=== PATIENT | female | born 1985 | race Caucasian/White ===

== ENCOUNTER 2017-07-08 08:14 | Emergency (ER) | payer OTHER, SELFPAY ==
[2017-07-08 08:15] VITALS: BP 127/106; PULSE 82; RESP 22; TEMP 36.4; O2SAT 99; BMI 39.6
--- NOTE | 2017-07-08 08:22 | CT_ITS ---
STUDY: CT ABDOMEN AND PELVIS WITHOUT CONTRAST REASON FOR EXAM: Female, 32 years old. Right flank pain. History of kidney stones. RADIATION DOSAGE (If Supplied By Facility): CTDIvol = ( 12.91 ) mGy, DLP = ( 651.36 ) mGycm TECHNIQUE: Transaxial images were obtained from the dome of the diaphragm to the symphysis pubis without oral contrast, and without intravenous contrast. Sagittal and coronal images were reconstructed. Individualized dose optimization techniques were used for this CT. COMPARISON: Comparison is made with prior study dated May 19, 2017. FINDINGS: Mild degree of increased markings at the lung bases suggestive of mild dependent bibasilar atelectasis. The visualized portions of the heart are within normal limits. Normal liver. Normal gallbladder and extrahepatic biliary system. Normal spleen. Normal pancreas. Normal bilateral adrenal glands. Stable small nonobstructive right intrarenal calculi. Mild degree of the right hydronephrosis and hydroureter due to a 2 mm calculus at the right ureterovesical junction. Stable small nonobstructive left intrarenal calculi. Normal visualized stomach. Normal small intestine. Normal colon. The appendix is visualized and appears normal. Normal abdominal aorta. Normal inferior vena cava. There is borderline retroperitoneal lymphadenopathy with enlarged nodes no greater than 10mm in the short axis diameter. Normal urinary bladder. Multiple calcified phleboliths are seen in the pelvis. The previously seen right adnexal cyst has resolved. Normal abdominal wall. Mild degenerative changes at the L5-S1 level. CT/Abdomen/Pelvis without Cont IMPRESSION: Right hydronephrosis and hydroureter due to a 2 mm calculus at the right ureterovesical junction. Stable nonobstructive bilateral intrarenal calculi. The previously seen right adnexal cyst has cleared. Electronically Signed: Jerson Trevino MD at 9:49 EST Tel [phone], Service support ,
[2017-07-08] MEDS: Ondansetron 4 MG/2 ML Vial IV (08:35)
[2017-07-08] MEDS: 0.9% Normal Saline 1,000 ML 250 ML IV (08:35)
--- NOTE | 2017-07-08 08:47 | ED.VISSUMM ---
- ER Visit Summary Date of Service: 07/08/17 Chief Complaint: [] Right flank pain for a week history of kidney stones chronic back pain pain management History of Present Illness: The patient is a 32 F [] reports 1 week of right flank pain she has no history of kidney stones, most recently left kidney stone 5 mm diagnosed about 4 weeks ago [facility] she was seen by her urologist in [place], ultrasound showed that kidney stone had passed the hydronephrosis had resolved, she had an recurrence of right flank pain 1 week ago no nausea no vomiting no fever no #6 paresthesias no bowel bladder complaints normal urinary and bowel habits. No trauma. Her urologist did not call her back and she came into the emergency department, she indicates her only surgery is her lumbar back surgery Physical Examination: [] Right flank head exams unremarkable lungs clear heart tones normal abdomen soft nontender the midline back is nontender there is a vague right flank pain. Is a healed incision lumbar back she has full range of motion of her lower extremities she indicates this is not related to her musculoskeletal lumbar back pain is chronic this is more related to prior kidney stone Test Results: [] Emergency Department Course and Treatment: [] Management for pain CT flank labs UA Are generally unremarkable, the CT flank shows a 2 mm stone at the UVJ see that report, explained all the above to her, she is feeling much better, she has an appointment see her urologist in [place] tomorrow she usually treated with Percocet when she has kidney stones, she was given 8 Percocet tablets Flomax Naprosyn and she will follow-up with her family physician for further management and her pain management doctor for further management all the above return for change in symptoms Treatment Plan: [] Disposition: [] Stable Impression: [] Right flank pain related to 2 mm right UVJ stone This note was generated with [employer] dictation software. It may contain incorrect words, spelling, and punctuation that were not noted in review of the chart prior to signing ED Disposition - Plan for ED Patient: Chief Complaint: Flank Pain Referrals: Kiel Vanegas [Primary Care Provider] -
[2017-07-08 08:49] LABS: Absolute Lymphocyte Count 1.95 X10^3/ul (0.83-4.51); Absolute Neutrophil Count 5.3 X10^3/uL (2.0-7.7); Basophil# 0.05 X10^3/uL; Basophil% 0.6 % (0-1); Eosinophil# 0.15 X10^3/uL; Eosinophils% 1.9 % (0-5); Hematocrit 38.3 % (37-47); Hemoglobin 12.7 g/dl (12.0-15.0); Lymphocyte # 1.95 X10^3/ul (4.0); Lymphocyte % 24.8 % (19-41); Mean Corp Hgb Conc 33.2 g/gl (32-36); Mean Corpuscular Hgb 30.5 pg (27.0-32.0); Mean Corpuscular Volume 91.8 fL (81-99); Mean Platelet Vol. 10.5 fl (6.2-12.0); Monocyte% 5.1 % (0-10); Neutrophil # 5.31 X10^3/uL (2.7-7.7); Neutrophil % 67.5 % (47-70); POSITIVE COUNT NO; POSITIVE DIFFERENTIAL NO; POSITIVE MORPHOLOGY NO; Platelet Count 231 K/mm3 (150-450); RBC Distribution Width SD 43.2 fl (35.1-43.9); Red Blood Count 4.17 M/mm3 (4.2-5.4); White Blood Count 7.9 K/mm3 (4.4-11.0)
[2017-07-08 09:00] LABS: Anion Gap 11 (5-15); BUN 11 mg/dL (7-18); Calcium,Total 9.2 mg/dL (8.5-10.1); Chloride 109 mmol/L (98-107); Creatinine, Serum 0.92 mg/dL (0.55-1.02); EST Glomerular Filtration Rate 76 mL/min (>60); Est Glom Filt Rate - Afr Amer 92 mL/min (>60); Estimated Creatinine Clearance 63.06 ml/min; Glucose 90 mg/dL (74-106); Potassium 4.2 mmol/L (3.5-5.1); Sodium Level 143 mmol/L (136-145)
[2017-07-08 09:23] LABS: Pregnancy, Serum, hCG Quali. NEGATIVE Negative (0-9 Nonpreg)
--- NOTE | 2017-07-08 10:27 | ED.DEP ---
ED Disposition - Plan for ED Patient: Chief Complaint: Flank Pain Instructions: ED Stone Renal W Colic Prescriptions: Oxycodone HCl/Acetaminophen [Percocet 5/325] 1 tab PO Q6H PRN PRN #8 tab PRN Reason: Pain Naproxen [Naprosyn] 500 mg PO BID PRN #20 tab Tamsulosin HCl [Flomax] 0.4 mg PO DAILY 14 Days cap Referrals: Kiel Vanegas [Primary Care Provider] - Additional Instructions: Your urologist tomorrow
[2017-07-08 10:39] LABS: Mucous, Urine 0 SEEN /hpf (<or=2+); Red Blood Cells-Urine 0 SEEN /hpf (0-5)
[2017-07-08 10:40] LABS: Color, Urine Yellow (Yellow); Glucose, Dipstick Normal (Normal); Ketone-Dipstick Negative (Negative); Leukocyte Esterase-Dipstick Negative /ul (Negative); Nitrite-Dipstick Negative (Negative); Occult Blood-Urine 25 /ul (Negative); Protein-Dipstick Negative (Negative); Urine Bilirubin Dipstick Negative (Negative); Urine Clarity Clear (Clear); Urine Urobilinogen Normal (Normal)
[2017-07-08 10:48] LABS: Bacteria RARE /hpf (None Seen); Squamous Epithelial Cells - UA 0-5 SEEN /hpf (5-10); White Blood Cells 0-5 SEEN /hpf (0-5)
[2017-07-08 11:07] VITALS: BP 127/88; PULSE 84; RESP 20; O2SAT 97
[2017-07-08 11:48] VITALS: BP 127/64; PULSE 67; RESP 18; O2SAT 96
== END 2017-07-08 11:49 | disposition home or self-care (01) ==
PROVIDERS: Emergency Provider Emergency Medicine; Family Provider Internal Medicine; PCP Internal Medicine
DX: R10.9 Unspecified abdominal pain (principal); N13.2 Hydronephrosis with renal and ureteral calculous obstruction; M54.9 Dorsalgia, unspecified; G89.29 Other chronic pain; Z79.899 Other long term (current) drug therapy; Z87.442 Personal history of urinary calculi
CPT/HCPCS: 74176; 80048; 81001; 84703; 85025; 96361; 96374; 96375; 99285; J7030; J2405

== ENCOUNTER → 2017-09-08 15:16 | Outpatient (CLI) | payer OTHER, SELFPAY ==
--- NOTE | 2017-09-08 15:20 | MRI_ITS ---
STUDY: MRI LUMBAR SPINE WITHOUT CONTRAST REASON FOR EXAM: Female, 32 years old. Low back pain with bilateral sciatica status post laminectomy and discectomy TECHNIQUE: Standardized fat and water weighted pulse sequences were obtained in the sagittal and axial planes. COMPARISON: None FINDINGS: T12-L1: Normal endplates. Normal disc height, hydration and morphology. Normal bilateral facet joints. Normal central canal and bilateral lateral recesses. Normal bilateral intervertebral neural foramina. Normal lumbar lordosis. There is no substantial scoliosis. Normal conus medullaris that terminates at L1 L1-2: Normal endplates. Normal disc height, hydration and minimal annular bulge.. Normal bilateral facet joints. Normal central canal and bilateral lateral recesses. Normal bilateral intervertebral neural foramina. L2-3: Normal endplates. Normal disc height, hydration and minimal annular bulge. Normal bilateral facet joints. Normal central canal and bilateral lateral recesses. Normal bilateral intervertebral neural foramina. L3-4: Normal endplates. Normal disc height, hydration and minimal annular bulge.. Normal bilateral facet joints. Normal central canal and bilateral lateral recesses. Normal bilateral intervertebral neural foramina. L4-5: Status post right laminotomy Normal endplates. Normal disc height, hydration and mild annular bulge.. Mild facet arthropathy and thickening of ligamenta flava.. Normal central canal. Mild bilateral recess and neural foraminal encroachment. L5-S1: Status post right laminotomy. Degenerative endplate changes.. Normal disc height, desiccation and moderate annular bulge.. Bilateral facet arthropathy. Normal central canal. Moderate to severe bilateral recess and neuroforaminal stenosis exaggerated by shortened pedicles. Normal visualized sacral ala. Normal visualized paraspinous soft tissue structures. MRI/Spine Lumbar (Routine) IMPRESSION: Mild spinal stenosis at L4-5 and more severe bilateral stenosis at L5-S1 secondary to bulging annulus and facet arthropathy exaggerated by shortened pedicles. Findings as above Electronically Signed: Luis Young MD at 17:14 EDT , Service support ,
== END ==
PROVIDERS: Family Provider Nurse Practitioner Family; PCP Nurse Practitioner Family; Visit Provider Anesthesiology Pain Medicine
DX: M54.9 Dorsalgia, unspecified (principal); M79.606 Pain in leg, unspecified
CPT/HCPCS: 72148

== ENCOUNTER → 2018-01-06 17:00 | Outpatient (CLI) | payer OTHER, SELFPAY ==
[2018-01-06 20:24] LABS: Amphetamine Urine VISTA NEGATIVE (<1000 ng/mL); Barbiturate Urine VISTA NEGATIVE (< 200 ng/mL); Benzodiazepine Urine VISTA NEGATIVE (< 200 ng/mL); Cocaine Urine VISTA NEGATIVE (< 300 ng/mL); Ecstacy Urine VISTA NEGATIVE (< 500 ng/mL); Methadone Urine VISTA NEGATIVE (< 300 ng/mL); PCP Urine VISTA NEGATIVE (< 25 ng/mL); THC Urine VISTA NEGATIVE (< 50 ng/mL); Vista UDS pH Range 5
== END ==
PROVIDERS: Family Provider Nurse Practitioner Family; PCP Nurse Practitioner Family; Visit Provider Anesthesiology Pain Medicine
DX: F11.20 Opioid dependence, uncomplicated (principal)
CPT/HCPCS: 80307

== ENCOUNTER → 2018-01-25 14:59 | Outpatient (CLI) | payer OTHER, SELFPAY | PROVIDERS: Family Provider Nurse Practitioner Family; PCP Nurse Practitioner Family; Visit Provider Orthopaedic Surgery | DX: M54.5 Low back pain (principal) | CPT/HCPCS: 72110 ==

== ENCOUNTER 2018-03-10 11:04 | Emergency (ER) | payer OTHER, SELFPAY ==
[2018-03-10 11:06] VITALS: BP 146/94; PULSE 83; RESP 18; TEMP 36.2; O2SAT 96; BMI 40.8
--- NOTE | 2018-03-10 11:52 | CT_ITS ---
STUDY: CT ABDOMEN AND PELVIS WITHOUT CONTRAST REASON FOR EXAM: Female, 32 years old. RT FLANK PAIN X 3 DAYS,DARK URINE, GERD, HX-KS, HYSTER, X 3 RADIATION DOSAGE (If Supplied By Facility): CTDIvol = ( 15.07 ) mGy, DLP = ( 782.96 ) mGycm TECHNIQUE: Transaxial images were obtained from the dome of the diaphragm to the symphysis pubis without oral contrast, and without intravenous contrast. Sagittal and coronal images were reconstructed. Individualized dose optimization techniques were used for this CT. COMPARISON: July 08, 2017 CT abdomen and pelvis FINDINGS: Minimal dependent hypoventilatory changes seen at the lung bases. No pleural effusion. The visualized portions of the heart are within normal limits. Normal liver. Normal gallbladder and extrahepatic biliary system. Normal spleen. Normal pancreas. Normal bilateral adrenal glands. Punctate nephrolithiasis is noted of the kidneys bilaterally. The kidneys are normal in size position and contour. There does however appear moderate hydronephrosis and distention of the right proximal ureter with an obstructing calculus measuring approximately 4.5 x 4 mm as seen on image number 93 series 189. Normal left kidney. Normal visualized stomach. Normal small intestine. Normal colon. The appendix is visualized and appears normal. Normal abdominal aorta. Normal inferior vena cava. Normal retroperitoneum. Normal urinary bladder. Multiple phleboliths are present in the deep pelvis. Normal abdominal wall. Degenerative spondylosis of the spine is noted with vacuum disc phenomenon at L5-S1. CT/Abdomen/Pelvis without Cont IMPRESSION: Bilateral nephrolithiasis with obstructing calculus measuring approximately 4.5 x 4 mm in the proximal right ureteropelvic junction. Previous distal right ureterovesical junction calculus no longer present. Electronically Signed: Myriam Gonzalez MD at 13:31 EDT , Service support ,
[2018-03-10 12:12] LABS: White Blood Cells 0 SEEN /hpf (0-5)
[2018-03-10 12:15] LABS: Color, Urine Yellow (Yellow); Glucose, Dipstick Normal (Normal); Ketone-Dipstick Negative (Negative); Leukocyte Esterase-Dipstick Negative /ul (Negative); Nitrite-Dipstick Negative (Negative); Occult Blood-Urine 250 /ul (Negative); Protein-Dipstick 30 mg/dl (Negative); Specific Gravity, Urine 1.015 (1.002-1.030); Urine Bilirubin Dipstick Negative (Negative); Urine Clarity Clear (Clear); Urine Urobilinogen Normal (Normal)
[2018-03-10 12:21] LABS: Bacteria 2+ /hpf (None Seen); Mucous, Urine 2+ /hpf (<or=2+); Red Blood Cells-Urine 5-10 SEEN /hpf (0-5); Squamous Epithelial Cells - UA 5-10 SEEN /hpf (5-10)
[2018-03-10] MEDS: 0.9% Normal Saline 1,000 ML 250 ML IV (12:38)
[2018-03-10] MEDS: Ketorolac 30 MG/ML Syringe IV (12:39)
[2018-03-10] MEDS: Morphine 4 MG/ML Syringe IV (12:39)
[2018-03-10] MEDS: Ondansetron 4 MG/2 ML Vial IV (12:39)
[2018-03-10 13:31] LABS: Anion Gap 5 (5-15); BUN 11 mg/dL (7-18); BUN/Creat Ratio 13.9 RATIO (10-20); Calcium,Total 8.4 mg/dL (8.5-10.1); Chloride 113 mmol/L (98-107); Creatinine, Serum 0.79 mg/dL (0.55-1.02); EST Glomerular Filtration Rate 89 mL/min (>60); Est Glom Filt Rate - Afr Amer 108 mL/min (>60); Estimated Creatinine Clearance 73.43 ml/min; Glucose 71 mg/dL (74-106); Potassium 4.3 mmol/L (3.5-5.1); Sodium Level 134 mmol/L (136-145)
[2018-03-10 13:39] VITALS: BP 114/81; PULSE 67; RESP 16; O2SAT 100
--- NOTE | 2018-03-10 13:40 | ED.RN ---
called lab, multiple RNs and Medics have attempted blood draw
[2018-03-10 14:12] LABS: Absolute Lymphocyte Count 2.32 X10^3/ul (0.83-4.51); Absolute Neutrophil Count 6.9 X10^3/uL (2.0-7.7); Basophil# 0.08 X10^3/uL; Basophil% 0.8 % (0-1); Eosinophil# 0.13 X10^3/uL; Eosinophils% 1.3 % (0-5); Hematocrit 38.1 % (37-47); Hemoglobin 12.8 g/dl (12.0-15.0); Lymphocyte # 2.32 X10^3/ul (4.0); Lymphocyte % 23.2 % (19-41); Mean Corp Hgb Conc 33.6 g/gl (32-36); Mean Corpuscular Hgb 30.3 pg (27.0-32.0); Mean Corpuscular Volume 90.1 fL (81-99); Monocyte# 0.55 X10^3/uL; Monocyte% 5.5 % (0-10); Neutrophil # 6.87 X10^3/uL (2.7-7.7); Neutrophil % 68.9 % (47-70); Platelet Count 227 K/mm3 (150-450); Red Blood Count 4.23 M/mm3 (4.2-5.4)
[2018-03-10 14:13] LABS: Differential Indicated SCAN CRITERIA MET; POSITIVE COUNT YES; POSITIVE DIFFERENTIAL NO; POSITIVE MORPHOLOGY YES
--- NOTE | 2018-03-10 15:05 | ED.VISSUMM ---
- ER Visit Summary Date of Service: 03/10/18 Chief Complaint: Right flank pain History of Present Illness: The patient is a 32 F who presents with right flank pain for 3 days. Patient states that it was just in her back and has now seemed to be wrapping around to the front. He has a history of kidney stones and states this feels very similar and that is sharp and stabbing. She notes some associated nausea but no vomiting. She also notes some dysuria and urinary frequency. She sees a urologist in [place] but has not required any interval surgical intervention for her kidney stones. Physical Examination: Afebrile vital signs are stable Gen: Well-nourished well-developed patient appears uncomfortable sitting in the bed Head: Normocephalic atraumatic Eyes: Perrl EOMI ENT: TMs clear no rhinorrhea moist mucous membranes Neck: Supple no lymphadenopathy no JVD nontender CVS: Regular rate rhythm no murmurs normal S1-S2 Respiratory: No distress clear to auscultation bilaterally chest nontender Abdomen: Soft nontender nondistended normal bowel sounds no masses Back: Mild right CVA tenderness Extremity: Nontender no edema Skin: Normal color no rash Neuro: alert orientated ?3 CN II-XII intact normal strength sensation reflexes gait cerebellar Psych: Normal affect normal mood Test Results: Urine showed some contamination with epithelial cells but no overt infection. CT the flank demonstrated a 4.5 x 4 mm UPJ stone. Creatinine normal. P Emergency Department Course and Treatment: Patient received Toradol morphine Zofran and IV fluids. Her pain is significantly improved. She tells me she has had excellent relief with Percocet in the past and I will write for that as well as some Zofran. Return if worsening or concerns and follow-up with her urologist Impression: 1. Right ureterolithiasis with renal colic This note was generated with [employer] dictation software. It may contain incorrect words, spelling, and punctuation that were not noted in review of the chart prior to signing ED Disposition - Plan for ED Patient: Disposition: Home or Assisted Living Chief Complaint: Flank Pain Instructions: ED Stone Renal W Colic Prescriptions: Oxycodone HCl/Acetaminophen [Percocet 5/325] 1 tab PO Q6H PRN PRN 3 Days #12 tab PRN Reason: Pain Ondansetron [Zofran Odt] 4 mg PO Q8H PRN PRN #10 tab PRN Reason: Nausea
== END 2018-03-10 15:15 | disposition home or self-care (01) ==
PROVIDERS: Emergency Provider Emergency Medicine; Family Provider Nurse Practitioner Family; PCP Nurse Practitioner Family
DX: N20.1 Calculus of ureter (principal); Z79.899 Other long term (current) drug therapy; Z87.442 Personal history of urinary calculi
CPT/HCPCS: 36415; 74176; 80048; 81001; 85025; 96361; 96374; 96375; 99285; J7030; J2405

== ENCOUNTER 2018-04-04 10:23 | Emergency (ER) | payer OTHER, SELFPAY ==
[2018-04-04 10:24] VITALS: BP 157/110; PULSE 91; RESP 15; TEMP 36.2; BMI 40.6
--- NOTE | 2018-04-04 10:50 | CT_ITS ---
STUDY: CT ABDOMEN AND PELVIS WITHOUT CONTRAST REASON FOR EXAM: Female, 32 years old. Right flank pain RADIATION DOSAGE (If Supplied By Facility): CTDIvol = ( 13.72 ) mGy, DLP = ( 655.93 ) mGycm TECHNIQUE: Transaxial images were obtained from the dome of the diaphragm to the symphysis pubis without oral contrast, and without intravenous contrast. Sagittal and coronal images were reconstructed. Individualized dose optimization techniques were used for this CT. COMPARISON: 03/10/2018 FINDINGS: The visualized lung bases are unremarkable. The visualized portions of the heart are within normal limits. Normal liver. Normal gallbladder and extrahepatic biliary system. Normal spleen. Normal pancreas. Normal bilateral adrenal glands. A 5 mm stone is present in the distal right ureter at the level of the ureterovesical junction. Changes of moderate acute obstructive uropathy on the right. The visualized obstructing stone has likely migrated from the more proximal ureter as seen on most recent study. Bilateral nonobstructing renal stones measuring up to 3 mm. Normal visualized stomach. Normal small intestine. Normal colon. The appendix is visualized and appears normal. Normal abdominal aorta. Normal inferior vena cava. Normal retroperitoneum. Normal urinary bladder. Normal abdominal wall. Normal osseous structures. CT/Abdomen/Pelvis without Cont IMPRESSION: A 5 mm stone is present in the distal right ureter at the level of the ureterovesical junction. Changes of moderate acute obstructive uropathy on the right. The visualized obstructing stone has likely migrated from the more proximal ureter as seen on most recent study. Electronically Signed: Bronson Walden MD at 12:48 EST Tel , Service support ,
[2018-04-04] MEDS: Morphine 4 MG/ML Syringe IV (10:59)
[2018-04-04] MEDS: Ondansetron 4 MG/2 ML Vial IV (10:59)
[2018-04-04] MEDS: 0.9% Normal Saline 1,000 ML 250 ML IV (10:59)
[2018-04-04] MEDS: Ketorolac 30 MG/ML Syringe IV (10:59)
[2018-04-04 11:31] LABS: Pregnancy, Serum, hCG Quali. NEGATIVE Negative (0-9 Nonpreg)
[2018-04-04 13:49] LABS: Mucous, Urine 0 SEEN /hpf (<or=2+); Red Blood Cells-Urine 0 SEEN /hpf (0-5)
[2018-04-04 13:50] LABS: Color, Urine Yellow (Yellow); Glucose, Dipstick Normal (Normal); Ketone-Dipstick Negative (Negative); Leukocyte Esterase-Dipstick 25 /ul (Negative); Nitrite-Dipstick Negative (Negative); Occult Blood-Urine 50 /ul (Negative); Protein-Dipstick Negative (Negative); Urine Bilirubin Dipstick Negative (Negative); Urine Clarity Sl. Cloudy (Clear); Urine Urobilinogen Normal (Normal)
[2018-04-04 13:58] LABS: Bacteria RARE /hpf (None Seen); Squamous Epithelial Cells - UA 0-5 SEEN /hpf (5-10); White Blood Cells 0-5 SEEN /hpf (0-5)
--- NOTE | 2018-04-04 14:29 | ED.DCSUM_ITS ---
- ER Visit Summary Date of Service: 04/04/18 Chief Complaint: Right flank pain History of Present Illness: The patient is a 32 F who sees a urologist in [place]. She reports she has right flank pain that began abruptly today. Is 10 out of 10 severity and she describes it as a sharp. She has been nauseated with it. She has not vomited. She had frequent urination with small volumes. She denies any fever or chills. Physical Examination: Vitals: Stable. Afebrile. General: Well-nourished and well-developed. Head: Normocephalic atraumatic. Neck: Supple, no lymphadenopathy. No JVD. Nontender. Cardiovascular: Regular rate and rhythm. No murmurs. Respiratory: No respiratory distress. Clear to auscultation bilaterally. Abdominal: Soft, nontender, nondistended, normal bowel sounds. No guarding, rebound, or peritoneal signs. Back: Nontender. Extremities: Nontender, no edema. Skin: Normal color, no rash. Neurologic: Alert and oriented ?3. Cranial nerves II through XII are intact. Normal strength and sensation. Psych: Normal affect. Test Results: UA shows no infection. CT flank shows a 5 mm stone in the right distal ureter at the UVJ. Emergency Department Course and Treatment: Patient was treated with morphine, Toradol, and Zofran IV. She is resting comfortably. Treatment Plan: Patient be discharged naproxen, Zofran, and Percocet. Instructed to follow-up with her urologist in 1 week if she does not pass the stone. Return to the emergency department for any worsening symptoms. Disposition: To home in improved and stable condition. Impression: 1. Right ureterolithiasis. This note was generated with [employer] dictation software. It may contain incorrect words, spelling, and punctuation that were not noted in review of the chart prior to signing ED Disposition - Plan for ED Patient: Disposition: Home or Assisted Living Chief Complaint: Flank Pain Instructions: ED Stone Renal W Colic Prescriptions: Oxycodone HCl/Acetaminophen [Percocet 5/325] 1 tablet PO Q6H PRN PRN 3 Days #12 tablet PRN Reason: Pain Ondansetron [Zofran Odt] 4 mg PO Q8H PRN PRN #10 tablet PRN Reason: Nausea Naproxen [Naprosyn] 500 mg PO BID #14 tablet Referrals: Doctor,Your [STAFF PHYSICIAN] - 1 Week if not improving
[2018-04-04 14:48] VITALS: BP 119/78; PULSE 62; RESP 16; O2SAT 100
== END 2018-04-04 14:49 | disposition home or self-care (01) ==
LOC: ED 11:11
PROVIDERS: Emergency Provider Emergency Medicine; Family Provider Nurse Practitioner Family; PCP Nurse Practitioner Family
DX: N20.1 Calculus of ureter (principal); E03.9 Hypothyroidism, unspecified; F41.9 Anxiety disorder, unspecified; Z72.0 Tobacco use; Z79.899 Other long term (current) drug therapy; Z87.442 Personal history of urinary calculi
CPT/HCPCS: 74176; 81001; 84703; 96361; 96374; 96375; 99283; J7030; J2405

== ENCOUNTER → 2018-09-08 16:32 | Outpatient (CLI) | payer OTHER, SELFPAY ==
[2018-09-08 16:32] VITALS: BMI 39.6
[2018-09-08 18:09] LABS: Amphetamine Urine VISTA NEGATIVE (<1000 ng/mL); Barbiturate Urine VISTA NEGATIVE (< 200 ng/mL); Benzodiazepine Urine VISTA NEGATIVE (< 200 ng/mL); Cocaine Urine VISTA NEGATIVE (< 300 ng/mL); Ecstacy Urine VISTA NEGATIVE (< 500 ng/mL); Methadone Urine VISTA NEGATIVE (< 300 ng/mL); PCP Urine VISTA NEGATIVE (< 25 ng/mL); THC Urine VISTA NEGATIVE (< 50 ng/mL); Vista UDS pH Range 5
== END ==
PROVIDERS: Family Provider Nurse Practitioner Family; PCP Nurse Practitioner Family; Referring Provider Anesthesiology Pain Medicine; Visit Provider Anesthesiology Pain Medicine
DX: F11.20 Opioid dependence, uncomplicated (principal)
CPT/HCPCS: 80307

== ENCOUNTER 2018-09-23 11:15 | Emergency (ER) | payer OTHER, SELFPAY ==
[2018-09-08 16:32] VITALS: BMI 39.6
[2018-09-23 11:17] VITALS: BP 151/87; PULSE 108; RESP 16; TEMP 37; O2SAT 100; BMI 34.2
--- NOTE | 2018-09-23 11:32 | CT_ITS ---
STUDY: CT ABDOMEN AND PELVIS WITHOUT CONTRAST REASON FOR EXAM: Female, 33 years old. Right flank pain. RADIATION DOSAGE (If Supplied By Facility): CTDIvol = ( 14.87 ) mGy, DLP = ( 802.44 ) mGycm TECHNIQUE: Transaxial images were obtained from the dome of the diaphragm to the symphysis pubis without oral contrast, and without intravenous contrast. Sagittal and coronal images were reconstructed. Individualized dose optimization techniques were used for this CT. COMPARISON: April 04, 2018. FINDINGS: Lung bases: Mild dependent changes. Heart: Unremarkable. Liver: Hepatic steatosis. No focal hepatic lesions given noncontrast technique. Gallbladder/biliary ducts: Unremarkable. Pancreas: Unremarkable. Spleen: Unremarkable. Adrenal glands: Unremarkable. Kidneys/ureters/bladder: Mild right hydroureteronephrosis without visualized ureteral or bladder stone. Nondistended left ureter. Bilateral punctate nonobstructing renal stones measuring up to 3 mm (axial images 62 through 82 series 2). No significant inflammatory changes surrounding the kidneys. Minimal right periureteral fat stranding. Normal urinary bladder wall. Uterus/adnexa: Multiple pelvic phleboliths. Partial hysterectomy. No adnexal lesions. Large bowel/small bowel: No acute small bowel or large bowel process. Appendix: Unremarkable (axial image 134 series 2). Gastroesophageal junction/stomach: Unremarkable. Retroperitoneum/lymph nodes: No intra-abdominal free air. No ascites. No pathologically enlarged lymph nodes. Vascular: Unremarkable. Osseous structures: L5-S1 degenerative changes with significant neural foraminal narrowing. No acute process. Subcutaneous/soft tissues: No acute process. CT/Abdomen/Pelvis without Cont IMPRESSION: Mild right hydroureteronephrosis and mild periureteral inflammatory changes without visualized ureteral or bladder stone (possibly recently passed stone versus UTI; correlate urinalysis) Additional bilateral nonobstructing renal stones measuring up to 3 mm Hepatic steatosis Electronically Signed: Donald Roldan DO at 12:49 EDT Tel , Service support ,
[2018-09-23] MEDS: Ketorolac 30 MG/ML Syringe IV (12:12)
[2018-09-23] MEDS: Ondansetron 4 MG/2 ML Vial IV (12:12)
[2018-09-23 12:13] LABS: Mucous, Urine 0 SEEN /hpf (<or=2+)
[2018-09-23] MEDS: 0.9% Normal Saline 1,000 ML 150 ML IV (12:13)
[2018-09-23] MEDS: 0.9% Normal Saline 1,000 ML 1000 ML IV (12:13)
[2018-09-23 12:16] LABS: Color, Urine Yellow (Yellow); Glucose, Dipstick Normal (Normal); Ketone-Dipstick Negative (Negative); Leukocyte Esterase-Dipstick 500 /ul (Negative); Nitrite-Dipstick Positive (Negative); Occult Blood-Urine 250 /ul (Negative); Protein-Dipstick 100 mg/dl (Negative); Specific Gravity, Urine 1.015 (1.002-1.030); Urine Bilirubin Dipstick Negative (Negative); Urine Clarity Cloudy (Clear); Urine Urobilinogen Normal (Normal)
[2018-09-23 12:19] LABS: Absolute Lymphocyte Count 1.02 X10^3/ul (0.83-4.51); Absolute Neutrophil Count 7.4 X10^3/uL (2.0-7.7); Basophil# 0.02 X10^3/uL; Basophil% 0.2 % (0-1); Eosinophil# 0.05 X10^3/uL; Eosinophils% 0.6 % (0-5); Hematocrit 37.1 % (37-47); Hemoglobin 12.1 g/dl (12.0-15.0); Lymphocyte # 1.02 X10^3/ul (4.0); Lymphocyte % 11.3 % (19-41); Mean Corp Hgb Conc 32.6 g/gl (32-36); Mean Corpuscular Hgb 29.1 pg (27.0-32.0); Mean Corpuscular Volume 89.2 fL (81-99); Mean Platelet Vol. 10.1 fl (6.2-12.0); Monocyte# 0.49 X10^3/uL; Monocyte% 5.4 % (0-10); Neutrophil # 7.41 X10^3/uL (2.7-7.7); Neutrophil % 82.2 % (47-70); Platelet Count 158 K/mm3 (150-450); RBC Distribution Width CV 13.3 % (11.6-14.6); RBC Distribution Width SD 42.7 fl (35.1-43.9); Red Blood Count 4.16 M/mm3 (4.2-5.4)
[2018-09-23 12:26] LABS: POSITIVE COUNT NO; POSITIVE DIFFERENTIAL NO; POSITIVE MORPHOLOGY NO
[2018-09-23 12:27] LABS: Anion Gap 7 (5-15); BUN 12 mg/dL (7-18); BUN/Creat Ratio 14.2 RATIO (10-20); Calcium,Total 8.8 mg/dL (8.5-10.1); Chloride 110 mmol/L (98-107); Creatinine, Serum 0.84 mg/dL (0.55-1.02); EST Glomerular Filtration Rate 83 mL/min (>60); Est Glom Filt Rate - Afr Amer 100 mL/min (>60); Estimated Creatinine Clearance 85.72 ml/min; Glucose 88 mg/dL (74-106); Potassium 3.7 mmol/L (3.5-5.1); Sodium Level 141 mmol/L (136-145)
[2018-09-23 12:29] LABS: White Blood Cells >100 SEEN /hpf (0-5)
[2018-09-23 12:30] LABS: Bacteria 4+ /hpf (None Seen); Red Blood Cells-Urine 0-5 SEEN /hpf (0-5); Squamous Epithelial Cells - UA 0-5 SEEN /hpf (5-10)
--- NOTE | 2018-09-23 13:47 | ED.DCSUM_ITS ---
- ER Visit Summary Date of Service: 09/23/18 Chief Complaint: Right flank pain History of Present Illness: The patient is a 33 F with dysuria for the past couple of days. She states her urine is cloudy. Today she developed right flank pain. She does have a history of kidney stones. She has had prior hys terectomy. Physical Examination: Vital signs remarkable only for mild tachycardia. Temperature is 98.6. Head and neck examination is normal. Heart is regular rate and rhythm. Lung sounds are clear. Abdomen is soft with no focal tenderness. Back examination does reveal right CVA tenderness. Test Results: CBC and chemistry studies are normal. Urinalysis is positive for nitrites, greater than 100 white cells, 4+ bacteria. CT flank shows mild right hydroureteronephrosis with inflammatory changes. There is no visualized stone. Emergency Department Course and Treatment: Patient was given Toradol, Zofran, and IV fluids. On repeat evaluation she is resting comfortably. She will be treated with a 10-day course of Bactrim. Urine will be sent for culture. Treatment Plan: [] Disposition: Discharge Impression: Right-sided pyelonephritis This note was generated with [employer] dictation software. It may contain incorrect words, spelling, and punctuation that were not noted in review of the chart prior to signing ED Disposition - Plan for ED Patient: Disposition: Home or Assisted Living Instructions: ED Kidney Infec Female Prescriptions: Ondansetron [Zofran Odt] 4 mg PO Q8H PRN PRN #10 tablet PRN Reason: Nausea Fluconazole [Diflucan] 150 mg PO X1 #1 tablet Smz/Tmp Ds [Bactrim Ds] 1 tablet PO BID #20 tablet Ketorolac [Toradol] 10 mg PO Q6H PRN #14 tablet PRN Reason: Pain Referrals: Elinor Castellanos, EDUIN-C [Primary Care Provider] - 1 Week
[2018-09-23 13:50] VITALS: BP 163/93; PULSE 99; RESP 20; O2SAT 100
[2018-09-23] MEDS: Smz/Tmp Ds Tablet 1 TABLET PO (13:50)
== END 2018-09-23 14:03 | disposition home or self-care (01) ==
PROVIDERS: Emergency Provider Emergency Medicine; Family Provider Nurse Practitioner Family; PCP Nurse Practitioner Family
DX: N13.6 Pyonephrosis (principal); R00.0 Tachycardia, unspecified; Z72.0 Tobacco use; Z87.442 Personal history of urinary calculi; Z90.710 Acquired absence of both cervix and uterus
CPT/HCPCS: 74176; 80048; 81001; 85025; 87077; 87086; 87088; 87186; 96361; 96374; 96375; 99284; J7030; J2405

== ENCOUNTER 2018-10-23 09:55 | Emergency (ER) | payer OTHER, SELFPAY ==
[2018-10-23 09:55] VITALS: BP 121/75; PULSE 86; RESP 19; TEMP 36.4; O2SAT 99; BMI 38.5
--- NOTE | 2018-10-23 10:07 | ED.VISSUMM ---
- ER Visit Summary Date of Service: 10/23/18 Chief Complaint: Vaginal irritation, dysuria History of Present Illness: The patient is a 33 F presents to the emergency department vaginal irritation and dysuria. The patient does have a history of recurrent urine tract infection and pyelonephritis. She was actually seen here just about a month ago. At that time, she was diagnosed with pyelonephritis. Patient was placed on Bactrim. She was still having symptoms and follow-up with the PCP. She was started on Keflex and finished a 7-day course. She completed the 7 days ago. Her course was complicated by yeast vaginitis. She was given a Diflucan and that seemed to help. However, over the past 2 days she has had some burning with urination and almost feels like spasm at her urethra. She denies fevers. She denies back pain. She denies any other systemic complaints. Physical Examination: Vital signs reviewed General: Well-nourished, well-developed Head: Normocephalic, atraumatic Eyes: Pupils equal and reactive, extraocular muscles intact Neck, supple, no lymphadenopathy Heart: Regular rate and rhythm Respiratory: No distress, clear bilaterally Abdomen: Soft, nontender, nondistended, no peritoneal signs Back: Nontender Extremities: Nontender, no edema, no cords Skin: Normal color no rash Neuro: Alert and oriented, no focal or lateralizing deficits Test Results: [] Emergency Department Course and Treatment: The patient was able to urinate without issue. However, it appears that she did pass a stone in her urine cup. Urine does not show evidence of infection. There was a lot of blood. I did do a supervised genital exam with female nurse drying unit felting machine operator. There is no irritation, edema, discharge, or bleeding. My suspicion is that the patient's pain was likely from passing a stone. She is now pain-free. I do not see indication for antibiotics. She will be discharged home. Treatment Plan: [] Disposition: Discharge Impression: 1. Urolithiasis-past This note was generated with [employer] dictation software. It may contain incorrect words, spelling, and punctuation that were not noted in review of the chart prior to signing ED Disposition - Plan for ED Patient: Disposition: Home or Assisted Living Instructions: ED Stone Renal Passed Referrals: Elinor Castellanos NP-C [Primary Care Provider] -
[2018-10-23 10:20] LABS: Bacteria 0 SEEN /hpf (None Seen)
[2018-10-23 10:26] LABS: Internal QC Validated? YES +Cl - CLEAR BKGD; Pregnancy, Urine Negative Negative
[2018-10-23 10:28] LABS: Color, Urine Yellow (Yellow); Glucose, Dipstick Normal (Normal); Ketone-Dipstick 5 mg/dl (Negative); Leukocyte Esterase-Dipstick 100 /ul (Negative); Nitrite-Dipstick Negative (Negative); Occult Blood-Urine 250 /ul (Negative); Protein-Dipstick 30 mg/dl (Negative); Specific Gravity, Urine 1.025 (1.002-1.030); Urine Bilirubin Dipstick Negative (Negative); Urine Clarity Sl. Cloudy (Clear); Urine Urobilinogen 1 mg/dl (Normal)
[2018-10-23 10:33] LABS: Mucous, Urine 2+ /hpf (<or=2+); Red Blood Cells-Urine 50-100 SEEN /hpf (0-5); Squamous Epithelial Cells - UA 0-5 SEEN /hpf (5-10); White Blood Cells 0-5 SEEN /hpf (0-5)
== END 2018-10-23 10:48 | disposition home or self-care (01) ==
LOC: ED 10:21
PROVIDERS: Emergency Provider Emergency Medicine; Family Provider Nurse Practitioner Family; PCP Nurse Practitioner Family
DX: N20.9 Urinary calculus, unspecified (principal); K21.9 Gastro-esophageal reflux disease without esophagitis; F41.9 Anxiety disorder, unspecified; Z72.0 Tobacco use; Z79.899 Other long term (current) drug therapy; Z87.440 Personal history of urinary (tract) infections
CPT/HCPCS: 81001; 81025; 99282

== ENCOUNTER 2018-11-22 17:18 | Emergency (ER) | payer OTHER, SELFPAY ==
[2018-11-22 17:19] VITALS: BP 121/82; PULSE 89; RESP 17; TEMP 36.3; O2SAT 97; BMI 37.2
--- NOTE | 2018-11-22 17:49 | ED.DEP ---
ED Disposition - Plan for ED Patient: Instructions: DERMATITIS, Non-Specific Prescriptions: Prednisone [Deltasone] 40 mg PO DAILY #10 tablet Referrals: Elinor Castellanos NP-C [Primary Care Provider] -
--- NOTE | 2018-11-22 17:58 | ED.VISSUMM ---
- ER Visit Summary Date of Service: 11/22/18 Chief Complaint: Rash History of Present Illness: The patient is a 33 F presenting with rash. She states this started approximately a week ago. She does not recall any known new irritants. She complains of itching bilateral forearms. She has tried hydrocortisone cream at home. She was outside before this started. No one in her household has similar complaints. She denies fever. Denies other complaints. Physical Examination: Vitals are stable. Patient is afebrile. Alert no acute distress. HEENT exam is unremarkable. No mucous membrane involvement Neck is supple. Lungs are clear and equal bilaterally. Heart is regular rate and rhythm. Extremities maculopapular rash volar aspect of bilateral forearms. Skin is warm and dry. No focal neurologic deficit. Remainder of exam is unremarkable. Emergency Department Course and Treatment: Patient was given prednisone and a short course of prednisone. She is advised to take Benadryl for itching. She is advised to follow up with her primary care physician. Advised signs and symptoms for which to return to the ED. Disposition: Discharge home Impression: Contact dermatitis This note was generated with [employer] dictation software. It may contain incorrect words, spelling, and punctuation that were not noted in review of the chart prior to signing ED Disposition - Plan for ED Patient: Instructions: DERMATITIS, Non-Specific Prescriptions: Prednisone [Deltasone] 40 mg PO DAILY #10 tab Prescription Printed Referrals: Elinor Castellanos NP-C [Primary Care Provider] -
[2018-11-22] MEDS: predniSONE 20 MG Tablet 60 MG PO (18:10)
== END 2018-11-22 18:12 | disposition home or self-care (01) ==
PROVIDERS: Emergency Provider Emergency Medicine; Family Provider Nurse Practitioner Family; PCP Nurse Practitioner Family
DX: L25.9 Unspecified contact dermatitis, unspecified cause (principal); Z79.899 Other long term (current) drug therapy; Z72.0 Tobacco use
CPT/HCPCS: 99283

== ENCOUNTER 2018-11-28 13:36 | Emergency (ER) | payer OTHER, SELFPAY ==
[2018-11-28 13:38] VITALS: BP 131/86; PULSE 88; RESP 18; TEMP 36.5; O2SAT 95; BMI 35.6
--- NOTE | 2018-11-28 13:50 | EKG12_ITS ---
Test Reason : SOB Blood Pressure : / mmHG Vent. Rate : 072 BPM Atrial Rate : 072 BPM P-R Int : 146 ms QRS Dur : 100 ms QT Int : 400 ms P-R-T Axes : 037 028 009 degrees QTc Int : 438 ms Normal sinus rhythm Normal ECG Confirmed by DAVID MONTERROSO, IWONA ([id number]), newspaper editor managing ERIC CLARK ([id number]) on 11/30/2018 12:11:49 PM Referred By: ESTEFANIA Confirmed By:IWONA HERNANDEZ MD
--- NOTE | 2018-11-28 13:56 | ED.VISSUMM ---
- ER Visit Summary Date of Service: 11/28/18 Chief Complaint: Cough, shortness of breath, ear pain History of Present Illness: The patient is a 33 F with history of smoking but no history of underlying lung disease presents the emergency department cough and shortness of breath. Patient states that over the past 2 days, she is had upper respiratory symptoms. States she is having left ear pain and nasal drainage. Since then, she had worsening cough. She states initially, it was nonproductive but now she is having productive sputum. States she has some pain when she coughs. She does not think she had fever. She denies any history of underlying lung disease. She has no history of pulmonary embolus. Physical Examination: Vital signs reviewed General: Well-nourished, well-developed Head: Normocephalic, atraumatic Eyes: Pupils equal and reactive, extraocular muscles intact Neck, supple, no lymphadenopathy Heart: Regular rate and rhythm Respiratory: No distress, clear bilaterally Abdomen: Soft, nontender, nondistended, no peritoneal signs Back: Nontender Extremities: Nontender, no edema, no cords Skin: Normal color no rash Neuro: Alert and oriented, no focal or lateralizing deficits Test Results: [] Emergency Department Course and Treatment: Patient symptoms do seem consistent with an infectious bronchitis. She did have a diminished air movement but no definitive wheezing. X-rays obtained which was unremarkable. With nebulized breathing treatments, her aeration was markedly improved. Patient be covered with doxycycline. She is counseled to return. Patient be discharged home. Treatment Plan: [] Disposition: Discharge Impression: 1. Acute bronchitis This note was generated with [employer] dictation software. It may contain incorrect words, spelling, and punctuation that were not noted in review of the chart prior to signing ED Disposition - Plan for ED Patient: Disposition: Home or Assisted Living Instructions: BRONCHITIS, Antiobiotic Treatment (Adult) Prescriptions: Doxycycline 100 mg PO BID #20 cap Prescription Printed Referrals: Elinor Castellanos NP-C [Primary Care Provider] -
--- NOTE | 2018-11-28 14:08 | NURSING ---
NO OLD EKGS
[2018-11-28] MEDS: Ipratropium/Albuterol Sulfate 3 ML AMPUL.NEB INHALATION (14:10)
[2018-11-28] MEDS: Albuterol 2.5 MG/3 ML VIAL.NEB. INHALATION ×3 (14:10)
[2018-11-28 14:12] VITALS: PULSE 78; RESP 18
--- NOTE | 2018-11-28 14:25 | RAD_ITS ---
STUDY: X-RAY CHEST REASON FOR EXAM: Female, 33 years old. Cough. Shortness of breath. TECHNIQUE: PA and lateral views of the chest. COMPARISON: Comparison is made with prior study dated May 24, 2016. FINDINGS: The lungs are clear and expanded. There is no demonstrated pleural abnormality. Normal size heart. Normal mediastinum and rahat. Normal visualized pulmonary arteries. Normal visualized aortic arch and descending thoracic aorta. Normal visualized thoracic spine. Normal visualized ribs, clavicles, and shoulders. There is no demonstrated abnormality of the visualized soft tissue structures of the upper abdomen. RAD/Chest PA and Lateral IMPRESSION: Normal x-ray examination of the chest. Electronically Signed: Jerson Trevino, at 15:05 EDT , Service support ,
[2018-11-28 15:13] VITALS: PULSE 88; RESP 16; O2SAT 97
== END 2018-11-28 15:15 | disposition home or self-care (01) ==
LOC: ED 14:00
PROVIDERS: Emergency Provider Emergency Medicine; Family Provider Nurse Practitioner Family; PCP Nurse Practitioner Family
DX: J20.9 Acute bronchitis, unspecified (principal); Z72.0 Tobacco use
CPT/HCPCS: 71046; 93005; 94640; 99282

== ENCOUNTER 2019-01-10 10:56 | Emergency (ER) | payer OTHER, SELFPAY ==
[2019-01-10] VITALS (9 sets, daily range): BP systolic 115–152; BP diastolic 62–93; PULSE 63–88; RESP 15–18; TEMP 36.6–36.8; O2SAT 98–100; BMI 36.1
--- NOTE | 2019-01-10 11:11 | ED.DCSUM_ITS ---
- ER Visit Summary Date of Service: 01/10/19 Chief Complaint: Depressed, suicidal attempted overdose History of Present Illness: The patient is a 33 F history of bipolar, depression and anxiety. Patient is 100 overdose today by taking the Klonopin half milligram each. She knows that it would have taken more alert. She said she has been more depressed lately. There are many social issues going on at home. She has had a prior attempt in the past. She is had no recent psychiatric admissions. She sees the counseling center. Appears to be is itself is Physical Examination: Vital signs are stable.. She is afebrile. She is awake and relaxed. H EENT exam unremarkable. Neck nontender without any signs of trauma. Lungs clear to auscultation bilaterally. Heart regular rhythm no murmur. Abdomen soft and nontender. Normal bowel sounds no peritoneal signs. Extremities moves all 4. Neurovascular intact. No signs of trauma. No lacerations. No track graves. Back nontender. Neurologically she is awake and alert. No focal motor deficits. She is currently cooperative and not violent. I do not smell any alcohol or see any signs of a toxidrome. Test Results: CBC normal. BMP normal. Serum test negative. Alcohol negative. Tox screen pending. Emergency Department Course and Treatment: ED mental health evaluation. buffing line set up worker consult. Treatment Plan: Patient also told the hospice social worker that she was also contemplating driving her car off the road. resident services director is trying to get her admitted. Disposition: Transfer to psychiatric facility Impression: Acute attempted overdose History of bipolar disorder with acute on chronic depression This note was generated with BlackArrow dictation software. It may contain incorrect words, spelling, and punctuation that were not noted in review of the chart prior to signing ED Disposition - Plan for ED Patient: Referrals: Elinor Castellanos, EDUIN-C [Primary Care Provider] -
[2019-01-10 11:39] LABS: Absolute Lymphocyte Count 1.78 X10^3/uL (0.83-4.51); Absolute Neutrophil Count 4.7 X10^3/uL (2.0-7.7); Basophil# 0.03 X10^3/uL; Basophil% 0.4 % (0-1); Eosinophils% 2.8 % (0-5); Hematocrit 42.2 % (37-47); Hemoglobin 13.7 g/dL (12.0-15.0); Lymphocyte # 1.78 X10^3/ul (4.0); Lymphocyte % 25.2 % (19-41); Mean Corp Hgb Conc 32.5 g/dL (32-36); Mean Corpuscular Hgb 30.9 pg (27.0-32.0); Mean Platelet Vol. 10.2 fl (6.2-12.0); Monocyte# 0.35 X10^3/uL; NRBC Flagged by Analyzer 0 % (0-5); Neutrophil # 4.66 X10^3/uL (2.7-7.7); Neutrophil % 66.2 % (47-70); Platelet Count 192 K/mm3 (150-450); RBC Distribution Width CV 13.3 % (11.6-14.6); RBC Distribution Width SD 46.8 fl (35.1-43.9); Red Blood Count 4.44 M/mm3 (4.2-5.4); White Blood Count 7.1 K/mm3 (4.4-11.0)
[2019-01-10 11:43] LABS: Anion Gap 2 (5-15); BUN 9 mg/dL (7-18); BUN/Creat Ratio 9.7 RATIO (10-20); Chloride 111 mmol/L (98-107); Creatinine, Serum 0.93 mg/dL (0.55-1.02); EST Glomerular Filtration Rate 74 mL/min (>60); Est Glom Filt Rate - Afr Amer 89 mL/min (>60); Glucose 87 mg/dL (74-106); Potassium 3.9 mmol/L (3.5-5.1); Sodium Level 141 mmol/L (136-145)
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
[2019-01-10 12:12] LABS: Internal QC Validated? YES +Cl - CLEAR BKGD; Pregnancy, Serum, hCG Quali. NEGATIVE Negative
[2019-01-10 12:15] LABS: Amphetamine Urine VISTA NEGATIVE (<1000 ng/mL); Barbiturate Urine VISTA NEGATIVE (< 200 ng/mL); Benzodiazepine Urine VISTA NEGATIVE (< 200 ng/mL); Cocaine Urine VISTA NEGATIVE (< 300 ng/mL); Ecstacy Urine VISTA NEGATIVE (< 500 ng/mL); Methadone Urine VISTA NEGATIVE (< 300 ng/mL); PCP Urine VISTA NEGATIVE (< 25 ng/mL); THC Urine VISTA NEGATIVE (< 50 ng/mL); Vista UDS pH Range 6
[2019-01-10 12:15] LABS: Alcohol, Blood (Medical)-Serum < 3.0 mg/dL
--- NOTE | 2019-01-10 13:28 | CM.ED ---
Social Work Telephone call from [facility], would like patient to be observed for another 5 hours prior to accepting patient. Spoke with Dr. Rocha. Patient to be observed for another 5 hours and then updated vitals to be faxed to [facility]. Vitals to be faxed around 1830. Alfa CHONG, MARIZOL
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
[2019-01-10] MEDS: Ziprasidone IM 20 MG/ML VIAL IM (17:42)
--- NOTE | 2019-01-10 17:50 | ED.RN ---
PT CELL PHONE GIVEN TO [facility] PER PT REQUEST. CONTACT NUMBER FOR [facility] IS [phone]. HE IS AWARE NO VISITORS WILL BE ALLOWED AND HAS DECIDED TO LEAVE FOR AWHILE. PT AWARE
--- NOTE | 2019-01-10 18:56 | CM.ED ---
Social Work Updated vitals faxed to [facility], pending approval. Alfa Smith MSW, MARIZOL
--- NOTE | 2019-01-10 19:10 | CM.ED ---
Social Work Telephone call from [facility], patient accepted. Admitting Doctor: Dr. Muñoz. N:N report: [phone]. Patient admitting to the [facility]. Notified Dr. Albarran as well as nursing staff. Alfa CHONG, AMRIZOL
--- NOTE | 2019-01-10 19:12 | ED.RN ---
[facility] CONTACTED FOR TRANSPORT
--- NOTE | 2019-01-10 19:31 | CM.ED ---
Social Work [place] slip faxed to [facility]. Alfa Smith COUNTER SUPERVISOR, MAINTENANCE ELECTRICIAN
--- NOTE | 2019-01-10 19:43 | ED.RN ---
around 1710 this evening the pt became very agitated and stormed out of the ER. pt had her phone in hand trying to call a ride to come and pick her up. pt ran outside of the hospital and finally stopped her when police arrived. D took the pt in their car and brought her back to the ER. had the police talk with the pt. we therapeutically talked her and she agreed to take the medication to help calm her down. we did not have to restrain the pt. after the medication the patient was calm and cooperative.
== END 2019-01-10 19:50 ==
LOC: ED 11:20
PROVIDERS: Emergency Provider Emergency Medicine; Family Provider Nurse Practitioner Family; PCP Nurse Practitioner Family
DX: T42.4X2A Poisoning by benzodiazepines, intentional self-harm, initial encounter (principal); Y92.9 Unspecified place or not applicable; F31.9 Bipolar disorder, unspecified; F41.9 Anxiety disorder, unspecified; Z72.0 Tobacco use; Z79.899 Other long term (current) drug therapy
CPT/HCPCS: 80048; 80307; 80320; 84703; 85025; 96372; 99285; G0480; J3486

== ENCOUNTER 2019-05-20 21:04 | Emergency (ER) | payer OTHER, MEDICAID, SELFPAY ==
[2019-01-10 10:57] VITALS: BMI 36.1
[2019-05-20 21:05] VITALS: BP 146/99; PULSE 103; RESP 16; TEMP 37.4; O2SAT 98; BMI 37.1
--- NOTE | 2019-05-20 21:22 | ED.VISSUMM ---
- ER Visit Summary Date of Service: 05/20/19 Chief Complaint: Anxiety attack History of Present Illness: The patient is a [address] Abarca and the counseling center. She reports she has a history of anxiety and bipolar disorder. She states that her son was [facility] to [facility] yesterday and she has been very anxious since that time. She is on Vistaril for this and has taken 2 doses today without relief. She reports that she saw her psychiatrist 2 days ago and they increased her Lamictal. She had been on Klonopin in the past, but they had taken that her off of this months ago because they did not want her on this long-term. Patient reports her panic attacks do make her mildly short of breath. She denies any fever, chills, cough, or chest pain. She also denies any suicidal or homicidal ideation. No auditory visual hallucinations. Physical Examination: Vitals: Stable. Afebrile. General: Well-nourished and well-developed. Head: Normocephalic atraumatic. Neck: Supple, no lymphadenopathy. No JVD. Nontender. Cardiovascular: Regular rate and rhythm. No murmurs. Respiratory: No respiratory distress. Clear to auscultation bilaterally. Abdominal: Soft, nontender, nondistended, normal bowel sounds. No guarding, rebound, or peritoneal signs. Back: Nontender. Extremities: Nontender, no edema. Skin: Normal color, no rash. Neurologic: Alert and oriented ?3. Cranial nerves II through XII are intact. Normal strength and sensation. Mental status exam: Patient appears their stated age. Good posture and grooming. Good eye contact. Normal rate, volume, and latency of speech. No suicidal or homicidal ideation. No auditory or visual hallucinations. Flow of thought is logical. Insight and judgment is fair. Emergency Department Course and Treatment: An [facility] report was obtained which shows she has not had a prescription for opiates since December of this year. She was given a dose of Ativan IM. Treatment Plan: Patient does understand that her psychiatrist has not wanted her on benzodiazepines. I will not give her prescription for this. She is instructed to follow-up with the counseling center and work through her anxiety reviewed involving around her son being placed in juvenile halfway. Return to the emergency department for any worsening symptoms. Disposition: To home in improved and stable condition. Impression: 1. Anxiety. This note was generated with Swoodoo dictation software. It may contain incorrect words, spelling, and punctuation that were not noted in review of the chart prior to signing ED Disposition - Plan for ED Patient: Instructions: Anxiety Reaction Referrals: Counseling,Center [GROUP OF PHYSICIANS] - As soon as possible
[2019-05-20] MEDS: LORazepam 2 MG/ML Syringe 1 MG IM (21:34)
[2019-05-20 21:36] VITALS: RESP 16
--- NOTE | 2019-05-20 22:06 | CM.ED ---
Social Work Consult: Anxiety Informant: Self-Referral due to reason for ED visit. Chief Complaint: Anxiety attack today due to stress from reading on-line media post about patient 14 year old son being sentenced to [facility]venile delinqu[facility] this past week. Social/Marital History: Currently to Peter. Patient has two other children that are 11 and 16. Living Situation: Lives with Peter and two daughters. Patient 14 year old son was living with patient but is now in Juvenile delinquent facility 1 1/2 hours away from patient. Triggers/Stressors: Patient son being sentenced to [facility]inqu[facility]. Patient stating work is also a stressor as I work all the time. Patient stating to work 6 days a week and that this is mandatory from patient employer. Education/Employment: High School diploma. Works for [employer]. Support/Resources: [facility]. Patient active with Psychiatry and follows up every 3 months. Mental Health Treatment/history: Patient stating to be diagnosed with anxiety. Patient stating to typically be able to manage mental health with medication but that after reading through media post about patient son that patient began having a panic attack and came to the ED as patient medication did not help. Patient stating to now be feeling much better but that patient chest is still painful due to how tense patient was. Patient denies any history of suicidal thoughts or plans. Patient stating to have a history of counseling services and to know that it is good for me. Patient stating that it has been a minute since patient last counseling appointment. Assessment: Met with patient and patient spouse in room. Introduced self as well as psychosocial rehabilitation counselor role. Patient okay with this psychosocial rehabilitation counselor speaking with patient in front of patient spouse. This psychosocial rehabilitation counselor broaching topic of patient beginning counseling services again due to recent stressors. Patient stating plan and intention to set up counseling appointment when calling into [facility] to update on patient panic attack this weekend. Patient stating that patient psychiatrist did recently make a change to patient medications. Patient stating to have contact information for crisis hot-line if needed and plans to continue speaking with patient spouse for support. Patient stating that reading also helps patient cope with current lift stressors. Patient stating to be overwhelmed. This psychosocial rehabilitation counselor encouraging patient to take time to follow up with counseling to bring stability to patient mental health so that patient can better manage life stressors as it is normal to have stress related to a son being sentenced to Juvenile [facility]inqu[facility]. Normalizing patient feelings and offering active support and listening. Patient thanking this psychosocial rehabilitation counselor. PLAN: Discharge to home with spouse and plan to call [facility] on Wednesday to set up counseling appointment. Alfa CHONG, MARIZOL
[2019-05-20 22:08] VITALS: PULSE 86; RESP 16; O2SAT 99
== END 2019-05-20 22:08 | disposition home or self-care (01) ==
PROVIDERS: Emergency Provider Emergency Medicine; Family Provider Nurse Practitioner Family; PCP Nurse Practitioner Family
DX: F41.9 Anxiety disorder, unspecified (principal); F31.9 Bipolar disorder, unspecified; E03.9 Hypothyroidism, unspecified; Z79.899 Other long term (current) drug therapy; F17.200 Nicotine dependence, unspecified, uncomplicated
CPT/HCPCS: 96372; 99282

== ENCOUNTER 2019-07-03 11:37 | Emergency (ER) | payer OTHER, MEDICAID, SELFPAY ==
[2019-07-03 11:38] VITALS: BP 147/91; PULSE 95; RESP 16; TEMP 36.6; O2SAT 100; BMI 37.5
--- NOTE | 2019-07-03 11:54 | EKG12_ITS ---
Test Reason : PALPS Blood Pressure : / mmHG Vent. Rate : 085 BPM Atrial Rate : 085 BPM P-R Int : 160 ms QRS Dur : 088 ms QT Int : 388 ms P-R-T Axes : 025 012 019 degrees QTc Int : 461 ms Normal sinus rhythm Normal ECG Confirmed by DAVID MONTERROSO, IWONA ([id number]), visual effects editor KOSTA YANG ([id number]) on 07/05/2019 8:57:50 AM Referred By: RAUDEL Confirmed By:IWONA HERNANDEZ MD
--- NOTE | 2019-07-03 11:54 | ED.VISSUMM ---
- ER Visit Summary Date of Service: 07/03/19 Chief Complaint: Chest pain History of Present Illness: The patient is a 34 F to bipolar disorder anxiety hypothyroidism, kidney stones and reflux. 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 Denies nausea vomiting or diarrhea. No shortness of breath. No history of DVT or PE. No recent travel surgery or immobilization. She denies any leg pain or swelling. No hemoptysis. Pain is not pleuritic. She denies any significant shortness of breath. No cardiac history. No recent illness. Physical Examination: Young female vital signs stable afebrile pulse ox 9% on room air. No distress. H EENT exam unremarkable. Neck nontender no lymphadenopathy. Lungs clear to auscultation bilaterally. Chest wall nontender. Heart regular rate and rhythm rate about 90 no murmur. Abdomen soft nontender normal bowel sounds no peritoneal signs. Extremities moves all 4. Equal symmetrical radial pulses. 5-5 leasing consultant strength. Dorsi plantarflexion intact. Calves nontender no edema no cords. Neurologically she is awake alert with no focal motor deficits. Test Results: EKG shows sinus rhythm rate 85 with no acute signs of DE or ischemia. Straight portable 1 view shows no acute abnormality. Normal cardiac silhouette mediastinum. Read both myself and radiologist. CBC normal. Chemistries normal. Troponin normal. Ariel exam patient is doing well at 12:48 PM will be discharged home. Emergency Department Course and Treatment: She will undergo a cardiac work-up. My clinical suspicion is very low for this being a cardiac etiology. She has no history or family history or risk factors for DVT or PE. Treatment Plan: Follow-up with primary care physician as needed. Disposition: Discharge Impression: Chest pain of Uncertain etiology This note was generated with [employer] dictation software. It may contain incorrect words, spelling, and punctuation that were not noted in review of the chart prior to signing ED Disposition - Plan for ED Patient: Disposition: Home or Assisted Living Instructions: CHEST PAIN, Uncertain Cause Referrals: Elinor Castellanos NP-C [Primary Care Provider] - 1 Week if not improving Additional Instructions: Follow-up with your doctor if not improving.
--- NOTE | 2019-07-03 11:57 | ED.DEP ---
ED Disposition - Plan for ED Patient: Disposition: Home or Assisted Living Instructions: CHEST PAIN, Uncertain Cause Referrals: Elinor Castellanos NP-C [Primary Care Provider] - 1 Week if not improving Additional Instructions: Follow-up with your doctor if not improving.
--- NOTE | 2019-07-03 11:58 | RAD_ITS ---
STUDY: X-RAY CHEST REASON FOR EXAM: Female, 34 years old. CHEST PAIN, SUDDEN ONSET TECHNIQUE: Single AP portable view of the chest. COMPARISON: Comparison is made with prior study dated November 28, 2018. FINDINGS: EKG electrodes are seen. The lungs are clear and expanded. There is no demonstrated pleural abnormality. Normal size heart. Normal mediastinum and rahat. Normal visualized pulmonary arteries. Normal visualized aortic arch and descending thoracic aorta. Normal visualized thoracic spine. Normal visualized ribs, clavicles, and shoulders. There is no demonstrated abnormality of the visualized soft tissue structures of the upper abdomen. RAD/Chest 1 View (Portable) IMPRESSION: Normal x-ray examination of the chest. Electronically Signed: Jerson Trevino, at 12:14 EST , Service support ,
[2019-07-03 12:21] LABS: Absolute Lymphocyte Count 1.97 X10^3/uL (0.83-4.51); Absolute Neutrophil Count 4.9 X10^3/uL (2.0-7.7); Basophil# 0.04 X10^3/uL; Basophil% 0.5 % (0-1); Eosinophil# 0.12 X10^3/uL; Eosinophils% 1.6 % (0-5); Hematocrit 38.9 % (37-47); Lymphocyte # 1.97 X10^3/ul (4.0); Lymphocyte % 26.5 % (19-41); Mean Corp Hgb Conc 33.4 g/dL (32-36); Mean Corpuscular Hgb 29.5 pg (27.0-32.0); Mean Corpuscular Volume 88.2 fL (81-99); Mean Platelet Vol. 9.8 fl (6.2-12.0); Monocyte# 0.37 X10^3/uL; NRBC Flagged by Analyzer 0 % (0-5); Neutrophil # 4.91 X10^3/uL (2.7-7.7); Platelet Count 221 K/mm3 (150-450); RBC Distribution Width CV 12.5 % (11.6-14.6); RBC Distribution Width SD 41.1 fl (35.1-43.9); Red Blood Count 4.41 M/mm3 (4.2-5.4); White Blood Count 7.4 K/mm3 (4.4-11.0)
[2019-07-03 12:31] LABS: Anion Gap 4 (5-15); BUN 16 mg/dL (7-18); BUN/Creat Ratio 16.8 RATIO (10-20); Calcium,Total 9.3 mg/dL (8.5-10.1); Chloride 113 mmol/L (98-107); Creatinine, Serum 0.95 mg/dL (0.55-1.02); EST Glomerular Filtration Rate 72 mL/min (>60); Est Glom Filt Rate - Afr Amer 87 mL/min (>60); Estimated Creatinine Clearance 59.93 ml/min; Glucose 81 mg/dL (74-106); Sodium Level 140 mmol/L (136-145)
[2019-07-03 12:53] VITALS: BP 112/74; PULSE 85; RESP 18; O2SAT 99
== END 2019-07-03 12:54 | disposition home or self-care (01) ==
PROVIDERS: Emergency Provider Emergency Medicine; PCP Nurse Practitioner Family
DX: R07.9 Chest pain, unspecified (principal); E03.9 Hypothyroidism, unspecified; K21.9 Gastro-esophageal reflux disease without esophagitis; F31.9 Bipolar disorder, unspecified; F41.9 Anxiety disorder, unspecified; Z72.0 Tobacco use; Z87.442 Personal history of urinary calculi
CPT/HCPCS: 71045; 80048; 84484; 85025; 93005; 99285; A4216

== ENCOUNTER → 2020-01-17 10:27 | Outpatient (CLI) | payer OTHER, SELFPAY ==
--- NOTE | 2020-01-17 10:50 | RAD_ITS ---
STUDY: X-RAY - RIGHT KNEE REASON FOR EXAM: Right knee pain, no specific injury. TECHNIQUE: 4 view(s) of the knee. COMPARISON: None. FINDINGS: Normal visualized distal femur. Normal visualized proximal tibia and fibula. Normal proximal tibiofibular articulation. There is a very small marginal osteophyte of the medial femoral condyle without joint space narrowing of the medial femorotibial compartment. Normal lateral femorotibial compartment. Normal patellofemoral articulation. The soft tissue structures are unremarkable. RAD/Knee 4 or More Views IMPRESSION: Very small marginal osteophyte of the medial femoral condyle. Otherwise, unremarkable x-ray examination of the right knee. Electronically Signed: Franklin Bernardo MD at 12:38 EDT Tel , Service support ,
--- NOTE | 2020-01-17 10:50 | RAD_ITS ---
STUDY: X-RAY - LEFT KNEE REASON FOR EXAM: Left knee pain, no specific injury. TECHNIQUE: 4 view(s) of the knee. COMPARISON: None. FINDINGS: Normal visualized distal femur. Normal visualized proximal tibia and fibula. Normal proximal tibiofibular articulation. Normal medial femorotibial compartment. Normal lateral femorotibial compartment. Normal patellofemoral articulation. The soft tissue structures are unremarkable. RAD/Knee 4 or More Views IMPRESSION: Normal x-ray examination of the left knee. Electronically Signed: Franklin Bernardo MD at 12:12 EDT Tel , Service support ,
[2020-01-17 12:04] LABS: ALB/GLOB Ratio 1.2 RATIO (0.9-2.4); AST(SGOT) 14 U/L (15-37); Alanine Aminotransfer ALT/SGPT 19 U/L (13-56); Albumin, Serum 3.8 g/dL (3.2-5.0); Alkaline Phosphatase 82 U/L (45-117); Anion Gap 4 (5-15); BUN 10 mg/dL (7-18); BUN/Creat Ratio 11.4 RATIO (10-20); Calcium,Total 8.6 mg/dL (8.5-10.1); Chloride 109 mmol/L (98-107); Cholesterol 162 mg/dL (200); Creatinine, Serum 0.88 mg/dL (0.55-1.02); EST Glomerular Filtration Rate 78 mL/min (>60); Est Glom Filt Rate - Afr Amer 94 mL/min (>60); Globulin 3.2 g/dL (2.2-4.2); Glucose 87 mg/dL (74-106); High Density Lipoprotein 43 mg/dL; Potassium 4.1 mmol/L (3.5-5.1); Sodium Level 139 mmol/L (136-145); T4 Free Direct 0.97 ng/dL (0.76-1.46); Thyroid Stim Hormone (TSH) 2.04 uIU/mL (0.358-3.74); Triglycerides 115 mg/dL; Very Low Density Lipoprotein 23 mg/dL (5-40)
== END ==
PROVIDERS: PCP Nurse Practitioner Family; Referring Provider Nurse Practitioner Family; Visit Provider Nurse Practitioner Family
DX: Z00.00 Encounter for general adult medical examination without abnormal findings (principal); E03.9 Hypothyroidism, unspecified; M25.561 Pain in right knee; M25.562 Pain in left knee
CPT/HCPCS: 36415; 73564; 80053; 80061; 84439; 84443

== ENCOUNTER 2020-02-14 18:55 | Emergency (ER) | payer OTHER, MEDICAID, SELFPAY ==
[2020-02-14 18:56] VITALS: BP 152/101; PULSE 86; RESP 17; TEMP 36.3; O2SAT 100; BMI 38.4
--- NOTE | 2020-02-14 20:34 | CT_ITS ---
STUDY: CT ABDOMEN AND PELVIS WITHOUT CONTRAST REASON FOR EXAM: Female, 34 years old. Left flank pain for several days. No urinary symptoms. History of hysterectomy and lumbar surgery. RADIATION DOSAGE (If Supplied By Facility): CTDIvol = ( 12.92 ) mGy, DLP = ( 616.64 ) mGycm TECHNIQUE: Transaxial images were obtained from the dome of the diaphragm to the symphysis pubis without oral contrast, and without intravenous contrast. Sagittal and coronal images were reconstructed. Individualized dose optimization techniques were used for this CT. COMPARISON: 09/23/2018. FINDINGS: The visualized lung bases are unremarkable. The visualized portions of the heart are within normal limits. Normal liver. Normal gallbladder and extrahepatic biliary system. Normal spleen. Normal pancreas. Normal bilateral adrenal glands. The right kidney is of normal size and cortical thickness. There are multiple small renal calculi. The largest, in the lower pole, measures 6 mm in greatest dimension. There is no right hydronephrosis. Normal right ureter. The left kidney is normal in size and contour. There are multiple renal calculi. The largest in the mid kidney measures 2 mm. There is no hydronephrosis. Normal left ureter. Normal visualized stomach. Normal small intestine. Normal colon. The appendix is visualized and appears normal. Normal abdominal aorta. Normal inferior vena cava. Normal retroperitoneum. Normal urinary bladder. Normal vaginal cuff. There are phleboliths in the pelvis without lymphadenopathy. No free air or free fluid is seen within the peritoneal cavity. Normal abdominal wall. There are mild degenerative changes of the visualized lumbar spine. CT/Abdomen/Pelvis without Cont IMPRESSION: 1. Multiple bilateral renal calculi without hydronephrosis. Normal ureters and urinary bladder. 2. No other evidence of acute intra-abdominal or pelvic abnormality or major interval change. Electronically Signed: Jose Alejandro Conway DO at 21:26 EDT Tel [phone], Service support ,
--- NOTE | 2020-02-14 20:35 | ED.VIS.GEN ---
History of Present Illness Chief Complaint: Flank Pain Informant: Patient Onset: Days Context: Gradual Onset Timing: Continuous Narrative: Patient is a 34-year-old female with history of kidney stones as well as pyelonephritis presenting with 2 days of flank pain. Patient that she woke up with the flank pain. It is on the left side. She describes as sharp and constant. It is worse with movement. She denies any radiation of the pain. She denies associated urinary symptoms, nausea, vomiting or change in bowel habits. She denies any abnormal vaginal bleeding or discharge. She tried taking an Aleve with no help. Her last dose was about 3 hours ago. Patient had a tele-visit with her primary care doctor who called in a prescription for Bactrim thinking might be a UTI. Patient was not able to start it because there is a glitch with the [email or web address] prescribing system. Because amount of pain she is and she decided come to the emergency room for further evaluation. No other complaints at this time. Past Medical History - Allergies and Home Meds Allergies/Adverse Reactions: Allergies moxifloxacin HCl [From Avelox] Allergy (Verified 02/14/20 18:56) Hives trazodone Allergy (Verified 02/14/20 18:56) Hives Latex, Natural Rubber Adverse Reaction (Verified 02/14/20 18:56) Rash Penicillins [PCN] Adverse Reaction (Verified 02/14/20 18:56) Nausea/Vom/Diarrhea Primary Care Physician: Elinor Castellanos ELECTRONICS TECHNOLOGY INSTRUCTOR, ELECTRONICS TECHNOLOGY INSTRUCTOR-C [Primary Care Provider] - Past Medical History: - - History of kidney stones, history of pyelonephritis, hypothyroid, GERD Surgical History: - - L5 surgery Smoking Status: Current every day smoker Review of Systems General: Denies: Chills, Fever, Sweats Eyes: Denies: Visual changes - bilaterally, Diplopia ENT: Denies: Rhinorrhea, Sore throat Cardiovascular: Denies: Chest pain, Palpitations Respiratory: Denies: Dyspnea, Cough, Dyspnea on exertion Gastrointestinal: Denies: Abdominal pain, Nausea, Vomiting, Diarrhea, Melena, Hematochezia Genitourinary: Denies: Dysuria, Hematuria, Frequency Musculoskeletal: Reports: Back pain - Left flank. Denies: Extremity Pain Skin: Denies: Rash, Wounds Neurological: Denies: Headache, Weakness, Numbness Physical Exam Vital Signs/Narrative: Vital Signs Temp Pulse Resp BP Pulse Ox 02/14/20 18:56 97.3 F L 86 17 152/101 H 100 Inital Vital Signs reviewed: Yes General: Well nourished, Well developed, No Acute Distress Head: Normocephalic, Atraumatic Eyes: Perrl, EOMI ENT: Moist mucous membranes, No rhinorrhea Neck: Supple, Nontender Cardiovascular: Regular rate, Regular rhythm, No murmurs Respiratory: No distress, CTA bilaterally, Chest nontender Abdomen: Soft, Nontender, Nondistended, Normal bowel sounds. Negative for: Guarding, Rebound tenderness Back: Normal Inspection, CVA tenderness - Left, - - Tenderness palpation of the lumbar paraspinal muscles on the left. Negative for: Spinal tenderness Extremities: Nontender, No edema Skin: Normal color, No rash Neurological: Alert, Oriented x3, Cranial nerves II-XII grossly intact, Normal Strength, Normal Sensation Psychological: Normal affect, Normal Mood Diagnostic/Tx/Re-eval Clinical Impression(s) from Imaging Studies Abdomen/Pelvis CT 02/14/20 20:34 IMPRESSION: 1. Multiple bilateral renal calculi without hydronephrosis. Normal ureters and urinary bladder. 2. No other evidence of acute intra-abdominal or pelvic abnormality or major interval change. Electronically Signed: Jose Alejandro Conway DO at 21:26 EDT Tel [phone], Service support , Laboratory Data 02/14/20 02/14/20 02/14/20 20:15 21:00 21:00 WBC 8.3 RBC 4.14 L Hgb 12.5 Hct 38.3 MCV 92.5 MCH 30.2 MCHC 32.6 RDW Std Deviation 41.6 RDW Coeff of Michele 12.3 Plt Count 210 MPV 10.0 Immature Gran % (Auto) 0.400 Neut % (Auto) 62.7 Lymph % (Auto) 29.7 [place] % (Auto) 5.0 Eos % (Auto) 1.6 Baso % (Auto) 0.6 Absolute Neuts (auto) 5.2 Absolute Lymphs (auto) 2.47 Nucleated RBC % 0 Sodium Potassium Chloride Carbon Dioxide Anion Gap BUN Creatinine Estim Creat Clear Calc Est GFR (MDRD) Af Amer Est GFR (MDRD) Non-Af BUN/Creatinine Ratio Glucose Calcium Serum , Qual NEGATIVE Urine Color Yellow Urine Clarity Clear Urine pH 7.0 Ur Specific [place] 1.010 Urine Protein Negative Urine Glucose (UA) Normal Urine Ketones Negative Urine Occult Blood Negative Urine Nitrite Negative Urine Bilirubin Negative Urine Urobilinogen Normal Ur Leukocyte Esterase 25 H Urine RBC 0 SEEN Urine WBC 0 SEEN Ur Squamous Epith Cells 0-5 SEEN Urine Bacteria 1+ Urine Mucus 0 SEEN 02/14/20 21:15 WBC RBC Hgb Hct MCV MCH MCHC RDW Std Deviation RDW Coeff of Michele Plt Count MPV Immature Gran % (Auto) Neut % (Auto) Lymph % (Auto) [place] % (Auto) Eos % (Auto) Baso % (Auto) Absolute Neuts (auto) Absolute Lymphs (auto) Nucleated RBC % Sodium 141 Potassium 4.0 Chloride 112 H Carbon Dioxide 26.0 Anion Gap 3 L BUN 8 Creatinine 0.86 Estim Creat Clear Calc 66.21 Est GFR (MDRD) Af Amer 97 Est GFR (MDRD) Non-Af 80 BUN/Creatinine Ratio 9.3 L Glucose 75 Calcium 8.8 Serum , Qual Urine Color Urine Clarity Urine pH Ur Specific [place] Urine Protein Urine Glucose (UA) Urine Ketones Urine Occult Blood Urine Nitrite Urine Bilirubin Urine Urobilinogen Ur Leukocyte Esterase Urine RBC Urine WBC Ur Squamous Epith Cells Urine Bacteria Urine Mucus - Medical Decision Making Patient evaluated for atraumatic left flank pain. Appears nontoxic in no acute distress. She does have a history of pyelonephritis as well as kidney stones. Her pain is reproducible with palpation of the left lumbar paraspinal muscles. It seemed to be worse whenever I made her sit up in the bed. Because of her history will obtain lab work, urine and CT to rule out UTI, pyelonephritis and or kidney stones. Work-up is largely negative.Urine does show 25 leukoesterase with no white blood cells and 1+ bacteria. Urine culture sent and patient will be covered with Keflex however I suspect her symptoms are more muscle skeletal. She is given morphine in the ER and then Flexeril. Patient be discharged home with Flexeril for pain control counseled to use heat to her back. 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 Patient is counseled on signs and symptoms requiring return to the emergency room. Patient verbalizes agreement and understand this plan. Patient discharged home in stable and improved condition. ED Disposition - Plan for ED Patient: Disposition: Home or Assisted Living Diagnosis: Left flank pain, Back spasm Instructions: ED Spasm Back No Trauma, ED Flank Pain Uncertain Cause Prescriptions: cycloBENZAPRine HCl [Flexeril] 10 mg PO TID PRN #20 tab PRN Reason: Muscle Spasm Prescription Printed Cephalexin [Keflex] 500 mg PO Q12 #10 cap Prescription Printed Referrals: Elinor Castellanos ELECTRONICS TECHNOLOGY INSTRUCTOR, ELECTRONICS TECHNOLOGY INSTRUCTOR-C [Primary Care Provider] - Additional Instructions: Your CT does not show an acte kidney stone causing your pain. Your urine shows a questionable UTI which we will treat with Keflex. I will start you on a muscle relaxer because I suspect your pain is from a muscle in your back.
[2020-02-14] MEDS: Ondansetron 4 MG/2 ML Vial IV (20:57)
[2020-02-14] MEDS: Morphine 4 MG/ML Syringe IV (20:57)
[2020-02-14 21:08] LABS: Absolute Lymphocyte Count 2.47 X10^3/uL (0.83-4.51); Absolute Neutrophil Count 5.2 X10^3/uL (2.0-7.7); Basophil# 0.05 X10^3/uL; Basophil% 0.6 % (0-1); Eosinophil# 0.13 X10^3/uL; Eosinophils% 1.6 % (0-5); Hematocrit 38.3 % (37-47); Hemoglobin 12.5 g/dL (12.0-15.0); Lymphocyte # 2.47 X10^3/ul (4.0); Lymphocyte % 29.7 % (19-41); Mean Corp Hgb Conc 32.6 g/dL (32-36); Mean Corpuscular Hgb 30.2 pg (27.0-32.0); Mean Corpuscular Volume 92.5 fL (81-99); Monocyte# 0.42 X10^3/uL; NRBC Flagged by Analyzer 0 % (0-5); Neutrophil # 5.22 X10^3/uL (2.7-7.7); Neutrophil % 62.7 % (47-70); Platelet Count 210 K/mm3 (150-450); RBC Distribution Width CV 12.3 % (11.6-14.6); RBC Distribution Width SD 41.6 fl (35.1-43.9); Red Blood Count 4.14 M/mm3 (4.2-5.4); White Blood Count 8.3 K/mm3 (4.4-11.0)
[2020-02-14 21:50] LABS: Mucous, Urine 0 SEEN /hpf (<or=2+); Red Blood Cells-Urine 0 SEEN /hpf (0-5); White Blood Cells 0 SEEN /hpf (0-5)
[2020-02-14 21:54] LABS: Anion Gap 3 (5-15); BUN 8 mg/dL (7-18); BUN/Creat Ratio 9.3 RATIO (10-20); Calcium,Total 8.8 mg/dL (8.5-10.1); Chloride 112 mmol/L (98-107); Creatinine, Serum 0.86 mg/dL (0.55-1.02); EST Glomerular Filtration Rate 80 mL/min (>60); Est Glom Filt Rate - Afr Amer 97 mL/min (>60); Estimated Creatinine Clearance 66.21 ml/min; Glucose 75 mg/dL (74-106); Sodium Level 141 mmol/L (136-145)
[2020-02-14 22:01] LABS: Color, Urine Yellow (Yellow); Glucose, Dipstick Normal (Normal); Ketone-Dipstick Negative (Negative); Leukocyte Esterase-Dipstick 25 /ul (Negative); Nitrite-Dipstick Negative (Negative); Occult Blood-Urine Negative /ul (Negative); Protein-Dipstick Negative (Negative); Urine Bilirubin Dipstick Negative (Negative); Urine Clarity Clear (Clear); Urine Urobilinogen Normal (Normal)
[2020-02-14 22:03] LABS: Internal QC Validated? YES +Cl - CLEAR BKGD; Pregnancy, Serum, hCG Quali. NEGATIVE Negative
[2020-02-14 22:18] LABS: Bacteria 1+ /hpf (None Seen); Squamous Epithelial Cells - UA 0-5 SEEN /hpf (5-10)
[2020-02-14 23:02] VITALS: BP 128/79; PULSE 82; RESP 16; O2SAT 100
[2020-02-14] MEDS: cycloBENZAPRine HCl 10 MG Tablet PO (23:36)
== END 2020-02-14 23:38 | disposition home or self-care (01) ==
PROVIDERS: Emergency Provider Emergency Medicine; PCP Nurse Practitioner Family
DX: R10.9 Unspecified abdominal pain (principal); M62.830 Muscle spasm of back; N20.0 Calculus of kidney; E03.9 Hypothyroidism, unspecified; K21.9 Gastro-esophageal reflux disease without esophagitis; F17.200 Nicotine dependence, unspecified, uncomplicated; Z79.899 Other long term (current) drug therapy; Z87.442 Personal history of urinary calculi
CPT/HCPCS: 36415; 74176; 80048; 81001; 84703; 85025; 87086; 87088; 99285; J2405

== ENCOUNTER 2020-07-13 15:15 | Emergency (ER) | payer OTHER, SELFPAY ==
[2020-07-13 15:18] VITALS: BP 135/95; PULSE 92; RESP 16; TEMP 36.8; O2SAT 100; BMI 40.7
--- NOTE | 2020-07-13 15:25 | ED.VIS.GEN ---
History of Present Illness Chief Complaint: Rash Informant: Patient Narrative: 35-year-old female with no significant past medical history presents with concern for scabies exposure. Patient states that her daughter was watching a baby whose mother states that there was scabies in their home 24 hours prior. States she feels like there is a small rash on the dorsum of her right hand. It is slightly pruritic. No other rashes. Past Medical History - Allergies and Home Meds Allergies/Adverse Reactions: Allergies moxifloxacin HCl [From Avelox] Allergy (Verified 07/13/20 15:15) Hives trazodone Allergy (Verified 07/13/20 15:15) Hives Latex, Natural Rubber Adverse Reaction (Verified 07/13/20 15:15) Rash Penicillins [PCN] Adverse Reaction (Verified 07/13/20 15:15) Nausea/Vom/Diarrhea Primary Care Physician: Elinor Castellanos [employer] GROUNDS SUPERINTENDENT, [employer] SUPERINTENDENT-C [Primary Care Provider] - Prior records reviewed: Yes Past Medical History: None Surgical History: - - L5 surgery Lives: With Family Smoking Status: Current every day smoker Alcohol: None Drugs: None Review of Systems General: Denies: Chills, Fever, Sweats Eyes: Denies: Visual changes - bilaterally, Diplopia ENT: Denies: Rhinorrhea, Sore throat Cardiovascular: Denies: Chest pain, Palpitations Respiratory: Denies: Dyspnea, Cough, Dyspnea on exertion Gastrointestinal: Denies: Abdominal pain, Nausea, Vomiting, Diarrhea, Melena, Hematochezia Genitourinary: Denies: Dysuria, Hematuria, Frequency Musculoskeletal: Denies: Back pain, Extremity Pain Skin: Reports: Rash. Denies: Wounds Neurological: Denies: Headache, Weakness, Numbness Physical Exam Vital Signs/Narrative: Vital Signs Temp Pulse Resp BP Pulse Ox 07/13/20 15:18 98.2 F 92 16 135/95 H 100 General: Well nourished, Well developed, No Acute Distress Head: Normocephalic, Atraumatic Eyes: Perrl, EOMI ENT: Moist mucous membranes, No rhinorrhea Neck: Supple, Nontender Cardiovascular: Regular rate, Regular rhythm, No murmurs Respiratory: No distress, CTA bilaterally, Chest nontender Abdomen: Soft, Nontender, Nondistended, Normal bowel sounds Back: Nontender, Normal Inspection Extremities: Nontender, No edema Skin: Normal color, - - Very small circular area of increased redness to the right dorsum of the hand. No surrounding cellulitis. No evidence of linear or serpiginous rash within the fingers or toes. Neurological: Alert, Oriented x3, Cranial nerves II-XII grossly intact, Normal Strength, Normal Sensation Psychological: Normal affect, Normal Mood Diagnostic/Tx/Re-eval - Medical Decision Making Patient appears well and nontoxic. Will be given Permethrin for treatment if it begins to worsen. Advised on washing all linens in hot water. Asked to return for new or worsening symptoms. Patient agreeable and discharged home in stable condition. Impression: 1. Nonspecific dermatitis 2. Scabies exposure ED Disposition - Plan for ED Patient: Disposition: Home or Assisted Living Instructions: ED Scabies Prescriptions: Permethrin 5% [Permethrin] 1 gm TOPICAL X1 1 Days cream..g. Prescription Printed Referrals: Elinor Castellanos [employer] GROUNDS SUPERINTENDENT, [employer]DS SUPERINTENDENT-C [Primary Care Provider] - 2 Days
== END 2020-07-13 15:56 | disposition home or self-care (01) ==
LOC: ED 15:43
PROVIDERS: Emergency Provider Emergency Medicine; PCP Nurse Practitioner Family
DX: L30.9 Dermatitis, unspecified (principal); Z20.7 Contact with and (suspected) exposure to pediculosis, acariasis and other infestations; F17.200 Nicotine dependence, unspecified, uncomplicated; Z79.899 Other long term (current) drug therapy
CPT/HCPCS: 99282

== ENCOUNTER 2021-07-19 07:02 | Emergency (ER) | payer OTHER, MEDICAID, SELFPAY ==
[2021-07-19 07:02] VITALS: BP 158/115; PULSE 92; RESP 18; TEMP 35.7; O2SAT 98; BMI 40.8
--- NOTE | 2021-07-19 07:20 | RAD_ITS ---
STUDY: X-RAY CHEST REASON FOR EXAM: Female, 36 years old. palpiations TECHNIQUE: Single AP portable view of the chest. COMPARISON: 07/03/2019 FINDINGS: The lungs are clear and expanded. There is no demonstrated pleural abnormality. Normal size heart. Normal mediastinum and rahat. Normal visualized pulmonary arteries. Normal visualized aortic arch and descending thoracic aorta. Normal visualized thoracic spine. Normal visualized ribs, clavicles, and shoulders. There is no demonstrated abnormality of the visualized soft tissue structures of the upper abdomen. RAD/Chest 1 View (Portable) IMPRESSION: Normal x-ray examination of the chest. Electronically Signed: Kiel Miller MD at 8:06 EST ,
--- NOTE | 2021-07-19 07:20 | EKG12_ITS ---
Test Reason : PALPS Blood Pressure : / mmHG Vent. Rate : 067 BPM Atrial Rate : 067 BPM P-R Int : 156 ms QRS Dur : 084 ms QT Int : 402 ms P-R-T Axes : 013 012 006 degrees QTc Int : 424 ms Normal sinus rhythm with sinus arrhythmia Normal ECG Confirmed by CUCO MONTERROSO, THOMAS ([id number]), associate editor KOSTA YANG ([id number]) on 07/23/2021 12:36:15 P M Referred By: LUCERO Confirmed By:REA NORWOOD MD
--- NOTE | 2021-07-19 07:25 | EX.ED.DYSGE1 ---
HPI History of Present Illness Chief Complaint: Anxiety Informant: patient Narrative Narrative: Patient is a 36-year-old female presenting with anxiety and palpitations. Patient states he has a history of anxiety and bipolar disorder. She is previously been on hydroxyzine and Klonopin but does not currently see a psychiatrist. She notes her on 06/23/21 suddenly. She notes since then she is been anxious and crying all the time. She has had intermittent episodes of fluttering in her chest that occur multiple times a day. Does seem to be associate with her anxiety. She does have some mild chest pain as well but tributes that distress. Does not characterize it well. Denies any associated nausea or vomiting peer denies any leg swelling. Denies any shortness of breath or difficulty breathing. Denies any history of DVT or PE. Denies any homicidal or suicidal ideations. No she has 3 kids that she still cares for and her family is about 3 hours away. She does talk on the phone to her mother frequently. Has not called her primary care doctor about any of the symptoms. Notes that her PCP is currently out on maternity leave but has not contacted her replacement either. [facility] Medical History Anxiety Depression Manic bipolar I disorder Home Medications NK 07/19/21 [History Last Taken Unknown] hydroxyzine HCl 25 mg PO TID PRN #20 tab 07/19/21 [Rx Last Taken Unknown] Allergy/AdvReac Type Severity Reaction Status Date / Time moxifloxacin HCl Allergy Hives Verified 06/10/21 16:40 [From Avelox] trazodone Allergy Hives Verified 06/10/21 16:40 Latex, Natural Rubber AdvReac Rash Verified 06/10/21 16:40 nitrofurantoin AdvReac Hives Verified 07/19/21 07:04 [From Macrobid] Penicillins [PCN] AdvReac Nausea/Vom/ Verified 06/10/21 16:40 Diarrhea Surgical History History of 3 sections History of back surgery History of partial hysterectomy Social History Smoking Status: Current every day smoker tobacco type: cigarettes ROS ROS ED Constitutional Constitutional ED: Denies chills or fever(s) Eyes Eyes: Denies blurry vision or change in vision ENT ENT ED: Denies rhinorrhea or sore throat Cardiovascular Cardiovascular: Reports chest pain, palpitations and racing heartbeat Respiratory/Chest Respiratory/Chest: Denies cough, dyspnea or dyspnea on exertion Gastrointestinal Gastrointestinal: Denies abdominal pain, nausea or vomiting Musculoskeletal Musculoskeletal: Denies arthralgias or myalgias Integumentary Denies rash Neurologic Neurologic: Denies headache(s) or weakness Psychiatric Psychiatric: Reports anxiety and depression; Denies suicidal ideation or suicidal thoughts EXAM Physical Exam Const Vital Signs: 07/19/21 07:02 Temperature 96.3 F L Temperature Source Temporal Pulse Rate 92 Respiratory Rate 18 Blood Pressure 158/115 H Blood Pressure Mean 129 Pulse Ox 98 Oxygen Delivery Method Room Air Positive well nourished and well developed General Appearance ED: well developed and other crying HEENT HEENT Narrative: Normocephalic atraumatic Eyes PERRL and EOMs intact bilaterally Eyes Narrative: Conjunctival injection Neck supple and no JVD Chest Wall inspection of chest normal and palpation of chest normal Resp normal respiratory effort and clear to auscultation bilaterally Cardio regular rate, regular rhythm and no murmurs GI normal to inspection, nondistended, normoactive bowel sounds and non-tender Palpation: soft Extremity normal to inspection General Extremety ED: Negative for edema or tenderness General Extremity: Negative for edema Neuro oriented x3 Neuro Narrative: No focal deficits appreciated Sensorium / Orientation: alert Psych Mood & Affect: depressed and tearful Thought Content: normal thought content, No suicidality and No homicidality Memory / Cognition: memory grossly intact Insight: insight good Judgement: judgement good Skin no rashes or lesions noted and no wounds MDM MDM MDM Narrative Medical decision making narrative: Patient evaluated for palpitations associated with anxiety and bereavement. She does have a history of hypothyroid and states she is on 125 mcg of Synthroid daily. She notes has not been taking her medication regularly. TSH is mildly elevated patient counseled that she should continue to take it regularly. Electrolyte and cardiac work-up largely negative. Patient is PE RC negative I do not suspect a PE. She is given 1 dose of oral Ativan in the ER. She is improved on my repeat evaluation. I do think patient stable for outpatient follow-up. She is encouraged to follow-up with her psychiatrist and is given information for the counseling center. Instructed to follow-up with her primary care doctor as well. Counseled on return precautions. Patient verbalizes agreement understand this plan. Discharged home in stable condition. Lab Data Labs: Laboratory Results - last 24 hr 07/19/21 07/19/21 07/19/21 07:32 07:32 08:18 WBC 6.6 RBC 4.36 Hgb 14.0 Hct 41.9 MCV 96.1 MCH 32.1 H MCHC 33.4 RDW Std Deviation 44.9 H RDW Coeff of Michele 12.6 Plt Count 192 MPV 10.3 Immature Gran % (Auto) 0.500 Neut % (Auto) 72.8 H Lymph % (Auto) 19.1 [place] % (Auto) 6.1 Eos % (Auto) 0.9 Baso % (Auto) 0.6 Absolute Neuts (auto) 4.8 Absolute Lymphs (auto) 1.26 Nucleated RBC % 0 Sodium 139 Potassium 3.8 Chloride 110 H Carbon Dioxide 24.0 Anion Gap 5 BUN 10 Creatinine 0.84 Estim Creat Clear Calc 66.50 Est GFR (MDRD) Af Amer 99 Est GFR (MDRD) Non-Af 82 BUN/Creatinine Ratio 11.9 Glucose 87 Calcium 8.6 Troponin I High Sens 4 TSH 41.00 H Urine Test Negative Radiography Chest X-Ray - ED: 1 View, Read by ED Physician, Read by Radiologist and No Acute Disease Diagnostic Testing: Clinical Impression(s) from Imaging Studies Chest X-Ray 07/19/21 07:20 IMPRESSION: Normal x-ray examination of the chest. Electronically Signed: Kiel Miller MD at 8:06 EST , Rhythm Strip Rhythm Strip: Sinus Rhythm Rate: 67 Ectopy: None EKG Initial EKG: Attestation: I personally reviewed and interpreted this EKG as follows: Interpretation: Sinus Rhythm Comments: Normal sinus rhythm with sinus arrhythmia at a rate of 67 Normal axis Normal intervals Normal ST segments Discharge Plan Triage Chief Complaint: Anxiety ED Provider: Queta Bennett Dx/Rx/DC Orders Clinical Impression: Bereavement, Thyroid disease, Anxiety, Heart palpitations Instructions: ED Grief Reaction, ED Palpitations Prescriptions: New hydroxyzine HCl 25 mg tablet 25 mg PO TID PRN (Reason: anxiety) Qty: 20 RF: 0 No Action NK RF: 0 Primary Care Provider: Elinor Castellanos NP Referrals: Counseling,Center [GROUP OF PHYSICIANS] - Elinor Castellanos NP, INDUSTRIAL SPRAYPAINTER-C [Primary Care Provider] - Activity Restrictions/Additional Instructions: Please follow-up with your psychiatrist for your bereavement and anxiety. You have been given information for the counseling center as well. Make sure you are taking her Synthroid every day. Disposition Disposition: Home, Self Care
[2021-07-19] MEDS: LORazepam 0.5 MG Tablet PO (07:27)
[2021-07-19 07:55] LABS: Absolute Lymphocyte Count 1.26 X10^3/uL (0.83-4.51); Absolute Neutrophil Count 4.8 X10^3/uL (2.0-7.7); Basophil# 0.04 X10^3/uL; Basophil% 0.6 % (0-1); Eosinophil# 0.06 X10^3/uL; Eosinophils% 0.9 % (0-5); Hematocrit 41.9 % (37-47); Lymphocyte # 1.26 X10^3/ul (0.83-4.51); Lymphocyte % 19.1 % (19-41); Mean Corp Hgb Conc 33.4 g/dL (32-36); Mean Corpuscular Hgb 32.1 pg (27.0-32.0); Mean Corpuscular Volume 96.1 fL (81-99); Mean Platelet Vol. 10.3 fl (6.2-12.0); Monocyte% 6.1 % (0-10); NRBC Flagged by Analyzer 0 % (0-5); Neutrophil # 4.79 X10^3/uL (2.7-7.7); Neutrophil % 72.8 % (47-70); Platelet Count 192 K/mm3 (150-450); RBC Distribution Width CV 12.6 % (11.6-14.6); RBC Distribution Width SD 44.9 fl (35.1-43.9); Red Blood Count 4.36 M/mm3 (4.2-5.4); White Blood Count 6.6 K/mm3 (4.4-11.0)
[2021-07-19 08:08] LABS: Anion Gap 5 (5-15); BUN 10 mg/dL (7-18); BUN/Creat Ratio 11.9 RATIO (10-20); Calcium,Total 8.6 mg/dL (8.5-10.1); Chloride 110 mmol/L (98-107); Creatinine, Serum 0.84 mg/dL (0.55-1.02); EST Glomerular Filtration Rate 82 mL/min (>60); Est Glom Filt Rate - Afr Amer 99 mL/min (>60); Glucose 87 mg/dL (74-106); Potassium 3.8 mmol/L (3.5-5.1); Sodium Level 139 mmol/L (136-145); Troponin-I HS 4 pg/mL (3.0-54.0)
[2021-07-19 08:32] LABS: Internal QC Validated? YES +Cl - CLEAR BKGD; Pregnancy, Urine Negative Negative
[2021-07-19 08:53] VITALS: BP 138/84; PULSE 78; RESP 14; O2SAT 100
== END 2021-07-19 08:53 | disposition home or self-care (01) ==
PROVIDERS: Emergency Provider Emergency Medicine; PCP Nurse Practitioner Family; Visit Provider Emergency Medicine
DX: F41.9 Anxiety disorder, unspecified (principal); F31.9 Bipolar disorder, unspecified; R00.2 Palpitations; E03.9 Hypothyroidism, unspecified; F17.210 Nicotine dependence, cigarettes, uncomplicated; Z79.890 Hormone replacement therapy; Z79.899 Other long term (current) drug therapy; Z63.4 Disappearance and death of family member
CPT/HCPCS: 71045; 80048; 81025; 84443; 84484; 85025; 93005; 99285; A4216

== ENCOUNTER 2021-08-17 09:54 | Emergency (ER) | payer OTHER, MEDICAID, SELFPAY ==
[2021-08-17 09:55] VITALS: BP 135/96; PULSE 91; RESP 14; TEMP 36.2; O2SAT 100; BMI 41.3
--- NOTE | 2021-08-17 10:31 | EX.ED.DYSGE1 ---
HPI History of Present Illness Chief Complaint: Lower Extremity Injury Informant: patient Narrative Narrative: Patient slipped and fell last night while drinking. She hurt the posterior aspect of her right calf. She states if she is just sitting in bed is not that bad but when she tries to bear weight or stand up on her toes it hurts. She can stand on her toes but it is uncomfortable. There is no ankle or knee pain. It is between this area. No hip pain. She denies any head trauma. She states nothing else is bothering her. [facility] Medical History Anxiety Depression Hypothyroid Manic bipolar I disorder Home Medications hydroxyzine HCl 20 mg PO Q6H PRN 08/17/21 [History Last Taken Unknown] levothyroxine 150 mcg PO DAILY 08/17/21 [History Last Taken Unknown] naproxen 500 mg PO BID #14 tab 08/17/21 [Rx Last Taken Unknown] Allergy/AdvReac Type Severity Reaction Status Date / Time moxifloxacin HCl Allergy Hives Verified 08/17/21 09:56 [From Avelox] trazodone Allergy Hives Verified 08/17/21 09:56 Latex, Natural Rubber AdvReac Rash Verified 08/17/21 09:56 nitrofurantoin AdvReac Hives Verified 08/17/21 09:56 [From Macrobid] Penicillins [PCN] AdvReac Nausea/Vom/ Verified 08/17/21 09:56 Diarrhea Surgical History History of 3 sections History of back surgery History of partial hysterectomy Social History Smoking Status: Current every day smoker tobacco type: cigarettes ROS ROS ED Constitutional Constitutional ED: Denies fever(s) Eyes Eyes: Denies blurry vision Respiratory/Chest Respiratory/Chest: Denies dyspnea Gastrointestinal Gastrointestinal: Denies nausea or vomiting Musculoskeletal Musculoskeletal: Reports other Details: See history of present illness. ; Denies back pain or neck pain Integumentary Denies rash Neurologic Neurologic: Denies headache(s), paresthesias or weakness EXAM Physical Exam Const Vital Signs: 08/17/21 09:55 Temperature 97.1 F L Temperature Source Temporal Pulse Rate 91 Respiratory Rate 14 Blood Pressure 135/96 H Blood Pressure Mean 109 Pulse Ox 100 Oxygen Delivery Method Room Air Positive well nourished and well developed General Appearance ED: well developed and NAD HEENT Reports moist mucous membranes Eyes General Eye ED: Negative for pale conjunctiva or scleral icterus Neck No no JVD Resp normal respiratory effort Back/Spine no CVA tenderness Thoracic Spine / Upper Back: Negative for paraspinal muscle tenderness Lumbar Spine / Lower Back: Negative for lumbar spinal tenderness Extremity normal to inspection Extremity Narrative: No sign of visual abnormality. No abrasions contusions swelling or deformity. There is tenderness at the proximal lateral calf on the right. Her Achilles is intact by both palpation and Tovar test. Range of motion of the foot and ankle is normal. There is no bony tenderness along the fibula, anterior tibia knee or ankle. Distal pulses are intact. Sensation is intact. Neuro no sensory deficits noted Sensorium / Orientation: alert Motor Exam: strength 5/5 throughout Psych mental status grossly normal Skin no rashes or lesions noted and no wounds MDM MDM MDM Narrative Medical decision making narrative: X-ray of patient's right tib-fib looked at by me and read by radiology shows no acute fracture dislocation. Clinically her Achilles tendon as well as gastroc are intact. My suspicion is that she may have a plantaris tendon rupture. This should self resolve. We will give her nonsteroidals. Ice elevation rest. If she develops worsening pain or swelling she may need ultrasound in the future but I do not think that is needed the morning after her injury. Radiography Diagnostic Testing: Clinical Impression(s) from Imaging Studies Tibia/Fibula X-Ray 08/17/21 10:42 IMPRESSION: Normal x-ray examination of the tibia and fibula. Electronically Signed: David Clemente MD at 11:07 EDT Reading Location ID and State: [address] [place] [address] , Service support , Discharge Plan Triage Chief Complaint: Lower Extremity Injury ED Provider: James Causey Dx/Rx/DC Orders Clinical Impression: Injury of right lower extremity, Rupture of right plantaris tendon Instructions: ED Muscle Strain, Extremity Prescriptions: New naproxen 500 MG tablet 500 mg PO BID Qty: 14 RF: 0 No Action levothyroxine 150 mcg Tablet 150 mcg PO DAILY RF: 0 hydroxyzine HCl 25 mg tablet 20 mg PO Q6H PRN (Reason: Pain) RF: 0 Primary Care Provider: Elinor Castellanos NP Referrals: Elinor Castellanos NP, [employer] [facility]ER[facility] [Primary Care Provider] - 3-5 Days if not improving Disposition Disposition: Home, Self Care
--- NOTE | 2021-08-17 10:42 | RAD_ITS ---
STUDY: X-RAY - RIGHT TIBIA AND FIBULA REASON FOR EXAM: Female, 36 years old. PAIN POSTERIORLY S/P FALL LAST NIGHT TECHNIQUE: 2 view(s) of the tibia and fibula were obtained. COMPARISON: None. FINDINGS: Normal visualized tibia. Normal visualized fibula. There is no demonstrated acute fracture. The soft tissue structures are unremarkable. RAD/Tibia & Fibula 2 Views IMPRESSION: Normal x-ray examination of the tibia and fibula. Electronically Signed: David Clemente MD at 11:07 EDT ,
[2021-08-17 12:15] VITALS: RESP 14
== END 2021-08-17 12:15 | disposition home or self-care (01) ==
PROVIDERS: Emergency Provider Emergency Medicine; PCP Nurse Practitioner Family; Visit Provider Emergency Medicine
DX: S86.811A Strain of other muscle(s) and tendon(s) at lower leg level, right leg, initial encounter (principal); F31.9 Bipolar disorder, unspecified; W01.0XXA Fall on same level from slipping, tripping and stumbling without subsequent striking against object, initial encounter; F17.210 Nicotine dependence, cigarettes, uncomplicated; E03.9 Hypothyroidism, unspecified; Z79.890 Hormone replacement therapy; Z79.1 Long term (current) use of non-steroidal anti-inflammatories (NSAID); Z79.899 Other long term (current) drug therapy
CPT/HCPCS: 73590; 99282

== ENCOUNTER 2021-11-07 23:14 | Emergency (ER) | payer OTHER, MEDICAID, SELFPAY ==
[2021-11-07 23:15] VITALS: BP 185/111; PULSE 112; RESP 16; TEMP 36.2; O2SAT 97; BMI 40.4
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
--- NOTE | 2021-11-07 23:48 | CT_ITS ---
EXAM: CT HEAD WITHOUT INTRAVENOUS CONTRAST CLINICAL INDICATION: closed head injury TECHNIQUE: Multiple axial images were obtained of the head without intravenous contrast. This CT exam was performed using one or more of the following dose reduction techniques: automated exposure control, adjustment of the mA and/or kV according to patient size, and/or use of iterative reconstruction technique. This report was created using [employer] report generation technology. RADIATION DOSE: CTDIvol = 44.99 mGy, DLP = 796.11 mGy-cm COMPARISON: None. FINDINGS: BRAIN AND EXTRA-AXIAL SPACES: Unremarkable. No intra- or extra-axial hemorrhage. No evidence of acute infarct. No intracranial mass or mass effect. There is preservation of the flores/white matter interface. Posterior fossa structures are unremarkable. Ventricles are appropriate for age. No hydrocephalus. Basal cisterns are patent. BONES/JOINTS: Unremarkable. No discrete lytic or blastic abnormalities. SINUSES: Almost complete opacification of left maxillary sinus, slight mucosal thickening in ethmoid sinuses. MASTOID AIR CELLS: Unremarkable. Clear. ORBITS: Visualized globes, extraocular muscles, optic nerves and retrobulbar fat appear unremarkable. CT/Brain/Head without Contrast IMPRESSION: No acute intracranial abnormality. Chronic sinusitis. Electronically Signed: Elsa Deras MD at 0:20 EDT ,
[2021-11-08] MEDS: Lidocaine 1% (20 ml mdv) 20 ML Vial INFILT (00:35)
[2021-11-08 00:36] VITALS: PULSE 86; RESP 18; O2SAT 100
== END 2021-11-08 00:36 | disposition home or self-care (01) ==
PROVIDERS: Emergency Provider Emergency Medicine; PCP Nurse Practitioner Family; Visit Provider Emergency Medicine
DX: S01.511A Laceration without foreign body of lip, initial encounter (principal); S06.0X9A Concussion with loss of consciousness of unspecified duration, initial encounter; Y04.8XXA Assault by other bodily force, initial encounter; E03.9 Hypothyroidism, unspecified; F17.210 Nicotine dependence, cigarettes, uncomplicated; Z79.890 Hormone replacement therapy
CPT/HCPCS: 12011; 70450; 99283

== ENCOUNTER 2021-12-12 05:18 | Emergency (ER) | payer OTHER, MEDICAID, SELFPAY ==
[2021-12-12 05:19] VITALS: BP 186/118; PULSE 86; RESP 22; TEMP 35.7; O2SAT 98; BMI 42.2
--- NOTE | 2021-12-12 05:25 | EX.ED.DYSGE1 ---
HPI History of Present Illness Chief Complaint: Flank Pain Informant: patient Onset/Context/Timing Onset: Today and Hours (3) Context: Sudden Onset Timing: Continuous Quality: Sharp Location: Right flank and right abdomen Worsened by: Nothing Relieved by: Nothing Narrative Narrative: Patient presents with right-sided abdominal pain that began approximately 3 hours prior to arrival. Patient states it began suddenly. Patient states the pain is in the right lower abdomen and radiates to the right side and flank area. Patient states nothing makes it better nothing makes it worse. Patient admits to some dysuria. Patient denies any hematuria. Patient admits to some nausea and vomiting. Patient denies any hematemesis or coffee-ground emesis. Patient denies any diarrhea, melena, or hematochezia. Patient denies any fevers or chills. [facility] Medical History Anxiety Depression Hypothyroid Manic bipolar I disorder Home Medications hydroxyzine HCl 25 mg tablet 20 mg PO Q6H PRN Pain 08/17/21 [History Last Taken Unknown] levothyroxine 150 mcg tablet 150 mcg PO DAILY 08/17/21 [History Last Taken Unknown] hydrocodone-acetaminophen 5-325mg 5mg-325mg 1 tab PO Q6H PRN PRN Pain 3 days #10 TABLETS 12/12/21 [Rx Last Taken Unknown] Allergy/AdvReac Type Severity Reaction Status Date / Time moxifloxacin HCl Allergy Hives Verified 12/12/21 05:19 [From Avelox] trazodone Allergy Hives Verified 12/12/21 05:19 Latex, Natural Rubber AdvReac Rash Verified 12/12/21 05:19 nitrofurantoin AdvReac Hives Verified 12/12/21 05:19 [From Macrobid] Penicillins [PCN] AdvReac Nausea/Vom/ Verified 12/12/21 05:19 Diarrhea Surgical History History of 3 sections History of back surgery History of partial hysterectomy Social History Smoking Status: Current every day smoker tobacco type: cigarettes ROS ROS ED Constitutional Constitutional ED: Denies chills or fever(s) Eyes Eyes: Denies blurry vision or change in vision ENT ENT ED: Denies rhinorrhea or sore throat Cardiovascular Cardiovascular: Denies chest pain or palpitations Respiratory/Chest Respiratory/Chest: Denies cough or dyspnea Gastrointestinal Gastrointestinal: Reports nausea and vomiting Genitourinary Genitourinary ED: Reports dysuria; Denies hematuria Musculoskeletal Musculoskeletal: Denies back pain or neck pain Integumentary Denies abscess or rash Neurologic Neurologic: Denies headache(s) or weakness Allergic/Immunologic Allergic/Immunologic ED: Denies mouth swelling or urticaria EXAM Physical Exam Const Vital Signs: 12/12/21 05:19 Temperature 96.2 F L Temperature Source Temporal Pulse Rate 86 Respiratory Rate 22 H Blood Pressure 186/118 H Blood Pressure Mean 140 Pulse Ox 98 Oxygen Delivery Method Room Air Positive well nourished, well developed and obese General Appearance ED: well developed and NAD Nutritional Appearance: obese HEENT Reports moist mucous membranes Neck supple and no JVD Resp normal respiratory effort and clear to auscultation bilaterally Cardio regular rate, regular rhythm and no murmurs GI normal to inspection, nondistended, normoactive bowel sounds Palpation: soft and tender RLQ and RUQ; Negative for guarding or rebound tenderness present Back/Spine General Back: CVA tenderness right Extremity normal to inspection General Extremety ED: Negative for edema or tenderness General Extremity: Negative for edema Neuro oriented x3, CN's II-XII intact bilaterally and no sensory deficits noted Sensorium / Orientation: alert Motor Exam: strength 5/5 throughout Psych mental status grossly normal Skin no rashes or lesions noted MDM MDM MDM Narrative Medical decision making narrative: Patient was given IV fluids, morphine, and Zofran. CBC was essentially within normal limits. Comprehensive metabolic profile was normal. Lipase was normal. Urinalysis shows occult blood of 250 with greater than 100 red blood cells. Leukocyte esterase was 25 there is 0-[address] scan of the abdomen and pelvis was obtained. There is a punctate proximal ureteral calculus on the right. There is some hydronephrosis. This was interpreted by the radiologist and reviewed by myself. Patient states the morphine helped initially but it is starting to come back. Patient was given a repeat dose of morphine. Patient was given a prescription for [place]. Patient was instructed to follow-up with her primary care physician in 5 to 7 days. Patient was also given a referral for urology. Patient understood and was agreeable with the plan. All questions were answered. Lab Data Attestation: I reviewed the patient's lab results. Labs: Laboratory Results - last 24 hr 12/12/21 12/12/21 12/12/21 05:30 05:30 06:15 WBC 10.8 RBC 4.39 Hgb 14.1 Hct 43.7 MCV 99.5 H MCH 32.1 H MCHC 32.3 RDW Std Deviation 49.2 H RDW Coeff of Michele 13.4 Plt Count 228 MPV 10.9 Immature Gran % (Auto) 0.600 Neut % (Auto) 70.6 H Lymph % (Auto) 20.3 [place] % (Auto) 6.0 Eos % (Auto) 1.8 Baso % (Auto) 0.7 Absolute Neuts (auto) 7.6 Absolute Lymphs (auto) 2.18 Nucleated RBC % 0 Sodium 137 Potassium 4.2 Chloride 109 H Carbon Dioxide 23.0 Anion Gap 5 BUN 12 Creatinine 0.95 Estim Creat Clear Calc 58.80 Est GFR (MDRD) Af Amer 86 Est GFR (MDRD) Non-Af 71 BUN/Creatinine Ratio 12.7 Glucose 99 Calcium 8.7 Total Bilirubin 0.50 AST 19 ALT 22 Alkaline Phosphatase 78 Total Protein 7.3 Albumin 3.8 Globulin 3.5 Albumin/Globulin Ratio 1.1 Lipase 121 Urine Color Yellow Urine Clarity Sl Cldy Urine pH 5.0 Ur Specific [place] 1.025 Urine Protein 30 H Urine Glucose (UA) NEGATIVE Urine Ketones Negative Urine Occult Blood 250 H Urine Nitrite Negative Urine Bilirubin Negative Urine Urobilinogen 1 H Ur Leukocyte Esterase 25 H Urine RBC > 100 SEEN Urine WBC 0-5 SEEN Ur Squamous Epith Cells 0-5 SEEN Urine Bacteria RARE Urine Mucus 0 SEEN Urine Trichomonas 0-5 SEEN Radiography Diagnostic Testing: Clinical Impression(s) from Imaging Studies Abdomen/Pelvis CT 12/12/21 05:28 IMPRESSION: Obstructing punctate right proximal ureter calculus. Electronically Signed: Silver Brody MD at 6:28 EDT , Discharge Plan Triage Chief Complaint: Flank Pain ED Provider: Donald Ceja Dx/Rx/DC Orders Clinical Impression: Calculus of proximal right ureter Instructions: ED Kidney Stone w/ Colic Prescriptions: New hydrocodone-acetaminophen [hydrocodone-acetaminophen] 5-325 mg tablet 1 tab PO Q6H PRN PRN (Reason: Pain) 3 Days Qty: 10 0RF No Action levothyroxine 150 mcg Tablet 150 mcg PO DAILY hydroxyzine HCl 25 mg tablet 20 mg PO Q6H PRN (Reason: Pain) Primary Care Provider: Elinor Castellanos NP Referrals: Elinor Castellanos NP, [employer]AGEMENT PARTNER-C [Primary Care Provider] - 5-7 Days Citlalli Padilla MD [STAFF PHYSICIAN] - 3-5 Days Disposition Disposition: Home, Self Care
--- NOTE | 2021-12-12 05:28 | CT_ITS ---
STUDY: CT ABDOMEN AND PELVIS WITHOUT CONTRAST REASON FOR EXAM: Female, 36 years old. Right flank pain RADIATION DOSAGE (If Supplied By Facility): CTDIvol = ( 18.51 ) mGy, DLP = ( 975.89 ) mGycm TECHNIQUE: Transaxial images were obtained from the dome of the diaphragm to the symphysis pubis without oral contrast, and without intravenous contrast. Sagittal and coronal images were reconstructed. Individualized dose optimization techniques were used for this CT. COMPARISON: None. FINDINGS: The visualized lung bases are unremarkable. The visualized portions of the heart are within normal limits. Normal liver. Normal gallbladder and extrahepatic biliary system. Normal spleen. Normal pancreas. Normal bilateral adrenal glands. Punctate right proximal ureter calculus with periureteral fat stranding and moderate hydronephrosis. Multiple bilateral renal collecting system calculi. Normal visualized stomach. Normal small intestine. Normal colon. The appendix is visualized and appears normal. Normal abdominal aorta. Normal inferior vena cava. Normal retroperitoneum. Normal urinary bladder. There is absence of the uterus consistent with a prior hysterectomy. Normal abdominal wall. Degenerative change throughout the thoracolumbar spine. CT/Abdomen/Pelvis without Cont IMPRESSION: Obstructing punctate right proximal ureter calculus. Electronically Signed: Silver Brody MD at 6:28 EDT ,
[2021-12-12] MEDS: Ondansetron 4 MG/2 ML Vial IV (05:35)
[2021-12-12] MEDS: 0.9% Normal Saline 1,000 ML 1000 ML IV (05:35)
[2021-12-12] MEDS: Morphine 4 MG/ML Syringe IV ×2 (05:36→06:59)
[2021-12-12 05:39] LABS: Absolute Lymphocyte Count 2.18 X10^3/uL (0.83-4.51); Absolute Neutrophil Count 7.6 X10^3/uL (2.0-7.7); Basophil# 0.07 X10^3/uL; Basophil% 0.7 % (0-1); Eosinophil# 0.19 X10^3/uL; Eosinophils% 1.8 % (0-5); Hematocrit 43.7 % (37-47); Hemoglobin 14.1 g/dL (12.0-15.0); Lymphocyte # 2.18 X10^3/ul (0.83-4.51); Lymphocyte % 20.3 % (19-41); Mean Corp Hgb Conc 32.3 g/dL (32-36); Mean Corpuscular Hgb 32.1 pg (27.0-32.0); Mean Corpuscular Volume 99.5 fL (81-99); Mean Platelet Vol. 10.9 fl (6.2-12.0); Monocyte# 0.65 X10^3/uL; NRBC Flagged by Analyzer 0 % (0-5); Neutrophil % 70.6 % (47-70); Platelet Count 228 K/mm3 (150-450); RBC Distribution Width CV 13.4 % (11.6-14.6); RBC Distribution Width SD 49.2 fl (35.1-43.9); Red Blood Count 4.39 M/mm3 (4.2-5.4); White Blood Count 10.8 K/mm3 (4.4-11.0)
[2021-12-12 05:56] LABS: ALB/GLOB Ratio 1.1 RATIO (0.9-2.4); AST(SGOT) 19 U/L (15-37); Alanine Aminotransfer ALT/SGPT 22 U/L (13-56); Albumin, Serum 3.8 g/dL (3.2-5.0); Alkaline Phosphatase 78 U/L (45-117); Anion Gap 5 (5-15); BUN 12 mg/dL (7-18); BUN/Creat Ratio 12.7 RATIO (10-20); Calcium,Total 8.7 mg/dL (8.5-10.1); Chloride 109 mmol/L (98-107); Creatinine, Serum 0.95 mg/dL (0.55-1.02); EST Glomerular Filtration Rate 71 mL/min (>60); Est Glom Filt Rate - Afr Amer 86 mL/min (>60); Globulin 3.5 g/dL (2.2-4.2); Glucose 99 mg/dL (74-106); Lipase 121 U/L (73-393); Potassium 4.2 mmol/L (3.5-5.1); Protein, Total 7.3 g/dL (6.4-8.2); Sodium Level 137 mmol/L (136-145)
[2021-12-12 06:25] LABS: Mucous, Urine 0 SEEN /hpf (<or=2+)
[2021-12-12 06:44] LABS: Color, Urine Yellow (Yellow); Glucose, Dipstick NEGATIVE (Normal); Ketone-Dipstick Negative (Negative); Leukocyte Esterase-Dipstick 25 /ul (Negative); Nitrite-Dipstick Negative (Negative); Occult Blood-Urine 250 /ul (Negative); Protein-Dipstick 30 mg/dl (Negative); Specific Gravity, Urine 1.025 (1.002-1.030); Urine Bilirubin Dipstick Negative (Negative); Urine Clarity Sl Cldy (Clear); Urine Urobilinogen 1 mg/dl (Normal)
[2021-12-12 06:48] LABS: Bacteria RARE /hpf (None Seen); Red Blood Cells-Urine > 100 SEEN /hpf (0-5); Squamous Epithelial Cells - UA 0-5 SEEN /hpf (5-10); Trichomonas 0-5 SEEN /hpf (None Seen); White Blood Cells 0-5 SEEN /hpf (0-5)
[2021-12-12 06:59] VITALS: BP 122/74; PULSE 78; RESP 19
== END 2021-12-12 07:02 | disposition home or self-care (01) ==
PROVIDERS: Emergency Provider Emergency Medicine; PCP Nurse Practitioner Family; Visit Provider Emergency Medicine
DX: N13.2 Hydronephrosis with renal and ureteral calculous obstruction (principal); F17.210 Nicotine dependence, cigarettes, uncomplicated; E03.9 Hypothyroidism, unspecified; E66.9 Obesity, unspecified
CPT/HCPCS: 74176; 80053; 81001; 83690; 85025; 90471; 96361; 96374; 96375; 96376; 99284; J7030; A4216; J2405

== ENCOUNTER → 2022-01-02 | Outpatient (CLI) | payer OTHER, MEDICAID, SELFPAY ==
[2022-01-02 10:52] LABS: ALB/GLOB Ratio 1.1 RATIO (0.9-2.4); AST(SGOT) 34 U/L (15-37); Alanine Aminotransfer ALT/SGPT 27 U/L (13-56); Albumin, Serum 3.7 g/dL (3.2-5.0); Alkaline Phosphatase 72 U/L (45-117); Anion Gap 4 (5-15); BUN 8 mg/dL (7-18); BUN/Creat Ratio 8.9 RATIO (10-20); Calcium,Total 8.9 mg/dL (8.5-10.1); Chloride 107 mmol/L (98-107); Cholesterol 182 mg/dL (200); Creatinine, Serum 0.89 mg/dL (0.55-1.02); EST Glomerular Filtration Rate 76 mL/min (>60); Est Glom Filt Rate - Afr Amer 92 mL/min (>60); Globulin 3.3 g/dL (2.2-4.2); Glucose 86 mg/dL (74-106); High Density Lipoprotein 49 mg/dL; Potassium 4.5 mmol/L (3.5-5.1); Sodium Level 139 mmol/L (136-145); T4 Free Direct 0.26 ng/dL (0.76-1.46); Triglycerides 171 mg/dL; Very Low Density Lipoprotein 34 mg/dL (5-40)
== END | disposition home or self-care (01) ==
LOC: LAB 08:31
PROVIDERS: PCP Nurse Practitioner Family; Visit Provider Nurse Practitioner Family
DX: E03.9 Hypothyroidism, unspecified (principal); Z13.6 Encounter for screening for cardiovascular disorders; Z13.1 Encounter for screening for diabetes mellitus
CPT/HCPCS: 36415; 80053; 80061; 84439; 84443

== ENCOUNTER 2022-01-07 06:57 | Emergency (ER) | payer OTHER, MEDICAID, SELFPAY ==
[2022-01-07 06:58] VITALS: BP 153/110; PULSE 85; RESP 18; TEMP 36.6; O2SAT 98; BMI 42.2
[2022-01-07] MEDS: Morphine 4 MG/ML Syringe IV (07:14)
[2022-01-07] MEDS: Ketorolac 30 MG/ML Syringe IV (07:15)
[2022-01-07] MEDS: Ondansetron 4 MG/2 ML Vial IV (07:15)
[2022-01-07 07:27] LABS: Mucous, Urine 0 SEEN /hpf (<or=2+); Red Blood Cells-Urine 0 SEEN /hpf (0-5)
--- NOTE | 2022-01-07 07:28 | EDS_ITS ---
HPI HPI - GI History of Present Illness Chief Complaint: Flank Pain Informant: patient Abdominal Pain/Flank Pain Onset: Today Context: - (Awoke with symptoms 1 hour ago.) Timing: Continuous and Waxes and wanes Quality: Aching Location: Left Flank Current Severity: Severe Maximum Severity: Severe Worsened by: Nothing Relieved by: Nothing Nausea/Vomiting/Emesis GI Symptom: Positive for Nausea and Vomiting Diarrhea/Melena/Hematochezia GI Symptom: Negative for Diarrhea, Melena or Hematochezia Associated Symptoms Associated Symptoms: Positive for Dysuria; Negative for Frequency, Hematuria or Urgency Narrative Narrative: Patient presents with about an hours worth of what feels like kidney stone pain in the left flank. She states for the last couple days she has had burning when she urinates most times without any other urinary symptoms or fevers/chills. No nausea or vomiting until the pain started this morning. She has a history of kidney stones and this feels similar. She has never required surgery to remove 1. She was on antibiotics for urine infection several weeks ago, she had a urinalysis last week and a culture were negative. [facility] Medical History Anxiety Depression Hypothyroid Kidney stones Manic bipolar I disorder Home Medications hydroxyzine HCl 25 mg tablet 20 mg PO Q6H PRN Pain 08/17/21 [History Last Taken Unknown] levothyroxine 150 mcg tablet 150 mcg PO DAILY 08/17/21 [History Last Taken Unknown] hydrocodone-acetaminophen 5-325mg 5mg-325mg 1 tab PO Q6H PRN PRN Pain 3 days #10 TABLETS 01/07/22 [Rx Last Taken Unknown] ondansetron 4 mg disintegrating tablet 8 mg PO Q8H PRN PRN Nausea #20 tabs 01/07/22 [Rx Last Taken Unknown] Allergy/AdvReac Type Severity Reaction Status Date / Time moxifloxacin HCl Allergy Hives Verified 12/12/21 05:19 [From Avelox] trazodone Allergy Hives Verified 12/12/21 05:19 Latex, Natural Rubber AdvReac Rash Verified 12/12/21 05:19 nitrofurantoin AdvReac Hives Verified 12/12/21 05:19 [From Macrobid] Penicillins [PCN] AdvReac Nausea/Vom/ Verified 12/12/21 05:19 Diarrhea Surgical History History of 3 sections History of back surgery History of partial hysterectomy Social History Smoking Status: Current every day smoker tobacco type: cigarettes ROS ROS ED Constitutional Constitutional ED: Denies chills or fever(s) Eyes Eyes: Denies change in vision or diplopia ENT ENT ED: Denies rhinorrhea or sore throat Cardiovascular Cardiovascular: Denies chest pain or palpitations Respiratory/Chest Respiratory/Chest: Denies cough or dyspnea Gastrointestinal Gastrointestinal: Reports nausea and vomiting; Denies abdominal pain or diarrhea Genitourinary Genitourinary ED: Reports dysuria; Denies hematuria Musculoskeletal Musculoskeletal: Reports back pain; Denies neck pain Integumentary Denies abscess or rash Neurologic Neurologic: Denies headache(s), paresthesias or weakness Psychiatric Psychiatric: Denies anxiety or suicidal thoughts EXAM Physical Exam Const Vital Signs: 01/07/22 06:58 Temperature 98 F Temperature Source Oral Pulse Rate 85 Respiratory Rate 18 Blood Pressure 153/110 H Blood Pressure Mean 124 Pulse Ox 98 Oxygen Delivery Method Room Air Positive well nourished and well developed General Appearance ED: well developed and NAD HEENT Reports moist mucous membranes normocephalic and atraumatic Eyes PERRL and EOMs intact bilaterally Neck full ROM and supple Resp normal respiratory effort and clear to auscultation bilaterally Cardio regular rate, regular rhythm and no murmurs GI non-tender and non-distended Auscultation: normoactive bowel sounds Palpation: soft Back/Spine General Back: CVA tenderness left and other FROM Extremity normal to inspection General Extremety ED: Negative for edema, pulses abnormal or tenderness General Extremity: Negative for edema or pulses abnormal Neuro oriented x3, CN's II-XII intact bilaterally and no sensory deficits noted Sensorium / Orientation: awake and alert Motor Exam: strength 5/5 throughout Psych mental status grossly normal and thought process normal Skin no rashes or lesions noted and no wounds MDM MDM MDM Narrative Medical decision making narrative: Patient had a CT scan 3-4 weeks ago that showed bilateral nephroliths. I do not think this needs to be repeated since it was basically just done and she has had a lot of CT scans in the past for stones. Certainly the differential here includes both pyelonephritis and ureterolithiasis, but I do not think performing a CT is necessary in order to differentiate these since her urinalysis returned looking negative for any infection. After being treated here with Toradol, Zofran, morphine, she is feeling much better, sitting comfortably texting on her phone. Expectant management indicated at this time, advised to follow-up with urology if she is controlling her symptoms but unable to pass the stone after a week or so. We discussed reasons to return to the ER. Prescribed analgesics and nausea medicine. Lab Data Attestation: I reviewed the patient's lab results. Labs: Laboratory Results - last 24 hr 01/07/22 01/07/22 01/07/22 07:07 07:07 07:17 WBC 8.7 RBC 4.20 Hgb 13.4 Hct 40.4 MCV 96.2 MCH 31.9 MCHC 33.2 RDW Std Deviation 47.6 H RDW Coeff of Michele 13.3 Plt Count 213 MPV 10.7 Immature Gran % (Auto) 0.700 Neut % (Auto) 69.6 Lymph % (Auto) 22.5 [place] % (Auto) 4.1 Eos % (Auto) 2.3 Baso % (Auto) 0.8 Absolute Neuts (auto) 6.1 Absolute Lymphs (auto) 1.96 Nucleated RBC % 0 Sodium 136 Potassium 4.1 Chloride 107 Carbon Dioxide 25.0 Anion Gap 4 L BUN 13 Creatinine 0.97 Estim Creat Clear Calc 57.59 Est GFR (MDRD) Af Amer 83 Est GFR (MDRD) Non-Af 69 BUN/Creatinine Ratio 13.4 Glucose 92 Calcium 8.3 L Urine Color Yellow Urine Clarity Sl. Cloudy Urine pH 6.0 Ur Specific [place] 1.020 Urine Protein Negative Urine Glucose (UA) Normal Urine Ketones Negative Urine Occult Blood Negative Urine Nitrite Negative Urine Bilirubin Negative Urine Urobilinogen Normal Ur Leukocyte Esterase 25 H Urine RBC 0 SEEN Urine WBC 0-5 SEEN Ur Squamous Epith Cells 0-5 SEEN Urine Bacteria 1+ Urine Mucus 0 SEEN Discharge Plan Triage Chief Complaint: Flank Pain ED Provider: Jair Watkins Dx/Rx/DC Orders Clinical Impression: Renal colic on left side, Urolithiasis Instructions: ED Kidney Stone w/ Colic Prescriptions: New ondansetron [ondansetron] 4 MG tablet 8 mg PO Q8H PRN PRN (Reason: Nausea) Qty: 20 0RF Continued levothyroxine 150 mcg Tablet 150 mcg PO DAILY hydroxyzine HCl 25 mg tablet 20 mg PO Q6H PRN (Reason: Pain) hydrocodone-acetaminophen 5-325 mg tablet 1 tab PO Q6H PRN PRN (Reason: Pain) 3 Days Qty: 10 0RF Primary Care Provider: Elinor Castellanos NP Referrals: Citlalli Padilla MD [Med Staff - Active Staff] - 1 Week if not improving Elinor Castellanos NP, PRESCHOOL EDUCATION DIRECTOR-C [Primary Care Provider] - Disposition Disposition: Home, Self Care
[2022-01-07 07:30] LABS: Absolute Lymphocyte Count 1.96 X10^3/uL (0.83-4.51); Absolute Neutrophil Count 6.1 X10^3/uL (2.0-7.7); Basophil# 0.07 X10^3/uL; Basophil% 0.8 % (0-1); Eosinophils% 2.3 % (0-5); Hematocrit 40.4 % (37-47); Hemoglobin 13.4 g/dL (12.0-15.0); Lymphocyte # 1.96 X10^3/ul (0.83-4.51); Lymphocyte % 22.5 % (19-41); Mean Corp Hgb Conc 33.2 g/dL (32-36); Mean Corpuscular Hgb 31.9 pg (27.0-32.0); Mean Corpuscular Volume 96.2 fL (81-99); Mean Platelet Vol. 10.7 fl (6.2-12.0); Monocyte# 0.36 X10^3/uL; Monocyte% 4.1 % (0-10); NRBC Flagged by Analyzer 0 % (0-5); Neutrophil # 6.05 X10^3/uL (2.7-7.7); Neutrophil % 69.6 % (47-70); Platelet Count 213 K/mm3 (150-450); RBC Distribution Width CV 13.3 % (11.6-14.6); RBC Distribution Width SD 47.6 fl (35.1-43.9); White Blood Count 8.7 K/mm3 (4.4-11.0)
[2022-01-07 07:42] LABS: Anion Gap 4 (5-15); BUN 13 mg/dL (7-18); BUN/Creat Ratio 13.4 RATIO (10-20); Calcium,Total 8.3 mg/dL (8.5-10.1); Chloride 107 mmol/L (98-107); Creatinine, Serum 0.97 mg/dL (0.55-1.02); EST Glomerular Filtration Rate 69 mL/min (>60); Est Glom Filt Rate - Afr Amer 83 mL/min (>60); Estimated Creatinine Clearance 57.59 ml/min; Glucose 92 mg/dL (74-106); Potassium 4.1 mmol/L (3.5-5.1); Sodium Level 136 mmol/L (136-145)
[2022-01-07 07:51] LABS: Color, Urine Yellow (Yellow); Glucose, Dipstick Normal (Normal); Ketone-Dipstick Negative (Negative); Leukocyte Esterase-Dipstick 25 /ul (Negative); Nitrite-Dipstick Negative (Negative); Occult Blood-Urine Negative /ul (Negative); Protein-Dipstick Negative (Negative); Urine Bilirubin Dipstick Negative (Negative); Urine Clarity Sl. Cloudy (Clear); Urine Urobilinogen Normal (Normal)
[2022-01-07 07:57] LABS: Bacteria 1+ /hpf (None Seen); Squamous Epithelial Cells - UA 0-5 SEEN /hpf (5-10); White Blood Cells 0-5 SEEN /hpf (0-5)
[2022-01-07 08:21] VITALS: PULSE 79; RESP 16; O2SAT 98
== END 2022-01-07 08:22 | disposition home or self-care (01) ==
PROVIDERS: Emergency Provider Emergency Medicine; PCP Nurse Practitioner Family; Visit Provider Emergency Medicine
DX: N20.0 Calculus of kidney (principal); R11.2 Nausea with vomiting, unspecified; E03.9 Hypothyroidism, unspecified; F17.210 Nicotine dependence, cigarettes, uncomplicated; Z79.890 Hormone replacement therapy; Z79.899 Other long term (current) drug therapy
CPT/HCPCS: 80048; 81001; 85025; 96374; 96375; 96376; 99283; A4216; J2405

== ENCOUNTER 2022-05-28 07:55 | Emergency (ER) | payer OTHER, MEDICAID, SELFPAY ==
[2022-05-28 07:56] VITALS: BP 177/117; PULSE 86; RESP 17; TEMP 36.1; O2SAT 99; BMI 41.3
--- NOTE | 2022-05-28 08:13 | EX.ED.DYSGE1 ---
HPI History of Present Illness Chief Complaint: Flank Pain Informant: patient Narrative Narrative: Patient is a 36-year-old female with history of hypothyroid, chronic back pain, prior kidney stones as well as a prior partial hysterectomy presenting with left-sided flank pain. Patient dates he had some mild back pain yesterday but thought it was just an exacerbation of her chronic back pain. This morning she woke up with sharp left flank pain. She states it is severe and woke her up from sleep. It radiates intermittently to her left lower quadrant. She did start having some dysuria yesterday but denies any hematuria or difficulty urinating. Denies any fever or chills. Has had associated nausea and vomiting. Use some type of topical natural oil that she applies to her wrist for pain control prior to coming in with no relief. Did not try any [id number] such as ibuprofen or Tylenol. States that she gets frequent kidney stones and most recently had a stone 5 months ago that she passed spontaneously. Often time she states she will do spasm at home and will come in but the pain was too bad today. No other complaints at this time. [facility] Medical History Anxiety Depression Hypothyroid Kidney stones Manic bipolar I disorder Home Medications hydroxyzine HCl 25 mg tablet 20 mg PO Q6H PRN Pain 08/17/21 [History Last Taken Unknown] levothyroxine 150 mcg tablet 150 mcg PO DAILY 08/17/21 [History Last Taken Unknown] hydrocodone-acetaminophen 5-325mg 5mg-325mg 1 tab PO Q6H PRN pain 3 days #12 tabs 05/28/22 [Rx Last Taken Unknown] ibuprofen 600 mg tablet 600 mg PO Q6H PRN PRN Pain Score 1-10/10 #20 tabs 05/28/22 [Rx Last Taken Unknown] ondansetron 4 mg disintegrating tablet 4 mg PO Q6H PRN nausea and vomiting #10 tabs 05/28/22 [Rx Last Taken Unknown] tamsulosin 0.4 mg capsule (Flomax) 0.4 mg PO DAILY #7 caps 05/28/22 [Rx Last Taken Unknown] Allergy/AdvReac Type Severity Reaction Status Date / Time moxifloxacin HCl Allergy Hives Verified 05/28/22 07:55 [From Avelox] trazodone Allergy Hives Verified 05/28/22 07:55 Latex, Natural Rubber AdvReac Rash Verified 05/28/22 07:55 nitrofurantoin AdvReac Hives Verified 05/28/22 07:55 [From Macrobid] Penicillins [PCN] AdvReac Nausea/Vom/ Verified 05/28/22 07:55 Diarrhea Surgical History History of 3 sections History of back surgery History of partial hysterectomy Social History Smoking Status: Current every day smoker tobacco type: cigarettes ROS ROS ED Constitutional Constitutional ED: Denies chills or fever(s) Eyes Eyes: Denies diplopia ENT ENT ED: Denies rhinorrhea or sore throat Cardiovascular Cardiovascular: Denies chest pain or palpitations Respiratory/Chest Respiratory/Chest: Denies cough Gastrointestinal Gastrointestinal: Reports abdominal pain, nausea and vomiting; Denies constipation or diarrhea Genitourinary Genitourinary ED: Reports dysuria; Denies hematuria or urinary frequency Musculoskeletal Musculoskeletal: Reports back pain; Denies myalgias Integumentary Denies rash Neurologic Neurologic: Denies headache(s) or weakness Psychiatric Psychiatric: Denies anxiety EXAM Physical Exam Const Vital Signs: 05/28/22 07:56 05/28/22 09:57 Temperature 96.9 F L Temperature Source Temporal Pulse Rate 86 71 Respiratory Rate 17 16 Blood Pressure 177/117 H 127/66 H Blood Pressure Mean 137 Pulse Ox 99 99 Oxygen Delivery Method Room Air Positive well nourished, well developed and obese Constitutional Narrative: Uncomfortable. General Appearance ED: well developed Nutritional Appearance: obese HEENT Reports moist mucous membranes Negative for trauma Eyes PERRL and EOMs intact bilaterally Neck supple Chest Wall inspection of chest normal Resp normal respiratory effort and clear to auscultation bilaterally Cardio regular rate, regular rhythm and no murmurs GI normal to inspection, nondistended, normoactive bowel sounds and non-tender Back/Spine no CVA tenderness Back/Spine Narrative: Patient points to her left flank as her area of pain Extremity normal to inspection Extremity Narrative: 2+ radial and DP pulses General Extremety ED: Negative for edema General Extremity: Negative for edema Neuro oriented x3 Sensorium / Orientation: alert Motor Exam: Negative for general weakness Psych mental status grossly normal Skin no rashes or lesions noted MDM MDM MDM Narrative Medical decision making narrative: Patient's evaluation onset of flank pain. Presentation is consistent with renal colic. CT from November demonstrated bilateral kidney stones with the largest on the left measuring 5 mm on my interpretation. Will provide analgesia and check kidney function as well as urinalysis and reevaluate. Chart review does show that patient's had multiple CTs of her abdomen pelvis or kidney stones in the past. Patient's never required instrumentation is past due spontaneously. On repeat evaluation at 8:40 AM, patient has significant improvement of her pain is now resting comfortably. Urinalysis consistent with some mild dehydration and hematuria but not consistent with infection. Kidney function is normal and CBC is normal. Plan for outpatient follow-up with urology, patient follows with Dr. Mohan. Will be discharged home with [place], Zofran and Motrin 600 mg for further symptom control. Patient comfortable with deferring CT scan at this time given how many CT she has had in the past and will be treated expectantly. Given return precautions. Patient is redosed with morphine prior to discharge. Lab Data Attestation: I reviewed the patient's lab results. Labs: Laboratory Results - last 24 hr 05/28/22 05/28/22 05/28/22 08:14 08:16 08:16 WBC 9.1 RBC 4.50 Hgb 14.6 Hct 42.3 MCV 94.0 MCH 32.4 H MCHC 34.5 RDW Std Deviation 44.7 H RDW Coeff of Michele 12.9 Plt Count 224 MPV 9.8 Immature Gran % (Auto) 0.600 Neut % (Auto) 75.3 H Lymph % (Auto) 18.5 L [place] % (Auto) 4.3 Eos % (Auto) 1.0 Baso % (Auto) 0.3 Absolute Neuts (auto) 6.8 Absolute Lymphs (auto) 1.67 Nucleated RBC % 0 Sodium 144 Potassium 3.7 Chloride 116 H Carbon Dioxide 26.0 Anion Gap 2 L BUN 10 Creatinine 0.94 Estim Creat Clear Calc 59.43 Est GFR (MDRD) Af Amer 86 Est GFR (MDRD) Non-Af 71 BUN/Creatinine Ratio 10.6 Glucose 98 Calcium 8.8 Urine Color [place] Urine Clarity Cloudy Urine pH 6.0 Ur Specific [place] 1.020 Urine Protein 100 H Urine Glucose (UA) Normal Urine Ketones 5 H Urine Occult Blood 250 H Urine Nitrite Negative Urine Bilirubin Negative Urine Urobilinogen Normal Ur Leukocyte Esterase 25 H Urine RBC > 100 SEEN Urine WBC 0 SEEN Ur Squamous Epith Cells 10-25 SEEN Urine Bacteria 0 SEEN Urine Mucus 0 SEEN Urine Test Negative Discharge Plan Triage Chief Complaint: Flank Pain ED Provider: Queta Bennett Dx/Rx/DC Orders Clinical Impression: Renal calculus, right, Renal calculus, left, Renal colic on left side, Hematuria Instructions: ED Kidney Stone w/ Colic Prescriptions: New hydrocodone-acetaminophen 5-325 mg tablet 1 tab PO Q6H PRN (Reason: pain) 3 Days Qty: 12 0RF ondansetron 4 mg tablet,disintegrating 4 mg PO Q6H PRN (Reason: nausea and vomiting) Qty: 10 0RF ibuprofen 600 mg tablet 600 mg PO Q6H PRN PRN (Reason: Pain Score 1-10/10) Qty: 20 0RF tamsulosin [Flomax] 0.4 mg capsule 0.4 mg PO DAILY Qty: 7 0RF No Action levothyroxine 150 mcg Tablet 150 mcg PO DAILY hydroxyzine HCl 25 mg tablet 20 mg PO Q6H PRN (Reason: Pain) Primary Care Provider: Elinor Castellanos NP Referrals: Wilbur Mohan MD [Med Staff - Active Staff] - 3-5 Days if not improving Elinor Castellanos NP, SOCIAL SCIENCE RESEARCH ASSISTANT-C [Primary Care Provider] - Disposition Disposition: Home, Self Care
[2022-05-28] MEDS: 0.9% Normal Saline 1,000 ML 250 ML IV (08:15)
[2022-05-28] MEDS: Ondansetron 4 MG/2 ML Vial IV (08:16)
[2022-05-28] MEDS: Ketorolac 15 MG/ML Vial IV (08:17)
[2022-05-28 08:18] LABS: Bacteria 0 SEEN /hpf (None Seen); Mucous, Urine 0 SEEN /hpf (<or=2+); White Blood Cells 0 SEEN /hpf (0-5)
[2022-05-28] MEDS: Morphine 4 MG/ML Syringe IV ×2 (08:18→09:19)
[2022-05-28 08:20] LABS: Absolute Lymphocyte Count 1.67 X10^3/uL (0.83-4.51); Absolute Neutrophil Count 6.8 X10^3/uL (2.0-7.7); Basophil# 0.03 X10^3/uL; Basophil% 0.3 % (0-1); Eosinophil# 0.09 X10^3/uL; Hematocrit 42.3 % (37-47); Hemoglobin 14.6 g/dL (12.0-15.0); Lymphocyte # 1.67 X10^3/ul (0.83-4.51); Lymphocyte % 18.5 % (19-41); Mean Corp Hgb Conc 34.5 g/dL (32-36); Mean Corpuscular Hgb 32.4 pg (27.0-32.0); Mean Platelet Vol. 9.8 fl (6.2-12.0); Monocyte# 0.39 X10^3/uL; Monocyte% 4.3 % (0-10); NRBC Flagged by Analyzer 0 % (0-5); Neutrophil # 6.82 X10^3/uL (2.7-7.7); Neutrophil % 75.3 % (47-70); Platelet Count 224 K/mm3 (150-450); RBC Distribution Width CV 12.9 % (11.6-14.6); RBC Distribution Width SD 44.7 fl (35.1-43.9); White Blood Count 9.1 K/mm3 (4.4-11.0)
[2022-05-28 08:21] LABS: Color, Urine Amber (Yellow); Glucose, Dipstick Normal (Normal); Ketone-Dipstick 5 mg/dl (Negative); Leukocyte Esterase-Dipstick 25 /ul (Negative); Nitrite-Dipstick Negative (Negative); Occult Blood-Urine 250 /ul (Negative); Protein-Dipstick 100 mg/dl (Negative); Urine Bilirubin Dipstick Negative (Negative); Urine Clarity Cloudy (Clear); Urine Urobilinogen Normal (Normal)
[2022-05-28 08:24] LABS: Internal QC Validated? YES +Cl - CLEAR BKGD; Pregnancy, Urine Negative Negative
[2022-05-28 08:34] LABS: Anion Gap 2 (5-15); BUN 10 mg/dL (7-18); BUN/Creat Ratio 10.6 RATIO (10-20); Calcium,Total 8.8 mg/dL (8.5-10.1); Chloride 116 mmol/L (98-107); Creatinine, Serum 0.94 mg/dL (0.55-1.02); EST Glomerular Filtration Rate 71 mL/min (>60); Est Glom Filt Rate - Afr Amer 86 mL/min (>60); Estimated Creatinine Clearance 59.43 ml/min; Glucose 98 mg/dL (74-106); Potassium 3.7 mmol/L (3.5-5.1); Sodium Level 144 mmol/L (136-145)
[2022-05-28 08:40] LABS: Red Blood Cells-Urine > 100 SEEN /hpf (0-5); Squamous Epithelial Cells - UA 10-25 SEEN /hpf (5-10)
[2022-05-28 09:57] VITALS: BP 127/66; PULSE 71; RESP 16; O2SAT 99
== END 2022-05-28 09:57 | disposition home or self-care (01) ==
PROVIDERS: Emergency Provider Emergency Medicine; PCP Nurse Practitioner Family; Visit Provider Emergency Medicine
DX: N20.0 Calculus of kidney (principal); G89.29 Other chronic pain; R11.2 Nausea with vomiting, unspecified; M54.9 Dorsalgia, unspecified; F17.210 Nicotine dependence, cigarettes, uncomplicated; R30.0 Dysuria; E66.9 Obesity, unspecified; R31.9 Hematuria, unspecified
CPT/HCPCS: 80048; 81001; 81025; 85025; 96361; 96374; 96375; 96376; 99283; J7030; A4216; J2405

== ENCOUNTER 2022-05-31 14:45 | Emergency (ER) | payer OTHER, MEDICAID, SELFPAY ==
[2022-05-31 14:46] VITALS: BP 170/112; PULSE 80; RESP 18; TEMP 35.5; O2SAT 99; BMI 41.0
--- NOTE | 2022-05-31 15:30 | EX.ED.DYSGE1 ---
HPI History of Present Illness Chief Complaint: Abd Pain Informant: patient Onset/Context/Timing Onset: Yesterday Context: Gradual Onset Timing: Continuous Quality: Aching, dull Location: Left flank Worsened by: Nothing Relieved by: Nothing Narrative Narrative: Patient presents with left flank pain that began yesterday. Patient states she was seen here recently for kidney stones. Patient states that she was given a prescription for Alliance. Patient states she was taking that which was helping. Patient states she ran out of that. Patient states she has not followed up with her urologist yet. Patient describes her pain as dull and aching. Patient states it is over the left flank area and radiates into the left lower abdomen. Patient states nothing makes it worse and nothing makes it better. Patient admits to some nausea but denies any vomiting. Patient denies any dysuria or hematuria. [facility] Medical History Anxiety Depression Hypothyroid Kidney stones Manic bipolar I disorder Home Medications hydroxyzine HCl 25 mg tablet 20 mg PO Q6H PRN Pain 08/17/21 [History Last Taken Unknown] levothyroxine 150 mcg tablet 150 mcg PO DAILY 08/17/21 [History Last Taken Unknown] hydrocodone-acetaminophen 5-325mg 5mg-325mg 1 tab PO Q6H PRN pain 3 days #12 tabs 05/28/22 [Rx Last Taken Unknown] ibuprofen 600 mg tablet 600 mg PO Q6H PRN PRN Pain Score 1-10/10 #20 tabs 05/28/22 [Rx Last Taken Unknown] ondansetron 4 mg disintegrating tablet 4 mg PO Q6H PRN nausea and vomiting #10 tabs 05/28/22 [Rx Last Taken Unknown] tamsulosin 0.4 mg capsule (Flomax) 0.4 mg PO DAILY #7 caps 05/28/22 [Rx Last Taken Unknown] Allergy/AdvReac Type Severity Reaction Status Date / Time moxifloxacin HCl Allergy Hives Verified 05/31/22 14:48 [From Avelox] trazodone Allergy Hives Verified 05/31/22 14:48 Latex, Natural Rubber AdvReac Rash Verified 05/31/22 14:48 nitrofurantoin AdvReac Hives Verified 05/31/22 14:48 [From Macrobid] Penicillins [PCN] AdvReac Nausea/Vom/ Verified 05/31/22 14:48 Diarrhea Surgical History History of 3 sections History of back surgery History of partial hysterectomy Social History Smoking Status: Current every day smoker tobacco type: cigarettes ROS ROS ED Constitutional Constitutional ED: Denies chills or fever(s) Eyes Eyes: Denies blurry vision or change in vision ENT ENT ED: Denies rhinorrhea or sore throat Cardiovascular Cardiovascular: Denies chest pain or palpitations Respiratory/Chest Respiratory/Chest: Denies cough or dyspnea Gastrointestinal Gastrointestinal: Reports abdominal pain and nausea; Denies vomiting Genitourinary Genitourinary ED: Denies dysuria or hematuria Musculoskeletal Musculoskeletal: Reports back pain; Denies neck pain Integumentary Denies abscess or rash Neurologic Neurologic: Denies headache(s) or weakness Allergic/Immunologic Allergic/Immunologic ED: Denies mouth swelling or urticaria EXAM Physical Exam Const Vital Signs: 05/31/22 14:46 Temperature 96 F L Temperature Source Temporal Pulse Rate 80 Respiratory Rate 18 Blood Pressure 170/112 H Blood Pressure Mean 131 Pulse Ox 99 Oxygen Delivery Method Room Air Positive well nourished, well developed and obese General Appearance ED: well developed and NAD Nutritional Appearance: obese HEENT Reports moist mucous membranes Neck supple and no JVD Resp normal respiratory effort and clear to auscultation bilaterally Cardio regular rate, regular rhythm and no murmurs GI normal to inspection, nondistended, normoactive bowel sounds and non-tender Palpation: soft and tender LLQ and LUQ; Negative for guarding or rebound tenderness present Back/Spine no CVA tenderness Extremity normal to inspection General Extremety ED: Negative for edema or tenderness General Extremity: Negative for edema Neuro oriented x3, CN's II-XII intact bilaterally and no sensory deficits noted Sensorium / Orientation: alert Motor Exam: strength 5/5 throughout Psych mental status grossly normal Skin no rashes or lesions noted MDM MDM MDM Narrative Medical decision making narrative: Patient was given IV fluids and Toradol here. CBC was within normal limits. Comprehensive metabolic profile was within normal limits. Urinalysis does not show any evidence of urinary tract infection. There are 5-10 red blood cells and occult blood of 150. Patient is feeling better on reevaluation. Patient was given a prescription for a short course of Alliance. Patient was instructed to follow-up with her urologist in 3 to 5 days. Patient was instructed to drink plenty of fluids. Patient was instructed return if worse in any way. Patient understood and was agreeable with the plan. All questions were answered. Lab Data Attestation: I reviewed the patient's lab results. Labs: Laboratory Results - last 24 hr 05/31/22 05/31/22 05/31/22 16:30 16:30 16:43 WBC 9.0 RBC 4.22 Hgb 13.4 Hct 39.6 MCV 93.8 MCH 31.8 MCHC 33.8 RDW Std Deviation 44.4 H RDW Coeff of Michele 13.0 Plt Count 218 MPV 10.0 Immature Gran % (Auto) 0.300 Neut % (Auto) 72.7 H Lymph % (Auto) 19.8 [place] % (Auto) 6.1 Eos % (Auto) 0.7 Baso % (Auto) 0.4 Absolute Neuts (auto) 6.5 Absolute Lymphs (auto) 1.78 Nucleated RBC % 0 Sodium 143 Potassium 3.4 L Chloride 113 H Carbon Dioxide 26.0 Anion Gap 4 L BUN 7 Creatinine 0.76 Estim Creat Clear Calc 73.51 Est GFR (MDRD) Af Amer 110 Est GFR (MDRD) Non-Af 91 BUN/Creatinine Ratio 9.2 L Glucose 91 Calcium 8.1 L Total Bilirubin 0.40 AST 20 ALT 23 Alkaline Phosphatase 67 Total Protein 6.5 Albumin 3.5 Globulin 3.0 Albumin/Globulin Ratio 1.2 Urine Color Yellow Urine Clarity Clear Urine pH 6.0 Ur Specific [place] 1.015 Urine Protein 30 H Urine Glucose (UA) Normal Urine Ketones Negative Urine Occult Blood 150 H Urine Nitrite Negative Urine Bilirubin Negative Urine Urobilinogen Normal Ur Leukocyte Esterase 25 H Urine RBC 5-10 SEEN Urine WBC 0-5 SEEN Ur Squamous Epith Cells 0-5 SEEN Urine Bacteria RARE Urine Mucus 1+ Discharge Plan Triage Chief Complaint: Abd Pain ED Provider: Donald Ceja Dx/Rx/DC Orders Clinical Impression: Calculus of left ureter, Renal colic on left side Instructions: ED Kidney Stone w/ Colic Prescriptions: No Action levothyroxine 150 mcg Tablet 150 mcg PO DAILY hydroxyzine HCl 25 mg tablet 20 mg PO Q6H PRN (Reason: Pain) hydrocodone-acetaminophen 5-325 mg tablet 1 tab PO Q6H PRN (Reason: pain) 3 Days Qty: 12 0RF ondansetron 4 mg tablet,disintegrating 4 mg PO Q6H PRN (Reason: nausea and vomiting) Qty: 10 0RF ibuprofen 600 mg tablet 600 mg PO Q6H PRN PRN (Reason: Pain Score 1-10/10) Qty: 20 0RF tamsulosin [Flomax] 0.4 mg capsule 0.4 mg PO DAILY Qty: 7 0RF Primary Care Provider: Elinor Castellanos NP Referrals: Wilbur Mohan MD [Med Staff - Active Staff] - 3-5 Days Elinor Castellanos NP, DIVISION ORDER TECHNICIAN-C [Primary Care Provider] - 3-5 Days Disposition Disposition: Home, Self Care
[2022-05-31] MEDS: 0.9% Normal Saline 1,000 ML 1000 ML IV (15:49)
[2022-05-31] MEDS: Ketorolac 30 MG/ML Syringe IV (15:49)
[2022-05-31 16:50] LABS: Absolute Lymphocyte Count 1.78 X10^3/uL (0.83-4.51); Absolute Neutrophil Count 6.5 X10^3/uL (2.0-7.7); Basophil# 0.04 X10^3/uL; Basophil% 0.4 % (0-1); Eosinophil# 0.06 X10^3/uL; Eosinophils% 0.7 % (0-5); Hematocrit 39.6 % (37-47); Hemoglobin 13.4 g/dL (12.0-15.0); Lymphocyte # 1.78 X10^3/ul (0.83-4.51); Lymphocyte % 19.8 % (19-41); Mean Corp Hgb Conc 33.8 g/dL (32-36); Mean Corpuscular Hgb 31.8 pg (27.0-32.0); Mean Corpuscular Volume 93.8 fL (81-99); Monocyte# 0.55 X10^3/uL; Monocyte% 6.1 % (0-10); NRBC Flagged by Analyzer 0 % (0-5); Neutrophil # 6.51 X10^3/uL (2.7-7.7); Neutrophil % 72.7 % (47-70); Platelet Count 218 K/mm3 (150-450); RBC Distribution Width SD 44.4 fl (35.1-43.9); Red Blood Count 4.22 M/mm3 (4.2-5.4)
[2022-05-31 16:54] LABS: Color, Urine Yellow (Yellow); Glucose, Dipstick Normal (Normal); Ketone-Dipstick Negative (Negative); Leukocyte Esterase-Dipstick 25 /ul (Negative); Nitrite-Dipstick Negative (Negative); Occult Blood-Urine 150 /ul (Negative); Protein-Dipstick 30 mg/dl (Negative); Specific Gravity, Urine 1.015 (1.002-1.030); Urine Bilirubin Dipstick Negative (Negative); Urine Clarity Clear (Clear); Urine Urobilinogen Normal (Normal)
[2022-05-31 17:05] LABS: ALB/GLOB Ratio 1.2 RATIO (0.9-2.4); AST(SGOT) 20 U/L (15-37); Alanine Aminotransfer ALT/SGPT 23 U/L (13-56); Albumin, Serum 3.5 g/dL (3.2-5.0); Alkaline Phosphatase 67 U/L (45-117); Anion Gap 4 (5-15); BUN 7 mg/dL (7-18); BUN/Creat Ratio 9.2 RATIO (10-20); Calcium,Total 8.1 mg/dL (8.5-10.1); Chloride 113 mmol/L (98-107); Creatinine, Serum 0.76 mg/dL (0.55-1.02); EST Glomerular Filtration Rate 91 mL/min (>60); Est Glom Filt Rate - Afr Amer 110 mL/min (>60); Estimated Creatinine Clearance 73.51 ml/min; Glucose 91 mg/dL (74-106); Potassium 3.4 mmol/L (3.5-5.1); Protein, Total 6.5 g/dL (6.4-8.2); Sodium Level 143 mmol/L (136-145)
[2022-05-31 17:28] LABS: Red Blood Cells-Urine 5-10 SEEN /hpf (0-5); Squamous Epithelial Cells - UA 0-5 SEEN /hpf (5-10); White Blood Cells 0-5 SEEN /hpf (0-5)
[2022-05-31 17:29] LABS: Bacteria RARE /hpf (None Seen); Mucous, Urine 1+ /hpf (<or=2+)
[2022-05-31 18:11] VITALS: RESP 16
[2022-05-31 18:23] VITALS: PULSE 68; RESP 16; O2SAT 98
== END 2022-05-31 18:24 | disposition home or self-care (01) ==
PROVIDERS: Emergency Provider Emergency Medicine; PCP Nurse Practitioner Family; Visit Provider Emergency Medicine
DX: N20.1 Calculus of ureter (principal); F17.210 Nicotine dependence, cigarettes, uncomplicated
CPT/HCPCS: 80053; 81001; 85025; 96361; 96374; 99282; J7030; A4216

== ENCOUNTER 2022-06-19 23:04 | Emergency (ER) | payer OTHER, MEDICAID, SELFPAY ==
[2022-06-19 23:06] VITALS: BP 173/106; PULSE 92; RESP 18; TEMP 35.9; O2SAT 97; BMI 41.7
[2022-06-19 23:09] VITALS: BP 173/106; PULSE 92; RESP 18; TEMP 35.9; O2SAT 99
--- NOTE | 2022-06-19 23:33 | EX.ED.DYSGE1 ---
HPI History of Present Illness Chief Complaint: Complaint Narrative Narrative: Patient is a 37-year-old female with past medical history of hypothyroidism and previous renal calculus. She states that she has felt a spasm in the urethral region for the past few days. She went to an outside hospital where they checked a urine which reportedly showed protein and blood but no infection on culture. She also states that the outside hospital checked for gonorrhea chlamydia trichomonas and which were all negative. Patient states that the intermittent spasms have continued to persist and she cannot sleep because of it and secondary to this comes to the hospital for evaluation. PFSH PFSH Medical History Anxiety Depression Hypothyroid Kidney stones Manic bipolar I disorder Home Medications hydroxyzine HCl 25 mg tablet 20 mg PO Q6H PRN Pain 08/17/21 [History Last Taken Unknown] levothyroxine 150 mcg tablet (Synthroid) 150 mcg PO DAILY 08/17/21 [History Last Taken Unknown] phenazopyridine 200 mg tablet (Pyridium) 200 mg PO TID PRN pain #15 tabs 06/19/22 [Rx Last Taken Unknown] Allergy/AdvReac Type Severity Reaction Status Date / Time moxifloxacin HCl Allergy Hives Verified 06/19/22 23:15 [From Avelox] trazodone Allergy Hives Verified 06/19/22 23:15 Latex, Natural Rubber AdvReac Rash Verified 06/19/22 23:15 nitrofurantoin AdvReac Hives Verified 06/19/22 23:15 [From Macrobid] Penicillins [PCN] AdvReac Nausea/Vom/ Verified 06/19/22 23:15 Diarrhea Surgical History History of 3 sections History of back surgery History of partial hysterectomy Social History Smoking Status: Current every day smoker tobacco type: cigarettes ROS ROS ED Constitutional Constitutional ED: Denies chills or fever(s) ENT ENT ED: Denies sore throat Cardiovascular Cardiovascular: Denies chest pain Respiratory/Chest Respiratory/Chest: Denies cough or dyspnea Gastrointestinal Gastrointestinal: Denies abdominal pain, diarrhea, nausea or vomiting Genitourinary Genitourinary ED: Reports other Details: Positive urethral spasm ; Denies dysuria, hematuria or urinary frequency Musculoskeletal Musculoskeletal: Denies back pain or myalgias Integumentary Denies rash Neurologic Neurologic: Denies headache(s) Hematologic/Lymphatic Hematologic/Lymphatic: Denies easy bleeding or easy bruising EXAM Physical Exam Const Vital Signs: 06/19/22 23:06 06/19/22 23:09 Temperature 96.7 F L 96.7 F L Temperature Source Temporal Temporal Pulse Rate 92 92 Respiratory Rate 18 18 Blood Pressure 173/106 H 173/106 H Blood Pressure Mean 128 128 Pulse Ox 97 99 Oxygen Delivery Method Room Air Room Air Positive well nourished and well developed General Appearance ED: well developed Eyes PERRL and EOMs intact bilaterally Neck supple Resp normal respiratory effort and clear to auscultation bilaterally Cardio regular rate and regular rhythm GI normal to inspection, nondistended, normoactive bowel sounds, non-tender, non-distended and no masses GI Narrative: No voluntary guarding or rigidity no pulsatile mass Auscultation: normoactive bowel sounds Palpation: soft Narrative: Patient deferred Back/Spine no CVA tenderness Extremity normal to inspection Neuro oriented x3 and CN's II-XII intact bilaterally Sensorium / Orientation: alert Psych mental status grossly normal Skin no rashes or lesions noted MDM MDM MDM Narrative Medical decision making narrative: Patient presented to the ER hypertensive but otherwise with stable vitals. She reported an intermittent spasm in the urethral region with a recent urine testing as well as vaginal testing for STDs which were all negative. Her report of intermittent spasm/pain is most consistent with urethral spasm. As she does not have any discharge or persistent pain my concern for underlying abscess/[place]olin cyst is low. Also she states there is been no anatomical abnormality in that region and she is already been tested for STDs and . She does not have flank pain so recurrent stone is low on my list as well. At this time we discussed that this could be a possible allergic urethritis as she states she has recently changed her laundry detergent or the development of interstitial cystitis. However if this is the cause of her symptoms there is no emergent imaging or testing that would diagnose the issue and therefore I feel no need to order testing at this time. I did offer a pelvic exam but patient states because of her recent testing at the outside facility she does not want a repeat exam. Therefore this time I will prescribe Pyridium to help reduce intermittent spasms and she can follow-up with urology on an outpatient basis Discharge Plan Triage Chief Complaint: Complaint ED Provider: Gopi Vergara Dx/Rx/DC Orders Clinical Impression: Urethral colic, Thyroid disease Instructions: ED Urethritis Infec Vs Inflam ... Prescriptions: New phenazopyridine [Pyridium] 200 mg tablet 200 mg PO TID PRN (Reason: pain) Qty: 15 0RF No Action levothyroxine [Synthroid] 150 mcg Tablet 150 mcg PO DAILY hydroxyzine HCl 25 mg tablet 20 mg PO Q6H PRN (Reason: Pain) Primary Care Provider: Elinor Castellanos NP Referrals: Citlalli Padilla MD [Med Staff - Active Staff] - Elinor Castellanos NP, CUSTOMER SUCCESS REPRESENTATIVE-C [Primary Care Provider] - Activity Restrictions/Additional Instructions: Your symptoms are consistent with a urethral spasm. Please take the Pyridium as directed to help control the. There is a chance you also have an inflamed urethra which could be from the change in your detergent therefore switch back to your previous detergent and wash your clothes once again. Follow-up with urology for repeat evaluation and return to the ER should you have any further concerns Disposition Disposition: Home, Self Care Discharge Date/Time: 06/19/22 23:43
[2022-06-19] MEDS: Phenazopyridine 95 MG Tablet 190 MG PO (23:39)
== END 2022-06-19 23:43 | disposition home or self-care (01) ==
PROVIDERS: Emergency Provider Emergency Medicine; PCP Nurse Practitioner Family; Visit Provider Emergency Medicine
DX: N36.8 Other specified disorders of urethra (principal); E07.9 Disorder of thyroid, unspecified; F17.210 Nicotine dependence, cigarettes, uncomplicated; E03.9 Hypothyroidism, unspecified
CPT/HCPCS: 99283

== ENCOUNTER 2022-11-26 16:58 | Emergency (ER) | payer OTHER, SELFPAY ==
[2022-11-26 17:00] VITALS: BP 136/99; PULSE 91; RESP 18; TEMP 36.1; O2SAT 99; BMI 40.8
--- NOTE | 2022-11-26 17:16 | EX.ED.DYSGE1 ---
HPI History of Present Illness Chief Complaint: Flank Pain Informant: patient Onset/Context/Timing Onset: Today Context: Sudden Onset Timing: Continuous Quality: Sharp Location: Right flank Worsened by: Nothing Relieved by: Nothing Narrative Narrative: Patient presents with right flank pain that began today. Patient states it began rather suddenly. Patient states it has been constant today. Patient states nothing makes it better nothing makes it worse. Patient states the pain is localized to the right flank. Patient admits to some nausea and vomiting. Patient denies any hematemesis or coffee-ground emesis. Patient denies any diarrhea, melena, or hematochezia. Patient admits to some dysuria but denies any hematuria or frequency. Patient denies any abnormal vaginal bleeding or discharge. Patient states she has had a hysterectomy. [facility] Medical History Anxiety Bipolar disorder Chronic back pain Constipation Decreased hearing Depression Early satiety GERD (gastroesophageal reflux disease) Hypothyroid Kidney stones Manic bipolar I disorder Home Medications hydroxyzine HCl 25 mg tablet 20 mg PO Q6H PRN Pain 08/17/21 [History Last Taken Unknown] levothyroxine 150 mcg tablet (Synthroid) 150 mcg PO DAILY 08/17/21 [History Last Taken Unknown] phenazopyridine 200 mg tablet (Pyridium) 200 mg PO TID PRN pain #15 tabs 06/19/22 [Rx Last Taken Unknown] albuterol sulfate 90 mcg/actuation aerosol inhaler 1 inh inhalation ONCE 10/21/22 [History Last Taken Unknown] ascorbic acid (vitamin C) 1,000 mg capsule 1 g PO Q6H 10/21/22 [History Last Taken Unknown] coenzyme Q10 300 mg capsule 300 mg PO DAILY 10/21/22 [History Last Taken Unknown] cyanocobalamin (vitamin B-12) 1,000 mcg capsule 1,000 mcg PO DAILY 10/21/22 [History Last Taken Unknown] doxepin 25 mg capsule 25 mg PO QHS 10/21/22 [History Last Taken Unknown] lamotrigine 100 mg tablet 50 mg PO DAILY 10/21/22 [History Last Taken Unknown] omeprazole 40 mg capsule,delayed release 40 mg PO DAILY 10/21/22 [History Last Taken Unknown] ondansetron HCl 4 mg tablet 4 mg PO Q8H 10/21/22 [History Last Taken Unknown] hydrocodone-acetaminophen 5-325mg 5mg-325mg 1 tab PO Q6H PRN PRN Pain 3 days #10 TABLETS 11/26/22 [Rx Last Taken Unknown] Allergy/AdvReac Type Severity Reaction Status Date / Time moxifloxacin HCl Allergy Hives Verified 11/26/22 16:59 [From Avelox] trazodone Allergy Hives Verified 11/26/22 16:59 Latex, Natural Rubber AdvReac Rash Verified 11/26/22 16:59 nitrofurantoin AdvReac Hives Verified 11/26/22 16:59 [From Macrobid] Penicillins [PCN] AdvReac Nausea/Vom/ Verified 11/26/22 16:59 Diarrhea Family History (Updated 10/21/22 @ 12:52 by Molly Sparks) Mother Hypertension Father Hypertension Surgical History History of 3 sections History of back surgery History of partial hysterectomy Social History Smoking Status: Current every day smoker tobacco type: cigarettes alcohol intake: never ROS ROS ED Constitutional Constitutional ED: Denies chills or fever(s) Eyes Eyes: Denies blurry vision or change in vision ENT ENT ED: Denies rhinorrhea or sore throat Cardiovascular Cardiovascular: Denies chest pain or palpitations Respiratory/Chest Respiratory/Chest: Denies cough or dyspnea Gastrointestinal Gastrointestinal: Reports nausea and vomiting Genitourinary Genitourinary ED: Reports dysuria; Denies hematuria Musculoskeletal Musculoskeletal: Reports back pain; Denies neck pain Integumentary Denies abscess or rash Neurologic Neurologic: Denies headache(s) or weakness Allergic/Immunologic Allergic/Immunologic ED: Denies mouth swelling or urticaria EXAM Physical Exam Const Vital Signs: 11/26/22 17:00 Temperature 97 F L Temperature Source Temporal Pulse Rate 91 Respiratory Rate 18 Blood Pressure 136/99 H Blood Pressure Mean 111 Pulse Ox 99 Positive well nourished, well developed and obese General Appearance ED: well developed Nutritional Appearance: obese HEENT Reports moist mucous membranes Neck supple and no JVD Resp normal respiratory effort and clear to auscultation bilaterally Cardio regular rate, regular rhythm and no murmurs GI normal to inspection, nondistended, normoactive bowel sounds Palpation: soft and tender RLQ (Mild); Negative for guarding or rebound tenderness present Back/Spine General Back: CVA tenderness right Extremity normal to inspection General Extremety ED: Negative for edema or tenderness General Extremity: Negative for edema Neuro oriented x3, CN's II-XII intact bilaterally and no sensory deficits noted Sensorium / Orientation: alert Motor Exam: strength 5/5 throughout Psych Mood & Affect: tearful Skin no rashes or lesions noted MDM MDM MDM Narrative Medical decision making narrative: Differential diagnosis includes ureteral calculus, pyelonephritis, urinary tract infection, cholecystitis, cholelithiasis, appendicitis, pancreatitis, bowel obstruction, and perforation. CT scan of the abdomen pelvis will be obtained to assess for ureteral calculus and pancreatitis. CBC will be obtained to assess for leukocytosis and anemia. Comprehensive metabolic profile will be obtained to assess for hepatic function, renal function, and electrolyte abnormality. Urinalysis will be obtained to assess for urinary tract infection and hematuria. Lab Data Attestation: I reviewed the patient's lab results. Lab results narrative: CBC was reviewed and was essentially within normal limits. Comprehensive metabolic profile was reviewed and was essentially within normal limits. Lipase was reviewed and was normal. Urinalysis was reviewed. Leukocyte esterase was 25 and occult blood was 50. There were 5-10 red blood cells but 0 white blood cells. There were 5-10 epithelial cells. Labs: Laboratory Results - last 24 hr 11/26/22 11/26/22 17:20 19:35 WBC 10.0 RBC 4.06 L Hgb 13.1 Hct 39.0 MCV 96.1 MCH 32.3 H MCHC 33.6 RDW Std Deviation 41.6 RDW Coeff of Michele 11.9 Plt Count 239 MPV 10.5 Immature Gran % (Auto) 0.500 Neut % (Auto) 60.3 Lymph % (Auto) 31.6 [place] % (Auto) 5.5 Eos % (Auto) 1.5 Baso % (Auto) 0.6 Absolute Neuts (auto) 6.0 Absolute Lymphs (auto) 3.15 Nucleated RBC % 0 Sodium 140 Potassium 3.8 Chloride 110 H Carbon Dioxide 23.0 Anion Gap 7 BUN 9 Creatinine 0.88 Estim Creat Clear Calc 62.87 Est GFR (MDRD) Af Amer 92 Est GFR (MDRD) Non-Af 76 BUN/Creatinine Ratio 10.2 Glucose 92 Calcium 9.2 Total Bilirubin 0.30 AST 15 ALT 18 Alkaline Phosphatase 78 Total Protein 7.5 Albumin 3.8 Globulin 3.7 Albumin/Globulin Ratio 1.0 Lipase 38 Urine Color Yellow Urine Clarity Sl. Cloudy Urine pH 6.5 Ur Specific [place] 1.015 Urine Protein 30 H Urine Glucose (UA) Normal Urine Ketones 5 H Urine Occult Blood 50 H Urine Nitrite Negative Urine Bilirubin Negative Urine Urobilinogen Normal Ur Leukocyte Esterase 25 H Urine RBC 5-10 SEEN Urine WBC 0 SEEN Ur Squamous Epith Cells 5-10 SEEN Urine Bacteria 1+ Urine Mucus 0 SEEN Radiography Diagnostic Testing: Clinical Impression(s) from Imaging Studies Abdomen/Pelvis CT 11/26/22 17:22 IMPRESSION: Numerous bilateral renal stones including a 5 mm proximal right ureteral stone causing obstruction of the right kidney and collecting system. Electronically Signed: Sergey Barber MD at 18:01 EDT , CT scan of the abdomen pelvis was obtained. There is a 5 mm proximal right ureteral calculus with hydronephrosis and hydroureter. There are nonobstructing renal stones noted. This was interpreted by the radiologist and was also independently reviewed by myself. Treatment and Re-Evaluation :: Patient was given IV fluids, morphine, and Zofran. Patient was given a repeat dose of morphine and a dose of Toradol. Patient was feeling better on reevaluation. Patient was given dose of [place] here. Patient was instructed to drink plenty of fluids. Patient was given a prescription for [place]. Patient was instructed to follow-up with her primary care physician in 5 to 7 days. Patient was also given referral for urology. Patient was instructed to return if worse in any way. Patient understood and was agreeable with the plan. All questions were answered. Discharge Plan Triage Chief Complaint: Flank Pain ED Provider: Donald Ceja Dx/Rx/DC Orders Clinical Impression: Calculus of proximal right ureter Instructions: ED Kidney Stone w/ Colic Prescriptions: New hydrocodone-acetaminophen [hydrocodone-acetaminophen] 5-325 mg tablet 1 tab PO Q6H PRN PRN (Reason: Pain) 3 Days Qty: 10 0RF No Action doxepin 25 mg capsule 25 mg PO QHS omeprazole 40 mg capsule,delayed release(DR/EC) 40 mg PO DAILY albuterol sulfate 90 mcg/actuation HFA aerosol inhaler 1 inh inhalation ONCE ascorbic acid (vitamin C) 1,000 mg capsule 1 g PO Q6H cyanocobalamin (vitamin B-12) 1,000 mcg capsule 1,000 mcg PO DAILY lamotrigine 100 mg tablet 50 mg PO DAILY ondansetron HCl 4 mg tablet 4 mg PO Q8H coenzyme Q10 300 mg capsule 300 mg PO DAILY levothyroxine [Synthroid] 150 mcg Tablet 150 mcg PO DAILY hydroxyzine HCl 25 mg tablet 20 mg PO Q6H PRN (Reason: Pain) phenazopyridine [Pyridium] 200 mg tablet 200 mg PO TID PRN (Reason: pain) Qty: 15 0RF Primary Care Provider: Elinor Castellanos NP Referrals: Citlalli Padilla MD [Med Staff - Active Staff] - 3-5 Days Elinor Castellanos NP, HOLLOW [employer] DOOR FRAME ASSEMBLER-C [Primary Care Provider] - 5-7 Days Disposition Disposition: Home, Self Care
--- NOTE | 2022-11-26 17:22 | CT_ITS ---
STUDY: CT ABDOMEN AND PELVIS WITHOUT CONTRAST REASON FOR EXAM: Female, 37 years old. Pain RADIATION DOSAGE (If Supplied By Facility): CTDIvol = ( 12.85 ) mGy, DLP = ( 632.65 ) mGycm TECHNIQUE: Transaxial images were obtained from the dome of the diaphragm to the symphysis pubis without oral contrast, and without intravenous contrast. Sagittal and coronal images were reconstructed. Individualized dose optimization techniques were used for this CT. COMPARISON: None. FINDINGS: The visualized lung bases are unremarkable. The visualized portions of the heart are within normal limits. Normal liver. Normal gallbladder and extrahepatic biliary system. Normal spleen. Normal pancreas. Normal bilateral adrenal glands. Right kidney has mild hydronephrosis related to a 5 mm proximal right ureteral stone, seen on coronal image 59. Numerous additional currently nonobstructing stones are seen in all segments of the right kidney. Left kidney shows numerous nonobstructing stones in all segments and is otherwise unremarkable. Evaluation of the GI tract is limited by absence of oral contrast. Cannot exclude stomach wall thickening. No dilated loops of bowel or evidence for obstruction. Cannot exclude segmental thickening of the umaña of the small or large bowel. Cannot exclude enteritis or colitis. Moderate diffuse fecal retention. Appendix within normal limits. Normal abdominal aorta. Normal inferior vena cava. Normal retroperitoneum. Normal urinary bladder. Normal abdominal wall. Normal osseous structures. CT/Abdomen/Pelvis without Cont IMPRESSION: Numerous bilateral renal stones including a 5 mm proximal right ureteral stone causing obstruction of the right kidney and collecting system. Electronically Signed: Sergey Barber MD at 18:01 EDT ,
[2022-11-26] MEDS: Morphine 4 MG/ML Syringe IV ×2 (17:27→19:50)
[2022-11-26] MEDS: 0.9% Normal Saline 1,000 ML 1000 ML IV (17:27)
[2022-11-26] MEDS: Ondansetron 4 MG/2 ML Vial IV (17:27)
[2022-11-26 17:36] LABS: Absolute Lymphocyte Count 3.15 X10^3/uL (0.83-4.51); Basophil# 0.06 X10^3/uL; Basophil% 0.6 % (0-1); Eosinophil# 0.15 X10^3/uL; Eosinophils% 1.5 % (0-5); Hemoglobin 13.1 g/dL (12.0-15.0); Lymphocyte # 3.15 X10^3/ul (0.83-4.51); Lymphocyte % 31.6 % (19-41); Mean Corp Hgb Conc 33.6 g/dL (32-36); Mean Corpuscular Hgb 32.3 pg (27.0-32.0); Mean Corpuscular Volume 96.1 fL (81-99); Mean Platelet Vol. 10.5 fl (6.2-12.0); Monocyte# 0.55 X10^3/uL; Monocyte% 5.5 % (0-10); NRBC Flagged by Analyzer 0 % (0-5); Neutrophil % 60.3 % (47-70); Platelet Count 239 K/mm3 (150-450); RBC Distribution Width CV 11.9 % (11.6-14.6); RBC Distribution Width SD 41.6 fl (35.1-43.9); Red Blood Count 4.06 M/mm3 (4.2-5.4)
[2022-11-26 17:47] LABS: AST(SGOT) 15 U/L (15-37); Alanine Aminotransfer ALT/SGPT 18 U/L (13-56); Albumin, Serum 3.8 g/dL (3.2-5.0); Alkaline Phosphatase 78 U/L (45-117); Anion Gap 7 (5-15); BUN 9 mg/dL (7-18); BUN/Creat Ratio 10.2 RATIO (10-20); Calcium,Total 9.2 mg/dL (8.5-10.1); Chloride 110 mmol/L (98-107); Creatinine, Serum 0.88 mg/dL (0.55-1.02); EST Glomerular Filtration Rate 76 mL/min (>60); Est Glom Filt Rate - Afr Amer 92 mL/min (>60); Estimated Creatinine Clearance 62.87 ml/min; Globulin 3.7 g/dL (2.2-4.2); Glucose 92 mg/dL (74-106); Lipase 38 U/L (13-75); Potassium 3.8 mmol/L (3.5-5.1); Protein, Total 7.5 g/dL (6.4-8.2); Sodium Level 140 mmol/L (136-145)
[2022-11-26 19:42] LABS: Mucous, Urine 0 SEEN /hpf (<or=2+); White Blood Cells 0 SEEN /hpf (0-5)
[2022-11-26] MEDS: Ketorolac 30 MG/ML Syringe IV (19:52)
[2022-11-26 20:31] LABS: Color, Urine Yellow (Yellow); Glucose, Dipstick Normal (Normal); Ketone-Dipstick 5 mg/dl (Negative); Leukocyte Esterase-Dipstick 25 /ul (Negative); Nitrite-Dipstick Negative (Negative); Occult Blood-Urine 50 /ul (Negative); Protein-Dipstick 30 mg/dl (Negative); Specific Gravity, Urine 1.015 (1.002-1.030); Urine Bilirubin Dipstick Negative (Negative); Urine Clarity Sl. Cloudy (Clear); Urine Urobilinogen Normal (Normal); Urine pH 6.5 (5.0 - 8.0)
[2022-11-26 20:41] LABS: Bacteria 1+ /hpf (None Seen); Red Blood Cells-Urine 5-10 SEEN /hpf (0-5); Squamous Epithelial Cells - UA 5-10 SEEN /hpf (5-10)
[2022-11-26] MEDS: HYDROcodone Bitartrate/Apap 5/325 Tablet PO (22:16)
[2022-11-26 22:19] VITALS: BP 148/79; PULSE 85; RESP 18; O2SAT 100
== END 2022-11-26 22:20 | disposition home or self-care (01) ==
PROVIDERS: Emergency Provider Emergency Medicine; PCP Nurse Practitioner Family; Visit Provider Emergency Medicine
DX: N20.1 Calculus of ureter (principal); R11.2 Nausea with vomiting, unspecified; F17.210 Nicotine dependence, cigarettes, uncomplicated; R30.0 Dysuria; M54.9 Dorsalgia, unspecified; E66.9 Obesity, unspecified
CPT/HCPCS: 74176; 80053; 81001; 83690; 85025; 96361; 96374; 96375; 96376; 99284; J7030; A4216; J2405

== ENCOUNTER 2022-12-14 01:53 | Emergency (ER) | payer OTHER, SELFPAY ==
[2022-12-14 01:54] VITALS: PULSE 74; RESP 16; TEMP 36; O2SAT 98; BMI 41.3
[2022-12-14] MEDS: 0.9% Normal Saline 1,000 ML 999 ML IV (02:43)
[2022-12-14] MEDS: Morphine 4 MG/ML Syringe IV (02:44)
[2022-12-14] MEDS: Ondansetron 4 MG/2 ML Vial IV (02:47)
[2022-12-14] MEDS: Ketorolac 30 MG/ML Syringe IV (02:51)
[2022-12-14 03:04] LABS: Absolute Lymphocyte Count 2.42 X10^3/uL (0.83-4.51); Absolute Neutrophil Count 3.7 X10^3/uL (2.0-7.7); Basophil# 0.06 X10^3/uL; Basophil% 0.9 % (0-1); Eosinophil# 0.19 X10^3/uL; Eosinophils% 2.8 % (0-5); Hematocrit 40.5 % (37-47); Lymphocyte # 2.42 X10^3/ul (0.83-4.51); Lymphocyte % 35.6 % (19-41); Mean Corp Hgb Conc 32.1 g/dL (32-36); Mean Corpuscular Hgb 31.5 pg (27.0-32.0); Mean Corpuscular Volume 98.1 fL (81-99); Mean Platelet Vol. 11.9 fl (6.2-12.0); Monocyte# 0.43 X10^3/uL; Monocyte% 6.3 % (0-10); NRBC Flagged by Analyzer 0 % (0-5); Neutrophil # 3.68 X10^3/uL (2.7-7.7); Neutrophil % 54.1 % (47-70); Platelet Count 217 K/mm3 (150-450); RBC Distribution Width CV 11.9 % (11.6-14.6); RBC Distribution Width SD 43.2 fl (35.1-43.9); Red Blood Count 4.13 M/mm3 (4.2-5.4); White Blood Count 6.8 K/mm3 (4.4-11.0)
[2022-12-14 03:16] LABS: Color, Urine Yellow (Yellow); Glucose, Dipstick Normal (Normal); Ketone-Dipstick Negative (Negative); Leukocyte Esterase-Dipstick 25 /ul (Negative); Nitrite-Dipstick Negative (Negative); Occult Blood-Urine 250 /ul (Negative); Protein-Dipstick 100 mg/dl (Negative); Specific Gravity, Urine 1.025 (1.002-1.030); Urine Bilirubin Dipstick Negative (Negative); Urine Clarity Clear (Clear); Urine Urobilinogen Normal (Normal)
[2022-12-14 03:17] LABS: Internal QC Validated? YES +Cl - CLEAR BKGD; Pregnancy, Urine Negative Negative
[2022-12-14 03:22] LABS: Bacteria 1+ /hpf (None Seen); Mucous, Urine 1+ /hpf (<or=2+); Red Blood Cells-Urine 0-5 SEEN /hpf (0-5); Squamous Epithelial Cells - UA 0-5 SEEN /hpf (5-10); White Blood Cells 25-50 SEEN /hpf (0-5)
[2022-12-14 03:41] LABS: Anion Gap 5 (5-15); BUN 11 mg/dL (7-18); BUN/Creat Ratio 12.1 RATIO (10-20); Calcium,Total 9.1 mg/dL (8.5-10.1); Chloride 114 mmol/L (98-107); Creatinine, Serum 0.91 mg/dL (0.55-1.02); EST Glomerular Filtration Rate 74 mL/min (>60); Est Glom Filt Rate - Afr Amer 89 mL/min (>60); Glucose 88 mg/dL (74-106); Potassium 4.1 mmol/L (3.5-5.1); Sodium Level 143 mmol/L (136-145)
--- NOTE | 2022-12-14 04:14 | EDS_ITS ---
HPI History of Present Illness Chief Complaint: Flank Pain Informant: patient Narrative Narrative: Patient is a 37-year-old female with past medical history of hypothyroidism and recurrent kidney stones. She was seen approximately 2 to 3 weeks ago and noted to have multiple stones in bilateral kidneys. She states that she went to bed normally and then woke up roughly 1 hour prior to arrival with sharp left-sided flank pain wrapping towards her groin. She states there was associated bouts of nausea and vomiting from the pain. She states that she tried to take [id number] medications with minimal symptom improvement. Therefore at this time as she has concern for repeat kidney stone and intractable pain she presents for evaluation. [facility] Medical History Anxiety Bipolar disorder Chronic back pain Constipation Decreased hearing Depression Early satiety GERD (gastroesophageal reflux disease) Hypothyroid Kidney stones Manic bipolar I disorder Home Medications hydroxyzine HCl 25 mg tablet 20 mg PO Q6H PRN Pain 08/17/21 [History Last Taken Unknown] levothyroxine 150 mcg tablet (Synthroid) 150 mcg PO DAILY 08/17/21 [History Last Taken Unknown] albuterol sulfate 90 mcg/actuation aerosol inhaler 1 inh inhalation ONCE 10/21/22 [History Last Taken Unknown] doxepin 25 mg capsule 25 mg PO QHS 10/21/22 [History Last Taken Unknown] ondansetron HCl 4 mg tablet 4 mg PO Q8H 10/21/22 [History Last Taken Unknown] cephalexin 500 mg capsule 500 mg PO TID 7 days #21 caps 12/14/22 [Rx Last Taken Unknown] ketorolac 10 mg tablet 10 mg PO Q6H 5 days #20 tabs 12/14/22 [Rx Last Taken Unknown] oxycodone-acetaminophen 5 mg-325 mg tablet (Percocet) 1 tab PO Q6H PRN pain 3 days #12 tabs 12/14/22 [Rx Last Taken Unknown] Allergy/AdvReac Type Severity Reaction Status Date / Time moxifloxacin HCl Allergy Hives Verified 12/14/22 01:54 [From Avelox] trazodone Allergy Hives Verified 12/14/22 01:54 Latex, Natural Rubber AdvReac Rash Verified 12/14/22 01:54 nitrofurantoin AdvReac Hives Verified 12/14/22 01:54 [From Macrobid] Penicillins [PCN] AdvReac Nausea/Vom/ Verified 12/14/22 01:54 Diarrhea Family History (Updated 10/21/22 @ 12:52 by Molly Sparks) Mother Hypertension Father Hypertension Surgical History History of 3 sections History of back surgery History of partial hysterectomy Social History Smoking Status: Current every day smoker tobacco type: cigarettes alcohol intake: never ROS ROS ED Constitutional Constitutional ED: Denies chills or fever(s) ENT ENT ED: Denies sore throat Cardiovascular Cardiovascular: Denies chest pain Respiratory/Chest Respiratory/Chest: Denies cough or dyspnea Gastrointestinal Gastrointestinal: Reports abdominal pain, nausea and vomiting; Denies diarrhea Genitourinary Genitourinary ED: Denies dysuria Musculoskeletal Musculoskeletal: Reports back pain; Denies myalgias Integumentary Denies rash Neurologic Neurologic: Denies headache(s) Hematologic/Lymphatic Hematologic/Lymphatic: Denies easy bleeding or easy bruising EXAM Physical Exam Const Vital Signs: 12/14/22 01:54 Temperature 96.8 F L Temperature Source Temporal Pulse Rate 74 Respiratory Rate 16 Pulse Ox 98 Positive well nourished, well developed and obese General Appearance ED: well developed Nutritional Appearance: obese HEENT HEENT Narrative: Normocephalic atraumatic Eyes PERRL and EOMs intact bilaterally General Eye ED: Negative for scleral icterus Neck supple Resp normal respiratory effort and clear to auscultation bilaterally Cardio regular rate and regular rhythm Rate: other Other Details: Radial pulses are plus 2 out of 4 bilaterally are equal and symmetric GI non-distended GI Narrative: Abdomen is soft and nondistended with normal active bowel sounds. Patient has pain on palpation along the left mid to lower abdomen without voluntary guarding or rigidity. No pulsatile mass or fluid wave Auscultation: normoactive bowel sounds Palpation: soft Back/Spine Back/Spine Narrative: Positive left CVA pain Extremity normal to inspection Neuro oriented x3, CN's II-XII intact bilaterally and no sensory deficits noted Sensorium / Orientation: alert Motor Exam: strength 5/5 throughout Psych mental status grossly normal Skin no rashes or lesions noted Skin Narrative: No overlying abrasions or ecchymosis to suggest trauma and no erythema or warmth to suggest infection MDM MDM MDM Narrative Medical decision making narrative: Patient presented to the ER with stable vitals but her history and exam is most consistent with kidney stone. There is also possibility of colitis/diverticulitis atypical biliary colic or pyelonephritis in the differential. The patient's previous chart was reviewed and it did document multiple stones within the right and left kidney. With the patient's sudden onset of sharp pain along the left flank wrapping towards her groin this is most likely kidney stone. As she has had recent CT scan documented multiple stones I do not feel the need for repeat scan at this time. Basic blood work was obtained and shows no signs of acute kidney injury or urosepsis. There are changes present within the UA sample to suggest infection. Therefore patient replaced on antibiotics. After being treated with IV fluids Toradol morphine and Zofran patient did have improvement of pain and was resting comfortably. Therefore at this time as there is no signs of RIGO urosepsis or intractable pain patient is otherwise safe for discharge. History & Record Review Discussion w/independent historian: Patient Lab Data Attestation: I reviewed the patient's lab results. Labs: Laboratory Results - last 24 hr 12/14/22 12/14/22 02:10 02:56 WBC 6.8 RBC 4.13 L Hgb 13.0 Hct 40.5 MCV 98.1 MCH 31.5 MCHC 32.1 RDW Std Deviation 43.2 RDW Coeff of Michele 11.9 Plt Count 217 MPV 11.9 Immature Gran % (Auto) 0.300 Neut % (Auto) 54.1 Lymph % (Auto) 35.6 Cross % (Auto) 6.3 Eos % (Auto) 2.8 Baso % (Auto) 0.9 Absolute Neuts (auto) 3.7 Absolute Lymphs (auto) 2.42 Nucleated RBC % 0 Sodium 143 Potassium 4.1 Chloride 114 H Carbon Dioxide 24.0 Anion Gap 5 BUN 11 Creatinine 0.91 Estim Creat Clear Calc 60.80 Est GFR (MDRD) Af Amer 89 Est GFR (MDRD) Non-Af 74 BUN/Creatinine Ratio 12.1 Glucose 88 Calcium 9.1 Urine Color Yellow Urine Clarity Clear Urine pH 6.0 Ur Specific Bartlett 1.025 Urine Protein 100 H Urine Glucose (UA) Normal Urine Ketones Negative Urine Occult Blood 250 H Urine Nitrite Negative Urine Bilirubin Negative Urine Urobilinogen Normal Ur Leukocyte Esterase 25 H Urine RBC 0-5 SEEN Urine WBC 25-50 SEEN Ur Squamous Epith Cells 0-5 SEEN Urine Bacteria 1+ Urine Mucus 1+ Urine Test Negative Discharge Plan Triage Chief Complaint: Flank Pain ED Provider: Gopi Vergara Dx/Rx/DC Orders Clinical Impression: UTI (urinary tract infection), Renal colic, Kidney stone Instructions: ED Kidney Stone w/ Colic Prescriptions: New oxycodone-acetaminophen [Percocet] 5-325 mg tablet 1 tab PO Q6H PRN (Reason: pain) 3 Days Qty: 12 0RF ketorolac 10 mg tablet 10 mg PO Q6H 5 Days Qty: 20 0RF cephalexin 500 mg capsule 500 mg PO TID 7 Days Qty: 21 0RF No Action doxepin 25 mg capsule 25 mg PO QHS albuterol sulfate 90 mcg/actuation HFA aerosol inhaler 1 inh inhalation ONCE ondansetron HCl 4 mg tablet 4 mg PO Q8H levothyroxine [Synthroid] 150 mcg Tablet 150 mcg PO DAILY hydroxyzine HCl 25 mg tablet 20 mg PO Q6H PRN (Reason: Pain) Stand Alone Forms: ED Work / School Excuse Primary Care Provider: Elinor Castellanos NP Referrals: Citlalli Padilla MD [Med Staff - Active Staff] - Elinor Castellanos NP, HEALTH OCCUPATIONS INSTRUCTOR-C [Primary Care Provider] - Activity Restrictions/Additional Instructions: Please return to the ER if you develop a fever over 100.4 or your pain is not controlled with the prescribed medication Disposition Disposition: Home, Self Care
[2022-12-14] MEDS: Cephalexin 250 MG Capsule 500 MG PO (04:22)
[2022-12-14 04:51] VITALS: BP 134/94; PULSE 50; RESP 16; O2SAT 100
== END 2022-12-14 05:30 | disposition home or self-care (01) ==
PROVIDERS: Emergency Provider Emergency Medicine; PCP Nurse Practitioner Family; Visit Provider Emergency Medicine
DX: N39.0 Urinary tract infection, site not specified (principal); N20.0 Calculus of kidney; E03.9 Hypothyroidism, unspecified; F17.210 Nicotine dependence, cigarettes, uncomplicated; Z79.890 Hormone replacement therapy; Z79.899 Other long term (current) drug therapy
CPT/HCPCS: 80048; 81001; 81025; 85025; 96361; 96374; 96375; 99283; A4216; J2405

== ENCOUNTER 2023-06-02 11:27 | Emergency (ER) | payer OTHER, SELFPAY ==
[2023-06-02 11:30] VITALS: BP 172/116; PULSE 77; RESP 14; TEMP 35.8; O2SAT 97; BMI 42.5
--- NOTE | 2023-06-02 12:11 | EDS_ITS ---
HPI History of Present Illness Chief Complaint: Back Narrative Narrative: 37-year-old female past medical history of spinal stenosis, previous bulging disks with back surgery in [place] in 2014, 9 years ago, presents with right- sided low back pain with radiation down her right leg to the knee level that she has had for the last 2 days. She states she went to sleep, and awoke with right-sided leg pain. She denies any fevers or chills, no saddle anesthesia, no loss of bowel or bladder. No red flag signs for cauda equina. She was told that after her back surgery, that she had narrowing of the foramen where the nerve roots come out and that sometimes when those get inflamed, the pinch. She feels like this is what is happening currently. She is taking ibuprofen without relief. She denies any recent falls or trauma. Of note, she states she used to see Dr. Shea with pain management, but did not want to take narcotic pain medication or have epidural injections. [facility] Medical History Anxiety Bipolar disorder Chronic back pain Constipation Decreased hearing Depression Early satiety GERD (gastroesophageal reflux disease) Hypothyroid Kidney stones Manic bipolar I disorder Home Medications hydroxyzine HCl 25 mg tablet 20 mg PO Q6H PRN Pain 08/17/21 [History Last Taken Unknown] levothyroxine 150 mcg tablet (Synthroid) 150 mcg PO DAILY 08/17/21 [History Last Taken Unknown] albuterol sulfate 90 mcg/actuation aerosol inhaler 1 inh inhalation ONCE 10/21/22 [History Last Taken Unknown] doxepin 25 mg capsule 25 mg PO QHS 10/21/22 [History Last Taken Unknown] ondansetron HCl 4 mg tablet 4 mg PO Q8H 10/21/22 [History Last Taken Unknown] cephalexin 500 mg capsule 500 mg PO TID 7 days #21 caps 12/14/22 [Rx Last Taken Unknown] ketorolac 10 mg tablet 10 mg PO Q6H 5 days #20 tabs 12/14/22 [Rx Last Taken Unknown] oxycodone-acetaminophen 5 mg-325 mg tablet (Percocet) 1 tab PO Q6H PRN pain 3 days #12 tabs 12/14/22 [Rx Last Taken Unknown] cyclobenzaprine 10 mg tablet 10 mg PO TID PRN Muscle Spasm #20 TABLETS 06/02/23 [Rx Last Taken Unknown] methylprednisolone 4 mg tablets in a dose pack (Medrol (Emmanuel)) 4 mg PO DAILY #21 tabs 06/02/23 [Rx Last Taken Unknown] Allergy/AdvReac Type Severity Reaction Status Date / Time moxifloxacin HCl Allergy Hives Verified 06/02/23 11:28 [From Avelox] trazodone Allergy Hives Verified 06/02/23 11:28 Latex, Natural Rubber AdvReac Rash Verified 06/02/23 11:28 nitrofurantoin AdvReac Hives Verified 06/02/23 11:28 [From Macrobid] Penicillins [PCN] AdvReac Nausea/Vom/ Verified 06/02/23 11:28 Diarrhea Family History Mother Hypertension Father Hypertension Surgical History History of 3 sections History of back surgery History of partial hysterectomy Social History Smoking Status: Current every day smoker tobacco type: cigarettes and e- cigarettes alcohol intake: never ROS ROS ED ROS Narrative Constitutional: No fever, no chills. HEENT: No sore throat. No neck pain. No loss of vision. No rhinorrhea. Cardiovascular: No chest pain. No palpitations. No pedal edema. Respiratory: No cough, no shortness of breath. Abdominal: No abdominal pain. No nausea. No vomiting. Genitourinary: No dysuria. No hematuria. Musculoskeletal: No myalgias. No arthralgias. Neurologic: No headaches. No dizziness. No lightheadedness. Positive radicular symptoms from the lumbar spine with the right low back pain. Skin: No rash. No change in color. Psychiatric: No depression. No anxiety. EXAM Physical Exam Narrative Exam Narrative: Afebrile. Vital signs noted. HEENT: Normocephalic. Atraumatic. PERRL, EOMI. Neck soft and supple. No point tenderness or step off. Cardiovascular: Regular rate and rhythm. No murmurs, rubs, or gallops appreciated. Respiratory: No tachypnea. Lungs clear to auscultation bilaterally. Gastrointestinal: Abdomen soft, nontender, with normoactive bowel sounds. No rebound or guarding. Neurological: Awake. Alert. Nonfocal, nonlateralizing. Skin: No rash. Normal color. No pallor. Musculoskeletal: No pedal edema. Full range of motion extremities. Lection extension right lower extremity/hip and knee intact. EHL intact bilaterally. DTRs equal and symmetric. Straight leg raising negative for cross symptoms in a seated/supine position. Const Vital Signs: 06/02/23 11:30 Temperature 96.5 F L Temperature Source Temporal Pulse Rate 77 Respiratory Rate 14 Blood Pressure 172/116 H Blood Pressure Mean 134 Pulse Ox 97 Oxygen Delivery Method Room Air MDM MDM MDM Narrative Medical decision making narrative: Patient has no signs of red flag symptoms for cauda equina. I do feel that she probably has more of an exacerbation of spinal stenosis and sciatica. As she has taken a Medrol Dosepak before, and Flexeril, she was written prescriptions for these. I discussed the utility of x-rays with her and through shared decision making, we will forego any x-ray imaging as she has not had any trauma and I have low suspicion for any fracture. I feel she can be discharged with the anti-inflammatory and form of a Medrol Dosepak and muscle relaxer, with follow-up to her primary care provider. She was also referred to a new spine surgeon as she states that the one she saw in [place] 9 years ago is now out of network for her. I do not feel she requires emergent MRI. Additionally, she was told that she may need referral to pain management again in the future. Return instructions were reviewed. Disposition is discharged home in stable condition. Discharge Plan Triage Chief Complaint: Back ED Provider: Lamont Wu Dx/Rx/DC Orders Clinical Impression: Radicular pain of right lower extremity, Sciatica, Spinal stenosis Instructions: ED Back Pain (Acute or Chronic), ED Sciatica Prescriptions: New methylprednisolone [Medrol (Emmanuel)] 4 mg tablets,dose pack 4 mg PO DAILY Qty: 21 0RF cyclobenzaprine 10 mg tablet 10 mg PO TID PRN (Reason: Muscle Spasm) Qty: 20 0RF No Action doxepin 25 mg capsule 25 mg PO QHS albuterol sulfate 90 mcg/actuation HFA aerosol inhaler 1 inh inhalation ONCE ondansetron HCl 4 mg tablet 4 mg PO Q8H levothyroxine [Synthroid] 150 mcg Tablet 150 mcg PO DAILY hydroxyzine HCl 25 mg tablet 20 mg PO Q6H PRN (Reason: Pain) oxycodone-acetaminophen [Percocet] 5-325 mg tablet 1 tab PO Q6H PRN (Reason: pain) 3 Days Qty: 12 0RF ketorolac 10 mg tablet 10 mg PO Q6H 5 Days Qty: 20 0RF cephalexin 500 mg capsule 500 mg PO TID 7 Days Qty: 21 0RF Primary Care Provider: Elinor Castellanos NP Referrals: Luis Jon DO [Med Staff - Active Staff] - As Needed Elinor Castellanos NP, CHEMICAL ENGINEERING TECHNICIAN-C [Primary Care Provider] - 3-5 Days if not improving Activity Restrictions/Additional Instructions: Follow-up with your primary care provider. You may need to see another spine surgeon or pain management in the future. Disposition Disposition: Home, Self Care
--- OUTSIDE RECORDS SUMMARY | 2023-06-02 12:49 | XMS RPT_ITS | CCD ---
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 Name Role Phone No, Physician Primary Care Provider Unavailabl e NO, PHYSICIAN Primary Care Unavailable DARIEL FLANAGAN Attending Unavail able Elinor Caldera CNP Primary Care Provider WERNER DOOR PULLER-ELINOR MCKEON Primary Care Physician Elinor Caldera CNP Primary Care Provider Elinor Caldera CNP Primary Care Provider Elinor Caldera CNP Primary Care Provider Elinor Caldera CNP Primary Care Provider ELINOR CALDERA Primary Care Unavailable STEFFENLUCIA ROBERTS Attending Unavailable LUCIA BOURNE Attending Unavailable ELINOR CALDERA Primary Care Unavailable ELINOR CALDERA Primary Care Unavailable ELINOR CALDERA Primary Care Unavailable ELINOR CALDERA Primary Care Unavailable ELINOR CALDERA Primary Care Unavailable WERNER ELINOR Primary Care Unavailable WERNER ELINOR Primary Care Unavailable WERNER ELINOR Primary Care Unavailable LUCIA BOURNE Attending Unavailable Allergies Allergy Classification Reported Allergen(s) Allergy Type Date of Onset Reaction(s) Facility (20 sources) Latex; Translations: [LATEX] Propensity to adverse reactions to drug 2 Other: See Comments [facility] (20 sources) moxifloxacin; Translations: [MOXIFLOXACIN HCL] Drug Allergy 2 Hives [facility] (20 sources) Penicillin; Translations: [PENICILLIN] Drug Allergy 7 GI Upset [facility] (5 sources) predniSONE; Translations: [PREDNISONE] Drug Allergy 1 Itching [facility] (20 sources) traMADol; Translations: [TRAMADOL HCL] Drug Allergy 9 Other: See Comments [facility] (20 sources) traZODone; Translations: [TRAZODONE] Drug Allergy 5 Hives [facility] (20 sources) NITROFURANTOIN, MACROCRYSTALS / Nitrofurantoin, Monohydrate; Translations: [nitrofurantoin] Drug Allergy 2 Rash, Weal (disorder) [facility] (1 source) moxifloxacin; Translations: [moxifloxacin] Drug Allergy [facility] (1 source) Penicillin; Translations: [penicillins] Drug Allergy [facility] Medications Current Medications Medication Drug Class(es) Dates Sig (Normalized) Sig (Original) Ascorbic Acid (1 source) Vitamin C Start: 12-13-2019 Vitamin C Dose : 100 mg =, Chewed, qDay, 0 Refill(s) Start Date: 12/13/19 Status: Ordered benzonatate 100 mg oral capsule (4 sources) Non-narcotic Antitussive Start: 05-09-2021 benzonatate (Tessalon Perles) 100 MG capsule Indications: COVID-19 virus infection Take one or two capsules every 8 hours as needed for cough. Do not chew. . 60 capsule 1 05/09/2021 Active betamethasone 0.5 mg/ml / clotrimazole 10 mg/ml topical cream (2 sources) Azole Antifungal, Corticosteroid Start: 03-26-2022 End: 04-02-2022 clotrimazole-beta methasone (LOTRISONE) cream Apply 1 application to affected area twice daily for 7 days. 15 g 0 03/26/2022 04/02/2022 Active Completed/Discontinued Medications Medication Drug Class(es) Dates Sig (Normalized) Sig (Original) [id number] 200 actuat albuterol 0.09 mg/actuat metered dose inhaler (20 sources) beta2-Adrenergic Agonist Start: 02-27-2021 take 2 puff(s) by inhalation every four hours as needed for wheezing albuterol HFA (PROVENTIL HFA, VENTOLIN HFA) 90 mcg/actuation inhaler Inhale 2 Puffs as instructed every 4 hours as needed for wheezing/shortnes s of breath. 8 g 0 02/27/2021 Active Problems Active Problems Problem Classification Problem Date Documented Da te Episodic/Chronic Abdominal pain (1 source) Flank pain; Translations: [Unspecified abdominal pain] 12-08-2022 Episodic Anxiety disorders (2 sources) Anxiety; Translations: [Panic attack] 07-13-2014 Chronic Bacterial infection; unspecified site (2 sources) Chlamydial infection; Translations: [Chlamydial infection, unspecified] Episodic Cardiac dysrhythmias (20 sources) Palpitations; Translations: [Palpitations] 09-09-2011 Episodic Esophageal disorders (1 source) Acid reflux 09-18-2014 Chronic Inflammation; infection of eye (except that caused by tuberculosis or sexually transmitteddisease) (1 source) Conjunctivitis of right eye; Translations: [Unspecified conjunctivitis] 05-07-2023 Episodic Mood disorders (20 sources) Depressive disorder; Translations: [Depression] 05-26-2021 Chronic Mycoses (5 sources) Opportunistic mycosis; Translations: [Candidiasis, unspecified] Episodic Other female genital disorders (3 sources) Vaginal irritation; Translations: [Other specified noninflammatory disorders of vagina] Episodic Other female genital disorders (1 source) Pruritus of vagina; Translations: [Other specified noninflammatory disorders of vagina] Episodic Other female genital disorders (5 sources) Vaginal discharge; Translations: [Other specified noninflammatory disorders of vagina] Episodic Other gastrointestinal disorders (1 source) Constipation 09-18-2014 Episodic Other gastrointestinal disorders (1 source) Heartburn 08-03-2019 Episodic Other lower respiratory disease (4 sources) Cough; Translations: [Cough] Episodic Other lower respiratory disease (1 source) Snoring 09-20-2014 Episodic Other nervous system disorders (4 sources) Loss of sense of smell; Translations: [Anosmia] Episodic Other nervous system disorders (4 sources) Loss of taste; Translations: [Parageusia] Episodic Other nervous system disorders (1 source) Paresthesia of foot 09-18-2014 Episodic Other nutritional; endocrine; and metabolic disorders (1 source) Obesity 09-20-2014 Chronic Other upper respiratory disease (1 source) Pain in throat; Translations: [Pain in throat] Episodic Other upper respiratory infections (1 source) Chronic sinusitis, unspecified; Translations: [Unspecified sinusitis (chronic)] 05-07-2023 Chronic Other upper respiratory infections (1 source) Acute upper respiratory infection; Translations: [Acute upper respiratory infection, unspecified] Episodic Residual codes; unclassified (1 source) Chronic back pain 07-13-2014 Episodic Residual codes; unclassified (1 source) Unprotected sexual intercourse; Translations: [High risk heterosexual behavior] Episodic Spondylosis; intervertebral disc disorders; other back problems (20 sources) Degeneration of lumbosacral intervertebral disc; Translations: [Other intervertebral disc degeneration, lumbosacral region] Onset: 07-26-2014 Chronic Substance-related disorders (4 sources) Cigarette smoker ; Translations: [Nicotine dependence, cigarettes, uncomplicated] Chronic Thyroid disorders (20 sources) Hypothyroidism; Translations: [Hypothyroidism, unspecified] 09-09-2011 Chronic Unclassified (1 source) Eye glasses, device (physical object) 09-18-2014 Unclassified (2 sources) Patient encounter status 12-24-2021 Urinary tract infections (6 sources) Acute cystitis; Translations: [Acute cystitis with hematuria] Episodic Viral infection (4 sources) Disease caused by 2018-nCoV; Translations: [COVID-19] Episodic Past or Other Problems Problem Classification Problem Date Documented Date Episodic/Chronic Genitourinary symptoms and ill-defined conditions (13 sources) Dysuria; Translations: [Dysuria] Onset: 08-27-2022 Episodic Immunizations and screening for infectious disease (4 sources) Suspected disease caused by 2018-nCoV; Translations: [Suspected COVID-19 virus infection] Onset: 08-27-2022 Episodic Other female genital disorders (1 source) Other specified noninflammatory disorders of vagina; Translations: [Vaginal discharge] Onset: 08-31-2022 Episodic Spondylosis; intervertebral disc disorders; other back problems (20 sources) Backache; Translations: [Dorsalgia, unspecified] Onset: 07-24-2014 07-24-2014 Episodic Results Test Name Value Interpretation Reference Range Facil ity Vital Signs Date Time Vital Sign Value Performing Clinician Jair curiel 05-07-2023 14:23-0500 Body temperature 97.39 [degF] China Vazquez APRN.CNP Work Phone: [facility] 05-07-2023 14:23-0500 Body weight 95.25 kg China Vazquez APRN.CNP Work Phone: [facility] 05-07-2023 14:23-0500 Diastolic blood pressure 100 mm[Hg] China Vazquez DOOR PULLER.CONFIDENTIAL SECRETARY Work Phone: [facility] 05-07-2023 14:23-0500 Heart rate 80 /min China Vazquez DOOR PULLER.CONFIDENTIAL SECRETARY Work Phone: [facility] 05-07-2023 14:23-0500 Respiratory rate 18 /min China Vazquez DOOR PULLER.CONFIDENTIAL SECRETARY Work Phone: [facility] 05-07-2023 14:23-0500 SaO2% (BldA) [Mass fraction] 99 % China Vazquez DOOR PULLER.CONFIDENTIAL SECRETARY Work Phone: [facility] 05-07-2023 14:23-0500 Systolic blood pressure 146 mm[Hg] China Vazquez DOOR PULLER.CONFIDENTIAL SECRETARY Work Phone: [facility] 03-26-2023 17:37-0400 Body temperature 97 [degF] Joanne Daniel DOOR PULLER.CONFIDENTIAL SECRETARY Work Phone: [facility] 03-26-2023 17:37-0400 Body weight 94.17 kg Joanne Daniel DOOR PULLER.CONFIDENTIAL SECRETARY Work Phone: [facility] 03-26-2023 17:37-0400 Diastolic blood pressure 82 mm[Hg] Joanne Daniel DOOR PULLER.CONFIDENTIAL SECRETARY Work Phone: [facility] 03-26-2023 17:37-0400 Heart rate 70 /min Joanne Daniel DOOR PULLER.CONFIDENTIAL SECRETARY Work Phone: [facility] 03-26-2023 17:37-0400 Respiratory rate 18 /min Joanne Daniel DOOR PULLER.CONFIDENTIAL SECRETARY Work Phone: [facility] 03-26-2023 17:37-0400 SaO2% (BldA) [Mass fraction] 99 % Joanne Daniel DOOR PULLER.CONFIDENTIAL SECRETARY Work Phone: [facility] 03-26-2023 17:37-0400 Systolic blood pressure 128 mm[Hg] Joanne Daniel DOOR PULLER.CONFIDENTIAL SECRETARY Work Phone: [facility] 03-15-2023 16:51-0400 Body temperature 97.11 [degF] China Vazquez DOOR PULLER.CONFIDENTIAL SECRETARY Work Phone: [facility] 03-15-2023 16:51-0400 Body weight 95.71 kg China Vazquez DOOR PULLER.CONFIDENTIAL SECRETARY Work Phone: [facility] 03-15-2023 16:51-0400 Diastolic blood pressure 80 mm[Hg] China Vazquez DOOR PULLER.CONFIDENTIAL SECRETARY Work Phone: [facility] 03-15-2023 16:51-0400 Heart rate 80 /min China Vazquez DOOR PULLER.CONFIDENTIAL SECRETARY Work Phone: [facility] 03-15-2023 16:51-0400 Respiratory rate 16 /min China Vazquez DOOR PULLER.CONFIDENTIAL SECRETARY Work Phone: [facility] 03-15-2023 16:51-0400 SaO2% (BldA) [Mass fraction] 99 % China Vazquez DOOR PULLER.CONFIDENTIAL SECRETARY Work Phone: [facility] 03-15-2023 16:51-0400 Systolic blood pressure 136 mm[Hg] China Vazquez DOOR PULLER.CONFIDENTIAL SECRETARY Work Phone: [facility] 11-03-2022 16:01-0400 Body weight 94.98 kg Lucia Denver DOOR PULLER.CONFIDENTIAL SECRETARY Work Phone: [facility] 11-03-2022 16:01-0400 Diastolic blood pressure 80 mm[Hg] Lucia Denver DOOR PULLER.CONFIDENTIAL SECRETARY Work Phone: [facility] 11-03-2022 16:01-0400 Systolic blood pressure 150 mm[Hg] Lucia Steffen DOOR PULLER.CONFIDENTIAL SECRETARY Work Phone: [facility] 08-31-2022 15:30-0400 Body weight 94.89 kg Lucia Steffen DOOR PULLER.CONFIDENTIAL SECRETARY Work Phone: [facility] 08-31-2022 15:30-0400 Diastolic blood pressure 74 mm[Hg] Lucia Steffen DOOR PULLER.CONFIDENTIAL SECRETARY Work Phone: [facility] 08-31-2022 15:30-0400 Systolic blood pressure 148 mm[Hg] Lucia Denver DOOR PULLER.CONFIDENTIAL SECRETARY Work Phone: [facility] 08-27-2022 12:55-0400 Body weight 95.71 kg Lucia Denver DOOR PULLER.CONFIDENTIAL SECRETARY Work Phone: [facility] 08-27-2022 12:55-0400 Diastolic blood pressure 70 mm[Hg] Lucia Steffen DOOR PULLER.CONFIDENTIAL SECRETARY Work Phone: [facility] 08-27-2022 12:55-0400 Systolic blood pressure 150 mm[Hg] Lucia Denver DOOR PULLER.CONFIDENTIAL SECRETARY Work Phone: [facility] 07-25-2022 13:53-0500 Body temperature 98.6 [degF] Simona Zuleta APRN.CONFIDENTIAL SECRETARY Work Phone: [facility] 07-25-2022 13:53-0500 Body weight 92.9 kg Simona Zuleta APRN.CONFIDENTIAL SECRETARY Work Phone: [facility] 07-25-2022 13:53-0500 Diastolic blood pressure 90 mm[Hg] Simona Zuleta APRN.CONFIDENTIAL SECRETARY Work Phone: [facility] 07-25-2022 13:53-0500 Heart rate 101 /min Simona Zuleta APRN.CONFIDENTIAL SECRETARY Work Phone: [facility] 07-25-2022 13:53-0500 Respiratory rate 20 /min Simona Zuleta APRN.CONFIDENTIAL SECRETARY Work Phone: [facility] 07-25-2022 13:53-0500 SaO2% (BldA) [Mass fraction] 98 % Simona Zuleta APRN.CONFIDENTIAL SECRETARY Work Phone: [facility] 07-25-2022 13:53-0500 Systolic blood pressure 148 mm[Hg] Simona Zuleta APRN.CONFIDENTIAL SECRETARY Work Phone: [facility] 06-18-2022 13:34-0500 Body temperature 97.81 [degF] Krislyn Aberegg PA Work Phone: [facility] 06-18-2022 13:34-0500 Body weight 93.35 kg Krislyn Aberegg PA Work Phone: [facility] 06-18-2022 13:34-0500 Diastolic blood pressure 88 mm[Hg] Krislyn Aberegg PA Work Phone: [facility] 06-18-2022 13:34-0500 Heart rate 105 /min Krislyn Aberegg PA Work Phone: [facility] 06-18-2022 13:34-0500 Respiratory rate 16 /min Krislyn Aberegg PA Work Phone: [facility] 06-18-2022 13:34-0500 SaO2% (BldA) [Mass fraction] 97 % Krislyn Aberegg PA Work Phone: [facility] 06-18-2022 13:34-0500 Systolic blood pressure 140 mm[Hg] Krislyn Aberegg PA Work Phone: [facility] 05-07-2022 18:57-0500 Body temperature 98.4 [degF] Anna Praisler-Wood DOOR PULLER.CONFIDENTIAL SECRETARY Work Phone: [facility] 05-07-2022 18:57-0500 Body weight 97.43 kg Anna Praisler-Wood DOOR PULLER.CONFIDENTIAL SECRETARY Work Phone: [facility] 05-07-2022 18:57-0500 Diastolic blood pressure 86 mm[Hg] Anna Praisler-Wood DOOR PULLER.CONFIDENTIAL SECRETARY Work Phone: [facility] 05-07-2022 18:57-0500 Heart rate 71 /min Anna Praisler-Wood DOOR PULLER.CONFIDENTIAL SECRETARY Work Phone: [facility] 05-07-2022 18:57-0500 Respiratory rate 18 /min Anna Praisler-Wood DOOR PULLER.CONFIDENTIAL SECRETARY Work Phone: [facility] 05-07-2022 18:57-0500 SaO2% (BldA) [Mass fraction] 98 % Anna Praisler-Wood DOOR PULLER.CONFIDENTIAL SECRETARY Work Phone: [facility] 05-07-2022 18:57-0500 Systolic blood pressure 134 mm[Hg] Anna Praisler-Wood DOOR PULLER.CONFIDENTIAL SECRETARY Work Phone: [facility] 03-26-2022 10:50-0400 Body weight 95.71 kg Lucia Steffen DOOR PULLER.CONFIDENTIAL SECRETARY Work Phone: [facility] 03-26-2022 10:50-0400 Diastolic blood pressure 80 mm[Hg] Lucia Steffen DOOR PULLER.CONFIDENTIAL SECRETARY Work Phone: [facility] 03-26-2022 10:50-0400 Systolic blood pressure 128 mm[Hg] Lucia Denver DOOR PULLER.CONFIDENTIAL SECRETARY Work Phone: [facility] 01-28-2022 15:52-0400 Body weight 93.89 kg Thao Abreu MD Work Phone: [facility] 01-28-2022 15:52-0400 Diastolic blood pressure 92 mm[Hg] Thao Abreu MD Work Phone: [facility] 01-28-2022 15:52-0400 Systolic blood pressure 136 mm[Hg] Thao Abreu MD Work Phone: [facility] 12-19-2021 16:42-0400 Body temperature 97.81 [degF] Nuria Athy PA-C Work Phone: [facility] 12-19-2021 16:42-0400 Body weight 95.44 kg Nuria Athy PA-C Work Phone: [facility] 12-19-2021 16:42-0400 Diastolic blood pressure 90 mm[Hg] Nuria Athy PA-C Work Phone: [facility] 12-19-2021 16:42-0400 Heart rate 107 /min Nuria Athy PA-C Work Phone: [facility] 12-19-2021 16:42-0400 Respiratory rate 20 /min Nuria Athy PA-C Work Phone: [facility] 12-19-2021 16:42-0400 SaO2% (BldA) [Mass fraction] 98 % Nuriapaul Hernandezamador PA-C Work Phone: [facility] 12-19-2021 16:42-0400 Systolic blood pressure 122 mm[Hg] Nuriapaul Hernandezamador PA-C Work Phone: [facility] 10-31-2021 09:32-0400 Body weight 93.89 kg Lucia Denver DOOR PULLER.CONFIDENTIAL SECRETARY Work Phone: [facility] 10-31-2021 09:32-0400 Diastolic blood pressure 84 mm[Hg] Lucia Denver DOOR PULLER.CONFIDENTIAL SECRETARY Work Phone: [facility] 10-31-2021 09:32-0400 Systolic blood pressure 124 mm[Hg] Lucia Denver DOOR PULLER.CONFIDENTIAL SECRETARY Work Phone: [facility] 08-18-2021 16:46-0400 Body temperature 97.3 [degF] Simona Zuleta APRN.CONFIDENTIAL SECRETARY Work Phone: [facility] 08-18-2021 16:46-0400 Body weight 92.44 kg Simona Zuleta APRN.CONFIDENTIAL SECRETARY Work Phone: [facility] 08-18-2021 16:46-0400 Diastolic blood pressure 84 mm[Hg] Simona Zuleta APRN.CONFIDENTIAL SECRETARY Work Phone: [facility] 08-18-2021 16:46-0400 Heart rate 96 /min Simona Zuleta APRN.CONFIDENTIAL SECRETARY Work Phone: [facility] 08-18-2021 16:46-0400 Respiratory rate 20 /min Simona Zuleta APRN.CONFIDENTIAL SECRETARY Work Phone: [facility] 08-18-2021 16:46-0400 SaO2% (BldA) [Mass fraction] 98 % Simona Zuleta APRN.CONFIDENTIAL SECRETARY Work Phone: [facility] 08-18-2021 16:46-0400 Systolic blood pressure 116 mm[Hg] Simona Zuleta DOOR PULLER.CONFIDENTIAL SECRETARY Work Phone: [facility] 05-09-2021 14:19-0500 Body height 152.4 cm Dariel Flanagan CONFIDENTIAL SECRETARY Work Phone: [facility] 05-09-2021 14:19-0500 Body mass index (BMI) [Ratio] 39.84 kg/m2 Dariel Flanagan CONFIDENTIAL SECRETARY Work Phone: [facility] 05-09-2021 14:19-0500 Body temperature 98.01 [degF] Dariel Flanagan CONFIDENTIAL SECRETARY Work Phone: [facility] 05-09-2021 14:19-0500 Body weight 92.53 kg Dariel Flanagan CNP Work Phone: [facility] 05-09-2021 14:19-0500 Diastolic blood pressure 86 mm[Hg] Dariel Flanagan CONFIDENTIAL SECRETARY Work Phone: [facility] 05-09-2021 14:19-0500 Heart rate 89 /min Dariel Flanagan CONFIDENTIAL SECRETARY Work Phone: [facility] 05-09-2021 14:19-0500 Respiratory rate 16 /min Dariel Flanagan CONFIDENTIAL SECRETARY Work Phone: [facility] 05-09-2021 14:19-0500 SaO2% (BldA) [Mass fraction] 98 % Dariel Flanagan CONFIDENTIAL SECRETARY Work Phone: [facility] 05-09-2021 14:19-0500 Systolic blood pressure 137 mm[Hg] Dariel Flanagan CONFIDENTIAL SECRETARY Work Phone: [facility] Encounters Encounter Date Encounter Type Care Provider Facility Start: 05-09-2023 Telephone encounter China graves DOOR PULLER.CONFIDENTIAL SECRETARY Work Phone: [facility] Procedures Date Procedure Procedure Detail Performing Clinician Start: 03-26-2023 Urnls dip stick/tabl et rgnt auto w/o microscopy Black Peralta DOOR PULLER.CONFIDENTIAL SECRETARY Work Phone: Start: 03-15-2023 Urnls dip stick/tabl et rgnt auto w/o microscopy China Vazquez DOOR PULLER.CONFIDENTIAL SECRETARY Work Phone: Start: 11-03-2022 Urnls dip stick/tabl et rgnt auto w/o microscopy Lucia Steffen DOOR PULLER.[facility] Work Phone: Start: 08-31-2022 BACTERIAL VAGINOSIS AMPLIFICATION Lucia Denver DOOR PULLER.[facility] Work Phone: Start: 08-27-2022 Urnls dip stick/tabl et rgnt auto w/o microscopy Lucia Denver DOOR PULLER.[facility] Work Phone: Start: 07-25-2022 STREP A MOLECULAR (POC) Simona Zuleta DOOR PULLER.[facility] Work Phone: Start: 06-18-2022 Urnls dip stick/tabl et rgnt auto w/o microscopy Nuria Whitney PA-C Work Phone: Start: 12-19-2021 Urnls dip stick/tabl et rgnt auto w/o microscopy Simona Zuleta DOOR PULLER.[facility] Work Phone: Start: 10-31-2021 Urnls dip stick/tabl et rgnt auto w/o microscopy Lucia Steffen DOOR PULLER.[facility] Work Phone: Start: 05-09-2021 Urnls dip stick/tabl et rgnt auto w/o microscopy Dariel Flanagan [facility] Work Phone: Start: 05-09-2021 Sars-cov-2 detection by dna/rna Dariel Flanagan [facility] Work Phone: Start: 05-31-2013 Tooth extraction, multiple ELINOR CALDERA DOOR PULLER-[facility] Plan of Treatment Date Care Activity Detail Author Start: 01-29-2023 Influenza vaccination [facility] Start: 07-25-2022 End: 08-08-2022 Influenza virus A and B RNA and SARS-CoV-2 (COVID-19) N gene panel - Respiratory specimen by JULIA with probe detection COVID WITH FLUA+B, ROUTINE Microbiology Routine URI, acute Expected: 07/25/2022, Expires: 08/08/2022 [facility] Work Phone: Immunizations Immunization Date Immunization Notes Care Provider Cristiano galaviz 02-07-2018 influenza virus vaccine, unspecified formulation ELINOR CALDERA APRN-CONFIDENTIAL SECRETARY [facility] Payers Date Payer Category Payer Medicaid [employer] [facility] MEDICAID [id number] 2018-Present [phone] [address] [place] [address] Medicaid [id number] 2018 Medicaid [id number] 2018 Medicaid [id number] 2013 Unknown [id number] 2013 Unknown [id number] 2013 Unknown MMO MMO [employer] [id number] 2013-Present [phone] [address] [place] [address] PPO [id number] 1985 Unknown [id number] Social History Date Type Detail Facility Start: 05-09-2021 End: 01-19-2022 Tobacco smoking status NHIS Smokes tobacco daily [facility] History of tobacco use Cigarette Smoker [facility] Start: 05-09-2021 End: 11-03-2022 Cigarettes smoked current (pack per day) - Reported 0.5 [facility] Start: 05-09-2021 End: 01-19-2022 Tobacco use and exposure Smokeless tobacco non-user [facility] Start: 05-09-2021 End: 05-07-2023 Alcohol intake Current drinker of alcohol (finding) [facility] Start: 05-09-2021 History SDOH Alcohol Comment occasionally [facility] Start: 1985 Sex Assigned At Not on file [facility] Start: 08-08-2021 End: 03-26-2022 Exposure to SARS-CoV-2 (event) Not sure [facility] Start: 07-30-2016 History SDOH Alcohol Comment social [facility] Start: 11-30-2018 Tobacco smoking status Heavy t obacco smoker (finding) [facility] Sex Assigned At Female [facility] Start: 11-03-2022 End: 05-07-2023 Tobacco use panel [facility] National Score (1-10 0), lower number is lower risk 89 [facility] Clinical Notes 05-09-2021 to 05-10-2023 Telephone Encounter - Teresa Allison MA - 05/10/2023 1:14 PM ESTTelephone Encounter - China Vazquez APRN.CNP - 05/09/2023 11:41 AM China James APRN.CNP - 05/07/2023 2:32 PM ESTLaboratory Note Date & Type Note Facility 05-10-2023 Miscellaneous Notes Patient notified of results, verbalized understanding of instructions given. Teresa Allison MA Images from the original note were not included. documented in this encounter [facility] 05-08-2023 Miscellaneous Notes Negative for clara and trich. Positive for BV Flagyl sent in. Quividi message sent to patient. documented in this encounter [facility] 05-07-2023 Note HNO ID: [id number] Author: China Vazquez APRN.CNP Service: ? Author Type: Nurse Practitioner Type: Progress Notes Filed: 05/07/2023 2:51 PM Note Text: This note was created using ipviveriter. Subjective Pilar Daniel is a 37 year old female. 37 year old female with PMH thyroid presents for multiple complaints. Sinus Acute onset sx 04/26/23 Right eye discharge Right eye redness Denies blurred vision. Denies loss of vision Denies feeling of FB +stuffy nose + nasal congestion +sore throat + cough Wednesday she had a home positive COVID through work Vaginal Discharge Acute onset a couple days ago +discharge +white +itching Recently sexually Denies concerns for STI LMP-NA partial hysterectomy @ Denies new partners. Denies sx The history is provided by the patient. No barrel bander was used. Eye Problem This is a new problem. The current episode started yesterday. The problem occurs constantly. The problem has been unchanged. Associated symptoms include congestion, coughing, fatigue and headaches. Pertinent negatives include no abdominal pain, anorexia, arthralgias, change in bowel habit, chest pain, chills, myalgias, nausea, neck pain, numbness, rash, sore throat, swollen glands, urinary symptoms, vertigo, visual change or vomiting. Nothing aggravates the symptoms. She has tried nothing for the symptoms. The treatment provided no relief. Vaginal Problem This is a new problem. The current episode started in the past 7 days. The problem occurs constantly. The problem has been gradually worsening. Associated symptoms include congestion, coughing, fatigue and headaches. Pertinent negatives include no abdominal pain, anorexia, arthralgias, change in bowel habit, chest pain, chills, myalgias, nausea, neck pain, numbness, rash, sore throat, swollen glands, urinary symptoms, vertigo, visual change or vomiting. Nothing aggravates the symptoms. She has tried nothing for the symptoms. The treatment provided no relief. PAST MEDICAL HISTORY Diagnosis Date Bulging lumbar disc L5- sees pain management in past. 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 Hypothyroid Kidney stones Palpitations PID (acute pelvic inflammatory disease) reports r/t IUD Thyroid cyst Trichomonal vaginitis 01/19/2022 PAST SURGICAL HISTORY Procedure Laterality Date BACK SURGERY HX 10/2014 removed L5 BREAST BIOPSY 2011 negative HYSTERECTOMY HX ovaries remain; d/t begnign etiology PAST SURGICAL HISTORY OF x3 THYROID BIOPSY US reportedly cysts benign per pt ALLERGIES Avelox [Moxifloxacin Hcl], Latex, Macrobid [Nitrofurantoin Monohyd/M-Cryst], Penicillin, Trazodone, and Ultram [Tramadol Hcl] MEDICATIONS levothyroxine (SYNTHROID) 150 mcg tablet Take 150 mcg by mouth once daily. budesonide-formoterol (SYMBICORT) 80-4.5 mcg/actuation inhaler Inhale 2 Puffs as instructed twice daily. albuterol HFA (PROVENTIL HFA, VENTOLIN HFA) 90 mcg/actuation inhaler Inhale 2 Puffs as instructed every 4 hours as needed for wheezing/shortness of breath. hydrOXYzine HCl (ATARAX) 25 mg tablet Take 25 mg by mouth three times daily as needed. ONE DAILY MULTIVITAMIN ORAL Take by mouth once daily. omeprazole (PRILOSEC) 20 mg capsule Take 20 mg by mouth once daily. prn doxycycline (VIBRA-TABS) 100 mg tablet Take 1 tablet by mouth two times a day for 5 days. fluconazole (DIFLUCAN) 150 mg tablet Take 1 tablet by mouth once daily for 1 day. trimethoprim-polymyxin (POLYTRIM) 10,000 unit- 1 mg/mL ophthalmic solution Use 1 Drop in the right eye every 4 hours for 7 days. levothyroxine (SYNTHROID) 112 mcg ORAL tablet Take 1 tablet by mouth once daily. Take on empty stomach. For thyroid (Patient not taking: Reported on 11/03/2022) FAMILY HISTORY Problem Relation Age of Onset Hypertension Mother Diabetes Mother ?dysmetablic syndrome Kidney Disease Mother Thyroid Mother Hypertension Father Heart Father 49 [place] [facility] Paternal Uncle Cancer Maternal Grandfather lung Thyroid Maternal Grandmother Social History Tobacco Use Smoking status: Every Day Packs/day: .5 Types: Cigarettes Smokeless tobacco: Never Vaping Use Vaping Use: Never used Substance Use Topics Alcohol use: Yes Comment: social Drug use: No Review of Systems Constitutional: Positive for fatigue. Negative for chills. HENT: Positive for congestion, postnasal drip, rhinorrhea, sinus pressure and sinus pain. Negative for ear discharge, ear pain and sore throat. Eyes: Positive for discharge, redness and itching. Negative for pain. Respiratory: Positive for cough. Negative for apnea and chest tightness. Cardiovascular: Negative for chest pain. Gastrointestinal: Negative for abdominal pain, anorexia, change in bowel habit, nausea and vomiting. Genitourinary: Positive for vaginal discharge. Musculos (more content not included)... [facility] 05-07-2023 History of Present illness Narrative This note was created using [employer]. Subjective Pilar Daniel is a 37 year old female. 37 year old female with PMH thyroid presents for multiple complaints. Sinus Acute onset sx 04/26/23 Right eye discharge Right eye redness Denies blurred vision. Denies loss of vision Denies feeling of FB +stuffy nose + nasal congestion +sore throat + cough Wednesday she had a home positive COVID through work Vaginal Discharge Acute onset a couple days ago +discharge +white +itching Recently sexually Denies concerns for STI LMP-NA partial hysterectomy @ Denies new partners. Denies sx The history is provided by the patient. No barrel bander was used. Eye Problem This is a new problem. The current episode started yesterday. The problem occurs constantly. The problem has been unchanged. Associated symptoms include congestion, coughing, fatigue and headaches. Pertinent negatives include no abdominal pain, anorexia, arthralgias, change in bowel habit, chest pain, chills, myalgias, nausea, neck pain, numbness, rash, sore throat, swollen glands, urinary symptoms, vertigo, visual change or vomiting. Nothing aggravates the symptoms. She has tried nothing for the symptoms. The treatment provided no relief. Vaginal Problem This is a new problem. The current episode started in the past 7 days. The problem occurs constantly. The problem has been gradually worsening. Associated symptoms include congestion, coughing, fatigue and headaches. Pertinent negatives include no abdominal pain, anorexia, arthralgias, change in bowel habit, chest pain, chills, myalgias, nausea, neck pain, numbness, rash, sore throat, swollen glands, urinary symptoms, vertigo, visual change or vomiting. Nothing aggravates the symptoms. She has tried nothing for the symptoms. The treatment provided no relief. PAST MEDICAL HISTORY Diagnosis Date Bulging lumbar disc L5- sees pain management in past. 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 Hypothyroid Kidney stones Palpitations PID (acute pelvic inflammatory disease) reports r/t IUD Thyroid cyst Trichomonal vaginitis 01/19/2022 PAST SURGICAL HISTORY Procedure Laterality Date BACK SURGERY HX 10/2014 removed L5 BREAST BIOPSY 2011 negative HYSTERECTOMY HX ovaries remain; d/t begnign etiology PAST SURGICAL HISTORY OF x3 THYROID BIOPSY US reportedly cysts benign per pt ALLERGIES Avelox [Moxifloxacin Hcl], Latex, Macrobid [Nitrofurantoin Monohyd/M-Cryst], Penicillin, Trazodone, and Ultram [Tramadol Hcl] MEDICATIONS levothyroxine (SYNTHROID) 150 mcg tablet Take 150 mcg by mouth once daily. budesonide-formoterol (SYMBICORT) 80-4.5 mcg/actuation inhaler Inhale 2 Puffs as instructed twice daily. albuterol HFA (PROVENTIL HFA, VENTOLIN HFA) 90 mcg/actuation inhaler Inhale 2 Puffs as instructed every 4 hours as needed for wheezing/shortness of breath. hydrOXYzine HCl (ATARAX) 25 mg tablet Take 25 mg by mouth three times daily as needed. ONE DAILY MULTIVITAMIN ORAL Take by mouth once daily. omeprazole (PRILOSEC) 20 mg capsule Take 20 mg by mouth once daily. prn doxycycline (VIBRA-TABS) 100 mg tablet Take 1 tablet by mouth two times a day for 5 days. fluconazole (DIFLUCAN) 150 mg tablet Take 1 tablet by mouth once daily for 1 day. trimethoprim-polymyxin (POLYTRIM) 10,000 unit- 1 mg/mL ophthalmic solution Use 1 Drop in the right eye every 4 hours for 7 days. levothyroxine (SYNTHROID) 112 mcg ORAL tablet Take 1 tablet by mouth once daily. Take on empty stomach. For thyroid (Patient not taking: Reported on 11/03/2022) FAMILY HISTORY Problem Relation Age of Onset Hypertension Mother Diabetes Mother ?dysmetablic syndrome Kidney Disease Mother Thyroid Mother Hypertension Father Heart Father 49 [place] [facility] Paternal Uncle Cancer Maternal Grandfather lung Thyroid Maternal Grandmother Social History Tobacco Use Smoking status: Every Day Packs/day: .5 Types: Cigarettes Smokeless tobacco: Never Vaping Use Vaping Use: Never used Substance Use Topics Alcohol use: Yes Comment: social Drug use: No Review of Systems Constitutional: Positive for fatigue. Negative for chills. HENT: Positive for congestion, postnasal drip, rhinorrhea, sinus pressure and sinus pain. Negative for ear discharge, ear pain and sore throat. Eyes: Positive for discharge, redness and itching. Negative for pain. Respiratory: Positive for cough. Negative for apnea and chest tightness. Cardiovascular: Negative for chest pain. Gastrointestinal: Negative for abdominal pain, anorexia, change in bowel habit, nausea and vomiting. Genitourinary: Positive for vaginal discharge. Musculoskeletal: Negative for arthralgias, back pain, myalgias and neck pain. Skin: Negative for rash. Allergic/Immunologic: Negative for environmental allergies, food allergies and immunocompromised state. Neurological: Positive for headaches. Negative for dizziness, vertigo, facial asymmetry and numbness. Hematological: Negative for adenopathy. Does not bruise/bleed easily. Psychiatric/Behavioral: Negative for agitation and behavioral problems. Objective BP 146/100 Pulse 80 Temp 36.3 C (97.4 F) Resp 18 Wt 95.3 kg (210 lb) SpO2 99% BMI 41.01 kg/m Physical Exam Vitals and nursing note reviewed. Constitutional: General: She is not in acute distress. Appearance: Normal appearance. She is normal weight. She is not ill-appearing, toxic-appearing or diaphoretic. HENT: Head: Normocephalic and atraumatic. Comments: +frontal sinus pressure Right Ear: Ear canal and external ear normal. Left Ear: Ear canal and external ear normal. Nose: Congestion present. No rhinorrhea. Mouth/Throat: Mouth: Mucous membranes are moist. Pharynx: No oropharyngeal exudate or posterior oropharyngeal erythema. Eyes: General: Right eye: Discharge present. Left eye: No discharge. Extraocular Movements: Extraocular movements intact. Pupils: Pupils are equal, round, and reactive to light. Comments: OD injected Marginal eyelid debris EOM intact Cardiovascular: Rate and Rhythm: Normal rate and regular rhythm. Pulses: Normal pulses. Heart sounds: Normal heart sounds. No murmur heard. No friction rub. Pulmonary: Effort: Pulmonary effort is normal. No respiratory distress. Breath sounds: Normal breath sounds. No stridor. No wheezing, rhonchi or rales. Chest: Chest wall: No tenderness. Abdominal: General: Abdomen is flat. There is no distension. Palpations: Abdomen is soft. There is no mass. Tenderness: There is no abdominal tenderness. There is no right CVA tenderness, left CVA tenderness, guarding or rebound. Hernia: No hernia is present. Genitourinary: Comments: Deferred Musculoskeletal: General: No swelling, tenderness, deformity or signs of injury. Normal range of motion. Cervical back: Normal range of motion and neck supple. No rigidity. Right lower leg: No edema. Left lower leg: No edema. Lymphadenopathy: Cervical: No cervical adenopathy. Skin: General: Skin is warm and dry. Coloration: Skin is not jaundiced or pale. Findings: No bruising, erythema, lesion or rash. Neurological: General: No focal deficit present. Mental Status: She is alert and oriented to person, place, and time. Cranial Nerves: No cranial nerve deficit. Sensory: No sensory deficit. Motor: No weakness. Coordination: Coordination normal. Gait: Gait normal. Psychiatric: Mood and Affect: Mood normal. Behavior: Behavior normal. Thought Content: Thought content normal. Judgment: Judgment normal. Assessment and Plan ASSESSMENT/PLAN: 1. Vaginal discharge - ICD9: 623.5, ICD10: N89.8 X a few days Denies concerns for STI Will cover with Diflucan - CLARA/TRICHOMONAS NAAT - BACTERIAL VAGINOSIS NAAT - GONORRHEA/CHLAMYDIA NAAT 2. Rhinosinusitis - ICD9: 473.9, ICD10: J32.9 - Will begin treatment with as per antibiotic as written, see orders - The patient should also be given OTC cough and cold meds as needed, warm salt water gargles, throat lozenges and/or OTC throat spray as needed, and nasal saline gtts and suction prn for the first 5-7 days of treatment. - Supportive care with plenty of fluids, rest, and analgesia prn. - Follow up in 3-5 days if symptoms persist or worsen. 3. Conjunctivitis of right eye, unspecified conjunctivitis type - ICD9: 372.30, ICD10: H10.9 - see medication orders - course and contagiousness issues discussed, including hand washing. - Instructed to call if high fever, development of periorbital redness or swelling, eye pain, visual changes, concerns or if symptoms persist. China Vazquez APRN.CONFIDENTIAL SECRETARY documented in this encounter [facility] 03-26-2023 Note HNO ID: [id number] Author: Joanne Daniel APRN.CNP Service: ? Author Type: Nurse Practitioner Type: Progress Notes Filed: 03/26/2023 6:26 PM Note Text: SUBJECTIVE: Pilar Daniel is a 37 year old female. Who presents today with concerns of UTI. She has had burning with urination and frequency. She has no fever and no blood in the urine. She has no abd pain or back pain. Her last UTI was just a few weeks ago she was treated with bactrim. HPI PAST MEDICAL HISTORY Diagnosis Date Bulging lumbar disc L5- sees pain management in past. 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 Hypothyroid Kidney stones Palpitations PID (acute pelvic inflammatory disease) reports r/t IUD Thyroid cyst Trichomonal vaginitis 01/19/2022 FAMILY HISTORY Problem Relation Age of Onset Hypertension Mother Diabetes Mother ?dysmetablic syndrome Kidney Disease Mother Thyroid Mother Hypertension Father Heart Father 49 [place] [facility] Paternal Uncle Cancer Maternal Grandfather lung Thyroid Maternal Grandmother Social History Tobacco Use Smoking status: Every Day Packs/day: .5 Types: Cigarettes Smokeless tobacco: Never Vaping Use Vaping Use: Never used Substance Use Topics Alcohol use: Yes Comment: social Drug use: No ALLERGIES Allergen Reactions Avelox [Moxifloxaci* Hives Latex Other: See Comments breaks out redness Macrobid [Nitrofura* Rash Penicillin GI Upset Trazodone Hives Ultram [Tramadol Hc* Other: See Comments Heart Palpitations Current Outpatient Medications Medication Sig Dispense Refill levothyroxine (SYNTHROID) 150 mcg tablet Take 150 mcg by mouth once daily. budesonide-formoterol (SYMBICORT) 80-4.5 mcg/actuation inhaler Inhale 2 Puffs as instructed twice daily. 6 g 1 albuterol HFA (PROVENTIL HFA, VENTOLIN HFA) 90 mcg/actuation inhaler Inhale 2 Puffs as instructed every 4 hours as needed for wheezing/shortness of breath. 8 g 0 hydrOXYzine HCl (ATARAX) 25 mg tablet Take 25 mg by mouth three times daily as needed. ONE DAILY MULTIVITAMIN ORAL Take by mouth once daily. omeprazole (PRILOSEC) 20 mg capsule Take 20 mg by mouth once daily. prn levothyroxine (SYNTHROID) 112 mcg ORAL tablet Take 1 tablet by mouth once daily. Take on empty stomach. For thyroid (Patient not taking: Reported on 11/03/2022) 30 tablet 6 No current facility-administered medications for this visit. OBJECTIVE: BP 128/82 Pulse 70 Temp 36.1 ?C (97 ?F) (Tympanic) Resp 18 Wt 94.2 kg (207 lb 9.6 oz) SpO2 99% BMI 40.54 kg/m? ROS all other systems reviewed and are negative Physical Exam Constitutional: Well developed, well nourished, NAD, AANDO X3. ENT: Head is atraumatic, airway patent, mucosal membranes moist. Cardiac: Heart tone normal rate and rhythm Respiratory: Breath sounds clear GI: Abdomen soft and non-distended, non-tenderness, no rebound or guarding, bowel sounds normal. : no CVA tenderness MS: no swelling, tenderness or deformity in upper or lower extremities, no midline tenderness in cervical, thoracic or lumbar spine. Neuro: strength sensation and coordination intact. CN II-XII grossly intact, Skin: warm and dry with out rash, lesion or ecchymosis on exposed skin Psych: alert appropriate, speech clear It was a pleasure to take care of Pilar Daniel today. A urine sample was obtained and is positive for leukocytes and nitrites as will as blood. She will be treated with keflex as she has allergies to antibiotics and was just on bactrim. A urine culture will be sent. Patient states she usually gets a yeast infection with abx tmt so a diflucan will be sent in as well Patient will follow up with family physician. They may return to the Urgent Care or go to the ER for worsening symptoms or concerns. Patient verbalized understanding of plan of care and is in agreement. ASSESSMENT/PLAN: 1. Burning with urination - ICD9: 788.1, ICD10: R30.0 (primary diagnosis) - UA DIP, URINE (POC) - URINE CULTURE 2. Recurrent UTI (urinary tract infection) - ICD9: 599.0, ICD10: N39.0 - CEPHALEXIN 500 MG CAPSULE - FLUCONAZOLE 150 MG TABLET Joanne Daniel APRN.LINDA [facility] 03-26-2023 History of Present illness Narrative SUBJECTIVE: Pilar Daniel is a 37 year old female. Who presents today with concerns of UTI. She has had burning with urination and frequency. She has no fever and no blood in the urine. She has no abd pain or back pain. Her last UTI was just a few weeks ago she was treated with bactrim. HPI PAST MEDICAL HISTORY Diagnosis Date Bulging lumbar disc L5- sees pain management in past. 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 Hypothyroid Kidney stones Palpitations PID (acute pelvic inflammatory disease) reports r/t IUD Thyroid cyst Trichomonal vaginitis 01/19/2022 FAMILY HISTORY Problem Relation Age of Onset Hypertension Mother Diabetes Mother ?dysmetablic syndrome Kidney Disease Mother Thyroid Mother Hypertension Father Heart Father 49 [place] [employer] Paternal Uncle Cancer Maternal Grandfather lung Thyroid Maternal Grandmother Social History Tobacco Use Smoking status: Every Day Packs/day: .5 Types: Cigarettes Smokeless tobacco: Never Vaping Use Vaping Use: Never used Substance Use Topics Alcohol use: Yes Comment: social Drug use: No ALLERGIES Allergen Reactions Avelox [Moxifloxaci* Hives Latex Other: See Comments breaks out redness Macrobid [Nitrofura* Rash Penicillin GI Upset Trazodone Hives Ultram [Tramadol Hc* Other: See Comments Heart Palpitations Current Outpatient Medications Medication Sig Dispense Refill levothyroxine (SYNTHROID) 150 mcg tablet Take 150 mcg by mouth once daily. budesonide-formoterol (SYMBICORT) 80-4.5 mcg/actuation inhaler Inhale 2 Puffs as instructed twice daily. 6 g 1 albuterol HFA (PROVENTIL HFA, VENTOLIN HFA) 90 mcg/actuation inhaler Inhale 2 Puffs as instructed every 4 hours as needed for wheezing/shortness of breath. 8 g 0 hydrOXYzine HCl (ATARAX) 25 mg tablet Take 25 mg by mouth three times daily as needed. ONE DAILY MULTIVITAMIN ORAL Take by mouth once daily. omeprazole (PRILOSEC) 20 mg capsule Take 20 mg by mouth once daily. prn levothyroxine (SYNTHROID) 112 mcg ORAL tablet Take 1 tablet by mouth once daily. Take on empty stomach. For thyroid (Patient not taking: Reported on 11/03/2022) 30 tablet 6 No current facility-administered medications for this visit. OBJECTIVE: BP 128/82 Pulse 70 Temp 36.1 C (97 F) (Tympanic) Resp 18 Wt 94.2 kg (207 lb 9.6 oz) SpO2 99% BMI 40.54 kg/m ROS all other systems reviewed and are negative Physical Exam Constitutional: Well developed, well nourished, NAD, A&O X3. ENT: Head is atraumatic, airway patent, mucosal membranes moist. Cardiac: Heart tone normal rate and rhythm Respiratory: Breath sounds clear GI: Abdomen soft and non-distended, non-tenderness, no rebound or guarding, bowel sounds normal. : no CVA tenderness MS: no swelling, tenderness or deformity in upper or lower extremities, no midline tenderness in cervical, thoracic or lumbar spine. Neuro: strength sensation and coordination intact. CN II-XII grossly intact, Skin: warm and dry with out rash, lesion or ecchymosis on exposed skin Psych: alert appropriate, speech clear It was a pleasure to take care of Pilar Daniel today. A urine sample was obtained and is positive for leukocytes and nitrites as will as blood. She will be treated with keflex as she has allergies to antibiotics and was just on bactrim. A urine culture will be sent. Patient states she usually gets a yeast infection with abx tmt so a diflucan will be sent in as well Patient will follow up with family physician. They may return to the Urgent Care or go to the ER for worsening symptoms or concerns. Patient verbalized understanding of plan of care and is in agreement. ASSESSMENT/PLAN: 1. Burning with urination - ICD9: 788.1, ICD10: R30.0 (primary diagnosis) - UA DIP, URINE (POC) - URINE CULTURE 2. Recurrent UTI (urinary tract infection) - ICD9: 599.0, ICD10: N39.0 - CEPHALEXIN 500 MG CAPSULE - FLUCONAZOLE 150 MG TABLET Joanne Daniel APRN.CONFIDENTIAL SECRETARY documented in this encounter [facility] 03-15-2023 Note HNO ID: [id number] Author: China Vazquez APRN.[facility] Service: ? Author Type: Nurse Practitioner Type: Progress Notes Filed: 03/15/2023 5:14 PM Note Text: This note was created using ipviveriter. Subjective Pilar Daniel is a 37 year old female. 37 year old female with PMH thyroid, depression presents for female complaints. Acute onset 3 days ago +burning with urination +itching +frequency +urgency +bladder spasms Denies vaginal discharge Denies vaginal bleeding. Recent coitus LMP-partial hysterectomy @ age of 23 Requesting to be tested for gonorrhea and chlamydia She did utilize Boric Acid citing a provider had recommended similar in past. The history is provided by the patient. No barrel bander was used. Female Gu Problem This is a new problem. The current episode started 3 to 5 days ago. The problem occurs continuously. The problem has been unchanged. The pain is mild. Nothing relieves the symptoms. Nothing aggravates the symptoms. Associated symptoms include dysuria, frequency and urgency. Pertinent negatives include no chest pain, no anorexia, no chills, no fever, no abdominal pain, no constipation, no diarrhea, no nausea, no vomiting, no vaginal bleeding, no vaginal discharge, no vaginal pain, no headaches, no sore throat, no back pain, no cough, no shortness of breath and no rash. There has been no history of trauma. Urine output has been normal. The last void occurred Less than 6 hours ago. She is currently Sexually active. She has 1 sexual partner. Contraceptives used include nothing. She is not . She has not missed her period. Menstrual history: partial hysterectomy @ 23. Her past medical history is significant for gynecological surgery. Her past medical history does not include STD or PID. There were no sick contacts. She has received no recent medical care. PAST MEDICAL HISTORY Diagnosis Date Bulging lumbar disc L5- sees pain management in past. 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 Hypothyroid Kidney stones Palpitations PID (acute pelvic inflammatory disease) reports r/t IUD Thyroid cyst Trichomonal vaginitis 01/19/2022 PAST SURGICAL HISTORY Procedure Laterality Date BACK SURGERY HX 10/2014 removed L5 BREAST BIOPSY 2011 negative HYSTERECTOMY HX ovaries remain; d/t begnign etiology PAST SURGICAL HISTORY OF x3 THYROID BIOPSY US reportedly cysts benign per pt ALLERGIES Avelox [Moxifloxacin Hcl], Latex, Macrobid [Nitrofurantoin Monohyd/M-Cryst], Penicillin, Trazodone, and Ultram [Tramadol Hcl] MEDICATIONS levothyroxine (SYNTHROID) 150 mcg tablet Take 150 mcg by mouth once daily. budesonide-formoterol (SYMBICORT) 80-4.5 mcg/actuation inhaler Inhale 2 Puffs as instructed twice daily. albuterol HFA (PROVENTIL HFA, VENTOLIN HFA) 90 mcg/actuation inhaler Inhale 2 Puffs as instructed every 4 hours as needed for wheezing/shortness of breath. hydrOXYzine HCl (ATARAX) 25 mg tablet Take 25 mg by mouth three times daily as needed. ONE DAILY MULTIVITAMIN ORAL Take by mouth once daily. omeprazole (PRILOSEC) 20 mg capsule Take 20 mg by mouth once daily. prn sulfamethoxazole-trimethoprim (BACTRIM DS) 800-160 mg per tablet Take 1 tablet by mouth two times a day for 3 days. fluconazole (DIFLUCAN) 150 mg tablet Take 1 tablet by mouth once daily for 1 day. levothyroxine (SYNTHROID) 112 mcg ORAL tablet Take 1 tablet by mouth once daily. Take on empty stomach. For thyroid (Patient not taking: Reported on 11/03/2022) FAMILY HISTORY Problem Relation Age of Onset Hypertension Mother Diabetes Mother ?dysmetablic syndrome Kidney Disease Mother Thyroid Mother Hypertension Father Heart Father 49 [place] [employer] Paternal Uncle Cancer Maternal Grandfather lung Thyroid Maternal Grandmother Social History Tobacco Use Smoking status: Every Day Packs/day: .5 Types: Cigarettes Smokeless tobacco: Never Vaping Use Vaping Use: Never used Substance Use Topics Alcohol use: Yes Comment: social Drug use: No Review of Systems Constitutional: Negative for chills and fever. HENT: Negative for sore throat. Eyes: Negative for pain, discharge, redness and itching. Respiratory: Negative for apnea, cough, choking, chest tightness and shortness of breath. Cardiovascular: Negative for chest pain. Gastrointestinal: Negative for abdominal pain, anorexia, constipation, diarrhea, nausea and vomiting. Endocrine: Negative for cold intolerance, heat intolerance and polydipsia. Genitourinary: Positive for dysuria, frequency and urgency. Negative for vaginal bleeding, vaginal discharge and vaginal pain. Musculoskeletal: Negative for back pain. Skin: Negative for color change, pallor and rash. Allergic/Immunologic: Negative for environmental allergies, food allergies and immunocompromised state. Neurological: Negative fo (more content not included)... [facility] 03-15-2023 History of Present illness Narrative This note was created using ipviveriter. Subjective Pilar Daniel is a 37 year old female. 37 year old female with PMH thyroid, depression presents for female complaints. Acute onset 3 days ago +burning with urination +itching +frequency +urgency +bladder spasms Denies vaginal discharge Denies vaginal bleeding. Recent coitus LMP-partial hysterectomy @ age of 23 Requesting to be tested for gonorrhea and chlamydia She did utilize Boric Acid citing a provider had recommended similar in past. The history is provided by the patient. No barrel bander was used. Female Gu Problem This is a new problem. The current episode started 3 to 5 days ago. The problem occurs continuously. The problem has been unchanged. The pain is mild. Nothing relieves the symptoms. Nothing aggravates the symptoms. Associated symptoms include dysuria, frequency and urgency. Pertinent negatives include no chest pain, no anorexia, no chills, no fever, no abdominal pain, no constipation, no diarrhea, no nausea, no vomiting, no vaginal bleeding, no vaginal discharge, no vaginal pain, no headaches, no sore throat, no back pain, no cough, no shortness of breath and no rash. There has been no history of trauma. Urine output has been normal. The last void occurred Less than 6 hours ago. She is currently Sexually active. She has 1 sexual partner. Contraceptives used include nothing. She is not . She has not missed her period. Menstrual history: partial hysterectomy @ 23. Her past medical history is significant for gynecological surgery. Her past medical history does not include STD or PID. There were no sick contacts. She has received no recent medical care. PAST MEDICAL HISTORY Diagnosis Date Bulging lumbar disc L5- sees pain management in past. 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 Hypothyroid Kidney stones Palpitations PID (acute pelvic inflammatory disease) reports r/t IUD Thyroid cyst Trichomonal vaginitis 01/19/2022 PAST SURGICAL HISTORY Procedure Laterality Date BACK SURGERY HX 10/2014 removed L5 BREAST BIOPSY 2011 negative HYSTERECTOMY HX ovaries remain; d/t begnign etiology PAST SURGICAL HISTORY OF x3 THYROID BIOPSY US reportedly cysts benign per pt ALLERGIES Avelox [Moxifloxacin Hcl], Latex, Macrobid [Nitrofurantoin Monohyd/M-Cryst], Penicillin, Trazodone, and Ultram [Tramadol Hcl] MEDICATIONS levothyroxine (SYNTHROID) 150 mcg tablet Take 150 mcg by mouth once daily. budesonide-formoterol (SYMBICORT) 80-4.5 mcg/actuation inhaler Inhale 2 Puffs as instructed twice daily. albuterol HFA (PROVENTIL HFA, VENTOLIN HFA) 90 mcg/actuation inhaler Inhale 2 Puffs as instructed every 4 hours as needed for wheezing/shortness of breath. hydrOXYzine HCl (ATARAX) 25 mg tablet Take 25 mg by mouth three times daily as needed. ONE DAILY MULTIVITAMIN ORAL Take by mouth once daily. omeprazole (PRILOSEC) 20 mg capsule Take 20 mg by mouth once daily. prn sulfamethoxazole-trimethoprim (BACTRIM DS) 800-160 mg per tablet Take 1 tablet by mouth two times a day for 3 days. fluconazole (DIFLUCAN) 150 mg tablet Take 1 tablet by mouth once daily for 1 day. levothyroxine (SYNTHROID) 112 mcg ORAL tablet Take 1 tablet by mouth once daily. Take on empty stomach. For thyroid (Patient not taking: Reported on 11/03/2022) FAMILY HISTORY Problem Relation Age of Onset Hypertension Mother Diabetes Mother ?dysmetablic syndrome Kidney Disease Mother Thyroid Mother Hypertension Father Heart Father 49 [place] Psych[place] Paternal Uncle Cancer Maternal Grandfather lung Thyroid Maternal Grandmother Social History Tobacco Use Smoking status: Every Day Packs/day: .5 Types: Cigarettes Smokeless tobacco: Never Vaping Use Vaping Use: Never used Substance Use Topics Alcohol use: Yes Comment: social Drug use: No Review of Systems Constitutional: Negative for chills and fever. HENT: Negative for sore throat. Eyes: Negative for pain, discharge, redness and itching. Respiratory: Negative for apnea, cough, choking, chest tightness and shortness of breath. Cardiovascular: Negative for chest pain. Gastrointestinal: Negative for abdominal pain, anorexia, constipation, diarrhea, nausea and vomiting. Endocrine: Negative for cold intolerance, heat intolerance and polydipsia. Genitourinary: Positive for dysuria, frequency and urgency. Negative for vaginal bleeding, vaginal discharge and vaginal pain. Musculoskeletal: Negative for back pain. Skin: Negative for color change, pallor and rash. Allergic/Immunologic: Negative for environmental allergies, food allergies and immunocompromised state. Neurological: Negative for dizziness, facial asymmetry and headaches. Hematological: Negative for adenopathy. Does not bruise/bleed easily. Psychiatric/Behavioral: Negative for agitation and behavioral problems. Objective BP 136/80 Pulse 80 Temp 36.2 C (97.1 F) Resp 16 Wt 95.7 kg (211 lb) SpO2 99% BMI 41.21 kg/m Physical Exam Vitals and nursing note reviewed. Exam conducted with a school guidance counselor present. Constitutional: General: She is not in acute distress. Appearance: Normal appearance. She is obese. She is not ill-appearing, toxic-appearing or diaphoretic. HENT: Head: Normocephalic and atraumatic. Right Ear: Ear canal and external ear normal. Left Ear: Ear canal and external ear normal. Nose: Nose normal. No congestion or rhinorrhea. Mouth/Throat: Mouth: Mucous membranes are moist. Pharynx: No oropharyngeal exudate or posterior oropharyngeal erythema. Eyes: General: Right eye: No discharge. Left eye: No discharge. Extraocular Movements: Extraocular movements intact. Conjunctiva/sclera: Conjunctivae normal. Pupils: Pupils are equal, round, and reactive to light. Cardiovascular: Rate and Rhythm: Normal rate and regular rhythm. Pulses: Normal pulses. Heart sounds: Normal heart sounds. No murmur heard. No friction rub. Pulmonary: Effort: Pulmonary effort is normal. No respiratory distress. Breath sounds: Normal breath sounds. No stridor. No wheezing, rhonchi or rales. Chest: Chest wall: No tenderness. Abdominal: General: Abdomen is flat. There is no distension. Palpations: Abdomen is soft. There is no mass. Tenderness: There is no abdominal tenderness. There is no right CVA tenderness, left CVA tenderness, guarding or rebound. Hernia: No hernia is present. Genitourinary: Exam position: Lithotomy position. Labia: Right: No rash, tenderness, lesion or injury. Left: No rash, tenderness, lesion or injury. Vagina: Vaginal discharge present. Comments: +scant creamy white vaginal discharge noted. Musculoskeletal: General: No swelling, tenderness, deformity or signs of injury. Normal range of motion. Cervical back: Normal range of motion and neck supple. No rigidity. Right lower leg: No edema. Left lower leg: No edema. Lymphadenopathy: Cervical: No cervical adenopathy. Skin: General: Skin is warm and dry. Coloration: Skin is not jaundiced or pale. Findings: No bruising, erythema, lesion or rash. Neurological: General: No focal deficit present. Mental Status: She is alert and oriented to person, place, and time. Cranial Nerves: No cranial nerve deficit. Sensory: No sensory deficit. Motor: No weakness. Coordination: Coordination normal. Gait: Gait normal. Psychiatric: Mood and Affect: Mood normal. Behavior: Behavior normal. Thought Content: Thought content normal. Judgment: Judgment normal. Assessment and Plan ASSESSMENT/PLAN: 1. Dysuria - ICD9: 788.1, ICD10: R30.0 (primary diagnosis) acute - UA positive for jaqueline esterase, hematuria, proteinuria, and nitrates - Send urine for culture - Begin treatment with Bactrim DS BID for 3 days RX Diflucan provided as well. - Patient education for prevention given - UA DIP, URINE (POC) - URINE CULTURE - CLARA/TRICHOMONAS NAAT - GONORRHEA/CHLAMYDIA NAAT 2. Encounter for screening examination for sexually transmitted disease - ICD9: V74.5, ICD10: Z11.3 Vaginal cultures obtained Was provided x 1 Diflucan with Bactrim for dysuria Will allow results to guide further treatment needs. - CLARA/TRICHOMONAS NAAT - GONORRHEA/CHLAMYDIA NAAT - BACTERIAL VAGINOSIS NAAT China Vazquez APRN.CONFIDENTIAL SECRETARY documented in this encounter [facility] 12-08-2022 Note HNO ID: [id number] Author: FERNIE Lainez Service: ? Author Type: Physician Sash Finisher Type: Progress Notes Filed: 12/08/2022 5:37 PM Note Text: 37-year-old female presents for lower abdominal pain/right-sided flank pain. Patient states that she was seen in the ER last week and diagnosed with kidney stone. She states she is unsure if she passed it or not. She did not actually see yourself passed a kidney stone. She is now having returning flank pain, abdominal pain and bladder spasming. She has had some blood in her urine. She denies any fevers. Due to returning flank pain, recommended evaluation in the emergency room. Possible she has an obstructive stone or infected stone. She will go back to [place] ER. [facility] 12-08-2022 History of Present illness Narrative 37-year-old female presents for lower abdominal pain/right-sided flank pain. Patient states that she was seen in the ER last week and diagnosed with kidney stone. She states she is unsure if she passed it or not. She did not actually see yourself passed a kidney stone. She is now having returning flank pain, abdominal pain and bladder spasming. She has had some blood in her urine. She denies any fevers. Due to returning flank pain, recommended evaluation in the emergency room. Possible she has an obstructive stone or infected stone. She will go back to [place] ER. documented in this encounter [facility] 11-03-2022 Note HNO ID: [id number] Author: Lucia Bourne APRN.CONFIDENTIAL SECRETARY Service: ? Author Type: Nurse Practitioner Type: Progress Notes Filed: 11/03/2022 4:37 PM Note Text: Pilar Daniel is a 37 year old female who presents for vaginal pruritis, burning, and discharge for 2 week(s). Vaginal discharge: odorless, thin, and white. Itching: YES Dyspareunia: N/A Fever/chills: No Abdominal pain: No Bladder: dysuria Bowel: No blood in stool, pain with BM, tarry stool, persistent diarrhea or constipation Are you currently taking any medications to treat vaginitis: No Do you use feminine sprays, douches or deodorants: No Past medical, surgical, social history, medications and allergies reviewed and updated. OBJECTIVE: Wt 209 lb 6.4 oz (95.0kg) GENERAL: Well developed, well nourished in no apparent distress PELVIC: external genitalia normal, normal Bartholin's glands, urethra, Harrells's glands, physiologic discharge present, normal appearing perineal body and perianal region, cervix surgically absent, slightly red rash around the anus that extends out to the butt cheeks ASSESSMENT/PLAN: 1. Dysuria - ICD9: 788.1, ICD10: R30.0 (primary diagnosis) acute - UA positive for hematuria - Patient education for prevention given - UA DIP OB, URINE (POC) 2. Vaginal discharge - ICD9: 623.5, ICD10: N89.8 - CLARA / TRICHOMONAS AMPLIFICATION - BACTERIAL VAGINOSIS AMPLIFICATION *if + yeast and BV diflucan x 3 along with the Flagyl will need order Lcuia Bourne APRN.CNP Medical Decision Making: Problems: Low: Acute, uncomplicated illness or injury Data: Unique test(s) ordered: 2 Risk: Low: Low risk from testing/treatment Medical Decision Making Level: 3 - Low [facility] 11-03-2022 History of Present illness Narrative Pilar Daniel is a 37 year old female who presents for vaginal pruritis, burning, and discharge for 2 week(s). Vaginal discharge: odorless, thin, and white. Itching: YES Dyspareunia: N/A Fever/chills: No Abdominal pain: No Bladder: dysuria Bowel: No blood in stool, pain with BM, tarry stool, persistent diarrhea or constipation Are you currently taking any medications to treat vaginitis: No Do you use feminine sprays, douches or deodorants: No Past medical, surgical, social history, medications and allergies reviewed and updated. OBJECTIVE: Wt 209 lb 6.4 oz (95.0kg) GENERAL: Well developed, well nourished in no apparent distress PELVIC: external genitalia normal, normal Bartholin's glands, urethra, Harrells's glands, physiologic discharge present, normal appearing perineal body and perianal region, cervix surgically absent, slightly red rash around the anus that extends out to the butt cheeks ASSESSMENT/PLAN: 1. Dysuria - ICD9: 788.1, ICD10: R30.0 (primary diagnosis) acute - UA positive for hematuria - Patient education for prevention given - UA DIP OB, URINE (POC) 2. Vaginal discharge - ICD9: 623.5, ICD10: N89.8 - CLARA / TRICHOMONAS AMPLIFICATION - BACTERIAL VAGINOSIS AMPLIFICATION *if + yeast and BV diflucan x 3 along with the Flagyl will need order Lucia Bourne APRN.CNP Medical Decision Making: Problems: Low: Acute, uncomplicated illness or injury Data: Unique test(s) ordered: 2 Risk: Low: Low risk from testing/treatment Medical Decision Making Level: 3 - Low documented in this encounter [facility] 08-31-2022 Note HNO ID: [id number] Author: Lucia Bourne APRN.CNP Service: ? Author Type: Nurse Practitioner Type: Progress Notes Filed: 08/31/2022 3:43 PM Note Text: Food Science Technician offered: Patient declines. Pilar Daniel is a 37 year old female who presents for re-swab for BV due to Specimen inhibitory to amplification. Sample has been retested. Unable to determine the presence or absence of this target. ASSESSMENT/PLAN: 1. Vaginal discharge - ICD9: 623.5, ICD10: N89.8 BACTERIAL VAGINOSIS AMPLIFICATION NO CHARGE visit Lucia Bourne APRN.CNP [facility] 08-31-2022 History of Present illness Narrative Food Science Technician offered: Patient declines. Pilar Daniel is a 37 year old female who presents for re-swab for BV due to Specimen inhibitory to amplification. Sample has been retested. Unable to determine the presence or absence of this target. ASSESSMENT/PLAN: 1. Vaginal discharge - ICD9: 623.5, ICD10: N89.8 BACTERIAL VAGINOSIS AMPLIFICATION NO CHARGE visit Lucia Bourne APRN.CNP documented in this encounter [facility] 08-31-2022 Miscellaneous Notes Pt notified and will stop in after work at 3:30 today. Shanel David LPN Please let the pt know that her vaginal cultures are negative, except they were unable to do the BV and she will need to stop in for me to re-swab her. Lucia Bourne APRN.CNP documented in this encounter [facility] 08-27-2022 Note HNO ID: [id number] Author: Lucia Bourne APRN.CNP Service: ? Author Type: Nurse Practitioner Type: Progress Notes Filed: 08/27/2022 1:36 PM Note Text: Pilar Daniel is a 37 year old female who presents for vaginal pruritis and discharge for 3 days. Vaginal discharge: moderate amount, thin, and clear. Itching: YES Dyspareunia: yes Fever/chills: No Abdominal pain: No Bladder: dysuria Bowel: No blood in stool, pain with BM, tarry stool, persistent diarrhea or constipation Any new sexual partners or concern for STD exposure: No Does your partner have any new complaints: No Are you currently taking any medications to treat vaginitis: Yes, used boric acid Do you use feminine sprays, douches or deodorants: No Past medical, surgical, social history, medications and allergies reviewed and updated. OBJECTIVE: Wt 211 lb (95.7kg) GENERAL: Well developed, well nourished in no apparent distress PELVIC: external genitalia normal, normal Bartholin's glands, urethra, Harrells's glands, no vulvar lesions, physiologic discharge present, normal appearing perineal body and perianal region, cervix surgically absent BIMANUAL: deferred. ASSESSMENT/PLAN: 1. Screen for STD (sexually transmitted disease) - ICD9: V74.5, ICD10: Z11.3 (primary diagnosis) - GC/CHLAMYDIA DNA DET - CLARA / TRICHOMONAS AMPLIFICATION 2. Vaginal discharge - ICD9: 623.5, ICD10: N89.8 - CLARA / TRICHOMONAS AMPLIFICATION - BACTERIAL VAGINOSIS AMPLIFICATION We will notify patient of results. Recommended patient try Clairvee for reoccurring BV infections along with using boric acid suppository after intercourse and the next day. Lucia Bourne APRN.CNP Medical Decision Making: Problems: Low: Acute, uncomplicated illness or injury Data: Unique test(s) ordered: 3+ Risk: Low: Low risk from testing/treatment Medical Decision Making Level: 3 - Low [facility] 08-27-2022 History of Present illness Narrative Pilar Daniel is a 37 year old female who presents for vaginal pruritis and discharge for 3 days. Vaginal discharge: moderate amount, thin, and clear. Itching: YES Dyspareunia: yes Fever/chills: No Abdominal pain: No Bladder: dysuria Bowel: No blood in stool, pain with BM, tarry stool, persistent diarrhea or constipation Any new sexual partners or concern for STD exposure: No Does your partner have any new complaints: No Are you currently taking any medications to treat vaginitis: Yes, used boric acid Do you use feminine sprays, douches or deodorants: No Past medical, surgical, social history, medications and allergies reviewed and updated. OBJECTIVE: Wt 211 lb (95.7kg) GENERAL: Well developed, well nourished in no apparent distress PELVIC: external genitalia normal, normal Bartholin's glands, urethra, Harrells's glands, no vulvar lesions, physiologic discharge present, normal appearing perineal body and perianal region, cervix surgically absent BIMANUAL: deferred. ASSESSMENT/PLAN: 1. Screen for STD (sexually transmitted disease) - ICD9: V74.5, ICD10: Z11.3 (primary diagnosis) - GC/CHLAMYDIA DNA DET - CLARA / TRICHOMONAS AMPLIFICATION 2. Vaginal discharge - ICD9: 623.5, ICD10: N89.8 - CLARA / TRICHOMONAS AMPLIFICATION - BACTERIAL VAGINOSIS AMPLIFICATION We will notify patient of results. Recommended patient try Clairvee for reoccurring BV infections along with using boric acid suppository after intercourse and the next day. Lucia Bourne APRN.CNP Medical Decision Making: Problems: Low: Acute, uncomplicated illness or injury Data: Unique test(s) ordered: 3+ Risk: Low: Low risk from testing/treatment Medical Decision Making Level: 3 - Low documented in this encounter [facility] 07-26-2022 Miscellaneous Notes Patient identified by name and date of . Patient advised of positive COVID test and the availability of anti-viral medications for treatment. She states her symptoms are improving. Advised the CDC recommends that people refrain from work and isolate themselves until the following criteria are met: At least 24 hours have passed since last fever without the use of fever-reducing medications Other symptoms have improved At least 5 days have passed since symptoms first appeared then continue to wear a mask for an additional 5 days. documented in this encounter [facility] 07-25-2022 Note HNO ID: [id number] Author: Simona Zuleta APRN.LINDA Service: ? Author Type: Nurse Practitioner Type: Progress Notes Filed: 07/25/2022 2:21 PM Note Text: CC: Patient presents with: Pain, Throat: Pt reported cough, bilateral ear pain x2 days. HPI: Pilar Daniel is a 37 year old female who presents to the office with complaint of cough, nonproductive, sore throat, and ear symptoms for a few days. Symptoms are worsening Associated symptoms includes nasal congestion and facial pain/pressure. Denies fever, nausea, vomiting , and diarrhea. Treatments tried include nothing so far. with no relief of symptoms. Sick contacts: unknown. History of asthma, frequent episodes of bronchitis, chronic bronchitis, bronchiectasis or COPD: No Smoker: No Seasonal/environmental allergies: No The ROS is otherwise negative. The patient's pmh, medications, allergies, and past visits are reviewed. PHYSICAL EXAM: BP 148/90 Pulse 101 Temp 37 ?C (98.6 ?F) (Temporal) Resp 20 Wt 92.9 kg (204 lb 12.8 oz) SpO2 98% BMI 40.00 kg/m? General appearance: alert, cooperative, pleasant, in no acute distress Head: Normocephalic Eyes: EOM's intact, conjunctiva pink and moist, no icterus, sclera white, non-injected Ears: Right ear: External ear/canal- Normal, TM - clear with good landmarks. Left ear: External ear/canal- Normal, TM - clear with good landmarks Oropharynx:moist without lesions, No erythema, exudates or tonsillar hypertrophy. Heart: Negative. RRR without obvious murmur, gallop, or rubs. No ectopy. Lungs: clear to auscultation, without rales or wheeze, good air exchange PAST MEDICAL HISTORY Diagnosis Date Bulging lumbar disc L5- sees pain management in past. 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 Hypothyroid Kidney stones Palpitations PID (acute pelvic inflammatory disease) reports r/t IUD Thyroid cyst Trichomonal vaginitis 01/19/2022 PAST SURGICAL HISTORY Procedure Laterality Date BACK SURGERY HX 10/2014 removed L5 BREAST BIOPSY 2011 negative HYSTERECTOMY HX ovaries remain; d/t begnign etiology PAST SURGICAL HISTORY OF x3 THYROID BIOPSY US reportedly cysts benign per pt ALLERGIES Avelox [Moxifloxacin Hcl], Latex, Macrobid [Nitrofurantoin Monohyd/M-Cryst], Penicillin, Trazodone, and Ultram [Tramadol Hcl] MEDICATIONS budesonide-formoterol (SYMBICORT) 80-4.5 mcg/actuation inhaler Inhale 2 Puffs as instructed twice daily. albuterol HFA (PROVENTIL HFA, VENTOLIN HFA) 90 mcg/actuation inhaler Inhale 2 Puffs as instructed every 4 hours as needed for wheezing/shortness of breath. hydrOXYzine HCl (ATARAX) 25 mg tablet Take 25 mg by mouth three times daily as needed. ONE DAILY MULTIVITAMIN ORAL Take by mouth once daily. omeprazole (PRILOSEC) 20 mg capsule Take 20 mg by mouth once daily. prn levothyroxine (SYNTHROID) 112 mcg ORAL tablet Take 1 tablet by mouth once daily. Take on empty stomach. For thyroid FAMILY HISTORY Problem Relation Age of Onset Hypertension Mother Diabetes Mother ?dysmetablic syndrome Kidney Disease Mother Thyroid Mother Hypertension Father Heart Father 49 [place] [employer] Paternal Uncle Cancer Maternal Grandfather lung Thyroid Maternal Grandmother Social History Tobacco Use Smoking status: Every Day Packs/day: 0.50 Types: Cigarettes Smokeless tobacco: Never Vaping Use Vaping Use: Never used Substance Use Topics Alcohol use: Yes Comment: social Drug use: No ASSESSMENT/PLAN: 1. Throat pain - ICD9: 784.1, ICD10: R07.0 (primary diagnosis) - STREP A MOLECULAR (POC) - neg 2. URI, acute - ICD9: 465.9, ICD10: J06.9 - COVID WITH FLUA+B, ROUTINE - FLUTICASONE PROPIONATE 50 MCG/ACTUATION NASAL SPRAY,SUSPENSION - LORATADINE 10 MG TABLET Prescription instructions reviewed with patient as applicable. Potential red flag symptoms discussed with the patient. Reviewed appropriate action plan to take if red flag symptoms occur. Patient agreeable to treatment plan. Simona Zuleta APRN.[facility] 07-25-2022 History of Present illness Narrative CC: Patient presents with: Pain, Throat: Pt reported cough, bilateral ear pain x2 days. HPI: Pilar Daniel is a 37 year old female who presents to the office with complaint of cough, nonproductive, sore throat, and ear symptoms for a few days. Symptoms are worsening Associated symptoms includes nasal congestion and facial pain/pressure. Denies fever, nausea, vomiting , and diarrhea. Treatments tried include nothing so far. with no relief of symptoms. Sick contacts: unknown. History of asthma, frequent episodes of bronchitis, chronic bronchitis, bronchiectasis or COPD: No Smoker: No Seasonal/environmental allergies: No The ROS is otherwise negative. The patient's pmh, medications, allergies, and past visits are reviewed. PHYSICAL EXAM: BP 148/90 Pulse 101 Temp 37 C (98.6 F) (Temporal) Resp 20 Wt 92.9 kg (204 lb 12.8 oz) SpO2 98% BMI 40.00 kg/m General appearance: alert, cooperative, pleasant, in no acute distress Head: Normocephalic Eyes: EOM's intact, conjunctiva pink and moist, no icterus, sclera white, non-injected Ears: Right ear: External ear/canal- Normal, TM - clear with good landmarks. Left ear: External ear/canal- Normal, TM - clear with good landmarks Oropharynx:moist without lesions, No erythema, exudates or tonsillar hypertrophy. Heart: Negative. RRR without obvious murmur, gallop, or rubs. No ectopy. Lungs: clear to auscultation, without rales or wheeze, good air exchange PAST MEDICAL HISTORY Diagnosis Date Bulging lumbar disc L5- sees pain management in past. 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 Hypothyroid Kidney stones Palpitations PID (acute pelvic inflammatory disease) reports r/t IUD Thyroid cyst Trichomonal vaginitis 01/19/2022 PAST SURGICAL HISTORY Procedure Laterality Date BACK SURGERY HX 10/2014 removed L5 BREAST BIOPSY 2011 negative HYSTERECTOMY HX ovaries remain; d/t begnign etiology PAST SURGICAL HISTORY OF x3 THYROID BIOPSY US reportedly cysts benign per pt ALLERGIES Avelox [Moxifloxacin Hcl], Latex, Macrobid [Nitrofurantoin Monohyd/M-Cryst], Penicillin, Trazodone, and Ultram [Tramadol Hcl] MEDICATIONS budesonide-formoterol (SYMBICORT) 80-4.5 mcg/actuation inhaler Inhale 2 Puffs as instructed twice daily. albuterol HFA (PROVENTIL HFA, VENTOLIN HFA) 90 mcg/actuation inhaler Inhale 2 Puffs as instructed every 4 hours as needed for wheezing/shortness of breath. hydrOXYzine HCl (ATARAX) 25 mg tablet Take 25 mg by mouth three times daily as needed. ONE DAILY MULTIVITAMIN ORAL Take by mouth once daily. omeprazole (PRILOSEC) 20 mg capsule Take 20 mg by mouth once daily. prn levothyroxine (SYNTHROID) 112 mcg ORAL tablet Take 1 tablet by mouth once daily. Take on empty stomach. For thyroid FAMILY HISTORY Problem Relation Age of Onset Hypertension Mother Diabetes Mother ?dysmetablic syndrome Kidney Disease Mother Thyroid Mother Hypertension Father Heart Father 49 [place] Psychiatry Paternal Uncle Cancer Maternal Grandfather lung Thyroid Maternal Grandmother Social History Tobacco Use Smoking status: Every Day Packs/day: 0.50 Types: Cigarettes Smokeless tobacco: Never Vaping Use Vaping Use: Never used Substance Use Topics Alcohol use: Yes Comment: social Drug use: No ASSESSMENT/PLAN: 1. Throat pain - ICD9: 784.1, ICD10: R07.0 (primary diagnosis) - STREP A MOLECULAR (POC) - neg 2. URI, acute - ICD9: 465.9, ICD10: J06.9 - COVID WITH FLUA+B, ROUTINE - FLUTICASONE PROPIONATE 50 MCG/ACTUATION NASAL SPRAY,SUSPENSION - LORATADINE 10 MG TABLET Prescription instructions reviewed with patient as applicable. Potential red flag symptoms discussed with the patient. Reviewed appropriate action plan to take if red flag symptoms occur. Patient agreeable to treatment plan. Simona Song, DOOR PULLER.LINDA documented in this encounter [facility] 06-20-2022 Miscellaneous Notes Patient given results and verbalized understanding of instructions given. Yeimi Bergeron Urine culture negative for growth. Please follow up with PCP and or urology if symptoms persist. documented in this encounter [facility] 06-19-2022 Miscellaneous Notes Patient notified of results and aware of pending culture results, verbalized understanding. Teresa Allison MA Please call patient and let her know negative for trichomonas, gonorrhea, chlamydia, BV. We will await urine culture. Follow-up with urology if symptoms continue documented in this encounter [facility] 06-18-2022 Note HNO ID: [id number] Author: FERNIE Lainez Service: ? Author Type: Physician Sash Finisher Type: Progress Notes Filed: 06/18/2022 1:56 PM Note Text: This note was created using ipviveriter. Subjective Pilar Daniel is a 37 year old female. HPI 37-year-old female presents for dysuria, urgency, frequency. She states that the symptoms started about a week ago. She took some old Bactrim that she had at home, but this did not relieve symptoms. She states she is having some bladder pressure and spasming along with urgency, frequency and burning. She denies any blood in the urine. Occasionally she will get some back pain, but this is not constant. No flank pain. She does report she has history of kidney stones. No abdominal pain. No nausea or vomiting. No fevers. No abnormal vaginal discharge or bleeding. No concern for -had a partial hysterectomy. Patient states that she did have sexual intercourse about a month ago and the condom broke. She would like STD testing as well. She denies any vaginal discharge or other symptoms. No known exposure to STD, but as above, condom did break. Review of Systems Constitutional: Negative for chills and fever. HENT: Negative for congestion, ear pain and sore throat. Respiratory: Negative for cough and shortness of breath. Cardiovascular: Negative for chest pain. Gastrointestinal: Negative for diarrhea and vomiting. Genitourinary: Positive for dysuria, frequency and urgency. Negative for flank pain. Objective BP 140/88 Pulse 105 Temp 36.6 ?C (97.8 ?F) (Tympanic) Resp 16 Wt 93.4 kg (205 lb 12.8 oz) SpO2 97% BMI 40.19 kg/m? Physical Exam Vitals and nursing note reviewed. Constitutional: General: She is not in acute distress. Appearance: Normal appearance. She is not toxic-appearing. HENT: Right Ear: Tympanic membrane and ear canal normal. Left Ear: Tympanic membrane and ear canal normal. Nose: Nose normal. Mouth/Throat: Mouth: Mucous membranes are moist. Pharynx: No oropharyngeal exudate or posterior oropharyngeal erythema. Eyes: Conjunctiva/sclera: Conjunctivae normal. Cardiovascular: Rate and Rhythm: Normal rate and regular rhythm. Pulmonary: Effort: Pulmonary effort is normal. Breath sounds: Normal breath sounds. Abdominal: General: Abdomen is flat. Palpations: Abdomen is soft. Tenderness: There is no abdominal tenderness. There is no right CVA tenderness or left CVA tenderness. Genitourinary: Comments: Deferred by patient. + self swabs for vaginal cultures. Neurological: Mental Status: She is alert. Assessment and Plan ASSESSMENT/PLAN: 1. Urinary frequency - ICD9: 788.41, ICD10: R35.0 (primary diagnosis) acute - UA positive for hematuria and proteinuria - Send urine for culture - Patient education for prevention given - UA DIP, URINE (POC) - URINE CULTURE -Urine positive for blood and protein. No nitrates or leuk esterase. Patient does have history of kidney stones and is scheduling a follow up with urology. She had known passing stone in 04/2022 and passed this without intervention. She has no flank pain, vomiting or other signs/symptoms concerning for acute ureterolithiasis at this time. She will need follow-up with urology. -Urine culture pending. Await result for any treatment. 2. Unprotected sexual intercourse - ICD9: V69.2, ICD10: Z72.51 - CLARA / TRICHOMONAS AMPLIFICATION - BACTERIAL VAGINOSIS AMPLIFICATION - GC/CHLAMYDIA DNA DET - await cultures prior to treatment. Asymptomatic at this time. Diagnosis and treatment plan were discussed and questions were answered to the patient's satisfaction. Pt acknowledged understanding of concepts and follow up plan. Specific signs and symptoms that would indicate the need for higher level of care were discussed in detail warranting prompt ER evaluation. FERNIE Lainez [facility] 06-18-2022 Instructions FERNIE Lainez - 06/18/2022 1:49 PM EST Follow-up with your urologist. We are awaiting urine culture. We will call you with the results if we need to start an antibiotic. We will call you with results of vaginal swabs if any come back positive. Avoid sexual intercourse until results return. documented in this encounter [facility] 06-18-2022 History of Present illness Narrative This note was created using ipviveriter. Subjective Pilar Daniel is a 37 year old female. HPI 37-year-old female presents for dysuria, urgency, frequency. She states that the symptoms started about a week ago. She took some old Bactrim that she had at home, but this did not relieve symptoms. She states she is having some bladder pressure and spasming along with urgency, frequency and burning. She denies any blood in the urine. Occasionally she will get some back pain, but this is not constant. No flank pain. She does report she has history of kidney stones. No abdominal pain. No nausea or vomiting. No fevers. No abnormal vaginal discharge or bleeding. No concern for -had a partial hysterectomy. Patient states that she did have sexual intercourse about a month ago and the condom broke. She would like STD testing as well. She denies any vaginal discharge or other symptoms. No known exposure to STD, but as above, condom did break. Review of Systems Constitutional: Negative for chills and fever. HENT: Negative for congestion, ear pain and sore throat. Respiratory: Negative for cough and shortness of breath. Cardiovascular: Negative for chest pain. Gastrointestinal: Negative for diarrhea and vomiting. Genitourinary: Positive for dysuria, frequency and urgency. Negative for flank pain. Objective BP 140/88 Pulse 105 Temp 36.6 C (97.8 F) (Tympanic) Resp 16 Wt 93.4 kg (205 lb 12.8 oz) SpO2 97% BMI 40.19 kg/m Physical Exam Vitals and nursing note reviewed. Constitutional: General: She is not in acute distress. Appearance: Normal appearance. She is not toxic-appearing. HENT: Right Ear: Tympanic membrane and ear canal normal. Left Ear: Tympanic membrane and ear canal normal. Nose: Nose normal. Mouth/Throat: Mouth: Mucous membranes are moist. Pharynx: No oropharyngeal exudate or posterior oropharyngeal erythema. Eyes: Conjunctiva/sclera: Conjunctivae normal. Cardiovascular: Rate and Rhythm: Normal rate and regular rhythm. Pulmonary: Effort: Pulmonary effort is normal. Breath sounds: Normal breath sounds. Abdominal: General: Abdomen is flat. Palpations: Abdomen is soft. Tenderness: There is no abdominal tenderness. There is no right CVA tenderness or left CVA tenderness. Genitourinary: Comments: Deferred by patient. + self swabs for vaginal cultures. Neurological: Mental Status: She is alert. Assessment and Plan ASSESSMENT/PLAN: 1. Urinary frequency - ICD9: 788.41, ICD10: R35.0 (primary diagnosis) acute - UA positive for hematuria and proteinuria - Send urine for culture - Patient education for prevention given - UA DIP, URINE (POC) - URINE CULTURE -Urine positive for blood and protein. No nitrates or leuk esterase. Patient does have history of kidney stones and is scheduling a follow up with urology. She had known passing stone in 04/2022 and passed this without intervention. She has no flank pain, vomiting or other signs/symptoms concerning for acute ureterolithiasis at this time. She will need follow-up with urology. -Urine culture pending. Await result for any treatment. 2. Unprotected sexual intercourse - ICD9: V69.2, ICD10: Z72.51 - CLARA / TRICHOMONAS AMPLIFICATION - BACTERIAL VAGINOSIS AMPLIFICATION - GC/CHLAMYDIA DNA DET - await cultures prior to treatment. Asymptomatic at this time. Diagnosis and treatment plan were discussed and questions were answered to the patient's satisfaction. Pt acknowledged understanding of concepts and follow up plan. Specific signs and symptoms that would indicate the need for higher level of care were discussed in detail warranting prompt ER evaluation. FERNIE Lainez documented in this encounter [facility] 05-08-2022 Miscellaneous Notes Patient identified by name and date of . Patient advised of test results and treatment recommendations. Anna Orlando APRN.CNP documented in this encounter [facility] 05-07-2022 Instructions Anna Orlando APRN.CNP - 05/07/2022 8:54 PM EST ASSESSMENT/PLAN: 1. Vaginal discharge - ICD9: 623.5, ICD10: N89.8 (primary diagnosis) - CLINDAMYCIN HCL 300 MG CAPSULE- patient states Flagyl not working - MICONAZOLE NITRATE 2 % VAGINAL CREAM - CLARA / TRICHOMONAS AMPLIFICATION - BACTERIAL VAGINOSIS AMPLIFICATION 2. Dysuria - ICD9: 788.1, ICD10: R30.0 acute -Patient unable to provide urine sample. Will drop off as soon as possible. - UA DIP, URINE (POC) - Follow-up with your MANAGER BUSINESS INFORMATION in 3-5 days if symptoms have not improved or sooner if symptoms worsen - Discussed red flags and need for immediate medical evaluation if any occur. - Discussed supportive care treatment with fluids, rest and analgesia. - Discussed expected course of illness Anna Orlando APRN.CNP documented in this encounter [facility] 05-07-2022 History of Present illness Narrative Subjective Vaginal Discharge Associated symptoms include dysuria. Pertinent negatives include no fever, no abdominal pain and no frequency. Pilar Daniel is a 36 year old female who presents with vaginal discharge and redness of her vaginal area. She has a history of recurrent BV and yeast infection. Has been seeing Lucia Bourne for this. She most recently was treated about a month and a half ago with flagyl and monistat cream. She has had some dysuria recently also. She denies being sexually active and is not concerned for STDs. Review of Systems Constitutional: Negative for chills and fever. Respiratory: Negative. Cardiovascular: Negative. Gastrointestinal: Negative for abdominal pain. Genitourinary: Positive for dysuria. Negative for frequency and urgency. See HPI BP 134/86 Pulse 71 Temp 36.9 C (98.4 F) Resp 18 Wt 97.4 kg (214 lb 12.8 oz) SpO2 98% BMI 41.95 kg/m PAST MEDICAL HISTORY Diagnosis Date Bulging lumbar disc L5- sees pain management in past. 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 Hypothyroid Kidney stones Palpitations PID (acute pelvic inflammatory disease) reports r/t IUD Thyroid cyst Trichomonal vaginitis 01/19/2022 PAST SURGICAL HISTORY Procedure Laterality Date BACK SURGERY HX 10/2014 removed L5 BREAST BIOPSY 2011 negative HYSTERECTOMY HX ovaries remain; d/t begnign etiology PAST SURGICAL HISTORY OF x3 THYROID BIOPSY US reportedly cysts benign per pt ALLERGIES Avelox [Moxifloxacin Hcl], Latex, Macrobid [Nitrofurantoin Monohyd/M-Cryst], Penicillin, Trazodone, and Ultram [Tramadol Hcl] MEDICATIONS budesonide-formoterol (SYMBICORT) 80-4.5 mcg/actuation inhaler Inhale 2 Puffs as instructed twice daily. albuterol HFA (PROVENTIL HFA, VENTOLIN HFA) 90 mcg/actuation inhaler Inhale 2 Puffs as instructed every 4 hours as needed for wheezing/shortness of breath. hydrOXYzine HCl (ATARAX) 25 mg tablet Take 25 mg by mouth three times daily as needed. ONE DAILY MULTIVITAMIN ORAL Take by mouth once daily. omeprazole (PRILOSEC) 20 mg capsule Take 20 mg by mouth once daily. prn levothyroxine (SYNTHROID) 112 mcg ORAL tablet Take 1 tablet by mouth once daily. Take on empty stomach. For thyroid clindamycin (CLEOCIN) 300 mg capsule Take 1 capsule by mouth three times daily for 7 days. miconazole (MONISTAT) 2 % vaginal cream Use 1 Applicator vaginally daily at bedtime for 7 days. FAMILY HISTORY Problem Relation Age of Onset Hypertension Mother Diabetes Mother ?dysmetablic syndrome Kidney Disease Mother Thyroid Mother Hypertension Father Heart Father 49 [place] [employer] Paternal Uncle Cancer Maternal Grandfather lung Thyroid Maternal Grandmother Social History Tobacco Use Smoking status: Every Day Packs/day: 0.50 Types: Cigarettes Smokeless tobacco: Never Vaping Use Vaping Use: Never used Substance Use Topics Alcohol use: Yes Comment: social Drug use: No Objective Physical Exam Nursing note reviewed. Constitutional: Appearance: She is obese. Cardiovascular: Rate and Rhythm: Normal rate and regular rhythm. Heart sounds: Normal heart sounds. Pulmonary: Effort: Pulmonary effort is normal. No respiratory distress. Breath sounds: Normal breath sounds. No wheezing or rales. Genitourinary: Comments: Exam deferred. Patient did self-swab for samples. Skin: General: Skin is warm and dry. Neurological: Mental Status: She is alert. ASSESSMENT/PLAN: 1. Vaginal discharge - ICD9: 623.5, ICD10: N89.8 (primary diagnosis) - CLINDAMYCIN HCL 300 MG CAPSULE- patient states Flagyl not working - MICONAZOLE NITRATE 2 % VAGINAL CREAM - CLARA / TRICHOMONAS AMPLIFICATION - BACTERIAL VAGINOSIS AMPLIFICATION 2. Dysuria - ICD9: 788.1, ICD10: R30.0 acute -Patient unable to provide urine sample. Will drop off as soon as possible. - UA DIP, URINE (POC) - Follow-up with your MANAGER BUSINESS INFORMATION in 3-5 days if symptoms have not improved or sooner if symptoms worsen - Discussed red flags and need for immediate medical evaluation if any occur. - Discussed supportive care treatment with fluids, rest and analgesia. - Discussed expected course of illness Anna Orlando APRN.CONFIDENTIAL SECRETARY documented in this encounter [facility] 03-27-2022 Miscellaneous Notes Attempted to call patient. Unable to leave message. Call will not go through- phone doesn't ring. [employer] message sent. Noemi Blue RN BV positive. To treat with Flagyl 500mg PO BID for 7 days. Follow by Metrogel at bedtime x 5 nights 1) No alcohol during treatment and for 24 hours after last dose. 2) No intercourse during treatment. 3) Probiotic by mouth once daily for 30 days or as needed. Lucia Bourne APRN.CNP documented in this encounter [facility] 03-26-2022 History of Present illness Narrative Food Science Technician offered: Patient declines. Pilar Daniel is a 36 year old female who presents for vaginal irritation. The irritation is better compared to prior visit but still not gone. Vaginal discharge: none. Itching: Some Dyspareunia: N/A Fever/chills: No Abdominal pain: No Bladder: Negative for dysuria or frequency Bowel: No blood in stool, pain with BM, tarry stool, persistent diarrhea or constipation Past medical, surgical, social history, medications and allergies reviewed and updated. OBJECTIVE: Wt 211 lb (95.7kg) GENERAL: Well developed, well nourished in no apparent distress ABDOMEN: soft, non-tender, and no masses PELVIC: external genitalia normal, normal Bartholin's glands, urethra, Harrells's glands, no vulvar lesions, no cervical lesions, physiologic discharge present, normal appearing perineal body and perianal region BIMANUAL: deferred. ASSESSMENT/PLAN: 1. Vaginal irritation - ICD9: 623.9, ICD10: N89.8 - Lotrisone cream ordered - CLARA / TRICHOMONAS AMPLIFICATION - BACTERIAL VAGINOSIS AMPLIFICATION Lucia Bourne APRN.CNP Medical Decision Making: Problems: Low: Acute, uncomplicated illness or injury Data: Unique test(s) ordered: 2 Risk: Low: Low risk from testing/treatment Moderate: Drug management Medical Decision Making Level: 3 - Low documented in this encounter [facility] 03-03-2022 Miscellaneous Notes Patient informed BV positive. To treat with Flagyl 500mg PO BID for 7 days. 1) No alcohol during treatment and for 24 hours after last dose. 2) No intercourse during treatment. Yeast was negative but she should continue the Monistat as we discuss at OV. Lucia Bourne APRN.CNP documented in this encounter [facility] 01-28-2022 History of Present illness Narrative Pilar Daniel is a 36 year old female who presents for problem visit for swelling in vulvar area. Recently treated for bv trich and yeast. Last dose of medication was Wednesday. Had some pain w/ urination previously, resolved now. Has not been sexually active since treated. Not using OTC medications. No new exposures other than new detergent. 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 Depression Hypothyroid Kidney stones Palpitations PID (acute pelvic inflammatory disease) reports r/t IUD Thyroid cyst PAST SURGICAL HISTORY Procedure Laterality Date BACK SURGERY HX 10/2014 removed L5 BREAST BIOPSY 2011 negative HYSTERECTOMY HX ovaries remain; d/t begnign etiology PAST SURGICAL HISTORY OF x3 THYROID BIOPSY US reportedly cysts benign per pt FAMILY HISTORY Problem Relation Age of Onset Hypertension Mother Diabetes Mother ?dysmetablic syndrome Kidney Disease Mother Thyroid Mother Hypertension Father Heart Father 49 [place] [employer] Paternal Uncle Cancer Maternal Grandfather lung Thyroid Maternal Grandmother Social History Tobacco Use Smoking status: Every Day Packs/day: 0.50 Types: Cigarettes Smokeless tobacco: Never Vaping Use Vaping Use: Never used Substance Use Topics Alcohol use: Yes Comment: social Drug use: No Current Outpatient Medications Medication Sig budesonide-formoterol (SYMBICORT) 80-4.5 mcg/actuation inhaler Inhale 2 Puffs as instructed twice daily. albuterol HFA (PROVENTIL HFA, VENTOLIN HFA) 90 mcg/actuation inhaler Inhale 2 Puffs as instructed every 4 hours as needed for wheezing/shortness of breath. hydrOXYzine HCl (ATARAX) 25 mg tablet Take 25 mg by mouth three times daily as needed. ONE DAILY MULTIVITAMIN ORAL Take by mouth. omeprazole (PRILOSEC) 20 mg capsule Take 20 mg by mouth once daily. prn levothyroxine (SYNTHROID) 112 mcg ORAL tablet Take 1 tablet by mouth once daily. Take on empty stomach. For thyroid No current facility-administered medications for this visit. Allergies As of Date: 01/28/2022 Allergen Noted Reaction AVELOX [MOXIFLOXACIN HCL] 09/09/2011 Hives LATEX 09/09/2011 Other: See Comments MACROBID [NITROFURANTOIN MONOHYD/*07/01/2021 Rash PENICILLIN 06/24/2016 GI Upset TRAZODONE 06/14/2014 Hives ULTRAM [TRAMADOL HCL] 09/26/2018 Other: See Comments Fully Assessed 01/19/2022 EXAM: There were no vitals taken for this visit. GENERAL: pleasant, female in no apparent distress PELVIC: external genitalia normal, normal Bartholin's glands, urethra, Harrells's glands, no vulvar lesions, no cervical lesions, good vaginal support, physiologic discharge present, normal appearing perineal body and perianal region. No erythema, no fissures or lesions. No edema. No lymphadenopathy ASSESSMENT AND PLAN: normal vulva and vagina w/o lesions. Recently treated for BV/Yeast and trich. D/w her would give medications she just finished 48 hrs ago time to finish working. Do not want to add anything else since no obvious abnormalities. Cold packs or tepid warm soaks for relief prn Thao Abreu MD documented in this encounter [facility] 01-21-2022 Miscellaneous Notes Patient notified Left message for patient to call office. Noemi Blue RN Left message for patient to call office. Brie Gonzáles RN Pt is aware that she is still trich positive, she also has a yeast infection. I have sent in Flagyl and miconazole to her pharmacy for her. Please notify pt. Lucia Bourne APRN.CONFIDENTIAL SECRETARY documented in this encounter [facility] 12-26-2021 Note . MICRO - Microbiology PROCEDURE: Urine Culture [*1] SOURCE: Urine, Clean Catch BODY SITE: COLLECTED DATE/TIME: 12/24/2021 17:16 EDT RECEIVED DATE/TIME: 12/25/2021 14:45 EDT START DATE/TIME: 12/25/2021 14:45 EDT FREE TEXT SOURCE: FINAL REPORTS Final Report [] Verified Date/Time/Personnel: 12/26/2021 14:15 EDT <10,000 cfu/ml. No Significant growth. Sensitivity not indicated. Performing Locations *1: This test was performed at: [address], [address] , [facility] ([place]) 12-21-2021 Miscellaneous Notes Patient notified. Verbalized understanding. Please reach out to patient and inform her that her urine culture had mixed microba. Can she please provide a new sample to the lab? I will place the order. She also needs to ensure she has follow up with PCP and or [facility] to ensure all symptoms have resolved. documented in this encounter [facility] 12-20-2021 Miscellaneous Notes Verified results with pt. Pt verbalized understanding. Ellen Meyers MA Please advise patient the test for chlamydia was positive. Rx for doxycycline was sent to her pharmacy. Anna Orlando APRN.LINDA documented in this encounter [facility] 12-19-2021 History of Present illness Narrative This note was created using ipviveriter. Subjective Pilar Daniel is a 36 year old female. HPI Patient presents with a chief complaint of urinary frequency, burning and itching. She tried a Diflucan that she had leftover which did not seem to help. She has had some urinary incontinence. She denies flank pain or abdominal pain. No back pain. She did have a kidney stone about a week ago that she believes she has passed. She did get back together with her boyfriend a couple of weeks ago and did have unprotected sex. She denies chance of , she had a hysterectomy. Denies vaginal discharge but states its itchy. No fever. No vomiting. She has not called to follow-up with urology yet. Review of Systems Constitutional: Negative. HENT: Negative. Respiratory: Negative. Cardiovascular: Negative. Gastrointestinal: Negative. Genitourinary: Positive for dysuria, frequency, urgency and vaginal pain. Negative for flank pain, genital sores, hematuria, menstrual problem, pelvic pain and vaginal bleeding. All other systems reviewed and are negative. PAST MEDICAL HISTORY Diagnosis Date Bulging lumbar disc L5- sees pain management in past. Depression Hypothyroid Kidney stones Palpitations PID (acute pelvic inflammatory disease) reports r/t IUD Thyroid cyst Current Outpatient Medications Medication Sig Dispense Refill budesonide-formoterol (SYMBICORT) 80-4.5 mcg/actuation inhaler Inhale 2 Puffs as instructed twice daily. 6 g 1 albuterol HFA (PROVENTIL HFA, VENTOLIN HFA) 90 mcg/actuation inhaler Inhale 2 Puffs as instructed every 4 hours as needed for wheezing/shortness of breath. 8 g 0 hydrOXYzine HCl (ATARAX) 25 mg tablet Take 25 mg by mouth three times daily as needed. ONE DAILY MULTIVITAMIN ORAL Take by mouth. omeprazole (PRILOSEC) 20 mg capsule Take 20 mg by mouth once daily. prn levothyroxine (SYNTHROID) 112 mcg ORAL tablet Take 1 tablet by mouth once daily. Take on empty stomach. For thyroid 30 tablet 6 cephALEXin (KEFLEX) 500 mg capsule Take 1 capsule by mouth twice daily for 7 days. 14 capsule 0 Ftewjqmsnownevo-Jndghgwsn-ZQ (BROMFED DM) 2-30-10 mg/5 mL syrup Take 10 mL by mouth three times daily as needed. (Patient not taking: Reported on 10/31/2021 ) 240 mL 0 gabapentin (NEURONTIN) 400 mg capsule Take 400 mg by mouth once daily. (Patient not taking: Reported on 07/01/2021) L.acidoph-B.lactis-B.longum (FLORAJEN3) 460 mg (7.5-6- 1.5 bill. cell) cap Take 1 capsule by mouth once daily. (Patient not taking: Reported on 05/29/2019 ) 30 capsule 2 DOXEPIN HCL (SINEQUAN ORAL) Take 50 mg by mouth. (Patient not taking: Reported on 07/01/2021 ) lamotrigine (LAMICTAL) 200 mg ORAL tablet Take 1 tablet by mouth once daily. (Patient not taking: Reported on 10/31/2021 ) 30 tablet 0 No current facility-administered medications for this visit. PAST SURGICAL HISTORY Procedure Laterality Date BACK SURGERY HX 10/2014 removed L5 BREAST BIOPSY 2011 negative HYSTERECTOMY HX ovaries remain; d/t begnign etiology PAST SURGICAL HISTORY OF x3 THYROID BIOPSY US reportedly cysts benign per pt FAMILY HISTORY Problem Relation Age of Onset Hypertension Mother Diabetes Mother ?dysmetablic syndrome Kidney Disease Mother Thyroid Mother Hypertension Father Heart Father 49 [place] [facility] Paternal Uncle Cancer Maternal Grandfather lung Thyroid Maternal Grandmother Social History Tobacco Use Smoking status: Current Every Day Smoker Packs/day: 0.50 Types: Cigarettes Smokeless tobacco: Never Used Vaping Use Vaping Use: Never used Substance Use Topics Alcohol use: Yes Comment: social Drug use: No Objective BP 122/90 Pulse 107 Temp 36.6 C (97.8 F) Resp 20 Wt 95.4 kg (210 lb 6.4 oz) SpO2 98% BMI 41.09 kg/m Physical Exam Vitals reviewed. Constitutional: Appearance: Normal appearance. HENT: Head: Normocephalic and atraumatic. Cardiovascular: Rate and Rhythm: Normal rate and regular rhythm. Heart sounds: Normal heart sounds. Pulmonary: Effort: Pulmonary effort is normal. Breath sounds: Normal breath sounds. Abdominal: General: Abdomen is flat. Bowel sounds are normal. There is no distension. Palpations: Abdomen is soft. Tenderness: There is no abdominal tenderness. There is no right CVA tenderness, left CVA tenderness, guarding or rebound. Genitourinary: Comments: Deferred exam Skin: General: Skin is warm and dry. Neurological: Mental Status: She is alert. Assessment and Plan ASSESSMENT/PLAN: 1. Burning with urination - ICD9: 788.1, ICD10: R30.0 (primary diagnosis) acute - UA positive for jaqueline esterase and hematuria - Send urine for culture - Begin treatment with keflex for 7 days - recommended patient call her urologist to followup. No flank pain or sign of kidney stone today. - UA DIP, URINE (POC) - URINE CULTURE - GC/CHLAMYDIA DNA DET 2. Vaginal itching - ICD9: 698.1, ICD10: N89.8 Self swabs obtained today, will treat accordingly and call on results. - BACTERIAL VAGINOSIS AMPLIFICATION - CLARA / TRICHOMONAS AMPLIFICATION Nuria Whitney PA-C documented in this encounter [facility] 10-31-2021 History of Present illness Narrative Pilar Daniel is a 36 year old female who presents for vaginal pruritis, burning and fishy odor for 2 week(s). Vaginal discharge: foul smelling. Itching: YES Dyspareunia: No Fever/chills: No Abdominal pain: No Bladder: dysuria Bowel: No blood in stool, pain with BM, tarry stool, persistent diarrhea or constipation Any new sexual partners or concern for STD exposure: No Are you currently taking any medications to treat vaginitis: No Do you use feminine sprays, douches or deodorants: No Past medical, surgical, social history, medications and allergies reviewed and updated. OBJECTIVE: BP 124/84 Wt 207 lb (93.9kg) GENERAL: Well developed, well nourished in no apparent distress PELVIC: external genitalia normal, normal Bartholin's glands, urethra, Harrells's glands, no vulvar lesions, physiologic discharge present, normal appearing perineal body and perianal region, cervix surgically absent ASSESSMENT/PLAN: 1. Burning with urination - ICD9: 788.1, ICD10: R30.0 (primary diagnosis) acute - UA positive for jaqueline esterase - Send urine for culture - Patient education for prevention given - UA DIP, URINE (POC) - URINE CULTURE 2. Vaginal irritation - ICD9: 623.9, ICD10: N89.8 - UA DIP, URINE (POC) - BACT/CLARA VAG GRAM STAIN Lucia Bourne APRN.CNP Medical Decision Making: Problems: Moderate: New problem with uncertain prognosis Data: Unique test(s) ordered: 1 Risk: Low: Low risk from testing/treatment Medical Decision Making Level: 3 - Low documented in this encounter [facility] 08-19-2021 Miscellaneous Notes Patient identified by name and date of . Patient advised of positive Influenza A test. - Follow-up with your PCP in 3-5 days if symptoms have not improved or sooner if symptoms worsen - Discussed red flags and need for immediate medical evaluation if any occur. - Discussed supportive care treatment with fluids, rest and analgesia. - Discussed expected course of illness Anna Orlando APRN.CNP documented in this encounter [facility] 08-18-2021 History of Present illness Narrative CC: Patient presents with: Nasal Congestion: MONTIEL, cough, fatigue x3 days HPI: Pilar Daniel is a 36 year old female who presents to the office with complaint of cough, nonproductive and sinus symptoms for a few days. Symptoms are worsening Associated symptoms includes headache and fatigue. Denies fever, nausea, vomiting and diarrhea. Treatments tried include nothing so far. with no relief of symptoms. Sick contacts: unknown. History of asthma, frequent episodes of bronchitis, chronic bronchitis, bronchiectasis or COPD: No Smoker: No Seasonal/environmental allergies: No The ROS is otherwise negative. The patient's pmh, medications, allergies, and past visits are reviewed. PHYSICAL EXAM: BP 116/84 Pulse 96 Temp 36.3 C (97.3 F) Resp 20 Wt 92.4 kg (203 lb 12.8 oz) SpO2 98% BMI 39.80 kg/m General appearance: alert, cooperative, pleasant, in no acute distress Head: Normocephalic Eyes: EOM's intact, conjunctiva pink and moist, no icterus, sclera white, non-injected Ears: Right ear: External ear/canal- Normal, TM - clear with good landmarks. Left ear: External ear/canal- Normal, TM - clear with good landmarks Oropharynx:moist without lesions, No erythema, exudates or tonsillar hypertrophy. Heart: Negative. RRR without obvious murmur, gallop, or rubs. No ectopy. Lungs: clear to auscultation, without rales or wheeze, good air exchange PAST MEDICAL HISTORY Diagnosis Date Bulging lumbar disc L5- sees pain management in past. Depression Hypothyroid Kidney stones Palpitations PID (acute pelvic inflammatory disease) reports r/t IUD Thyroid cyst PAST SURGICAL HISTORY Procedure Laterality Date BACK SURGERY HX 10/2014 removed L5 BREAST BIOPSY 2011 negative HYSTERECTOMY HX ovaries remain; d/t begnign etiology PAST SURGICAL HISTORY OF x3 THYROID BIOPSY US reportedly cysts benign per pt ALLERGIES Avelox [Moxifloxacin Hcl], Latex, Macrobid [Nitrofurantoin Monohyd/M-Cryst], Penicillin, Trazodone, and Ultram [Tramadol Hcl] MEDICATIONS Anvepdquypufjwg-Egawvwmur-NT (BROMFED DM) 2-30-10 mg/5 mL syrup Take 10 mL by mouth three times daily as needed. budesonide-formoterol (SYMBICORT) 80-4.5 mcg/actuation inhaler Inhale 2 Puffs as instructed twice daily. albuterol HFA (PROVENTIL HFA, VENTOLIN HFA) 90 mcg/actuation inhaler Inhale 2 Puffs as instructed every 4 hours as needed for wheezing/shortness of breath. gabapentin (NEURONTIN) 400 mg capsule Take 400 mg by mouth once daily. hydrOXYzine HCl (ATARAX) 25 mg tablet Take 25 mg by mouth three times daily as needed. L.acidoph-B.lactis-B.longum (FLORAJEN3) 460 mg (7.5-6- 1.5 bill. cell) cap Take 1 capsule by mouth once daily. ONE DAILY MULTIVITAMIN ORAL Take by mouth. DOXEPIN HCL (SINEQUAN ORAL) Take 50 mg by mouth. omeprazole (PRILOSEC) 20 mg capsule Take 20 mg by mouth once daily. prn lamotrigine (LAMICTAL) 200 mg ORAL tablet Take 1 tablet by mouth once daily. levothyroxine (SYNTHROID) 112 mcg ORAL tablet Take 1 tablet by mouth once daily. Take on empty stomach. For thyroid FAMILY HISTORY Problem Relation Age of Onset Hypertension Mother Diabetes Mother ?dysmetablic syndrome Kidney Disease Mother Thyroid Mother Hypertension Father Heart Father 49 [place] [facility] Paternal Uncle Cancer Maternal Grandfather lung Thyroid Maternal Grandmother Social History Tobacco Use Smoking status: Current Every Day Smoker Packs/day: 0.50 Types: Cigarettes Smokeless tobacco: Never Used Substance Use Topics Alcohol use: Yes Comment: social Drug use: No ASSESSMENT/PLAN: 1. Suspected COVID-19 virus infection - ICD9: V01.79, ICD10: Z20.822 - COVID WITH FLUA+B, ROUTINE Instructed that it is viral in nature. Waiting for swab results. Will treat OTC for symptoms. Potential red flag symptoms discussed with the patient. Reviewed appropriate action plan to take if red flag symptoms occur. Patient agreeable to treatment plan. Simona Zuleta APRN.LINDA documented in this encounter [facility] 08-18-2021 Instructions Simona Zuleta APRN.CNP - 08/18/2021 4:54 PM EDT How to Manage Common Symptoms Associated with COVID for Adults Fever- Fever is a temperature over 100.4 F and can occur when the body is fighting an infection. To help treat a fever: Drink plenty of fluids and stay well hydrated. Eat small amounts of easy to digest food. Rest. Your body needs rest to recover, but getting up and moving around the house frequently is a good idea. You should try to continue doing your normal daily activities (bathing, toileting, grooming, cooking), though you will probably feel tired, and need to rest often. Avoid any heavy activity or exercise, as this will increase your body temperature. Dress in light clothing and stay covered in a light sheet. Keep the room temperature cool. Take a slightly warm (not cold or cool) bath, or apply damp washcloths to the forehead and wrists. Cough- Cough is a common symptom associated with COVID and can be bothersome. To help treat a cough: Stay well hydrated. Try warm water or tea with lemon and/or honey to help soothe the cough. Use a humidifier to add moisture to the air. Try a product with menthol, like a cough drop or a rub for your chest such as Vicks, which can help reduce cough. Try cough drops. Avoid smoking and other strong odors or perfumes. Try breathing exercises to keep your lungs open and clear. Take a big deep breath through your nose and hold for 5 seconds before slowly releasing. Repeat frequently, while you are awake. Congestion- Runny nose or nasal congestion can occur with COVID. Treatment can help relieve symptoms: Try OTC nasal saline spray, or nasal saline rinse to relieve mucus congestion. Nasal strips can help keep nasal passages open, to increase airflow. Elevating your head with an extra pillow in bed can help reduce congestion. Using a humidifier can increase moisture in the air, and make breathing easier. Sore Throat- Another common symptom with COVID, can be managed at home by: Stay well hydrated. Gargle with salt water mix teaspoon salt with 1 cup of warm water and gargle. This helps to loosen mucus in the back of the throat and may reduce discomfort. Try ice chips, popsicles or lozenges to soothe the throat. Nausea/Vomiting/Diarrhea- These are common symptoms, and staying hydrated is most important. If you are nauseous or vomiting, start with small sips of water every 10-15 minutes and increase as tolerated. You can try sucking an ice cube too. If tolerating, you can try pedialyte or Gatorade, or flat sprite or taiwo-neeraj. Start slowly and increase as you are able to. Instead of meals, try smaller, more frequent snacks. Try eating bland foods like crackers, toast, rice, and applesauce. Avoid spicy, greasy or fried foods and dairy containing foods. Even if you aren't feeling hungry due to lack of smell or taste, it is important to try to take in some food when you are able. After drinking and eating, rest in an upright position for up to two hours as needed to help decrease nauseous feelings. Try closing your eyes, avoid moving and watching TV. Avoid strong odors that can make you feel more nauseated. When to seek emergency medical attention Look for emergency warning signs for COVID-19. If having any of these symptoms, seek emergency medical care immediately: Trouble breathing Persistent pain or pressure in the chest New confusion Inability to wake or stay awake Bluish lips or face *This list is not all possible symptoms. Please call your medical provider for any other symptoms that are severe or concerning to you. documented in this encounter [facility] 05-09-2021 Miscellaneous Notes Addended by: DARLENE GEORGE on: 05/09/2021 03:50 PM Modules accepted: Orders Addended by: DARIEL FLANAGAN on: 05/09/2021 03:22 PM Modules accepted: Orders documented in this encounter [facility] 05-09-2021 Miscellaneous Notes Addended by: DARIEL FLANAGAN on: 05/09/2021 03:22 PM Modules accepted: Orders documented in this encounter [facility] 05-09-2021 Instructions Dariel Flanagan CNP - 05/09/2021 3:04 PM EST Images from the original note were not included. 10 Things to Do When You Have COVID-19 Stay home. Don't go to school, work, or public areas. And don't use public transportation, ride-shares, or taxis unless you have no choice. Leave your home only if you need to get medical care. But call the doctor's office first so they know you're coming. And wear a mask. Ask before leaving isolation. Follow your doctor's advice about when it is safe for you to leave isolation. Wear a mask when you are around other people. It can help stop the spread of the virus. Limit contact with people in your home. If possible, stay in a separate bedroom and use a separate bathroom. Avoid contact with pets and other animals. If possible, have a friend or family member care for them while you're sick. Cover your mouth and nose with a tissue when you cough or sneeze. Then throw the tissue in the trash right away. Wash your hands often, especially after you cough or sneeze. Use soap and water, and scrub for at least 20 seconds. If soap and water aren't available, use an alcohol-based hand behavioral health therapist. Don't share personal household items. These include bedding, towels, cups and glasses, and eating utensils. Clean and disinfect your home every day. Use household hand kiss setter or disinfectant wipes or sprays. If needed, take acetaminophen (Tylenol) or ibuprofen (Advil, Motrin) to relieve fever and body aches. Read and follow all instructions on the label. Current as of: August 23, 2020 Content Version: 13.0 [employer] Care instructions adapted under license by your healthcare professional. If you have questions about a medical condition or this instruction, always ask your healthcare professional. [employer] disclaims any warranty or liability for your use of this information. Urinary Tract Infection (UTI) in Women: Care Instructions Overview A urinary tract infection, or UTI, is a general term for an infection anywhere between the kidneys and the urethra (where urine comes out). Most UTIs are bladder infections. They often cause pain or burning when you urinate. UTIs are caused by bacteria and can be cured with antibiotics. Be sure to complete your treatment so that the infection does not get worse. Follow-up care is a matute part of your treatment and safety. Be sure to make and go to all appointments, and call your doctor if you are having problems. It's also a good idea to know your test results and keep a list of the medicines you take. How can you care for yourself at home? Take your antibiotics as directed. Do not stop taking them just because you feel better. You need to take the full course of antibiotics. Drink extra water and other fluids for the next day or two. This will help make the urine less concentrated and help wash out the bacteria that are causing the infection. (If you have kidney, heart, or liver disease and have to limit fluids, talk with your doctor before you increase the amount of fluids you drink.) Avoid drinks that are carbonated or have caffeine. They can irritate the bladder. Urinate often. Try to empty your bladder each time. To relieve pain, take a hot bath or lay a heating pad set on low over your lower belly or genital area. Never go to sleep with a heating pad in place. To prevent UTIs Drink plenty of water each day. This helps you urinate often, which clears bacteria from your system. (If you have kidney, heart, or liver disease and have to limit fluids, talk with your doctor before you increase the amount of fluids you drink.) Urinate when you need to. If you are sexually active, urinate right after you have sex. Change sanitary pads often. Avoid douches, bubble baths, feminine hygiene sprays, and other feminine hygiene products that have deodorants. After going to the bathroom, wipe from front to back. When should you call for help? Call your doctor now or seek immediate medical care if: Symptoms such as fever, chills, nausea, or vomiting get worse or appear for the first time. You have new pain in your back just below your rib cage. This is called flank pain. There is new blood or pus in your urine. You have any problems with your antibiotic medicine. Watch closely for changes in your health, and be sure to contact your doctor if: You are not getting better after taking an antibiotic for 2 days. Your symptoms go away but then come back. Where can you learn more? Log into your personal health record on https://[email or web address] Scienceshart.Buzz360 and enter K848 in the Education box to learn more about Urinary Tract Infection (UTI) in Women: Care Instructions. Current as of: July 10, 2020 Content Version: 13.0 [employer] Care instructions adapted under license by your healthcare professional. If you have questions about a medical condition or this instruction, always ask your healthcare professional. [employer] disclaims any warranty or liability for your use of this information. Learning About Benefits From Quitting Smoking How does quitting smoking make you healthier? If you're thinking about quitting smoking, you may have a few reasons to be smoke-free. Your health may be one of them. When you quit smoking, you lower your risks for cancer, lung disease, heart attack, stroke, blood vessel disease, and blindness from macular degeneration. When you're smoke-free, you get sick less often, and you heal faster. You are less likely to get colds, flu, bronchitis, and pneumonia. As a nonsmoker, you may find that your mood is better and you are less stressed. When and how will you feel healthier? Quitting has real health benefits that start from day 1 of being smoke-free. And the longer you stay smoke-free, the healthier you get and the better you feel. The first hours After just 20 minutes, your blood pressure and heart rate go down. That means there's less stress on your heart and blood vessels. Within 12 hours, the level of carbon monoxide in your blood drops back to normal. That makes room for more oxygen. With more oxygen in your body, you may notice that you have more energy than when you smoked. After 2 weeks Your lungs start to work better. Your risk of heart attack starts to drop. After 1 month When your lungs are clear, you cough less and breathe deeper, so it's easier to be active. Your sense of taste and smell return. That means you can enjoy food more than you have since you started smoking. Over the years Over the years, your risks of heart disease, heart attack, and stroke are lower. After 10 years, your risk of dying from lung cancer is cut by about half. And your risk for many other types of cancer is lower too. How would quitting help others in your life? When you quit smoking, you improve the health of everyone who now breathes in your smoke. Their heart, lung, and cancer risks drop, much like yours. They are sick less. For babies and small children, living smoke-free means they're less likely to have ear infections, pneumonia, and bronchitis. If you're a woman who is or will be someday, quitting smoking means a healthier . Children who are close to you are less likely to become adult smokers. Where can you learn more? Log into your personal health record on https://MyChart.Buzz360 and enter O319 in the Education box to learn more about Learning About Benefits From Quitting Smoking. Current as of: July 11, 2020 Content Version: 13.0 [employer] Care instructions adapted under license by your healthcare professional. If you have questions about a medical condition or this instruction, always ask your healthcare professional. [employer] disclaims any warranty or liability for your use of this information. Thank you for choosing [facility] for your healthcare needs today. Quarantine for 10 days from onset of symptoms. Notify your doctor of positive results. If you do not have a PCP, you can call [phone] Wednesday through Wednesday, 7 am - 5:30 pm to get established with a primary care provider or you can contact your health insurance benefit provider to locate one covered under your plan. Your may also go to [facility]'s website at [employer]ft and use the Find-A-Doc feature to locate a PCP. You have a UTI and will need to recheck the urine after treatment to confirm resolution of abnormalities. Culture was sent to identify bacteria. You will only be contacted if there is need to add/change/discontinue the medication. Please consider smoking cessation. ER for symptoms of concern. documented in this encounter [facility] 05-09-2021 Instructions Dariel Flanagan CNP - 05/09/2021 3:04 PM EST Images from the original note were not included. 10 Things to Do When You Have COVID-19 Stay home. Don't go to school, work, or public areas. And don't use public transportation, ride-shares, or taxis unless you have no choice. Leave your home only if you need to get medical care. But call the doctor's office first so they know you're coming. And wear a mask. Ask before leaving isolation. Follow your doctor's advice about when it is safe for you to leave isolation. Wear a mask when you are around other people. It can help stop the spread of the virus. Limit contact with people in your home. If possible, stay in a separate bedroom and use a separate bathroom. Avoid contact with pets and other animals. If possible, have a friend or family member care for them while you're sick. Cover your mouth and nose with a tissue when you cough or sneeze. Then throw the tissue in the trash right away. Wash your hands often, especially after you cough or sneeze. Use soap and water, and scrub for at least 20 seconds. If soap and water aren't available, use an alcohol-based hand behavioral health therapist. Don't share personal household items. These include bedding, towels, cups and glasses, and eating utensils. Clean and disinfect your home every day. Use household hand kiss setter or disinfectant wipes or sprays. If needed, take acetaminophen (Tylenol) or ibuprofen (Advil, Motrin) to relieve fever and body aches. Read and follow all instructions on the label. Current as of: August 23, 2020 Content Version: 13.0 [employer] Care instructions adapted under license by your healthcare professional. If you have questions about a medical condition or this instruction, always ask your healthcare professional. [employer] disclaims any warranty or liability for your use of this information. Urinary Tract Infection (UTI) in Women: Care Instructions Overview A urinary tract infection, or UTI, is a general term for an infection anywhere between the kidneys and the urethra (where urine comes out). Most UTIs are bladder infections. They often cause pain or burning when you urinate. UTIs are caused by bacteria and can be cured with antibiotics. Be sure to complete your treatment so that the infection does not get worse. Follow-up care is a matute part of your treatment and safety. Be sure to make and go to all appointments, and call your doctor if you are having problems. It's also a good idea to know your test results and keep a list of the medicines you take. How can you care for yourself at home? Take your antibiotics as directed. Do not stop taking them just because you feel better. You need to take the full course of antibiotics. Drink extra water and other fluids for the next day or two. This will help make the urine less concentrated and help wash out the bacteria that are causing the infection. (If you have kidney, heart, or liver disease and have to limit fluids, talk with your doctor before you increase the amount of fluids you drink.) Avoid drinks that are carbonated or have caffeine. They can irritate the bladder. Urinate often. Try to empty your bladder each time. To relieve pain, take a hot bath or lay a heating pad set on low over your lower belly or genital area. Never go to sleep with a heating pad in place. To prevent UTIs Drink plenty of water each day. This helps you urinate often, which clears bacteria from your system. (If you have kidney, heart, or liver disease and have to limit fluids, talk with your doctor before you increase the amount of fluids you drink.) Urinate when you need to. If you are sexually active, urinate right after you have sex. Change sanitary pads often. Avoid douches, bubble baths, feminine hygiene sprays, and other feminine hygiene products that have deodorants. After going to the bathroom, wipe from front to back. When should you call for help? Call your doctor now or seek immediate medical care if: Symptoms such as fever, chills, nausea, or vomiting get worse or appear for the first time. You have new pain in your back just below your rib cage. This is called flank pain. There is new blood or pus in your urine. You have any problems with your antibiotic medicine. Watch closely for changes in your health, and be sure to contact your doctor if: You are not getting better after taking an antibiotic for 2 days. Your symptoms go away but then come back. Where can you learn more? Log into your personal health record on [email or web address]://[email or web address].[email or web address].Buzz360 and enter K848 in the Education box to learn more about Urinary Tract Infection (UTI) in Women: Care Instructions. Current as of: July 10, 2020 Content Version: 13.0 [employer]. Care instructions adapted under license by your healthcare professional. If you have questions about a medical condition or this instruction, always ask your healthcare professional. [employer] disclaims any warranty or liability for your use of this information. Learning About Benefits From Quitting Smoking How does quitting smoking make you healthier? If you're thinking about quitting smoking, you may have a few reasons to be smoke-free. Your health may be one of them. When you quit smoking, you lower your risks for cancer, lung disease, heart attack, stroke, blood vessel disease, and blindness from macular degeneration. When you're smoke-free, you get sick less often, and you heal faster. You are less likely to get colds, flu, bronchitis, and pneumonia. As a nonsmoker, you may find that your mood is better and you are less stressed. When and how will you feel healthier? Quitting has real health benefits that start from day 1 of being smoke-free. And the longer you stay smoke-free, the healthier you get and the better you feel. The first hours After just 20 minutes, your blood pressure and heart rate go down. That means there's less stress on your heart and blood vessels. Within 12 hours, the level of carbon monoxide in your blood drops back to normal. That makes room for more oxygen. With more oxygen in your body, you may notice that you have more energy than when you smoked. After 2 weeks Your lungs start to work better. Your risk of heart attack starts to drop. After 1 month When your lungs are clear, you cough less and breathe deeper, so it's easier to be active. Your sense of taste and smell return. That means you can enjoy food more than you have since you started smoking. Over the years Over the years, your risks of heart disease, heart attack, and stroke are lower. After 10 years, your risk of dying from lung cancer is cut by about half. And your risk for many other types of cancer is lower too. How would quitting help others in your life? When you quit smoking, you improve the health of everyone who now breathes in your smoke. Their heart, lung, and cancer risks drop, much like yours. They are sick less. For babies and small children, living smoke-free means they're less likely to have ear infections, pneumonia, and bronchitis. If you're a woman who is or will be someday, quitting smoking means a healthier . Children who are close to you are less likely to become adult smokers. Where can you learn more? Log into your personal health record on https://Perio Scienceshart.Buzz360 and enter O319 in the Education box to learn more about Learning About Benefits From Quitting Smoking. Current as of: July 11, 2020 Content Version: 13.0 [employer] Care instructions adapted under license by your healthcare professional. If you have questions about a medical condition or this instruction, always ask your healthcare professional. [employer] disclaims any warranty or liability for your use of this information. Thank you for choosing [facility] for your healthcare needs today. Quarantine for 10 days from onset of symptoms. Notify your doctor of positive results. If you do not have a PCP, you can call [phone] Wednesday through Wednesday, 7 am - 5:30 pm to get established with a primary care provider or you can contact your health insurance benefit provider to locate one covered under your plan. Your may also go to [facility]'s website at Gyft and use the Find-A-Doc feature to locate a PCP. You have a UTI and will need to recheck the urine after treatment to confirm resolution of abnormalities. Culture was sent to identify bacteria. You will only be contacted if there is need to add/change/discontinue the medication. Please consider smoking cessation. ER for symptoms of concern. documented in this encounter [facility] 05-09-2021 History of Present illness Narrative Images from the original note were not included. Patient Name: [facility] Location: [facility] [address] [place] [id number] Date Of : Date Of Visit: 1985 05/09/2021 MRN# Provider: [id number] Dariel Flanagan CNP Chief Complaint Patient presents with Cough Cough, sinus drainage, diminished taste/smell since 05/06/2021. 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 Assessment & Plan 1. COVID-19 virus infection benzonatate (Tessalon Perles) 100 MG capsule 2. Acute cystitis with hematuria nitrofurantoin, macrocrystal-monohydrate, (Macrobid) 100 MG capsule 3. Cough COVID-19, Molecular 4. Loss of smell COVID-19, Molecular 5. Loss of taste COVID-19, Molecular 6. Dysuria POC Urinalysis Dipstick,Auto UC 7. Cigarette smoker No follow-ups on file. Medical Decision Making Non-toxic in NAD with URI symptoms onset 05/06/2021. Daily smoker. COVID-19 Positive Monoclonal antibody infusion declines referral Work Note UA Urine Culture Additional Clinical Comments Encouraged smoking cessation. SeeAVS Subjective 35 y.o. female presents with Cough (Cough, sinus drainage, diminished taste/smell since 05/06/2021. 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 Reports dysuria and concern for UTI or BV. 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 URI This is a new problem. The current episode started in the past 7 days. The problem has been unchanged. Associated symptoms include congestion, coughing, dysuria, a plugged ear sensation, rhinorrhea and a sore throat. Pertinent negatives include no diarrhea, headaches, nausea, vomiting or wheezing. Review Of Systems Review of Systems Constitutional: Negative for chills and fever. HENT: Positive for congestion, rhinorrhea and sore throat. Diminished taste and smell. Respiratory: Positive for cough. Negative for shortness of breath and wheezing. Gastrointestinal: Negative for diarrhea, nausea and vomiting. Genitourinary: Positive for dysuria. Musculoskeletal: Negative for myalgias. Neurological: Negative for headaches. Medical History Past Medical History: Diagnosis Date Anxiety Bipolar 1 disorder (HCC) Chronic bronchitis (HCC) Disease of thyroid gland GERD (gastroesophageal reflux disease) Past Surgical History: Procedure Laterality Date BACK SURGERY BREAST BIOPSY SECTION, LOW TRANSVERSE HYSTERECTOMY (CERVIX REMAINS) There is no problem list on file for this patient. Social History Social History Tobacco Use Smoking status: Current Every Day Smoker Packs/day: 0.50 Types: Cigarettes Smokeless tobacco: Never Used Vaping Use Vaping Use: Never used Substance Use Topics Alcohol use: Yes Comment: occasionally Drug use: Never Family History History reviewed. No pertinent family history. Objective Physical Exam BP 137/86 (BP Location: Left arm, Patient Position: Sitting, BP Cuff Size: Adult) Pulse 89 Temp 98 F (36.7 C) (Infrared) Resp 16 Ht 5' Wt 92.5 kg (204 lb) SpO2 98% BMI 39.84 kg/m Vision/Hearing Exam:No exam data present Physical Exam Vitals and nursing note reviewed. Constitutional: General: She is not in acute distress. Appearance: Normal appearance. She is not ill-appearing, toxic-appearing or diaphoretic. HENT: Head: Normocephalic and atraumatic. Right Ear: Tympanic membrane, ear canal and external ear normal. Left Ear: Tympanic membrane, ear canal and external ear normal. Nose: Congestion present. Mouth/Throat: Mouth: Mucous membranes are moist. Pharynx: Oropharynx is clear. Cardiovascular: Rate and Rhythm: Normal rate and regular rhythm. Heart sounds: Normal heart sounds. Pulmonary: Effort: Pulmonary effort is normal. Breath sounds: Normal breath sounds. No wheezing or rales. Skin: General: Skin is warm and dry. Neurological: Mental Status: She is alert and oriented to person, place, and time. GCS: GCS eye subscore is 4. GCS verbal subscore is 5. GCS motor subscore is 6. Psychiatric: Mood and Affect: Mood normal. Behavior: Behavior normal. Procedure Notes Procedures Results Recent Results (from the past 168 hour(s)) COVID-19, Molecular Collection Time: 05/09/21 2:26 PM Specimen: Nasopharyngeal; Swab Result Value Ref Range SARS-CoV-2 Detected (A) Not Detected POC Urinalysis Dipstick,Auto UC Collection Time: 05/09/21 2:47 PM Result Value Ref Range POC Color, Urine Dark Yellow Yellow, Light Yellow, Dark Yellow Clarity, UA Cloudy (A) Clear Glucose, UA Negative Normal, Negative mg/dL Bilirubin, UA Negative Negative Ketones, UA Negative Negative mg/dL Spec Grav, UA 1.030 (A) 1.005 - 1.025 Blood, UA Trace-intact (A) Negative pH, UA 6.0 5.0 - 7.0 Protein, UA Negative Negative mg/dL Urobilinogen, UA 1.0 <2.0, 0.2, Normal, Negative, 1.0, 2.0, <1.0 mg/dL Nitrite, UA Positive (A) Negative Leukocyte Esterase, UA Negative Negative No orders to display Orders Placed This Visit Orders Placed This Encounter Procedures COVID-19, Molecular POC Urinalysis Dipstick,Auto UC Medication List At End Of Visit Current Outpatient Medications Medication Sig Dispense Refill albuterol 90 mcg/actuation inhaler Inhale 2 puffs every 4 (four) hours as needed . budesonide-formoteroL (SYMBICORT) 80-4.5 mcg/actuation inhaler Inhale 2 puffs 2 (two) times a day . gabapentin (NEURONTIN) 400 MG capsule Take 400 mg by mouth daily . hydrOXYzine (ATARAX) 25 MG tablet Take 25 mg by mouth 3 (three) times a day as needed . lamoTRIgine (LAMICTAL) 200 MG tablet Take 200 mg by mouth daily . levothyroxine (SYNTHROID, LEVOTHROID) 112 MCG tablet Take 112 mcg by mouth daily . omeprazole (PRILOSEC) 20 MG capsule Take 20 mg by mouth daily . predniSONE (DELTASONE) 1 MG tablet Take 1 mg by mouth daily . benzonatate (Tessalon Perles) 100 MG capsule Take one or two capsules every 8 hours as needed for cough. Do not chew. . 60 capsule 1 nitrofurantoin, macrocrystal-monohydrate, (Macrobid) 100 MG capsule Take 1 (one) capsule (100 mg total) by mouth 2 (two) times a day for 7 days . 14 capsule 0 No current facility-administered medications for this visit. Patient Instructions 10 Things to Do When You Have COVID-19 Stay home. Don't go to school, work, or public areas. And don't use public transportation, ride-shares, or taxis unless you have no choice. Leave your home only if you need to get medical care. But call the doctor's office first so they know you're coming. And wear a mask. Ask before leaving isolation. Follow your doctor's advice about when it is safe for you to leave isolation. Wear a mask when you are around other people. It can help stop the spread of the virus. Limit contact with people in your home. If possible, stay in a separate bedroom and use a separate bathroom. Avoid contact with pets and other animals. If possible, have a friend or family member care for them while you're sick. Cover your mouth and nose with a tissue when you cough or sneeze. Then throw the tissue in the trash right away. Wash your hands often, especially after you cough or sneeze. Use soap and water, and scrub for at least 20 seconds. If soap and water aren't available, use an alcohol-based hand behavioral health therapist. Don't share personal household items. These include bedding, towels, cups and glasses, and eating utensils. Clean and disinfect your home every day. Use household hand kiss setter or disinfectant wipes or sprays. If needed, take acetaminophen (Tylenol) or ibuprofen (Advil, Motrin) to relieve fever and body aches. Read and follow all instructions on the label. Current as of: August 23, 2020 Content Version: 13.0 [employer] Care instructions adapted under license by your healthcare professional. If you have questions about a medical condition or this instruction, always ask your healthcare professional. [employer] disclaims any warranty or liability for your use of this information. Urinary Tract Infection (UTI) in Women: Care Instructions Overview A urinary tract infection, or UTI, is a general term for an infection anywhere between the kidneys and the urethra (where urine comes out). Most UTIs are bladder infections. They often cause pain or burning when you urinate. UTIs are caused by bacteria and can be cured with antibiotics. Be sure to complete your treatment so that the infection does not get worse. Follow-up care is a matute part of your treatment and safety. Be sure to make and go to all appointments, and call your doctor if you are having problems. It's also a good idea to know your test results and keep a list of the medicines you take. How can you care for yourself at home? Take your antibiotics as directed. Do not stop taking them just because you feel better. You need to take the full course of antibiotics. Drink extra water and other fluids for the next day or two. This will help make the urine less concentrated and help wash out the bacteria that are causing the infection. (If you have kidney, heart, or liver disease and have to limit fluids, talk with your doctor before you increase the amount of fluids you drink.) Avoid drinks that are carbonated or have caffeine. They can irritate the bladder. Urinate often. Try to empty your bladder each time. To relieve pain, take a hot bath or lay a heating pad set on low over your lower belly or genital area. Never go to sleep with a heating pad in place. To prevent UTIs Drink plenty of water each day. This helps you urinate often, which clears bacteria from your system. (If you have kidney, heart, or liver disease and have to limit fluids, talk with your doctor before you increase the amount of fluids you drink.) Urinate when you need to. If you are sexually active, urinate right after you have sex. Change sanitary pads often. Avoid douches, bubble baths, feminine hygiene sprays, and other feminine hygiene products that have deodorants. After going to the bathroom, wipe from front to back. When should you call for help? Call your doctor now or seek immediate medical care if: Symptoms such as fever, chills, nausea, or vomiting get worse or appear for the first time. You have new pain in your back just below your rib cage. This is called flank pain. There is new blood or pus in your urine. You have any problems with your antibiotic medicine. Watch closely for changes in your health, and be sure to contact your doctor if: You are not getting better after taking an antibiotic for 2 days. Your symptoms go away but then come back. Where can you learn more? Log into your personal health record on https://[employer] Scienceshart.Buzz360 and enter K848 in the Education box to learn more about Urinary Tract Infection (UTI) in Women: Care Instructions. Current as of: July 10, 2020 Content Version: 13.0 [employer] Care instructions adapted under license by your healthcare professional. If you have questions about a medical condition or this instruction, always ask your healthcare professional. [employer] disclaims any warranty or liability for your use of this information. Learning About Benefits From Quitting Smoking How does quitting smoking make you healthier? If you're thinking about quitting smoking, you may have a few reasons to be smoke-free. Your health may be one of them. When you quit smoking, you lower your risks for cancer, lung disease, heart attack, stroke, blood vessel disease, and blindness from macular degeneration. When you're smoke-free, you get sick less often, and you heal faster. You are less likely to get colds, flu, bronchitis, and pneumonia. As a nonsmoker, you may find that your mood is better and you are less stressed. When and how will you feel healthier? Quitting has real health benefits that start from day 1 of being smoke-free. And the longer you stay smoke-free, the healthier you get and the better you feel. The first hours After just 20 minutes, your blood pressure and heart rate go down. That means there's less stress on your heart and blood vessels. Within 12 hours, the level of carbon monoxide in your blood drops back to normal. That makes room for more oxygen. With more oxygen in your body, you may notice that you have more energy than when you smoked. After 2 weeks Your lungs start to work better. Your risk of heart attack starts to drop. After 1 month When your lungs are clear, you cough less and breathe deeper, so it's easier to be active. Your sense of taste and smell return. That means you can enjoy food more than you have since you started smoking. Over the years Over the years, your risks of heart disease, heart attack, and stroke are lower. After 10 years, your risk of dying from lung cancer is cut by about half. And your risk for many other types of cancer is lower too. How would quitting help others in your life? When you quit smoking, you improve the health of everyone who now breathes in your smoke. Their heart, lung, and cancer risks drop, much like yours. They are sick less. For babies and small children, living smoke-free means they're less likely to have ear infections, pneumonia, and bronchitis. If you're a woman who is or will be someday, quitting smoking means a healthier . Children who are close to you are less likely to become adult smokers. Where can you learn more? Log into your personal health record on https://[employer] Scienceshart.Buzz360 and enter O319 in the Education box to learn more about Learning About Benefits From Quitting Smoking. Current as of: July 11, 2020 Content Version: 13.0 [employer] Care instructions adapted under license by your healthcare professional. If you have questions about a medical condition or this instruction, always ask your healthcare professional. [employer] disclaims any warranty or liability for your use of this information. Thank you for choosing [facility] for your healthcare needs today. Quarantine for 10 days from onset of symptoms. Notify your doctor of positive results. If you do not have a PCP, you can call [phone] Wednesday through Wednesday, 7 am - 5:30 pm to get established with a primary care provider or you can contact your health insurance benefit provider to locate one covered under your plan. Your may also go to [facility]'s website at Gyft and use the Find-A-Doc feature to locate a PCP. You have a UTI and will need to recheck the urine after treatment to confirm resolution of abnormalities. Culture was sent to identify bacteria. You will only be contacted if there is need to add/change/discontinue the medication. Please consider smoking cessation. ER for symptoms of concern. documented in this encounter [facility] 05-09-2021 History of Present illness Narrative Images from the original note were not included. Patient Name: [facility] Location: [facility] [address] [id number] Date Of : Date Of Visit: 1985 05/09/2021 MRN# Provider: [id number] Dariel Flanagan CNP Chief Complaint Patient presents with Cough Cough, sinus drainage, diminished taste/smell since 05/06/2021. 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 Assessment & Plan 1. COVID-19 virus infection benzonatate (Tessalon Perles) 100 MG capsule 2. Acute cystitis with hematuria nitrofurantoin, macrocrystal-monohydrate, (Macrobid) 100 MG capsule 3. Cough COVID-19, Molecular 4. Loss of smell COVID-19, Molecular 5. Loss of taste COVID-19, Molecular 6. Dysuria POC Urinalysis Dipstick,Auto UC 7. Cigarette smoker No follow-ups on file. Medical Decision Making Non-toxic in NAD with URI symptoms onset 05/06/2021. Daily smoker. COVID-19 Positive Monoclonal antibody infusion declines referral Work Note UA Urine Culture Additional Clinical Comments Encouraged smoking cessation. SeeAVS Subjective 35 y.o. female presents with Cough (Cough, sinus drainage, diminished taste/smell since 05/06/2021. 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 Reports dysuria and concern for UTI or BV. 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 URI This is a new problem. The current episode started in the past 7 days. The problem has been unchanged. Associated symptoms include congestion, coughing, dysuria, a plugged ear sensation, rhinorrhea and a sore throat. Pertinent negatives include no diarrhea, headaches, nausea, vomiting or wheezing. Review Of Systems Review of Systems Constitutional: Negative for chills and fever. HENT: Positive for congestion, rhinorrhea and sore throat. Diminished taste and smell. Respiratory: Positive for cough. Negative for shortness of breath and wheezing. Gastrointestinal: Negative for diarrhea, nausea and vomiting. Genitourinary: Positive for dysuria. Musculoskeletal: Negative for myalgias. Neurological: Negative for headaches. Medical History Past Medical History: Diagnosis Date Anxiety Bipolar 1 disorder (HCC) Chronic bronchitis (HCC) Disease of thyroid gland GERD (gastroesophageal reflux disease) Past Surgical History: Procedure Laterality Date BACK SURGERY BREAST BIOPSY SECTION, LOW TRANSVERSE HYSTERECTOMY (CERVIX REMAINS) There is no problem list on file for this patient. Social History Social History Tobacco Use Smoking status: Current Every Day Smoker Packs/day: 0.50 Types: Cigarettes Smokeless tobacco: Never Used Vaping Use Vaping Use: Never used Substance Use Topics Alcohol use: Yes Comment: occasionally Drug use: Never Family History History reviewed. No pertinent family history. Objective Physical Exam BP 137/86 (BP Location: Left arm, Patient Position: Sitting, BP Cuff Size: Adult) Pulse 89 Temp 98 F (36.7 C) (Infrared) Resp 16 Ht 5' Wt 92.5 kg (204 lb) SpO2 98% BMI 39.84 kg/m Vision/Hearing Exam:No exam data present Physical Exam Vitals and nursing note reviewed. Constitutional: General: She is not in acute distress. Appearance: Normal appearance. She is not ill-appearing, toxic-appearing or diaphoretic. HENT: Head: Normocephalic and atraumatic. Right Ear: Tympanic membrane, ear canal and external ear normal. Left Ear: Tympanic membrane, ear canal and external ear normal. Nose: Congestion present. Mouth/Throat: Mouth: Mucous membranes are moist. Pharynx: Oropharynx is clear. Cardiovascular: Rate and Rhythm: Normal rate and regular rhythm. Heart sounds: Normal heart sounds. Pulmonary: Effort: Pulmonary effort is normal. Breath sounds: Normal breath sounds. No wheezing or rales. Skin: General: Skin is warm and dry. Neurological: Mental Status: She is alert and oriented to person, place, and time. GCS: GCS eye subscore is 4. GCS verbal subscore is 5. GCS motor subscore is 6. Psychiatric: Mood and Affect: Mood normal. Behavior: Behavior normal. Procedure Notes Procedures Results Recent Results (from the past 168 hour(s)) COVID-19, Molecular Collection Time: 05/09/21 2:26 PM Specimen: Nasopharyngeal; Swab Result Value Ref Range SARS-CoV-2 Detected (A) Not Detected POC Urinalysis Dipstick,Auto UC Collection Time: 05/09/21 2:47 PM Result Value Ref Range POC Color, Urine Dark Yellow Yellow, Light Yellow, Dark Yellow Clarity, UA Cloudy (A) Clear Glucose, UA Negative Normal, Negative mg/dL Bilirubin, UA Negative Negative Ketones, UA Negative Negative mg/dL Spec Grav, UA 1.030 (A) 1.005 - 1.025 Blood, UA Trace-intact (A) Negative pH, UA 6.0 5.0 - 7.0 Protein, UA Negative Negative mg/dL Urobilinogen, UA 1.0 <2.0, 0.2, Normal, Negative, 1.0, 2.0, <1.0 mg/dL Nitrite, UA Positive (A) Negative Leukocyte Esterase, UA Negative Negative No orders to display Orders Placed This Visit Orders Placed This Encounter Procedures COVID-19, Molecular POC Urinalysis Dipstick,Auto UC Medication List At End Of Visit Current Outpatient Medications Medication Sig Dispense Refill albuterol 90 mcg/actuation inhaler Inhale 2 puffs every 4 (four) hours as needed . budesonide-formoteroL (SYMBICORT) 80-4.5 mcg/actuation inhaler Inhale 2 puffs 2 (two) times a day . gabapentin (NEURONTIN) 400 MG capsule Take 400 mg by mouth daily . hydrOXYzine (ATARAX) 25 MG tablet Take 25 mg by mouth 3 (three) times a day as needed . lamoTRIgine (LAMICTAL) 200 MG tablet Take 200 mg by mouth daily . levothyroxine (SYNTHROID, LEVOTHROID) 112 MCG tablet Take 112 mcg by mouth daily . omeprazole (PRILOSEC) 20 MG capsule Take 20 mg by mouth daily . predniSONE (DELTASONE) 1 MG tablet Take 1 mg by mouth daily . benzonatate (Tessalon Perles) 100 MG capsule Take one or two capsules every 8 hours as needed for cough. Do not chew. . 60 capsule 1 nitrofurantoin, macrocrystal-monohydrate, (Macrobid) 100 MG capsule Take 1 (one) capsule (100 mg total) by mouth 2 (two) times a day for 7 days . 14 capsule 0 No current facility-administered medications for this visit. Patient Instructions 10 Things to Do When You Have COVID-19 Stay home. Don't go to school, work, or public areas. And don't use public transportation, ride-shares, or taxis unless you have no choice. Leave your home only if you need to get medical care. But call the doctor's office first so they know you're coming. And wear a mask. Ask before leaving isolation. Follow your doctor's advice about when it is safe for you to leave isolation. Wear a mask when you are around other people. It can help stop the spread of the virus. Limit contact with people in your home. If possible, stay in a separate bedroom and use a separate bathroom. Avoid contact with pets and other animals. If possible, have a friend or family member care for them while you're sick. Cover your mouth and nose with a tissue when you cough or sneeze. Then throw the tissue in the trash right away. Wash your hands often, especially after you cough or sneeze. Use soap and water, and scrub for at least 20 seconds. If soap and water aren't available, use an alcohol-based hand behavioral health therapist. Don't share personal household items. These include bedding, towels, cups and glasses, and eating utensils. Clean and disinfect your home every day. Use household hand kiss setter or disinfectant wipes or sprays. If needed, take acetaminophen (Tylenol) or ibuprofen (Advil, Motrin) to relieve fever and body aches. Read and follow all instructions on the label. Current as of: August 23, 2020 Content Version: 13.0 [employer] Care instructions adapted under license by your healthcare professional. If you have questions about a medical condition or this instruction, always ask your healthcare professional. [employer] disclaims any warranty or liability for your use of this information. Urinary Tract Infection (UTI) in Women: Care Instructions Overview A urinary tract infection, or UTI, is a general term for an infection anywhere between the kidneys and the urethra (where urine comes out). Most UTIs are bladder infections. They often cause pain or burning when you urinate. UTIs are caused by bacteria and can be cured with antibiotics. Be sure to complete your treatment so that the infection does not get worse. Follow-up care is a matute part of your treatment and safety. Be sure to make and go to all appointments, and call your doctor if you are having problems. It's also a good idea to know your test results and keep a list of the medicines you take. How can you care for yourself at home? Take your antibiotics as directed. Do not stop taking them just because you feel better. You need to take the full course of antibiotics. Drink extra water and other fluids for the next day or two. This will help make the urine less concentrated and help wash out the bacteria that are causing the infection. (If you have kidney, heart, or liver disease and have to limit fluids, talk with your doctor before you increase the amount of fluids you drink.) Avoid drinks that are carbonated or have caffeine. They can irritate the bladder. Urinate often. Try to empty your bladder each time. To relieve pain, take a hot bath or lay a heating pad set on low over your lower belly or genital area. Never go to sleep with a heating pad in place. To prevent UTIs Drink plenty of water each day. This helps you urinate often, which clears bacteria from your system. (If you have kidney, heart, or liver disease and have to limit fluids, talk with your doctor before you increase the amount of fluids you drink.) Urinate when you need to. If you are sexually active, urinate right after you have sex. Change sanitary pads often. Avoid douches, bubble baths, feminine hygiene sprays, and other feminine hygiene products that have deodorants. After going to the bathroom, wipe from front to back. When should you call for help? Call your doctor now or seek immediate medical care if: Symptoms such as fever, chills, nausea, or vomiting get worse or appear for the first time. You have new pain in your back just below your rib cage. This is called flank pain. There is new blood or pus in your urine. You have any problems with your antibiotic medicine. Watch closely for changes in your health, and be sure to contact your doctor if: You are not getting better after taking an antibiotic for 2 days. Your symptoms go away but then come back. Where can you learn more? Log into your personal health record on https://Conference Hound.Buzz360 and enter K848 in the Education box to learn more about Urinary Tract Infection (UTI) in Women: Care Instructions. Current as of: July 10, 2020 Content Version: 13.0 [employer] Care instructions adapted under license by your healthcare professional. If you have questions about a medical condition or this instruction, always ask your healthcare professional. [employer] disclaims any warranty or liability for your use of this information. Learning About Benefits From Quitting Smoking How does quitting smoking make you healthier? If you're thinking about quitting smoking, you may have a few reasons to be smoke-free. Your health may be one of them. When you quit smoking, you lower your risks for cancer, lung disease, heart attack, stroke, blood vessel disease, and blindness from macular degeneration. When you're smoke-free, you get sick less often, and you heal faster. You are less likely to get colds, flu, bronchitis, and pneumonia. As a nonsmoker, you may find that your mood is better and you are less stressed. When and how will you feel healthier? Quitting has real health benefits that start from day 1 of being smoke-free. And the longer you stay smoke-free, the healthier you get and the better you feel. The first hours After just 20 minutes, your blood pressure and heart rate go down. That means there's less stress on your heart and blood vessels. Within 12 hours, the level of carbon monoxide in your blood drops back to normal. That makes room for more oxygen. With more oxygen in your body, you may notice that you have more energy than when you smoked. After 2 weeks Your lungs start to work better. Your risk of heart attack starts to drop. After 1 month When your lungs are clear, you cough less and breathe deeper, so it's easier to be active. Your sense of taste and smell return. That means you can enjoy food more than you have since you started smoking. Over the years Over the years, your risks of heart disease, heart attack, and stroke are lower. After 10 years, your risk of dying from lung cancer is cut by about half. And your risk for many other types of cancer is lower too. How would quitting help others in your life? When you quit smoking, you improve the health of everyone who now breathes in your smoke. Their heart, lung, and cancer risks drop, much like yours. They are sick less. For babies and small children, living smoke-free means they're less likely to have ear infections, pneumonia, and bronchitis. If you're a woman who is or will be someday, quitting smoking means a healthier . Children who are close to you are less likely to become adult smokers. Where can you learn more? Log into your personal health record on https://[employer]ryTrader.comt.Buzz360 and enter O319 in the Education box to learn more about Learning About Benefits From Quitting Smoking. Current as of: July 11, 2020 Content Version: 13.0 [employer] Care instructions adapted under license by your healthcare professional. If you have questions about a medical condition or this instruction, always ask your healthcare professional. [employer] disclaims any warranty or liability for your use of this information. Thank you for choosing [facility] for your healthcare needs today. Quarantine for 10 days from onset of symptoms. Notify your doctor of positive results. If you do not have a PCP, you can call [phone] Wednesday through Wednesday, 7 am - 5:30 pm to get established with a primary care provider or you can contact your health insurance benefit provider to locate one covered under your plan. Your may also go to [employer]'s website at Gyft and use the Find-A-Doc feature to locate a PCP. You have a UTI and will need to recheck the urine after treatment to confirm resolution of abnormalities. Culture was sent to identify bacteria. You will only be contacted if there is need to add/change/discontinue the medication. Please consider smoking cessation. ER for symptoms of concern. documented in this encounter [facility] Evaluation + Plan note Future Appointments Appointment Date:01/21/2022 03:30:00 PM Scheduled Provider:ELINOR CALDERA Location:[facility] Appointment Type:PC OV Follow Up Future Scheduled TestsThyroid Stimulating Hormone 12/24/21Free T4 12/24/21Lipid Profile 12/24/21Complete Metabolic Panel 12/24/21 [facility] documented in this encounter [facility] note* Diagnosis COVID-19 virus infection- Primary Acute cystitis with hematuria Cough Loss of smell Disturbances of sensation of smell and taste Loss of taste Disturbances of sensation of smell and taste Dysuria Cigarette smoker Tobacco use disorder Antibiotic-induced yeast infection documented in this encounter [facility] note* Diagnosis Suspected COVID-19 virus infection- Primary documented in this encounter [facility] note* Diagnosis Burning with urination- Primary Dysuria Vaginal irritation Unspecified noninflammatory disorder of vagina documented in this encounter [facility] note* Diagnosis Burning with urination- Primary Dysuria Vaginal itching Pruritus of genital organs [facility]* Diagnosis Chlamydia- Primary Unspecified chlamydial infection, in conditions classified elsewhere and of unspecified site documented in this encounter [facility] note* Diagnosis Vaginal irritation- Primary Unspecified noninflammatory disorder of vagina documented [facility]* Diagnosis Vaginal irritation- Primary Unspecified noninflammatory disorder of vagina documented in this encounter [facility] note* Diagnosis Vaginal discharge- Primary Leukorrhea, not specified as infective Dysuria documented in this encounter [facility] note* Diagnosis Urinary frequency- Primary Unprotected sexual intercourse Problems related to high-risk sexual behavior [facility]* Diagnosis Throat pain- Primary URI, acute Acute upper respiratory infections of unspecified site documented [facility] this [facility]* Diagnosis Screen for STD (sexually transmitted disease)- Primary Screening examination for venereal disease Vaginal discharge Leukorrhea, not specified as infective Dysuria documented in this encounter [facility] note* Diagnosis Vaginal discharge- Primary Leukorrhea, not specified as infective documented in this encounter [facility] note* Diagnosis Dysuria- Primary Vaginal discharge Leukorrhea, not specified as infective documented in this encounter [facility] note* Diagnosis Flank pain- Primary Abdominal pain, unspecified site documented in this encounter [facility] note* Diagnosis Dysuria- Primary Encounter for screening examination for sexually transmitted disease documented in this encounter [facility] note* Diagnosis Burning with urination- Primary Dysuria Recurrent UTI (urinary tract infection) Urinary tract infection, site not specified documented in this encounter [facility] note* Diagnosis Vaginal discharge- Primary Leukorrhea, not specified as infective Rhinosinusitis Unspecified sinusitis (chronic) Conjunctivitis of right eye, unspecified conjunctivitis type [facility] No data available for this section [facility] Hospital Discharge instructions No data available for this section [facility] Progress note No data available for this section [facility] Advance Directives No Advanced Directives Records FoundDocuments on File Type Date 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 Advance Directives and Living Will Summary Purpose Family History No Family History Records FoundNo Family History Records FoundNo Family History Records Found Health Concerns Infection Onset Date Last Indicated Resolved Time COVID-19 Rule-Out 08/18/2021 08/18/2021 Infection Onset Date Last Indicated Resolved Time COVID-19 Rule-Out 08/18/2021 08/18/2021 08/19/2021 11:19 AM EDT Infection Onset Date Last Indicated Resolved Time COVID-19 Rule-Out 07/25/2022 07/25/2022 Infection Onset Date Last Indicated Resolved Time COVID-19 Rule-Out 07/25/2022 07/25/2022 07/26/2022 1:42 AM EST COVID-19 Confirmed 07/25/2022 07/25/2022 Additional Source Comments Reason for Visit (unrecogniz ed section and content) Reason Comments Nasal Congestion MONTIEL, cough, fatigue x 3 days Reason Comments Results Reason Comments Vaginal Problem burning with urinati on and vaginal irritation Reason Comments UTI burning with urinati on, itching x2 days Reason Comments Vaginal Problem Reason Comments Vaginal Discharge Pt reported ongoing vaginal discharge denied odor. Reason Comments Urinary Problem Pt c/o frequency, bu rning, lower back pain x1 wk, reported condom broke x1 mth prior. Reason Comments Pain, Throat Pt reported cough, b ilateral ear pain x2 days. 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 Relationship Specialty Start Date End Date Elinor Caldera CNP [address] [place] [address] PCP - General Family Practice 12/13/20 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 Relationship Specialty Start Date End Date Elinor Caldera CNP [address] [place] [address] PCP - General Family Practice 12/13/20 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 Relationship Specialty Start Date End Date Elinor Caldera CNP [address] [place] [address] PCP - General Family Practice 12/13/20 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 Relationship Specialty Start Date End Date Elinor Caldera CNP [address] [place] [address] PCP - General Family Practice 12/13/20 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 Relationship Specialty Start Date End Date Elinor Caldera CNP [address] [place] [address] PCP - General Family Practice 12/13/20 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 Relationship Specialty Start Date End Date Elinor Caldera CNP [address] [place] [address] PCP - General Family Practice 12/13/20 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 Relationship Specialty Start Date End Date Elinor Caldera CNP [address] [place] [address] PCP - General Family Practice 12/13/20 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 Relationship Specialty Start Date End Date Elinor Caldera CNP [address] [place] [address] PCP - General Family Medicine 12/13/20 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 Relationship Specialty Start Date End Date Elinor Caldera CNP [address] [place] [address] PCP - General Family Medicine 12/13/20 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 Relationship Specialty Start Date End Date Elinor Caldera CNP [address] [place] [address] PCP - General Family Medicine 12/13/20 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 Relationship Specialty Start Date End Date Elinor Caldera CNP [address] [place] [address] PCP - General Family Medicine 12/13/20 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 Relationship Specialty Start Date End Date Elinor Caldera CNP [address] [place] [address] PCP - General Family Medicine 12/13/20 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 Relationship Specialty Start Date End Date Elinor Caldera CNP [address] [place] [address] PCP - General Family Medicine 12/13/20 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 Relationship Specialty Start Date End Date Elinor Caldera CNP [address] [place] [address] PCP - General Family Medicine 12/13/20 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 Relationship Specialty Start Date End Date Elinor Caldera CNP [address] [phone] PCP - General Family Medicine 12/13/20 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 Relationship Specialty Start Date End Date Elinor Caldera CNP [address] [place], [place] [phone] PCP - General Family Medicine 12/13/20 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 Relationship Specialty Start Date End Date Elinor Caldera CNP [address] [place], [place] [phone] PCP - General Family Medicine 12/13/20 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 Relationship Specialty Start Date End Date Elinor Caldera CNP [address] [place], [place] [phone] PCP - General Family Medicine 12/13/20 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 Relationship Specialty Start Date End Date Elinor Caldera CNP [address] [place], [place] [phone] PCP - General Family Medicine 12/13/20 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 Relationship Specialty Start Date End Date Elinor Caldera CNP [address] [place], [place] [phone] PCP - General Family Medicine 12/13/20 INFORMATION SOURCE (unrecogn ized section and content) DATE CREATED AUTHOR AUTHOR'S ORGANIZ ATION 01/07/2022 [facility] ([place]) DATE CREATED AUTHOR AUTHOR'S JAIME ATJOCELYNN 05/12/2023 [facility] Source Comments (unrecognize d section and content) In the event this informatio n is protected by the Federal Confidentiality of Alcohol and Drug Abuse Patient Records regulations: The Federal rules restrict any use of the information to criminally investigate or prosecute any alcohol or drug abuse patient.[facility] the event this information is protected by the Federal Confidentiality of Alcohol and Drug Abuse Patient Records regulations: The Federal rules restrict any use of the information to criminally investigate or prosecute any alcohol or drug abuse patient.[facility] the event this information is protected by the Federal Confidentiality of Alcohol and Drug Abuse Patient Records regulations: The Federal rules restrict any use of the information to criminally investigate or prosecute any alcohol or drug abuse patient.[facility] the event this information is protected by the Federal Confidentiality of Alcohol and Drug Abuse Patient Records regulations: The Federal rules restrict any use of the information to criminally investigate or prosecute any alcohol or drug abuse patient.[facility] Hospital[facility] the event this information is protected by the Federal Confidentiality of Alcohol and Drug Abuse Patient Records regulations: The Federal rules restrict any use of the information to criminally investigate or prosecute any alcohol or drug abuse patient.[facility]In the event this information is protected by the Federal Confidentiality of Alcohol and Drug Abuse Patient Records regulations: The Federal rules restrict any use of the information to criminally investigate or prosecute any alcohol or drug abuse patient.[facility] HospitalIn the event this information is protected by the Federal Confidentiality of Alcohol and Drug Abuse Patient Records regulations: The Federal rules restrict any use of the information to criminally investigate or prosecute any alcohol or drug abuse patient.[facility] HospitalIn the event this information is protected by the Federal Confidentiality of Alcohol and Drug Abuse Patient Records regulations: The Federal rules restrict any use of the information to criminally investigate or prosecute any alcohol or drug abuse patient.[facility] HospitalIn the event this information is protected by the Federal Confidentiality of Alcohol and Drug Abuse Patient Records regulations: The Federal rules restrict any use of the information to criminally investigate or prosecute any alcohol or drug abuse patient.[facility] HospitalIn the event this information is protected by the Federal Confidentiality of Alcohol and Drug Abuse Patient Records regulations: The Federal rules restrict any use of the information to criminally investigate or prosecute any alcohol or drug abuse patient.[facility] HospitalIn the event this information is protected by the Federal Confidentiality of Alcohol and Drug Abuse Patient Records regulations: The Federal rules restrict any use of the information to criminally investigate or prosecute any alcohol or drug abuse patient.[facility] HospitalIn the event this information is protected by the Federal Confidentiality of Alcohol and Drug Abuse Patient Records regulations: The Federal rules restrict any use of the information to criminally investigate or prosecute any alcohol or drug abuse patient.[facility] HospitalIn the event this information is protected by the Federal Confidentiality of Alcohol and Drug Abuse Patient Records regulations: The Federal rules restrict any use of the information to criminally investigate or prosecute any alcohol or drug abuse patient.[facility] HospitalIn the event this information is protected by the Federal Confidentiality of Alcohol and Drug Abuse Patient Records regulations: The Federal rules restrict any use of the information to criminally investigate or prosecute any alcohol or drug abuse patient.[facility] HospitalIn the event this information is protected by the Federal Confidentiality of Alcohol and Drug Abuse Patient Records regulations: The Federal rules restrict any use of the information to criminally investigate or prosecute any alcohol or drug abuse patient.[facility] HospitalIn the event this information is protected by the Federal Confidentiality of Alcohol and Drug Abuse Patient Records regulations: The Federal rules restrict any use of the information to criminally investigate or prosecute any alcohol or drug abuse patient.[facility] HospitalIn the event this information is protected by the Federal Confidentiality of Alcohol and Drug Abuse Patient Records regulations: The Federal rules restrict any use of the information to criminally investigate or prosecute any alcohol or drug abuse patient.[facility] HospitalIn the event this information is protected by the Federal Confidentiality of Alcohol and Drug Abuse Patient Records regulations: The Federal rules restrict any use of the information to criminally investigate or prosecute any alcohol or drug abuse patient.[facility] HospitalIn the event this information is protected by the Federal Confidentiality of Alcohol and Drug Abuse Patient Records regulations: The Federal rules restrict any use of the information to criminally investigate or prosecute any alcohol or drug abuse patient.[facility] HospitalIn the event this information is protected by the Federal Confidentiality of Alcohol and Drug Abuse Patient Records regulations: The Federal rules restrict any use of the information to criminally investigate or prosecute any alcohol or drug abuse patient.[facility] HospitalIn the event this information is protected by the Federal Confidentiality of Alcohol and Drug Abuse Patient Records regulations: The Federal rules restrict any use of the information to criminally investigate or prosecute any alcohol or drug abuse patient.[facility] HospitalIn the event this information is protected by the Federal Confidentiality of Alcohol and Drug Abuse Patient Records regulations: The Federal rules restrict any use of the information to criminally investigate or prosecute any alcohol or drug abuse patient.[facility] HospitalIn the event this information is protected by the Federal Confidentiality of Alcohol and Drug Abuse Patient Records regulations: The Federal rules restrict any use of the information to criminally investigate or prosecute any alcohol or drug abuse patient.[facility] HospitalIn the event this information is protected by the Federal Confidentiality of Alcohol and Drug Abuse Patient Records regulations: The Federal rules restrict any use of the information to criminally investigate or prosecute any alcohol or drug abuse patient.[facility] HospitalIn the event this information is protected by the Federal Confidentiality of Alcohol and Drug Abuse Patient Records regulations: The Federal rules restrict any use of the information to criminally investigate or prosecute any alcohol or drug abuse patient.[facility] HospitalIn the event this information is protected by the Federal Confidentiality of Alcohol and Drug Abuse Patient Records regulations: The Federal rules restrict any use of the information to criminally investigate or prosecute any alcohol or drug abuse patient.[facility] HospitalIn the event this information is protected by the Federal Confidentiality of Alcohol and Drug Abuse Patient Records regulations: The Federal rules restrict any use of the information to criminally investigate or prosecute any alcohol or drug abuse patient.[facility] HospitalIn the event this information is protected by the Federal Confidentiality of Alcohol and Drug Abuse Patient Records regulations: The Federal rules restrict any use of the information to criminally investigate or prosecute any alcohol or drug abuse patient.[facility] HospitalIn the event this information is protected by the Federal Confidentiality of Alcohol and Drug Abuse Patient Records regulations: The Federal rules restrict any use of the information to criminally investigate or prosecute any alcohol or drug abuse patient.[facility] Care Team (unrecognized sect ion and content) Care Team Personnel Name: ELINOR CALDERA APRN-CONFIDENTIAL SECRETARY Position: P4 Advanced Practice Nurse Med Service: Active Provider Member Role: Primary Care Physician Address: Address: [address] [place] [address] Physicians [place], [place] [address] Care Team Related Persons Name: CHRIS DANIEL Address: [address] [phone] FOR RECORDS PERTAINING TO PATIENTS WHO ARE OR HAVE BEEN ENROLLED IN A CHEMICAL DEPENDENCY/SUBSTANCEABUSE PROGRAM, SOME INFORMATION MAY BE OMITTED. This clinical summary was aggregated from multiple sources. Caution should be exercised in using it in the provision of clinical care. This summary normalizes information from multiple sources, and as a consequence, information in this document may materially change the coding, format and clinical context of patient data. In addition, data may be omitted in some cases. CLINICAL DECISIONS SHOULD BE BASED ON THE PRIMARY CLINICAL RECORDS. [facility]. provides no warranty or guarantee of the accuracy or completeness of information in this document.
== END 2023-06-02 12:35 | disposition home or self-care (01) ==
PROVIDERS: Emergency Provider Emergency Medicine; PCP Nurse Practitioner Family; Visit Provider Emergency Medicine
DX: M54.16 Radiculopathy, lumbar region (principal); M54.41 Lumbago with sciatica, right side; M48.00 Spinal stenosis, site unspecified; G89.29 Other chronic pain; E03.9 Hypothyroidism, unspecified; F17.210 Nicotine dependence, cigarettes, uncomplicated; F17.290 Nicotine dependence, other tobacco product, uncomplicated; Z79.890 Hormone replacement therapy; Z79.899 Other long term (current) drug therapy
CPT/HCPCS: 99282

== ENCOUNTER → 2023-06-28 | Outpatient (CLI) | payer OTHER, SELFPAY ==
--- NOTE | 2023-06-28 07:22 | RAD_ITS ---
INDICATION: LOW BACK PAIN EXAMINATION/TECHNIQUE: X-RAY - XR Spine Lumbar Min 4 Views COMPARISON: Lumbar spine x-rays 01/25/2018 FINDINGS: Vertebral bodies are normal in height. No definite fracture demonstrated. No subluxation. Mild disc space narrowing L5-S1. Mild facet arthropathy. L4-5 and L5-S1. No paravertebral soft tissue mass identified. No significant change compared to prior. RAD/L/S Spine Min 4 Views IMPRESSION: No evidence of fracture or subluxation. 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 Electronically Signed: Marleny Brunson MD at 8:00 EST ,
--- OUTSIDE RECORDS SUMMARY | 2023-06-28 07:26 | XMS RPT_ITS | CCD ---
Author Name Unknown Address [address] [place] [address] Organization [facility] Care Team Providers Care Director Of Industrial Relations Name Role Phone No, Physician Primary Care Provider Unavailabl e NO, PHYSICIAN Primary Care Unavailable DARIEL FLANAGAN Attending Unavail able Elinor Caldera CNP Primary Care Provider WERNER WELLFIELD TECHNICIAN-ELINOR MCKEON Primary Care Physician Elinor Caldera CNP Primary Care Provider Werner MCKEON Elinor Primary Care Provider Werner MCKEON Elinor Primary Care Provider Werner MCKEON Elinor Primary Care Provider ELINOR CALDERA Primary Care Unavailable [facility] Primary Care Unavailable STEFFEN, LUCIA Attending Unavailable WERNER ELINOR Primary Care Unavailable STEFFEN, LUCIA Attending Unavailable WERNER ELINOR Primary Care Unavailable STEFFEN, LUCIA Attending Unavailable [facility] Primary Care Unavailable LORGANESH ELINOR Primary Care Unavailable [facility] PETALUMA Primary Care Un[facility] Primary Care Unavailable [facility] Primary Care Unavailable [facility] PETALUMA Primary Care Unavailable Allergies Allergy Classification Reported Allergen(s) Allergy Type Date of Onset Reaction(s) Facility (20 sources) Latex; Translations: [LATEX] Propensity to adverse reactions to drug 2 Other: See Comments [facility] (20 sources) moxifloxacin; Translations: [MOXIFLOXACIN HCL] Drug Allergy 2 Hives [facility] (20 sources) Penicillin; Translations: [PENICILLIN] Drug Allergy 7 GI Upset [facility] (5 sources) predniSONE; Translations: [PREDNISONE] Drug Allergy 1 Itching [facility] (20 sources) traMADol; Translations: [TRAMADOL HCL] Drug Allergy 9 Other: See Comments [facility] (20 sources) traZODone; Translations: [TRAZODONE] Drug Allergy 5 Hives [facility] (20 sources) NITROFURANTOIN, MACROCRYSTALS / Nitrofurantoin, Monohydrate; Translations: [nitrofurantoin] Drug Allergy 2 Rash, Weal (disorder) [facility] (1 source) moxifloxacin; Translations: [moxifloxacin] Drug Allergy [facility] (1 source) Penicillin; Translations: [penicillins] Drug Allergy [facility] Medications Current Medications Medication Drug Class(es) Dates [...] Drug Class(es) Dates Sig (Normalized) Sig (Original) [id number] 200 actuat albuterol 0.09 mg/actuat metered dose [...] conditions (13 sources) Dysuria; Translations: [Dysuria] Onset: 11-03-2022 Episodic Immunizations and screening for infectious disease (4 sources) Suspected disease caused by 2019-nCoV; Translations: [Suspected COVID-19 virus infection] Onset: 08-27-2022 Episodic Other female genital disorders (1 source) Other specified noninflammatory disorders of vagina; Translations: [Vaginal discharge] Onset: 11-03-2022 Episodic Spondylosis; intervertebral disc disorders; other back problems (20 sources) Backache; Translations: [Dorsalgia, unspecified] Onset: 07-24-2014 07-24-2014 Episodic Results Test Name Value Interpretation Reference Range Facil ity Vital Signs Date Time Vital Sign Value Performing Clinician Faci lity 05-07-2023 14:23-0500 Body temperature 97.39 [degF] China Vazquez APRN.MANAGER ASSESSMENT Work Phone: [facility] 05-07-2023 14:23-0500 Body weight 95.25 kg China Vazquez WELLFIELD TECHNICIAN.MANAGER ASSESSMENT Work Phone: [facility] 05-07-2023 14:23-0500 Diastolic blood pressure 100 mm[Hg] China Vazquez WELLFIELD TECHNICIAN.MANAGER ASSESSMENT Work Phone: [facility] 05-07-2023 14:23-0500 Heart rate 80 /min China Vazquez WELLFIELD TECHNICIAN.MANAGER ASSESSMENT Work Phone: [facility] 05-07-2023 14:23-0500 Respiratory rate 18 /min China Vazquez WELLFIELD TECHNICIAN.MANAGER ASSESSMENT Work Phone: [facility] 05-07-2023 14:23-0500 SaO2% (BldA) [Mass fraction] 99 % China Vazquez WELLFIELD TECHNICIAN.MANAGER ASSESSMENT Work Phone: [facility] 05-07-2023 14:23-0500 Systolic blood pressure 146 mm[Hg] China Vazquez WELLFIELD TECHNICIAN.MANAGER ASSESSMENT Work Phone: [facility] 03-26-2023 17:37-0400 Body temperature 97 [degF] Joanne Daniel WELLFIELD TECHNICIAN.MANAGER ASSESSMENT Work Phone: [facility] 03-26-2023 17:37-0400 Body weight 94.17 kg Joanne Daniel WELLFIELD TECHNICIAN.MANAGER ASSESSMENT Work Phone: [facility] 03-26-2023 17:37-0400 Diastolic blood pressure 82 mm[Hg] Joanne Daniel WELLFIELD TECHNICIAN.MANAGER ASSESSMENT Work Phone: [facility] 03-26-2023 17:37-0400 Heart rate 70 /min Joanne Daniel WELLFIELD TECHNICIAN.MANAGER ASSESSMENT Work Phone: [facility] 03-26-2023 17:37-0400 Respiratory rate 18 /min Joanne Daniel WELLFIELD TECHNICIAN.MANAGER ASSESSMENT Work Phone: [facility] 03-26-2023 17:37-0400 SaO2% (BldA) [Mass fraction] 99 % Joanne Daniel WELLFIELD TECHNICIAN.MANAGER ASSESSMENT Work Phone: [facility] 03-26-2023 17:37-0400 Systolic blood pressure 128 mm[Hg] Joanne Daniel WELLFIELD TECHNICIAN.MANAGER ASSESSMENT Work Phone: [facility] 03-15-2023 16:51-0400 Body temperature 97.11 [degF] China Vazquez WELLFIELD TECHNICIAN.MANAGER ASSESSMENT Work Phone: [facility] 03-15-2023 16:51-0400 Body weight 95.71 kg China Vazquez WELLFIELD TECHNICIAN.MANAGER ASSESSMENT Work Phone: [facility] 03-15-2023 16:51-0400 Diastolic blood pressure 80 mm[Hg] China Vazquez WELLFIELD TECHNICIAN.MANAGER ASSESSMENT Work Phone: [facility] 03-15-2023 16:51-0400 Heart rate 80 /min China Vazquez WELLFIELD TECHNICIAN.MANAGER ASSESSMENT Work Phone: [facility] 03-15-2023 16:51-0400 Respiratory rate 16 /min China Vazquez WELLFIELD TECHNICIAN.MANAGER ASSESSMENT Work Phone: [facility] 03-15-2023 16:51-0400 SaO2% (BldA) [Mass fraction] 99 % China Vazquez WELLFIELD TECHNICIAN.MANAGER ASSESSMENT Work Phone: [facility] 03-15-2023 16:51-0400 Systolic blood pressure 136 mm[Hg] China Vazquez WELLFIELD TECHNICIAN.MANAGER ASSESSMENT Work Phone: [facility] 11-03-2022 16:01-0400 Body weight 94.98 kg Lucia Santa Rosa WELLFIELD TECHNICIAN.MANAGER ASSESSMENT Work Phone: [facility] 11-03-2022 16:01-0400 Diastolic blood pressure 80 mm[Hg] Lucia Steffen WELLFIELD TECHNICIAN.MANAGER ASSESSMENT Work Phone: [facility] 11-03-2022 16:01-0400 Systolic blood pressure 150 mm[Hg] Lucia Steffen WELLFIELD TECHNICIAN.MANAGER ASSESSMENT Work Phone: [facility] 08-31-2022 15:30-0400 Body weight 94.89 kg Lucia Santa Rosa WELLFIELD TECHNICIAN.MANAGER ASSESSMENT Work Phone: [facility] 08-31-2022 15:30-0400 Diastolic blood pressure 74 mm[Hg] Lucia Steffen WELLFIELD TECHNICIAN.MANAGER ASSESSMENT Work Phone: [facility] 08-31-2022 15:30-0400 Systolic blood pressure 148 mm[Hg] Lucia Santa Rosa WELLFIELD TECHNICIAN.MANAGER ASSESSMENT Work Phone: [facility] 08-27-2022 12:55-0400 Body weight 95.71 kg Lucia Santa Rosa WELLFIELD TECHNICIAN.MANAGER ASSESSMENT Work Phone: [facility] 08-27-2022 12:55-0400 Diastolic blood pressure 70 mm[Hg] Lucia Steffen WELLFIELD TECHNICIAN.MANAGER ASSESSMENT Work Phone: [facility] 08-27-2022 12:55-0400 Systolic blood pressure 150 mm[Hg] Lucia Steffen WELLFIELD TECHNICIAN.MANAGER ASSESSMENT Work Phone: [facility] 07-25-2022 13:53-0500 Body temperature 98.6 [degF] Simona Zuleta APRN.MANAGER ASSESSMENT Work Phone: [facility] 07-25-2022 13:53-0500 Body weight 92.9 kg Simona Zuleta APRN.MANAGER ASSESSMENT Work Phone: [facility] 07-25-2022 13:53-0500 Diastolic blood pressure 90 mm[Hg] Simona Zuleta APRN.MANAGER ASSESSMENT Work Phone: [facility] 07-25-2022 13:53-0500 Heart rate 101 /min Simona Zuleta APRN.MANAGER ASSESSMENT Work Phone: [facility] 07-25-2022 13:53-0500 Respiratory rate 20 /min Simona Zuleta APRN.MANAGER ASSESSMENT Work Phone: [facility] 07-25-2022 13:53-0500 SaO2% (BldA) [Mass fraction] 98 % Simona Zuleta APRN.MANAGER ASSESSMENT Work Phone: [facility] 07-25-2022 13:53-0500 Systolic blood pressure 148 mm[Hg] Simona Zuleta APRN.MANAGER ASSESSMENT Work Phone: [facility] 06-18-2022 13:34-0500 Body temperature 97.81 [degF] Krislyn Aberegg PA Work Phone: [facility] 06-18-2022 13:34-0500 Body weight 93.35 kg Krislyn Aberegg PA Work Phone: [facility] 06-18-2022 13:34-0500 Diastolic blood pressure 88 mm[Hg] Krislyn Aberegg PA Work Phone: [facility] 06-18-2022 13:34-0500 Heart rate 105 /min Krislyn Aberegg PA Work Phone: [facility] 06-18-2022 13:34-0500 Respiratory rate 16 /min Krislyn Aberegg PA Work Phone: [facility] 06-18-2022 13:34-0500 SaO2% (BldA) [Mass fraction] 97 % Krislyn Aberegg PA Work Phone: [facility] 06-18-2022 13:34-0500 Systolic blood pressure 140 mm[Hg] Krislyn Aberegg PA Work Phone: [facility] 05-07-2022 18:57-0500 Body temperature 98.4 [degF] Anna Praisler-Wood WELLFIELD TECHNICIAN.MANAGER ASSESSMENT Work Phone: [facility] 05-07-2022 18:57-0500 Body weight 97.43 kg Anna Praisler-Wood WELLFIELD TECHNICIAN.MANAGER ASSESSMENT Work Phone: [facility] 05-07-2022 18:57-0500 Diastolic blood pressure 86 mm[Hg] Anna Praisler-Wood WELLFIELD TECHNICIAN.MANAGER ASSESSMENT Work Phone: [facility] 05-07-2022 18:57-0500 Heart rate 71 /min Anna Praisler-Wood WELLFIELD TECHNICIAN.MANAGER ASSESSMENT Work Phone: [facility] 05-07-2022 18:57-0500 Respiratory rate 18 /min Anna Praisler-Wood WELLFIELD TECHNICIAN.MANAGER ASSESSMENT Work Phone: [facility] 05-07-2022 18:57-0500 SaO2% (BldA) [Mass fraction] 98 % Anna Omer-Balijnder WELLFIELD TECHNICIAN.MANAGER ASSESSMENT Work Phone: [facility] 05-07-2022 18:57-0500 Systolic blood pressure 134 mm[Hg] Anna Omer-Wood WELLFIELD TECHNICIAN.MANAGER ASSESSMENT Work Phone: [facility] 03-26-2022 10:50-0400 Body weight 95.71 kg Lucia Steffen WELLFIELD TECHNICIAN.MANAGER ASSESSMENT Work Phone: [facility] 03-26-2022 10:50-0400 Diastolic blood pressure 80 mm[Hg] Lucia Steffen WELLFIELD TECHNICIAN.MANAGER ASSESSMENT Work Phone: [facility] 03-26-2022 10:50-0400 Systolic blood pressure 128 mm[Hg] Lucia Santa Rosa WELLFIELD TECHNICIAN.MANAGER ASSESSMENT Work Phone: [facility] 01-28-2022 15:52-0400 Body weight 93.89 kg Thao Abreu MD Work Phone: [facility] 01-28-2022 15:52-0400 Diastolic blood pressure 92 mm[Hg] Thao Abreu MD Work Phone: [facility] 01-28-2022 15:52-0400 Systolic blood pressure 136 mm[Hg] Thao Abreu MD Work Phone: [facility] 12-19-2021 16:42-0400 Body temperature 97.81 [degF] Nuria Athy PA-C Work Phone: [facility] 12-19-2021 16:42-0400 Body weight 95.44 kg Nuria Athy PA-C Work Phone: [facility] 12-19-2021 16:42-0400 Diastolic blood pressure 90 mm[Hg] Nuria Athy PA-C Work Phone: [facility] 12-19-2021 16:42-0400 Heart rate 107 /min Nuria Athy PA-C Work Phone: [facility] 12-19-2021 16:42-0400 Respiratory rate 20 /min Nuriapaul Hernandezamador PA-C Work Phone: [facility] 12-19-2021 16:42-0400 SaO2% (BldA) [Mass fraction] 98 % Nuria Whitney PA-C Work Phone: [facility] 12-19-2021 16:42-0400 Systolic blood pressure 122 mm[Hg] Nuria Whitney PA-C Work Phone: [facility] 10-31-2021 09:32-0400 Body weight 93.89 kg Lucia Steffen WELLFIELD TECHNICIAN.MANAGER ASSESSMENT Work Phone: [facility] 10-31-2021 09:32-0400 Diastolic blood pressure 84 mm[Hg] Lucia Santa Rosa WELLFIELD TECHNICIAN.MANAGER ASSESSMENT Work Phone: [facility] 10-31-2021 09:32-0400 Systolic blood pressure 124 mm[Hg] Lucia Steffen WELLFIELD TECHNICIAN.MANAGER ASSESSMENT Work Phone: [facility] 08-18-2021 16:46-0400 Body temperature 97.3 [degF] Simona Zuleta APRN.MANAGER ASSESSMENT Work Phone: [facility] 08-18-2021 16:46-0400 Body weight 92.44 kg Simona Zuleta APRN.MANAGER ASSESSMENT Work Phone: [facility] 08-18-2021 16:46-0400 Diastolic blood pressure 84 mm[Hg] Simona Zuleta APRN.MANAGER ASSESSMENT Work Phone: [facility] 08-18-2021 16:46-0400 Heart rate 96 /min Simona Zuleta APRN.MANAGER ASSESSMENT Work Phone: [facility] 08-18-2021 16:46-0400 Respiratory rate 20 /min Simona Zuleta APRN.MANAGER ASSESSMENT Work Phone: [facility] 08-18-2021 16:46-0400 SaO2% (BldA) [Mass fraction] 98 % Simona Zuleta APRN.MANAGER ASSESSMENT Work Phone: [facility] 08-18-2021 16:46-0400 Systolic blood pressure 116 mm[Hg] Simona Zuleta WELLFIELD TECHNICIAN.MANAGER ASSESSMENT Work Phone: [facility] 05-09-2021 14:19-0500 Body height 152.4 cm Dariel Flanagan MANAGER ASSESSMENT Work Phone: [facility] 05-09-2021 14:19-0500 Body mass index (BMI) [Ratio] 39.84 kg/m2 Dariel Flanagan MANAGER ASSESSMENT Work Phone: [facility] 05-09-2021 14:19-0500 Body temperature 98.01 [degF] Dariel Flanagan MANAGER ASSESSMENT Work Phone: [facility] 05-09-2021 14:19-0500 Body weight 92.53 kg Dariel Flanagan MANAGER ASSESSMENT Work Phone: [facility] 05-09-2021 14:19-0500 Diastolic blood pressure 86 mm[Hg] Dariel Flanagan MANAGER ASSESSMENT Work Phone: [facility] 05-09-2021 14:19-0500 Heart rate 89 /min Dariel Flanagan MANAGER ASSESSMENT Work Phone: [facility] 05-09-2021 14:19-0500 Respiratory rate 16 /min Dariel Flanagan MANAGER ASSESSMENT Work Phone: [facility] 05-09-2021 14:19-0500 SaO2% (BldA) [Mass fraction] 98 % Dariel Flanagan MANAGER ASSESSMENT Work Phone: [facility] 05-09-2021 14:19-0500 Systolic blood pressure 137 mm[Hg] Dariel Flanagan MANAGER ASSESSMENT Work Phone: [facility] Encounters Encounter Date Encounter Type Care Provider Facility Start: 06-14-2023 End: 06-14-2023 ambulatory [facility] Facility:[facility] Start: 05-09-2023 Telephone encounter China graves WELLFIELD TECHNICIAN.MANAGER ASSESSMENT Work Phone: [facility] Procedures Date Procedure Procedure Detail Performing Clinician Start: 03-26-2023 Urnls dip stick/tabl et rgnt auto w/o microscopy Black Peralta WELLFIELD TECHNICIAN.[facility] Work Phone: Start: 03-15-2023 Urnls dip stick/tabl et rgnt auto w/o microscopy China Vazquez WELLFIELD TECHNICIAN.[facility] Work Phone: Start: 11-03-2022 Urnls dip stick/tabl et rgnt auto w/o microscopy [facility] WELLFIELD TECHNICIAN.MANAGER ASSESSMENT Work Phone: Start: 08-31-2022 BACTERIAL VAGINOSIS AMPLIFICATION Lucia Stfefen WELLFIELD TECHNICIAN.MANAGER ASSESSMENT Work Phone: Start: 08-27-2022 Urnls dip stick[facility]tabl et rgnt auto w[facility]CH[facility] Work Phone: Start: 07-25-2022 STREP A MOLECULAR (POC) Simona Zuleta WELLFIELD TECHNICIAN.[facility] Work Phone: Start: 06-18-2022 Urnls dip stick/tabl et rgnt auto w/o microscopy Nuria Whitney PA-C Work Phone: Start: 12-19-2021 Urnls dip stick/tabl et rgnt auto w/o microscopy Simona Zuleta WELLFIELD TECHNICIAN.[facility] Work Phone: Start: 10-31-2021 Urnls dip stick/tabl et rgnt auto w/o microscopy [facility] WELLFIELD TECHNICIAN.[facility] Work Phone: Start: 05-09-2021 Urnls dip stick/tabl et rgnt auto w/o microscopy Dariel Flanagan [facility] Work Phone: Start: 05-09-2021 Sars-cov-2 detection by dna/rna Dariel Flanagan [facility] Work Phone: Start: 05-31-2013 Tooth extraction, multiple ELINOR CALDERA WELLFIELD TECHNICIAN-[facility] Plan of Treatment Date Care Activity Detail Author Start: 01-29-2023 Influenza vaccination [facility] Start: 07-25-2022 End: 08-08-2022 Influenza virus A and B RNA and SARS-CoV-2 (COVID-19) N gene panel - Respiratory specimen by JULIA with probe detection COVID WITH FLUA+B, ROUTINE Microbiology Routine URI, acute Expected: 07/25/2022, Expires: 08/08/2022 [facility] Work Phone: Immunizations Immunization Date Immunization Notes Care Provider Cristiano galaviz 02-07-2018 influenza virus vaccine, unspecified formulation ELINOR WERNER WELLFIELD TECHNICIAN-MANAGER ASSESSMENT [facility] Payers Date Payer Category Payer Medicaid [place] [employer] [facility] MEDICAID [id number] 2018-Present [phone] [address] [place] [address] Medicaid [id number] 2018 Medicaid [id number] 2018 Medicaid [id number] 2013 Unknown [id number] 2013 Unknown [id number] 2013 Unknown MMO MMO [employer] [id number] 2013-Present [phone] [address] [place] [address] PPO [id number] 1985 Unknown [id number] Social History Date Type Detail Facility Start: 05-09-2021 End: 01-19-2022 Tobacco smoking status NHIS Smokes tobacco daily [facility] History of tobacco use Cigarette Smoker [facility] Start: 05-09-2021 End: 11-03-2022 Cigarettes smoked current (pack per day) - Reported 0.5 [facility] Start: 05-09-2021 End: 01-19-2022 Tobacco use and exposure Smokeless tobacco non-user [facility] Start: 05-09-2021 End: 05-07-2023 Alcohol intake Current drinker of alcohol (finding) [facility] Start: 05-09-2021 History SDOH Alcohol Comment occasionally [facility] Start: 1985 Sex Assigned At Not on file [facility] Start: 08-08-2021 End: 03-26-2022 Exposure to SARS-CoV-2 (event) Not sure [facility] Start: 07-30-2016 History SDOH Alcohol Comment social [facility] Start: 11-30-2018 Tobacco smoking status Heavy t obacco smoker (finding) [facility] Sex Assigned At Female [facility] Start: 11-03-2022 End: 05-07-2023 Tobacco use panel [facility] National Score (1-10 0), lower number is lower risk 89 [facility] Clinical Notes 05-09-2021 to 06-14-2023 Telephone Encounter - Teresa Allison MA - 05/10/2023 1:14 PM ESTTelephone Encounter - China Vazquez APRN.MANAGER ASSESSMENT - 05/09/2023 11:41 AM China James APRN.[facility] - 05/07/2023 2:32 PM ESTLaboratory Note Date & Type Note Facility 06-14-2023 Note HNO ID: [id number] Author: PARIS ALEGRE PA Service: ? Author Type: Physician Motor Equipment Lieutenant Type: Progress Notes Filed: 06/14/2023 16:22 Note Text: This note was created using NoteWriter. Subjective Pilar Daniel is a 38 year old female. HPI 38-year-old female presents for vaginal discharge, dysuria. Patient states she has been having vaginal discharge for the past week. She states it is malodorous. She had BV about a month ago and was treated with metronidazole. She states symptoms resolved up until about a week ago when she started getting discharge again. She is unsure if she has BV again. She would like tested for STDs as well. She reports a little bit of dysuria. No abdominal pain, back pain, pelvic pain. No abnormal vaginal bleeding. No concern for -history of hysterectomy. No vomiting. No headache, dizziness, chest pain or shortness of breath. No fever. PAST MEDICAL HISTORY Diagnosis Date Bulging lumbar disc L5- sees pain management in past. 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 Genitourinary: Positive for dysuria and vaginal discharge. Negative for frequency, hematuria, vaginal bleeding and vaginal pain. Objective BP 160/100 Pulse 90 Temp 36.3 ?C (97.3 ?F) Resp 21 Wt 99.1 kg (218 lb 6.4 oz) SpO2 98% BMI 42.65 kg/m? Physical Exam Vitals and nursing note reviewed. Constitutional: General: She is not in acute distress. Appearance: Normal appearance. She is not toxic-appearing. Cardiovascular: Rate and Rhythm: Normal rate and regular rhythm. Pulmonary: Effort: Pulmonary effort is normal. Breath sounds: Normal breath sounds. Abdominal: General: Abdomen is flat. Palpations: Abdomen is soft. Tenderness: There is no abdominal tenderness. There is no right CVA tenderness or left CVA tenderness. Genitourinary: Comments: Deferred Skin: General: Skin is warm and dry. Neurological: Mental Status: She is alert. Assessment and Plan ASSESSMENT/PLAN: 1. Burning with urination - ICD9: 788.1, ICD10: R30.0 (primary diagnosis) - UA positive for hematuria-advised patient she needs to follow-up with PCP for hematuria to ensure resolution. She states she always has a small amount of blood in her urine. Recommended follow-up. She understands. - Send urine for culture - Patient education for prevention given - UA DIP, URINE (POC) - URINE CULTURE -No antibiotic. Treat based on urine culture result. 2. Elevated blood pressure reading without diagnosis of hypertension - ICD9: 796.2, ICD10: R03.0 - Encouraged dietary sodium restriction/DASH diet - Recommended regular aerobic exercise. - Recommend home blood pressure monitoring, to bring results in on next visit - Goal of BP <130/80 -Patient will call PCP tomorrow to mn (more content not included)... [facility] 05-10-2023 Miscellaneous Notes Patient notified of results, verbalized understanding of instructions given. Teresa Allison MA Images from the original note were not included. documented in this encounter [facility] 05-08-2023 Miscellaneous Notes Negative for clara and trich. Positive for BV Flagyl sent in. [employer] message sent to patient. documented in this encounter [facility] 05-07-2023 Note HNO ID: [id number] Author: China Vazquez APRN.CNP Service: ? Author Type: Nurse Practitioner Type: Progress Notes Filed: 05/07/2023 2:51 PM Note Text: This note was created using Reciclatariter. Subjective Pilar Daniel is a 37 year [...] history is provided by the patient. No high school foreign language tutor was used. Eye Problem This is a [...] Thyroid Mother Hypertension Father Heart Father 49 [place] [employer] Paternal Uncle Cancer Maternal Grandfather lung [...] vaginal discharge. Musculos (more content not included)... [facility] 05-07-2023 History of Present illness Narrative This note was created using Reciclatariter. Subjective Pilar Daniel is a 37 year [...] concerns for STI LMP-NA partial hysterectomy @ 23 Denies new partners. Denies sx The history is provided by the patient. No high school foreign language tutor was used. Eye Problem This is a [...] Thyroid Mother Hypertension Father Heart Father 49 [place] Psychiat[place] Paternal Uncle Cancer Maternal Grandfather lung [...] concerns or if symptoms persist. China Vazquez APRN.MANAGER ASSESSMENT documented in this encounter [facility] 03-26-2023 Note HNO ID: [id number] Author: Joanne Daniel APRN.LINDA Service: ? Author Type: Nurse Practitioner [...] Thyroid Mother Hypertension Father Heart Father 49 [place] Psychiat[place] Paternal Uncle Cancer Maternal Grandfather lung [...] - FLUCONAZOLE 150 MG TABLET Joanne Daniel APRN.[facility] 03-26-2023 History of Present illness Narrative SUBJECTIVE: [...] Thyroid Mother Hypertension Father Heart Father 49 [place] Psychiat[place] Paternal Uncle Cancer Maternal Grandfather lung [...] - FLUCONAZOLE 150 MG TABLET Joanne Daniel APRN.MANAGER ASSESSMENT documented in this encounter [facility] 03-15-2023 Note HNO ID: [id number] Author: China Vazquez APRN.LINDA Service: ? Author Type: Nurse Practitioner Type: Progress Notes Filed: 03/15/2023 5:14 PM Note Text: This note was created using Reciclatariter. Subjective Pilar Daniel is a 37 year [...] history is provided by the patient. No high school foreign language tutor was used. Female Gu Problem This is [...] Thyroid Mother Hypertension Father Heart Father 49 [place] Psychiat[place] Paternal Uncle Cancer Maternal Grandfather lung [...] Neurological: Negative fo (more content not included)... [facility] 03-15-2023 History of Present illness Narrative This note was created using Reciclatariter. Subjective Pilar Daniel is a 37 year [...] history is provided by the patient. No high school foreign language tutor was used. Female Gu Problem This is [...] Thyroid Mother Hypertension Father Heart Father 49 [place] Psychiat[place] Paternal Uncle Cancer Maternal Grandfather lung [...] nursing note reviewed. Exam conducted with a quick service technician present. Constitutional: General: She is not in [...] NAAT - BACTERIAL VAGINOSIS NAAT China Vazquez APRN.CNP documented in this encounter [facility] 12-08-2022 Note HNO ID: [id number] Author: FERNIE Lainez Service: ? Author Type: Physician Motor Equipment Lieutenant Type: Progress Notes Filed: 12/08/2022 5:37 PM [...] infected stone. She will go back to [place] [facility]. [facility] 12-08-2022 History of Present illness Narrative [...] infected stone. She will go back to [place] [facility]. documented in this encounter [facility] 11-03-2022 Note HNO ID: [id number] Author: Lucia Bourne APRN.CNP Service: ? Author [...] external genitalia normal, normal Bartholin's glands, urethra, Dawn's glands, physiologic discharge present, normal appearing perineal [...] Medical Decision Making Level: 3 - Low [facility] 11-03-2022 History of Present illness Narrative Pilar Daneil is a 37 year old female who [...] external genitalia normal, normal Bartholin's glands, urethra, Dawn's glands, physiologic discharge present, normal appearing perineal [...] 3 - Low documented in this encounter [facility] 08-31-2022 Note HNO ID: [id number] Author: Lucia Bourne APRN.CNP Service: ? Author Type: Nurse Practitioner Type: Progress Notes Filed: 08/31/2022 3:43 PM Note Text: Documentation Lead offered: Patient declines. Pilar Daniel is a 37 year old female who presents for re-swab for BV due to Specimen inhibitory to amplification. Sample has been retested. Unable to determine the presence or absence of this target. ASSESSMENT/PLAN: 1. Vaginal discharge - ICD9: 623.5, ICD10: N89.8 BACTERIAL VAGINOSIS AMPLIFICATION NO CHARGE visit Lucia Bourne APRN.CNP [facility] 08-31-2022 History of Present illness Narrative Documentation Lead offered: Patient declines. Pilar Daniel is a 37 year old female who presents for re-swab for BV due to Specimen inhibitory to amplification. Sample has been retested. Unable to determine the presence or absence of this target. ASSESSMENT/PLAN: 1. Vaginal discharge - ICD9: 623.5, ICD10: N89.8 BACTERIAL VAGINOSIS AMPLIFICATION NO CHARGE visit Lucia Bourne APRN.CNP documented in this encounter [facility] 08-31-2022 Miscellaneous Notes Pt notified and will stop in after work at 3:30 today. Shanel David LPN Please let the pt know that her vaginal cultures are negative, except they were unable to do the BV and she will need to stop in for me to re-swab her. Lucia Bourne APRN.CNP documented in this encounter [facility] 08-27-2022 Note HNO ID: [id number] Author: Lucia Bourne APRN.CNP Service: ? Author [...] external genitalia normal, normal Bartholin's glands, urethra, Dawn's glands, no vulvar lesions, physiologic discharge present, [...] intercourse and the next day. Lucia Bourne APRN.MANAGER ASSESSMENT Medical Decision Making: Problems: Low: Acute, uncomplicated illness or injury Data: Unique test(s) ordered: 3+ Risk: Low: Low risk from testing/treatment Medical Decision Making Level: 3 - Low [facility] 08-27-2022 History of Present illness Narrative [...] external genitalia normal, normal Bartholin's glands, urethra, Dawn's glands, no vulvar lesions, physiologic discharge present, [...] 3 - Low documented in this encounter [facility] 07-26-2022 Miscellaneous Notes Patient identified by name [...] additional 5 days. documented in this encounter [facility] 07-25-2022 Note HNO ID: [id number] Author: Simona Zuleta APRN.CNP Service: ? Author Type: Nurse Practitioner [...] Thyroid Mother Hypertension Father Heart Father 49 [place] Psychiat[place] Paternal Uncle Cancer Maternal Grandfather lung [...] symptoms occur. Patient agreeable to treatment plan. iSmona Zuleta APRN.[facility] 07-25-2022 History of Present illness Narrative CC: [...] Thyroid Mother Hypertension Father Heart Father 49 [place] Psychiat[place] Paternal Uncle Cancer Maternal Grandfather lung [...] Simona Zuleta APRN.LINDA documented in this encounter [facility] 06-20-2022 Miscellaneous Notes Patient given results and verbalized understanding of instructions given. Yeimi Bergeron Urine culture negative for growth. Please follow up with PCP and or urology if symptoms persist. documented in this encounter [facility] 06-19-2022 Miscellaneous Notes Patient notified of results and aware of pending culture results, verbalized understanding. Teresa Allison MA Please call patient and let her know negative for trichomonas, gonorrhea, chlamydia, BV. We will await urine culture. Follow-up with urology if symptoms continue documented in this encounter [facility] 06-18-2022 Note HNO ID: [id number] Author: FERNIE Lainez Service: ? Author Type: Physician Motor Equipment Lieutenant Type: Progress Notes Filed: 06/18/2022 1:56 PM Note Text: This note was created using Primeksster. Subjective Pilar Daniel is a 37 year [...] detail warranting prompt ER evaluation. FERNIE Lainez [facility] 06-18-2022 Instructions FERNIE Lainez - 06/18/2022 1:49 PM EST Follow-up with your urologist. We are awaiting urine culture. We will call you with the results if we need to start an antibiotic. We will call you with results of vaginal swabs if any come back positive. Avoid sexual intercourse until results return. documented in this encounter [facility] 06-18-2022 History of Present illness Narrative This note was created using NoteWriter. Subjective Pilar Daniel is a 37 year [...] evaluation. FERNIE Lainez documented in this encounter [facility] 05-08-2022 Miscellaneous Notes Patient identified by name and date of . Patient advised of test results and treatment recommendations. Anna Orlando APRN.CNP documented in this encounter [facility] 05-07-2022 Instructions Anna Orlando APRN.CNP - 05/07/2022 [...] DIP, URINE (POC) - Follow-up with your DELIVERY AND MAIL SORTER in 3-5 days if symptoms have not improved or sooner if symptoms worsen - Discussed red flags and need for immediate medical evaluation if any occur. - Discussed supportive care treatment with fluids, rest and analgesia. - Discussed expected course of illness Anna Orlando APRN.MANAGER ASSESSMENT documented in this encounter [facility] 05-07-2022 History of Present illness Narrative Subjective [...] Thyroid Mother Hypertension Father Heart Father 49 [place] Psychiat[place] Paternal Uncle Cancer Maternal Grandfather lung [...] DIP, URINE (POC) - Follow-up with your DELIVERY AND MAIL SORTER in 3-5 days if symptoms have not improved or sooner if symptoms worsen - Discussed red flags and need for immediate medical evaluation if any occur. - Discussed supportive care treatment with fluids, rest and analgesia. - Discussed expected course of illness Anna Orlando APRN.CNP documented in this encounter [facility] 03-27-2022 Miscellaneous Notes Attempted to call patient. Unable to leave message. Call will not go through- phone doesn't ring. Ricohart message sent. Noemi Blue RN BV positive. To treat with Flagyl 500mg PO BID for 7 days. Follow by Metrussel at bedtime x 5 nights 1) No alcohol during treatment and for 24 hours after last dose. 2) No intercourse during treatment. 3) Probiotic by mouth once daily for 30 days or as needed. Lucia Bourne APRN.LINDA documented in this encounter [facility] 03-26-2022 History of Present illness Narrative Documentation Lead offered: Patient declines. Pilar Daniel is a [...] external genitalia normal, normal Bartholin's glands, urethra, Dawn's glands, no vulvar lesions, no cervical lesions, [...] 3 - Low documented in this encounter [facility] 03-03-2022 Miscellaneous Notes Patient informed BV positive. To treat with Flagyl 500mg PO BID for 7 days. 1) No alcohol during treatment and for 24 hours after last dose. 2) No intercourse during treatment. Yeast was negative but she should continue the Monistat as we discuss at [facility]. 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 Noemi Blue RN Left message for patient to call office. Brie Gonzáles RN Pt is aware that she is still trich positive, she also has a yeast infection. I have sent in Flagyl and miconazole to her pharmacy for her. Please notify pt. Lucia oBurne APRN.LINDA documented in this encounter [facility] 12-26-2021 Note . MICRO - Microbiology PROCEDURE: Urine Culture [*1] SOURCE: Urine, Clean Catch BODY SITE: COLLECTED DATE/TIME: 12/24/2021 17:16 EDT RECEIVED DATE/TIME: 12/25/2021 14:45 EDT START DATE/TIME: 12/25/2021 14:45 EDT FREE TEXT SOURCE: FINAL REPORTS Final Report [] Verified Date/Time/Personnel: 12/26/2021 14:15 EDT <10,000 cfu/ml. No Significant growth. Sensitivity not indicated. Performing Locations *1: This test was performed at: [facility], [address] [place] [address], [id number] , [facility] ([place]) 12-21-2021 Miscellaneous Notes Patient notified. Verbalized understanding. Please reach out to patient and inform her that her urine culture had mixed microba. Can she please provide a new sample to the lab? I will place the order. She also needs to ensure she has follow up with PCP and or [facility] to ensure all symptoms have resolved. documented in this encounter [facility] 12-20-2021 Miscellaneous Notes Verified results with pt. Pt verbalized understanding. Ellen Meyers MA Please advise patient the test for chlamydia was positive. Rx for doxycycline was sent to her pharmacy. Anna Orlando APRN.LINDA documented in this encounter [facility] 12-19-2021 History of Present illness Narrative This note was created using Reciclatariter. Subjective Pilar Daniel is a 36 year [...] daily for 7 days. 14 capsule 0 Zgmphavcsobixjg-Aedctnfhi-SP (BROMFED DM) 2-30-10 mg/5 mL syrup Take [...] Thyroid Mother Hypertension Father Heart Father 49 [place] Psychiatry Paternal Uncle Cancer Maternal Grandfather lung [...] Nuria Whitney PA-C documented in this encounter [facility] 10-31-2021 History of Present illness Narrative Pilar [...] external genitalia normal, normal Bartholin's glands, urethra, Dawn's glands, no vulvar lesions, physiologic discharge present, [...] 3 - Low documented in this encounter [facility] 08-19-2021 Miscellaneous Notes Patient identified by name [...] Discussed expected course of illness Anna Orlando APRN.MANAGER ASSESSMENT documented in this encounter [facility] 08-18-2021 History of Present illness Narrative CC: [...] Penicillin, Trazodone, and Ultram [Tramadol Hcl] MEDICATIONS Bwniisewdxxnntt-Qvjhbcsfn-PN (BROMFED DM) 2-30-10 mg/5 mL syrup Take [...] Thyroid Mother Hypertension Father Heart Father 49 [place] Psychiat[place] Paternal Uncle Cancer Maternal Grandfather lung [...] Simona Zuleta APRN.LINDA documented in this encounter [facility] 08-18-2021 Instructions Simona Zuleta APRN.LINDA - 08/18/2021 4:54 PM EDT How to [...] concerning to you. documented in this encounter [facility] 05-09-2021 Miscellaneous Notes Addended by: DARLENE GEORGE on: 05/09/2021 03:50 PM Modules accepted: Orders Addended by: DARIEL FLANAGAN on: 05/09/2021 03:22 PM Modules accepted: Orders documented in this encounter [facility] 05-09-2021 Miscellaneous Notes Addended by: DARIEL FLANAGAN on: 05/09/2021 03:22 PM Modules accepted: Orders documented in this encounter [facility] 05-09-2021 Instructions Dariel Flanagan CNP - 05/09/2021 [...] water aren't available, use an alcohol-based hand bulb filler. Don't share personal household items. These include bedding, towels, cups and glasses, and eating utensils. Clean and disinfect your home every day. Use household box spinner or disinfectant wipes or sprays. If needed, take acetaminophen (Tylenol) or ibuprofen (Advil, Motrin) to relieve fever and body aches. Read and follow all instructions on the label. Current as of: August 23, 2020 Content Version: 13.0 [employer] Mobile. Care instructions adapted under license by your healthcare professional. If you have questions about a medical condition or this instruction, always ask your healthcare professional. [employer] disclaims any warranty or liability for your [...] Log into your personal health record on [email or web address] and enter K848 in the Education box to learn more about Urinary Tract Infection (UTI) in Women: Care Instructions. Current as of: July 10, 2020 Content Version: 13.0 [employer] Mobile. Care instructions adapted under license by your healthcare professional. If you have questions about a medical condition or this instruction, always ask your healthcare professional. [employer] disclaims any warranty or liability for your [...] Log into your personal health record on [email or web address] [email or web address] and enter O319 in the Education box to learn more about Learning About Benefits From Quitting Smoking. Current as of: July 11, 2020 Content Version: 13.0 [employer] Mobile. Care instructions adapted under license by your healthcare professional. If you have questions about a medical condition or this instruction, always ask your healthcare professional. [employer] disclaims any warranty or liability for your use of this information. Thank you for choosing [facility] for your healthcare needs today. Quarantine for 10 days from onset of symptoms. Notify your doctor of positive results. If you do not have a PCP, you can call [phone] Wednesday through Wednesday, 7 am - 5:30 pm to get established with a primary care provider or you can contact your health insurance benefit provider to locate one covered under your plan. Your may also go to [employer]'s website at Alignable and use the Find-A-Doc feature to locate a PCP. You have a UTI and will need to recheck the urine after treatment to confirm resolution of abnormalities. Culture was sent to identify bacteria. You will only be contacted if there is need to add/change/discontinue the medication. Please consider smoking cessation. ER for symptoms of concern. documented in this encounter [facility] 05-09-2021 Instructions Dariel Flanagan CNP - 05/09/2021 [...] water aren't available, use an alcohol-based hand bulb filler. Don't share personal household items. These include bedding, towels, cups and glasses, and eating utensils. Clean and disinfect your home every day. Use household box spinner or disinfectant wipes or sprays. If needed, take acetaminophen (Tylenol) or ibuprofen (Advil, Motrin) to relieve fever and body aches. Read and follow all instructions on the label. Current as of: August 23, 2020 Content Version: 13.0 [employer]. Care instructions adapted under license by your healthcare professional. If you have questions about a medical condition or this instruction, always ask your healthcare professional. [employer] disclaims any warranty or liability for your [...] Log into your personal health record on [email or web address] [email or web address] and enter K848 in the Education box to learn more about Urinary Tract Infection (UTI) in Women: Care Instructions. Current as of: July 10, 2020 Content Version: 13.0 [employer]. Care instructions adapted under license by your healthcare professional. If you have questions about a medical condition or this instruction, always ask your healthcare professional. [employer] disclaims any warranty or liability for your [...] Log into your personal health record on [email or web address] and enter O319 in the Education box to learn more about Learning About Benefits From Quitting Smoking. Current as of: July 11, 2020 Content Version: 13.0 [employer] Mobile. Care instructions adapted under license by your healthcare professional. If you have questions about a medical condition or this instruction, always ask your healthcare professional. [employer] disclaims any warranty or liability for your use of this information. Thank you for choosing [facility] for your healthcare needs today. Quarantine for 10 days from onset of symptoms. Notify your doctor of positive results. If you do not have a PCP, you can call [phone] Wednesday through Wednesday, 7 am - 5:30 pm to get established with a primary care provider or you can contact your health insurance benefit provider to locate one covered under your plan. Your may also go to [employer]'s website at [employer] and use the Find-A-Doc feature to locate a PCP. You have a UTI and will need to recheck the urine after treatment to confirm resolution of abnormalities. Culture was sent to identify bacteria. You will only be contacted if there is need to add/change/discontinue the medication. Please consider smoking cessation. ER for symptoms of concern. documented in this encounter [facility] 05-09-2021 History of Present illness Narrative Images from the original note were not included. Patient Name: [facility] Urgent Care Location: [facility] [place] [address] [facility] [address] Date Of : Date Of Visit: 1985 05/09/2021 MRN# Provider: [id number] Dariel Flanagan CNP Chief Complaint Patient presents with Cough Cough, sinus drainage, diminished taste/smell since 05/06/2021. 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 Assessment & Plan 1. COVID-19 virus infection [...] cases at work. 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 Reports dysuria and concern for UTI or BV. Had an appointment with ACCOUNTING OFFICE MANAGER but had to cancel with illness. URI [...] water aren't available, use an alcohol-based hand bulb filler. Don't share personal household items. These include bedding, towels, cups and glasses, and eating utensils. Clean and disinfect your home every day. Use household box spinner or disinfectant wipes or sprays. If needed, take acetaminophen (Tylenol) or ibuprofen (Advil, Motrin) to relieve fever and body aches. Read and follow all instructions on the label. Current as of: August 23, 2020 Content Version: 13.0 [employer]. Care instructions adapted under license by your healthcare professional. If you have questions about a medical condition or this instruction, always ask your healthcare professional. [employer] disclaims any warranty or liability for your [...] Log into your personal health record on [email or web address] and enter K848 in the Education box to learn more about Urinary Tract Infection (UTI) in Women: Care Instructions. Current as of: July 10, 2020 Content Version: 13.0 [employer]. Care instructions adapted under license by your healthcare professional. If you have questions about a medical condition or this instruction, always ask your healthcare professional. [employer] disclaims any warranty or liability for your [...] Log into your personal health record on [email or web address] and enter O319 in the Education box to learn more about Learning About Benefits From Quitting Smoking. Current as of: July 11, 2020 Content Version: 13.0 [employer]. Care instructions adapted under license by your healthcare professional. If you have questions about a medical condition or this instruction, always ask your healthcare professional. [employer] disclaims any warranty or liability for your use of this information. Thank you for choosing [facility] for your healthcare needs today. Quarantine for 10 days from onset of symptoms. Notify your doctor of positive results. If you do not have a PCP, you can call [phone] Wednesday through Wednesday, 7 am - 5:30 pm to get established with a primary care provider or you can contact your health insurance benefit provider to locate one covered under your plan. Your may also go to [facility]'s website at Alignable and use the Find-A-Doc feature to locate a PCP. You have a UTI and will need to recheck the urine after treatment to confirm resolution of abnormalities. Culture was sent to identify bacteria. You will only be contacted if there is need to add/change/discontinue the medication. Please consider smoking cessation. ER for symptoms of concern. documented in this encounter [facility] 05-09-2021 History of Present illness Narrative Images from the original note were not included. Patient Name: [facility] Care Location: [place] [facility] [address] [address] Date Of : Date Of Visit: 1985 05/09/2021 MRN# Provider: [id number] Dariel Flanagan CNP Chief Complaint Patient presents with Cough Cough, sinus drainage, diminished taste/smell since 05/06/2021. 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 Assessment & Plan 1. COVID-19 virus infection [...] cases at work. 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 Reports dysuria and concern for UTI or BV. Had an appointment with ACCOUNTING OFFICE MANAGER but had to cancel with illness. URI [...] water aren't available, use an alcohol-based hand bulb filler. Don't share personal household items. These include bedding, towels, cups and glasses, and eating utensils. Clean and disinfect your home every day. Use household box spinner or disinfectant wipes or sprays. If needed, take acetaminophen (Tylenol) or ibuprofen (Advil, Motrin) to relieve fever and body aches. Read and follow all instructions on the label. Current as of: August 23, 2020 Content Version: 13.0 [employer]. Care instructions adapted under license by your healthcare professional. If you have questions about a medical condition or this instruction, always ask your healthcare professional. [employer] disclaims any warranty or liability for your [...] Log into your personal health record on [email or web address] and enter K848 in the Education box to learn more about Urinary Tract Infection (UTI) in Women: Care Instructions. Current as of: July 10, 2020 Content Version: 13.0 [employer]. Care instructions adapted under license by your healthcare professional. If you have questions about a medical condition or this instruction, always ask your healthcare professional. [employer] disclaims any warranty or liability for your [...] Log into your personal health record on [email or web address] and enter O319 in the Education box to learn more about Learning About Benefits From Quitting Smoking. Current as of: July 11, 2020 Content Version: 13.0 [employer]. Care instructions adapted under license by your healthcare professional. If you have questions about a medical condition or this instruction, always ask your healthcare professional. [employer] disclaims any warranty or liability for your use of this information. Thank you for choosing [facility] for your healthcare needs today. Quarantine for 10 days from onset of symptoms. Notify your doctor of positive results. If you do not have a PCP, you can call [phone] Wednesday through Wednesday, 7 am - 5:30 pm to get established with a primary care provider or you can contact your health insurance benefit provider to locate one covered under your plan. Your may also go to [employer]'s website at [employer] and use the Find-A-Doc feature to locate a PCP. You have a UTI and will need to recheck the urine after treatment to confirm resolution of abnormalities. Culture was sent to identify bacteria. You will only be contacted if there is need to add/change/discontinue the medication. Please consider smoking cessation. ER for symptoms of concern. documented in this encounter [facility] Evaluation + Plan note Future Appointments Appointment Date:01/21/2022 03:30:00 PM Scheduled Provider:ELINOR CALDERA Location:[facility] Appointment Type:PC OV Follow Up Future Scheduled TestsThyroid Stimulating Hormone 12/24/21Free T4 12/24/21Lipid Profile 12/24/21Complete Metabolic Panel 12/24/21 [facility] documented in this encounter [facility] note* Diagnosis COVID-19 virus infection- Primary Acute cystitis with hematuria Cough Loss of smell Disturbances of sensation of smell and taste Loss of taste Disturbances of sensation of smell and taste Dysuria Cigarette smoker Tobacco use disorder Antibiotic-induced yeast infection documented in this encounter [facility] note* Diagnosis Suspected COVID-19 virus infection- Primary documented in this encounter [facility] note* Diagnosis Burning with urination- Primary Dysuria Vaginal irritation Unspecified noninflammatory disorder of vagina documented in this encounter [facility] note* Diagnosis Burning with urination- Primary Dysuria Vaginal itching Pruritus of genital organs documented in this encounter [facility] note* Diagnosis Chlamydia- Primary Unspecified chlamydial infection, in conditions classified elsewhere and of unspecified site documented in this encounter [facility] note* Diagnosis Vaginal irritation- Primary Unspecified noninflammatory disorder of vagina documented in this encounter [facility] note* Diagnosis Vaginal irritation- Primary Unspecified noninflammatory disorder of vagina documented in this encounter [facility] note* Diagnosis Vaginal discharge- Primary Leukorrhea, not specified as infective Dysuria documented in this encounter [facility] note* Diagnosis Urinary frequency- Primary Unprotected sexual intercourse Problems related to high-risk sexual behavior documented in this encounter [facility] note* Diagnosis Throat pain- Primary URI, acute Acute upper respiratory infections of unspecified site documented in this encounter [facility] note* Diagnosis Screen for STD (sexually transmitted disease)- Primary Screening examination for venereal disease Vaginal discharge Leukorrhea, not specified as infective Dysuria documented in this encounter [facility] note* Diagnosis Vaginal discharge- Primary Leukorrhea, not specified as infective documented in this encounter [facility] note* Diagnosis Dysuria- Primary Vaginal discharge Leukorrhea, not specified as infective documented in this encounter [facility] note* Diagnosis Flank pain- Primary Abdominal pain, unspecified site documented in this encounter [facility] note* Diagnosis Dysuria- Primary Encounter for screening examination for sexually transmitted disease documented in this encounter [facility] note* Diagnosis Burning with urination- Primary Dysuria Recurrent UTI (urinary tract infection) Urinary tract infection, site not specified documented in this encounter [facility] note* Diagnosis Vaginal discharge- Primary Leukorrhea, not specified as infective Rhinosinusitis Unspecified sinusitis (chronic) Conjunctivitis of right eye, unspecified conjunctivitis type documented in this encounter [facility] Narrative No data available for this section [facility] Hospital Discharge instructions No data available for this section [facility] Progress note No data available for this section [facility] Advance Directives No Advanced Directives Records FoundDocuments on File Type Date Recorded 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 Advance Directives and Living Will [...] Care Teams (unrecognized sec tion and content) Director Of Industrial Relations Relationship Specialty Start Date End Date No, Physician [facility] PCP - General 05/09/21 Director Of Industrial Relations Relationship Specialty Start Date End Date Elinor Caldera CNP [address] [place] [address] PCP - General Family Practice 12/13/20 Director Of Industrial Relations Relationship Specialty Start Date End Date Elinor Caldera CNP [address] [place] [address] PCP - General Family Practice 12/13/20 Director Of Industrial Relations Relationship Specialty Start Date End Date Elinor Caldera CNP [address] [place] [address] PCP - General Family Practice 12/13/20 Director Of Industrial Relations Relationship Specialty Start Date End Date Elinor Caldera CNP [address] [place] [address] PCP - General Family Practice 12/13/20 Director Of Industrial Relations Relationship Specialty Start Date End Date Elinor Caldera CNP [address] [place] [address] PCP - General Family Practice 12/13/20 Director Of Industrial Relations Relationship Specialty Start Date End Date Elinor Caldera CNP [address] [place] [address] PCP - General Family Practice 12/13/20 Director Of Industrial Relations Relationship Specialty Start Date End Date Elinor Caldera CNP [address] [place] [address] PCP - General Family Practice 12/13/20 Director Of Industrial Relations Relationship Specialty Start Date End Date Elinor Caldera CNP [address] [place] [address] PCP - General Family Medicine 12/13/20 Director Of Industrial Relations Relationship Specialty Start Date End Date Elinor Caldera CNP [address] [place] [address] PCP - General Family Medicine 12/13/20 Director Of Industrial Relations Relationship Specialty Start Date End Date Werner LINDA Aldrich [address] [place] [address] PCP - General Family Medicine 12/13/20 Director Of Industrial Relations Relationship Specialty Start Date End Date Elinor Caldera CNP [address] [place] [address] PCP - General Family Medicine 12/13/20 Director Of Industrial Relations Relationship Specialty Start Date End Date Elinor Caldera CNP [address] [place] [address] PCP - General Family Medicine 12/13/20 Director Of Industrial Relations Relationship Specialty Start Date End Date Elinor Caldera CNP [address] [place] [address] PCP - General Family Medicine 12/13/20 Director Of Industrial Relations Relationship Specialty Start Date End Date Elinor Caldera CNP [address] [place] [address] PCP - General Family Medicine 12/13/20 Director Of Industrial Relations Relationship Specialty Start Date End Date Elinor CalderaLINDA [address] [place] [address] PCP - General Family Medicine 12/13/20 Director Of Industrial Relations Relationship Specialty Start Date End Date Elinor Caldera CNP [address] [place] [address] PCP - General Family Medicine 12/13/20 Director Of Industrial Relations Relationship Specialty Start Date End Date Elinor Caldera CNP [address] [place] [address] PCP - General Family Medicine 12/13/20 Director Of Industrial Relations Relationship Specialty Start Date End Date Elinor Caldera CNP [address] [place] [address] PCP - General Family Medicine 12/13/20 Director Of Industrial Relations Relationship Specialty Start Date End Date Elinor Caldera CNP [address] [place] [address] PCP - General Family Medicine 12/13/20 Director Of Industrial Relations Relationship Specialty Start Date End Date Elinor Caldera CNP [address] [place] [address] PCP - General Family Medicine 12/13/20 INFORMATION SOURCE (unrecogn ized section and content) DATE CREATED AUTHOR AUTHOR'S ORGANIZ ATION 01/07/2022 [facility] ([place]) DATE CREATED AUTHOR AUTHOR'S ORGANIZ ATION 06/17/[address] [facility] Source Comments (unrecognize d section and content) In the event this informatio n is protected by the Federal Confidentiality of Alcohol and Drug Abuse Patient Records regulations: The Federal rules restrict any use of the information to criminally investigate or prosecute any alcohol or drug abuse patient.[facility] the event this information is protected by the Federal Confidentiality of Alcohol and Drug Abuse Patient Records regulations: The Federal rules restrict any use of the information to criminally investigate or prosecute any alcohol or drug abuse patient.[facility] SystemIn the event this information is protected by the Federal Confidentiality of Alcohol and Drug Abuse Patient Records regulations: The Federal rules restrict any use of the information to criminally investigate or prosecute any alcohol or drug abuse patient.[facility] the event this information is protected by the Federal Confidentiality of Alcohol and Drug Abuse Patient Records regulations: The Federal rules restrict any use of the information to criminally investigate or prosecute any alcohol or drug abuse patient.[facility] SystemIn the event this information is protected by the Federal Confidentiality of Alcohol and Drug Abuse Patient Records regulations: The Federal rules restrict any use of the information to criminally investigate or prosecute any alcohol or drug abuse patient.[facility] SystemIn the event this information is protected by the Federal Confidentiality of Alcohol and Drug Abuse Patient Records regulations: The Federal rules restrict any use of the information to criminally investigate or prosecute any alcohol or drug abuse patient.[facility] SystemIn the event this information is protected by the Federal Confidentiality of Alcohol and Drug Abuse Patient Records regulations: The Federal rules restrict any use of the information to criminally investigate or prosecute any alcohol or drug abuse patient.[facility] SystemIn the event this information is protected by the Federal Confidentiality of Alcohol and Drug Abuse Patient Records regulations: The Federal rules restrict any use of the information to criminally investigate or prosecute any alcohol or drug abuse patient.[facility] SystemIn the event this information is protected by the Federal Confidentiality of Alcohol and Drug Abuse Patient Records regulations: The Federal rules restrict any use of the information to criminally investigate or prosecute any alcohol or drug abuse patient.[facility] SystemIn the event this information is protected by the Federal Confidentiality of Alcohol and Drug Abuse Patient Records regulations: The Federal rules restrict any use of the information to criminally investigate or prosecute any alcohol or drug abuse patient.[facility] SystemIn the event this information is protected by the Federal Confidentiality of Alcohol and Drug Abuse Patient Records regulations: The Federal rules restrict any use of the information to criminally investigate or prosecute any alcohol or drug abuse patient.[facility] SystemIn the event this information is protected by the Federal Confidentiality of Alcohol and Drug Abuse Patient Records regulations: The Federal rules restrict any use of the information to criminally investigate or prosecute any alcohol or drug abuse patient.[facility] SystemIn the event this information is protected by the Federal Confidentiality of Alcohol and Drug Abuse Patient Records regulations: The Federal rules restrict any use of the information to criminally investigate or prosecute any alcohol or drug abuse patient.[facility] SystemIn the event this information is protected by the Federal Confidentiality of Alcohol and Drug Abuse Patient Records regulations: The Federal rules restrict any use of the information to criminally investigate or prosecute any alcohol or drug abuse patient.[facility] SystemIn the event this information is protected by the Federal Confidentiality of Alcohol and Drug Abuse Patient Records regulations: The Federal rules restrict any use of the information to criminally investigate or prosecute any alcohol or drug abuse patient.[facility] SystemIn the event this information is protected by the Federal Confidentiality of Alcohol and Drug Abuse Patient Records regulations: The Federal rules restrict any use of the information to criminally investigate or prosecute any alcohol or drug abuse patient.[facility] SystemIn the event this information is protected by the Federal Confidentiality of Alcohol and Drug Abuse Patient Records regulations: The Federal rules restrict any use of the information to criminally investigate or prosecute any alcohol or drug abuse patient.[facility] SystemIn the event this information is protected by the Federal Confidentiality of Alcohol and Drug Abuse Patient Records regulations: The Federal rules restrict any use of the information to criminally investigate or prosecute any alcohol or drug abuse patient.[facility] SystemIn the event this information is protected by the Federal Confidentiality of Alcohol and Drug Abuse Patient Records regulations: The Federal rules restrict any use of the information to criminally investigate or prosecute any alcohol or drug abuse patient.[facility] SystemIn the event this information is protected by the Federal Confidentiality of Alcohol and Drug Abuse Patient Records regulations: The Federal rules restrict any use of the information to criminally investigate or prosecute any alcohol or drug abuse patient.[facility] SystemIn the event this information is protected by the Federal Confidentiality of Alcohol and Drug Abuse Patient Records regulations: The Federal rules restrict any use of the information to criminally investigate or prosecute any alcohol or drug abuse patient.[facility] SystemIn the event this information is protected by the Federal Confidentiality of Alcohol and Drug Abuse Patient Records regulations: The Federal rules restrict any use of the information to criminally investigate or prosecute any alcohol or drug abuse patient.[facility] SystemIn the event this information is protected by the Federal Confidentiality of Alcohol and Drug Abuse Patient Records regulations: The Federal rules restrict any use of the information to criminally investigate or prosecute any alcohol or drug abuse patient.[facility] SystemIn the event this information is protected by the Federal Confidentiality of Alcohol and Drug Abuse Patient Records regulations: The Federal rules restrict any use of the information to criminally investigate or prosecute any alcohol or drug abuse patient.[facility] SystemIn the event this information is protected by the Federal Confidentiality of Alcohol and Drug Abuse Patient Records regulations: The Federal rules restrict any use of the information to criminally investigate or prosecute any alcohol or drug abuse patient.[facility] SystemIn the event this information is protected by the Federal Confidentiality of Alcohol and Drug Abuse Patient Records regulations: The Federal rules restrict any use of the information to criminally investigate or prosecute any alcohol or drug abuse patient.[facility] SystemIn the event this information is protected by the Federal Confidentiality of Alcohol and Drug Abuse Patient Records regulations: The Federal rules restrict any use of the information to criminally investigate or prosecute any alcohol or drug abuse patient.[facility] SystemIn the event this information is protected by the Federal Confidentiality of Alcohol and Drug Abuse Patient Records regulations: The Federal rules restrict any use of the information to criminally investigate or prosecute any alcohol or drug abuse patient.[facility] SystemIn the event this information is protected by the Federal Confidentiality of Alcohol and Drug Abuse Patient Records regulations: The Federal rules restrict any use of the information to criminally investigate or prosecute any alcohol or drug abuse patient.[facility] Care Team (unrecognized sect ion and content) Care Team Personnel Name: ELINOR CALDERA APRN-LINDA Position: P4 Advanced Practice Nurse Med Service: Active Provider Member Role: Primary Care Physician Address: Address: [address] [place], [place] [address] Care Team Related Persons Name: CHRIS DANIEL Address: Home [address], [place] [id number] FOR RECORDS PERTAINING TO PATIENTS WHO ARE [...] BE BASED ON THE PRIMARY CLINICAL RECORDS. [facility] [employer] provides no warranty or guarantee of the accuracy or completeness of information in this document.
[2023-06-28 08:38] LABS: ALB/GLOB Ratio 1.1 RATIO (0.9-2.4); AST(SGOT) 22 U/L (15-37); Alanine Aminotransfer ALT/SGPT 23 U/L (13-56); Alkaline Phosphatase 74 U/L (45-117); Anion Gap 4 (5-15); BUN 10 mg/dL (7-18); BUN/Creat Ratio 12.5 RATIO (10-20); Chloride 112 mmol/L (98-107); Cholesterol 194 mg/dL (200); EST Glomerular Filtration Rate 85 mL/min (>60); Est Glom Filt Rate - Afr Amer 103 mL/min (>60); Globulin 3.6 g/dL (2.2-4.2); Glucose 82 mg/dL (74-106); High Density Lipoprotein 65 mg/dL; Potassium 4.3 mmol/L (3.5-5.1); Protein, Total 7.6 g/dL (6.4-8.2); Sodium Level 141 mmol/L (136-145); T4 Free Direct 1.03 ng/dL (0.76-1.46); Triglycerides 118 mg/dL; Very Low Density Lipoprotein 24 mg/dL (5-40)
== END | disposition home or self-care (01) ==
PROVIDERS: PCP Nurse Practitioner Family; Referring Provider Nurse Practitioner Family; Visit Provider Nurse Practitioner Family
DX: I10 Essential (primary) hypertension (principal); Z13.6 Encounter for screening for cardiovascular disorders; E03.9 Hypothyroidism, unspecified; M54.9 Dorsalgia, unspecified
CPT/HCPCS: 36415; 72110; 80053; 80061; 84439; 84443

== ENCOUNTER 2024-01-31 11:48 | Emergency (ER) | payer OTHER, SELFPAY ==
[2024-01-31 11:48] VITALS: BP 132/81; PULSE 100; RESP 14; TEMP 36.6; O2SAT 99; BMI 40.1
--- NOTE | 2024-01-31 12:09 | ED.VIS.FEGU ---
HPI HPI - Female History of Present Illness Chief Complaint: Complaint Informant: patient Narrative Narrative: 38-year-old female states 2 days of burning dysuria at the vaginal/urethral area and some pruritus. She denies having a discharge. She denies abdominal pain, back pain, nausea, vomiting, fevers or chills. No hematuria. She is having some urinary frequency. When asked about STDs she states that she would like to be checked but does not think she has 1. PFSH PFSH Medical History Constipation Chronic back pain Decreased hearing Bipolar disorder GERD (gastroesophageal reflux disease) Early satiety Kidney stones Hypothyroid Manic bipolar I disorder Anxiety Depression Home Medications ?Medication ?Instructions ?Recorded ?Last Taken ?Type hydroxyzine HCl 25 mg tablet 20 mg PO Q6H PRN Pain 08/17/21 Unknown History levothyroxine 150 mcg tablet 150 mcg PO DAILY 08/17/21 Unknown History (Synthroid) albuterol sulfate 90 mcg/actuation 1 inh inhalation ONCE 10/21/22 Unknown History aerosol inhaler doxepin 25 mg capsule 25 mg PO QHS 10/21/22 Unknown History ondansetron HCl 4 mg tablet 4 mg PO Q8H 10/21/22 Unknown History ketorolac 10 mg tablet 10 mg PO Q6H 5 days #20 tabs 12/14/22 Unknown Rx oxycodone-acetaminophen 5 mg-325 1 tab PO Q6H PRN pain 3 days #12 12/14/22 Unknown Rx mg tablet (Percocet) tabs cyclobenzaprine 10 mg tablet 10 mg PO TID PRN Muscle Spasm #20 06/02/23 Unknown Rx TABLETS phenazopyridine 200 mg tablet 200 mg PO TID PRN dysuria #9 tabs 01/31/24 Unknown Rx (Pyridium) sulfamethoxazole 800 1 tab PO BID #6 TABLETS 01/31/24 Unknown Rx mg-trimethoprim 160 mg tablet Allergy/AdvReac Type Severity Reaction Status Date / Time moxifloxacin HCl (From Allergy Hives Verified 01/31/24 11:49 Avelox) trazodone Allergy Hives Verified 01/31/24 11:49 Latex, Natural Rubber AdvReac Rash Verified 01/31/24 11:49 nitrofurantoin (From AdvReac Hives Verified 01/31/24 11:49 Macrobid) Penicillins (PCN) AdvReac Nausea/Vom/ Verified 01/31/24 11:49 Diarrhea Family History Mother Hypertension Father Hypertension Surgical History History of 3 sections History of partial hysterectomy History of back surgery Social History Smoking Status: Current every day smoker tobacco type: cigarettes and e-cigarettes alcohol intake: never ROS ROS ED Constitutional Constitutional ED: Denies chills or fever(s) Gastrointestinal Gastrointestinal: Denies abdominal pain, nausea or vomiting Genitourinary Genitourinary ED: Reports dysuria and urinary frequency; Denies flank pain or hematuria Musculoskeletal Musculoskeletal: Denies back pain Integumentary Denies rash EXAM Physical Exam Const Vital Signs: 01/31/24 11:48 Temperature 98 F Temperature Source Temporal Pulse Rate 100 Respiratory Rate 14 Blood Pressure 132/81 H Blood Pressure Mean 98 Pulse Ox 99 Oxygen Delivery Method Room Air Positive well nourished and well developed General Appearance ED: well developed and NAD Eyes PERRL and EOMs intact bilaterally Neck supple Resp normal respiratory effort GI normal to inspection, nondistended, normoactive bowel sounds and non-tender Back/Spine no CVA tenderness Neuro oriented x3, CN's II-XII intact bilaterally and no sensory deficits noted Motor Exam: strength 5/5 throughout Psych mental status grossly normal MDM MDM MDM Narrative Medical decision making narrative: Urinalysis shows pyuria and leukocyte Estrace with bacteria consistent with cystitis given her symptoms and exam. She wanted me to send a GC and chlamydia so that was sent that will not return today. I am not treating her empirically for those I do not think she needs it. Will put her on a 3-day course of Bactrim with Pyridium and advise close outpatient follow-up if her symptoms do not resolve she is comfortable with that plan. Lab Data Attestation: I reviewed the patient's lab results. Labs: Laboratory Results - last 24 hr 01/31/24 12:03 Urine Color Yellow Urine Clarity Cloudy Urine pH 6.0 Ur Specific [place] 1.015 Urine Protein 30 H Urine Glucose (UA) Normal Urine Ketones Negative Urine Occult Blood 10 H Urine Nitrite Negative Urine Bilirubin Negative Urine Urobilinogen 1 H Ur Leukocyte Esterase 500 H Urine RBC 0-5 SEEN Urine WBC >100 SEEN Ur Squamous Epith Cells 5-10 SEEN Urine Bacteria 2+ Urine Mucus 1+ Discharge Plan Triage Chief Complaint: Complaint ED Provider: Jair Watkins Dx/Rx/DC Orders Clinical Impression: Acute cystitis without hematuria Instructions: ED Cystitis Female Adult Prescriptions: New phenazopyridine [Pyridium] 200 mg tablet 200 mg PO TID PRN (Reason: dysuria) Qty: 9 0RF sulfamethoxazole-trimethoprim 800-160 mg tablet 1 tab PO BID Qty: 6 0RF Continued doxepin 25 mg capsule 25 mg PO QHS albuterol sulfate 90 mcg/actuation HFA aerosol inhaler 1 inh inhalation ONCE ondansetron HCl 4 mg tablet 4 mg PO Q8H levothyroxine [Synthroid] 150 mcg Tablet 150 mcg PO DAILY hydroxyzine HCl 25 mg tablet 20 mg PO Q6H PRN (Reason: Pain) oxycodone-acetaminophen [Percocet] 5-325 mg tablet 1 tab PO Q6H PRN (Reason: pain) 3 Days Qty: 12 0RF ketorolac 10 mg tablet 10 mg PO Q6H 5 Days Qty: 20 0RF cyclobenzaprine 10 mg tablet 10 mg PO TID PRN (Reason: Muscle Spasm) Qty: 20 0RF Discontinued cephalexin 500 mg capsule 500 mg PO TID 7 Days Qty: 21 0RF methylprednisolone [Medrol (Emmanuel)] 4 mg tablets,dose pack 4 mg PO DAILY Qty: 21 0RF Primary Care Provider: Elinor Castellanos NP Referrals: Elinor Castellanos NP, COMPUTER NUMERIC CONTROL SETTER-C [Primary Care Provider] - 3-5 Days if not improving (Or your coding quality coordinator) Print Language: Com[place]an Disposition Disposition: Home, Self Care
[2024-01-31 12:18] LABS: Color, Urine Yellow (Yellow); Glucose, Dipstick Normal (Normal); Ketone-Dipstick Negative (Negative); Leukocyte Esterase-Dipstick 500 /ul (Negative); Nitrite-Dipstick Negative (Negative); Occult Blood-Urine 10 /ul (Negative); Protein-Dipstick 30 mg/dl (Negative); Specific Gravity, Urine 1.015 (1.002-1.030); Urine Bilirubin Dipstick Negative (Negative); Urine Clarity Cloudy (Clear); Urine Urobilinogen 1 mg/dl (Normal)
[2024-01-31 12:36] LABS: Bacteria 2+ /hpf (None Seen); Squamous Epithelial Cells - UA 5-10 SEEN /hpf (5-10); White Blood Cells >100 SEEN /hpf (0-5)
[2024-01-31 12:37] LABS: Mucous, Urine 1+ /hpf (<or=2+); Red Blood Cells-Urine 0-5 SEEN /hpf (0-5)
[2024-01-31] MEDS: Smz/Tmp Ds Tablet 1 TABLET PO (13:23)
[2024-01-31] MEDS: Phenazopyridine 95 MG Tablet 190 MG PO (13:23)
[2024-01-31 13:24] VITALS: BP 123/98; PULSE 89; RESP 18; TEMP 36.6; O2SAT 99
[2024-02-02 21:07] LABS: Chlamydia By Nucleic Acid AMP Negative (Negative); Gonococcus By Nucleic Acid AMP Negative (Negative)
== END 2024-01-31 13:25 | disposition home or self-care (01) ==
PROVIDERS: Emergency Provider Emergency Medicine; PCP Nurse Practitioner Family; Visit Provider Emergency Medicine
DX: N30.00 Acute cystitis without hematuria (principal); F31.9 Bipolar disorder, unspecified; R35.0 Frequency of micturition; L29.9 Pruritus, unspecified; E03.9 Hypothyroidism, unspecified; M54.9 Dorsalgia, unspecified; G89.29 Other chronic pain; F17.290 Nicotine dependence, other tobacco product, uncomplicated; F17.210 Nicotine dependence, cigarettes, uncomplicated; Z79.890 Hormone replacement therapy; Z79.899 Other long term (current) drug therapy
CPT/HCPCS: 81001; 87491; 87591; 99282

== ENCOUNTER 2024-02-22 19:08 | Emergency (ER) | payer OTHER, SELFPAY ==
[2024-02-22 19:10] VITALS: BP 146/104; PULSE 96; RESP 18; TEMP 36.3; O2SAT 97; BMI 40.8
--- NOTE | 2024-02-22 19:41 | CT_ITS ---
STUDY: CT ABDOMEN AND PELVIS WITHOUT CONTRAST REASON FOR EXAM: Female, 38 years old. left flank/ abdomen pain RADIATION DOSAGE (If Supplied By Facility): CTDIvol = ( 17.64 ) mGy, DLP = ( 903.54 ) mGycm TECHNIQUE: Transaxial images were obtained from the dome of the diaphragm to the symphysis pubis without oral contrast, and without intravenous contrast. Sagittal and coronal images were reconstructed. Individualized dose optimization techniques were used for this CT. COMPARISON: November 26, 2022 FINDINGS: The visualized lung bases are unremarkable. The visualized portions of the heart are within normal limits. Normal liver. Normal gallbladder and extrahepatic biliary system. Normal spleen. Normal pancreas. Normal bilateral adrenal glands. There are multiple tiny nonobstructing right renal calculi. No renal obstruction or mass.. There are multiple tiny nonobstructing left renal calculi.. There is mild left hydroureter without definitive evidence for ureteral calculus possibly due to recent passage of stone. Normal visualized stomach. Normal small intestine. Normal colon. The appendix is visualized and appears normal. Normal abdominal aorta. Normal inferior vena cava. Normal retroperitoneum. Normal urinary bladder. Normal abdominal wall. Lumbar spine demonstrates mild spondylosis. CT/Abdomen/Pelvis without Cont IMPRESSION: Bilateral nephrolithiasis without evidence for renal obstruction however there is very mild left hydroureter possibly due to recent passage of a stone. Clinical correlation is recommended Electronically Signed: Luis Young MD at 20:58 EDT ,
--- NOTE | 2024-02-22 19:41 | EX.ED.DYSGE1 ---
HPI History of Present Illness Chief Complaint: Flank Pain Detail of Chief Complaint: Left flank pain Informant: patient Narrative Narrative: Patient presents the emergency department complaint of left flank pain that started today this morning. Patient states that for the last several days she has had some hematuria and some pain in her kidneys. She has history of kidney stones. She describes nausea and vomiting and currently rates her pain about a 6 or 7 out of 10. Pain is now mostly isolated to the left lower abdomen. She denies fevers. She has some mild dysuria. Patient has had prior hysterectomy. [facility] Medical History Constipation Chronic back pain Decreased hearing Bipolar disorder GERD (gastroesophageal reflux disease) Early satiety Kidney stones Hypothyroid Manic bipolar I disorder Anxiety Depression Home Medications ?Medication ?Instructions ?Recorded ?Last Taken ?Type hydroxyzine HCl 25 mg tablet 20 mg PO Q6H PRN Pain 08/17/21 Unknown History levothyroxine 150 mcg tablet 150 mcg PO DAILY 08/17/21 Unknown History (Synthroid) albuterol sulfate 90 mcg/actuation 1 inh inhalation ONCE 10/21/22 Unknown History aerosol inhaler doxepin 25 mg capsule 25 mg PO QHS 10/21/22 Unknown History ondansetron HCl 4 mg tablet 4 mg PO Q8H 10/21/22 Unknown History ketorolac 10 mg tablet 10 mg PO Q6H 5 days #20 tabs 12/14/22 Unknown Rx oxycodone-acetaminophen 5 mg-325 1 tab PO Q6H PRN pain 3 days #12 12/14/22 Unknown Rx mg tablet (Percocet) tabs cyclobenzaprine 10 mg tablet 10 mg PO TID PRN Muscle Spasm #20 06/02/23 Unknown Rx TABLETS phenazopyridine 200 mg tablet 200 mg PO TID PRN dysuria #9 tabs 01/31/24 Unknown Rx (Pyridium) sulfamethoxazole 800 1 tab PO BID #6 TABLETS 01/31/24 Unknown Rx mg-trimethoprim 160 mg tablet hydrocodone-acetaminophen 5-325mg 1 tab PO Q4H PRN PRN Pain 2 days 02/22/24 Unknown Rx 5mg-325mg #10 TABLETS ondansetron 4 mg disintegrating 4 mg PO Q8H PRN PRN Nausea #10 tabs 02/22/24 Unknown Rx tablet Allergy/AdvReac Type Severity Reaction Status Date / Time moxifloxacin HCl (From Allergy Hives Verified 02/22/24 19:10 Avelox) trazodone Allergy Hives Verified 02/22/24 19:10 Latex, Natural Rubber AdvReac Rash Verified 02/22/24 19:10 nitrofurantoin (From AdvReac Hives Verified 02/22/24 19:10 Macrobid) Penicillins (PCN) AdvReac Nausea/Vom/ Verified 02/22/24 19:10 Diarrhea Family History Mother Hypertension Father Hypertension Surgical History History of 3 sections History of partial hysterectomy History of back surgery Social History Smoking Status: Current every day smoker tobacco type: cigarettes and e-cigarettes alcohol intake: never ROS ROS ED Review of Systems ROS Unobtainable: other Constitutional Constitutional ED: Reports lethargy; Denies chills, fever(s), sweats or weight loss Eyes Eyes: Denies blurry vision, change in vision or diplopia ENT ENT ED: Denies rhinorrhea or sore throat Cardiovascular Cardiovascular: Denies chest pain, orthopnea or racing heartbeat Respiratory/Chest Respiratory/Chest: Denies cough, dyspnea, dyspnea on exertion, orthopnea or sputum Gastrointestinal Gastrointestinal: Reports abdominal pain, nausea and vomiting; Denies diarrhea Genitourinary Genitourinary ED: Reports dysuria and hematuria; Denies urinary frequency Musculoskeletal Musculoskeletal: Reports back pain; Denies arthralgias, myalgias or neck pain Integumentary Denies abscess, Abrasions or rash Neurologic Neurologic: Denies headache(s) or weakness Psychiatric Psychiatric: Denies anxiety, depression or suicidal thoughts Endocrine Endocrinology: Denies polydipsia, polyphagia or polyuria Hematologic/Lymphatic Hematologic/Lymphatic: Denies easy bleeding, easy bruising or lymphadenopathy Allergic/Immunologic Allergic/Immunologic ED: Denies mouth swelling, tongue swelling or urticaria EXAM Physical Exam Const Vital Signs: 02/22/24 19:10 Temperature 97.3 F L Temperature Source Temporal Pulse Rate 96 Respiratory Rate 18 Blood Pressure 146/104 H Blood Pressure Mean 118 Pulse Ox 97 Oxygen Delivery Method Room Air Positive well nourished and well developed General Appearance ED: well developed and NAD HEENT Reports TM's clear and moist mucous membranes normocephalic and atraumatic; Negative for trauma or tenderness Tympanic Membrane ED: Yes TM's clear Eyes PERRL and EOMs intact bilaterally General Eye ED: Negative for pale conjunctiva or scleral icterus Neck no lymphadenopathy, supple and no JVD General: Negative for tenderness Chest Wall inspection of chest normal and palpation of chest normal Chest: Negative for tenderness Resp normal respiratory effort and clear to auscultation bilaterally Effort and Inspection: Negative for respiratory distress or pain with movement Auscultation: Negative for rhonchi, wheezes or diminished lung sounds Cardio regular rate, regular rhythm, S1 normal heart sound, S2 normal heart sound and no murmurs Peripheral Pulses: pulses 2+ throughout GI normal to inspection, nondistended, normoactive bowel sounds, soft to palpation, non-distended and no masses GI Narrative: Mild tenderness over the left lower quadrant with some guarding. There is no rebound, rigidity, or peritoneal signs. No mass palpated. Back/Spine no CVA tenderness and no thoracic nor lumbar tenderness Extremity normal to inspection General Extremety ED: Negative for edema General Extremity: Negative for edema Neuro oriented x3, CN's II-XII intact bilaterally, no sensory deficits noted and gait normal Sensorium / Orientation: awake, alert, oriented to person, oriented to place and oriented to time Motor Exam: strength 5/5 throughout and strength abnormal Psych mental status grossly normal Skin no rashes or lesions noted and no wounds MDM MDM MDM Narrative Medical decision making narrative: Patient presents with left lower abdomen pain that started today. She has had some hematuria and thought she might be passing a kidney stone. She has history of kidney stones. She has some mild dysuria. In the differential would be kidney stone versus UTI or diverticulosis or other etiology. IV line established. She was medicated with morphine as well as Zofran and Toradol and show good pain relief with that. CBC with differential white count of 8.1 with hemoglobin 12.9 and platelet count of 210. Chemistries unremarkable. Urinalysis was normal. CT scan of the abdomen pelvis without contrast obtained showed a mild left hydroureter without evidence of urolithiasis or other abnormality. At this point clinically she looks well. Will discharge to home with a prescription for few [place]. Will give a prescription for Zofran. Will refer to urology for follow-up. Patient advised to return if worsening pain, fever, vomiting, or condition should worsen anyway. Lab Data Attestation: I reviewed the patient's lab results. Labs: Laboratory Results - last 24 hr 02/22/24 19:53 WBC 8.1 RBC 3.96 L Hgb 12.9 Hct 38.4 MCV 97.0 MCH 32.6 H MCHC 33.6 RDW Std Deviation 45.4 H RDW Coeff of Michele 12.6 Plt Count 210 MPV 9.9 Immature Gran % (Auto) 0.400 Neut % (Auto) 61.3 Lymph % (Auto) 29.7 [place] % (Auto) 6.9 Eos % (Auto) 1.1 Baso % (Auto) 0.6 Absolute Neuts (auto) 5.0 Absolute Lymphs (auto) 2.41 Nucleated RBC % 0 Sodium 140 Potassium 3.5 Chloride 111 H Carbon Dioxide 23.0 Anion Gap 6 BUN 12 Creatinine 0.85 Estim Creat Clear Calc 92.42 Est GFR (MDRD) Af Amer 96 Est GFR (MDRD) Non-Af 79 BUN/Creatinine Ratio 14.1 Glucose 85 Calcium 9.3 Urine Color Yellow Urine Clarity Clear Urine pH 6.5 Ur Specific [place] 1.010 Urine Protein Negative Urine Glucose (UA) Normal Urine Ketones Negative Urine Occult Blood Negative Urine Nitrite Negative Urine Bilirubin Negative Urine Urobilinogen Normal Ur Leukocyte Esterase Negative Urine RBC 0 SEEN Urine WBC 0 SEEN Ur Squamous Epith Cells 0-5 SEEN Urine Bacteria 0 SEEN Urine Mucus 0 SEEN Radiography Diagnostic Testing: Clinical Impression(s) from Imaging Studies Abdomen/Pelvis CT 02/22/24 19:41 IMPRESSION: Bilateral nephrolithiasis without evidence for renal obstruction however there is very mild left hydroureter possibly due to recent passage of a stone. Clinical correlation is recommended Electronically Signed: Luis Young MD at 20:58 EDT , Discharge Plan Triage Chief Complaint: Flank Pain ED Provider: Giovanni Duran Dx/Rx/DC Orders Clinical Impression: Abdominal pain Instructions: ED Abdominal Pain Unkn Cause Fem Prescriptions: New hydrocodone-acetaminophen 5-325 mg tablet 1 tab PO Q4H PRN PRN (Reason: Pain) 2 Days Qty: 10 0RF ondansetron 4 mg tablet,disintegrating 4 mg PO Q8H PRN PRN (Reason: Nausea) Qty: 10 0RF No Action doxepin 25 mg capsule 25 mg PO QHS albuterol sulfate 90 mcg/actuation HFA aerosol inhaler 1 inh inhalation ONCE ondansetron HCl 4 mg tablet 4 mg PO Q8H levothyroxine [Synthroid] 150 mcg Tablet 150 mcg PO DAILY hydroxyzine HCl 25 mg tablet 20 mg PO Q6H PRN (Reason: Pain) oxycodone-acetaminophen [Percocet] 5-325 mg tablet 1 tab PO Q6H PRN (Reason: pain) 3 Days Qty: 12 0RF ketorolac 10 mg tablet 10 mg PO Q6H 5 Days Qty: 20 0RF cyclobenzaprine 10 mg tablet 10 mg PO TID PRN (Reason: Muscle Spasm) Qty: 20 0RF phenazopyridine [Pyridium] 200 mg tablet 200 mg PO TID PRN (Reason: dysuria) Qty: 9 0RF sulfamethoxazole-trimethoprim 800-160 mg tablet 1 tab PO BID Qty: 6 0RF Primary Care Provider: Elinor Castellanos NP Referrals: Citlalli Padilla MD [Med Staff - Active Staff] - 3-5 Days Elinor Castellanos NP, CYBER SECURITY ANALYST-C [Primary Care Provider] - Print Language: Yoruba Disposition Disposition: Home, Self Care
[2024-02-22] MEDS: 0.9% Normal Saline (1000mL) 1,000 ML 150 ML IV (19:55)
[2024-02-22] MEDS: Ketorolac 15 MG/ML Vial IV (19:55)
[2024-02-22] MEDS: Morphine 4 MG/ML Syringe IV (19:55)
[2024-02-22] MEDS: Ondansetron 4 MG/2 ML Vial IV (19:55)
[2024-02-22 20:01] LABS: Bacteria 0 SEEN /hpf (None Seen); Mucous, Urine 0 SEEN /hpf (<or=2+); Red Blood Cells-Urine 0 SEEN /hpf (0-5); White Blood Cells 0 SEEN /hpf (0-5)
[2024-02-22 20:02] LABS: Absolute Lymphocyte Count 2.41 X10^3/uL (0.83-4.51); Basophil# 0.05 X10^3/uL; Basophil% 0.6 % (0-1); Eosinophil# 0.09 X10^3/uL; Eosinophils% 1.1 % (0-5); Hematocrit 38.4 % (37-47); Hemoglobin 12.9 g/dL (12.0-15.0); Lymphocyte # 2.41 X10^3/ul (0.83-4.51); Lymphocyte % 29.7 % (19-41); Mean Corp Hgb Conc 33.6 g/dL (32-36); Mean Corpuscular Hgb 32.6 pg (27.0-32.0); Mean Platelet Vol. 9.9 fl (6.2-12.0); Monocyte# 0.56 X10^3/uL; Monocyte% 6.9 % (0-10); NRBC Flagged by Analyzer 0 % (0-5); Neutrophil # 4.97 X10^3/uL (2.7-7.7); Neutrophil % 61.3 % (47-70); Platelet Count 210 K/mm3 (150-450); RBC Distribution Width CV 12.6 % (11.6-14.6); RBC Distribution Width SD 45.4 fl (35.1-43.9); Red Blood Count 3.96 M/mm3 (4.2-5.4); White Blood Count 8.1 K/mm3 (4.4-11.0)
[2024-02-22 20:15] LABS: Glucose, Dipstick Normal (Normal); Ketone-Dipstick Negative (Negative); Leukocyte Esterase-Dipstick Negative /ul (Negative); Nitrite-Dipstick Negative (Negative); Occult Blood-Urine Negative /ul (Negative); Protein-Dipstick Negative (Negative); Urine Bilirubin Dipstick Negative (Negative); Urine Urobilinogen Normal (Normal); Urine pH 6.5 (5.0 - 8.0)
[2024-02-22 20:18] LABS: Anion Gap 6 (5-15); BUN 12 mg/dL (7-18); BUN/Creat Ratio 14.1 RATIO (10-20); Calcium,Total 9.3 mg/dL (8.5-10.1); Chloride 111 mmol/L (98-107); Creatinine, Serum 0.85 mg/dL (0.55-1.02); EST Glomerular Filtration Rate 79 mL/min (>60); Est Glom Filt Rate - Afr Amer 96 mL/min (>60); Estimated Creatinine Clearance 92.42 ml/min; Glucose 85 mg/dL (74-106); Potassium 3.5 mmol/L (3.5-5.1); Sodium Level 140 mmol/L (136-145)
[2024-02-22 20:42] LABS: Color, Urine Yellow (Yellow); Urine Clarity Clear (Clear)
[2024-02-22 20:44] LABS: Squamous Epithelial Cells - UA 0-5 SEEN /hpf (5-10)
[2024-02-22 21:15] VITALS: BP 125/74; PULSE 86; RESP 16; TEMP 36.1; O2SAT 99
== END 2024-02-22 21:17 | disposition home or self-care (01) ==
PROVIDERS: Emergency Provider Emergency Medicine; PCP Nurse Practitioner Family; Visit Provider Emergency Medicine
DX: R10.32 Left lower quadrant pain (principal); R30.0 Dysuria; N13.4 Hydroureter; M54.9 Dorsalgia, unspecified; R31.9 Hematuria, unspecified; R11.2 Nausea with vomiting, unspecified; E03.9 Hypothyroidism, unspecified; F17.210 Nicotine dependence, cigarettes, uncomplicated; F17.290 Nicotine dependence, other tobacco product, uncomplicated; Z79.890 Hormone replacement therapy; Z79.899 Other long term (current) drug therapy; Z87.442 Personal history of urinary calculi
CPT/HCPCS: 74176; 80048; 81001; 85025; 99282; J7030; A4216; J2405

== ENCOUNTER 2024-08-03 08:20 | Emergency (ER) | payer OTHER, SELFPAY ==
[2024-08-03 08:20] VITALS: BP 155/100; PULSE 101; RESP 17; TEMP 36.5; O2SAT 99; BMI 42.6
--- NOTE | 2024-08-03 08:31 | RAD_ITS ---
PROCEDURE: CHEST PA AND LATERAL REASON FOR EXAM: Chest pain TECHNIQUE: PA and lateral views of the chest were obtained. COMPARISON: 07/03/2019 FINDINGS: Heart: Unremarkable. Mediastinum: Unremarkable. Lungs/pleura: No focal consolidation. No sizeable pleural effusion or visible pneumothorax. Bones: Mild spondylosis. Lines and support devices: None. RAD/Chest PA and Lateral IMPRESSION: 1. No visible acute cardiopulmonary findings. 2. Additional description as above. Reading Location: [id number]
[2024-08-03 08:36] VITALS: O2SAT 99
--- NOTE | 2024-08-03 08:38 | ED.VIS.CHEST ---
HPI History of Present Illness Chief Complaint: Chest Pain Detail of Chief Complaint: Palpitations. Informant: patient Onset/Context/Timing Onset: Today and Hours Activity at onset: gradual Timing: Intermittent Associated Symptoms: Positive for Palpitations; Negative for Nausea, Vomiting, Diaphoresis, Dyspnea, Cough, Fever, Lightheadedness or Acid Reflux Narrative Narrative: 39-year-old female history of bipolar and hypertension. States that for the last couple hours she has had palpitations purely really no significant chest pain. No history of cardiac disease. No history of DVT or PE or risk factors. No recent travel, surgery or immobilization. No hemoptysis. States that she has intermittent palpitations like a skipped or extra beat. Having pain behind her right shoulder but that seems to be musculoskeletal with movement. She denies any dyspnea or exertional symptoms. Prior Similar Symptoms: Yes Recent Illness/Hospitalization: No CVD Risk Factors: Positive for Hypertension; Negative for Diabetes, Hypercholesterolemia, Family History 1' </=55 or Smoking PE Risk Factors: Negative for Recent Travel/Surgery, Recent Immobilization, Prior DVT or PE or OCP + Smoking + >/=35 TAD Risk Factors: Negative for Marfan's Syndrome PFSH [facility] Medical History Constipation Chronic back pain Decreased hearing Bipolar disorder GERD (gastroesophageal reflux disease) Early satiety Kidney stones Hypothyroid Manic bipolar I disorder Anxiety Depression Home Medications ?Medication ?Instructions ?Recorded ?Last Taken ?Type hydroxyzine HCl 25 mg tablet 20 mg PO Q6H PRN Pain 08/17/21 Unknown History levothyroxine 150 mcg tablet 150 mcg PO DAILY 08/17/21 Unknown History (Synthroid) doxepin 25 mg capsule 25 mg PO QHS 10/21/22 Unknown History Allergy/AdvReac Type Severity Reaction Status Date / Time moxifloxacin HCl (From Allergy Hives Verified 08/03/24 08:24 Avelox) trazodone Allergy Hives Verified 08/03/24 08:24 Latex, Natural Rubber AdvReac Rash Verified 08/03/24 08:24 nitrofurantoin (From AdvReac Hives Verified 08/03/24 08:24 Macrobid) Penicillins (PCN) AdvReac Nausea/Vom/ Verified 08/03/24 08:24 Diarrhea Family History Mother Hypertension Father Hypertension Surgical History History of 3 sections History of partial hysterectomy History of back surgery Social History Smoking Status: Current every day smoker tobacco type: cigarettes and e-cigarettes alcohol intake: never ROS ROS ED ROS Narrative Denies recent illness. Constitutional Constitutional ED: Denies chills or fever(s) Eyes Eyes: Reports none ENT ENT ED: Denies ear pain Cardiovascular Cardiovascular: Reports as per HPI and palpitations; Denies chest pain or racing heartbeat Respiratory/Chest Respiratory/Chest: Denies cough, dyspnea or dyspnea on exertion Gastrointestinal Gastrointestinal: Denies abdominal pain Genitourinary Genitourinary ED: Denies dysuria or hematuria Musculoskeletal Musculoskeletal: Denies arthralgias Integumentary Denies abscess Neurologic Neurologic: Denies headache(s) Psychiatric Psychiatric: Reports anxiety Endocrine Endocrinology: Denies cold intolerance or heat intolerance Hematologic/Lymphatic Hematologic/Lymphatic: Denies easy bleeding or easy bruising Allergic/Immunologic Allergic/Immunologic ED: Denies mouth swelling, tongue swelling or urticaria EXAM Physical Exam Narrative Exam Narrative: Well-appearing 39-year-old female sitting upright in bed. Vital signs are stable afebrile. Pulse ox 99% on room air no hypoxia. No distress. H EENT exam pupils round react light. Moist mucous membranes. Neck nontender no lymphadenopathy. Lungs clear to auscultation bilaterally. Heart regular rhythm rate about 95 no murmur. Chest wall ribs nontender. Abdomen soft nontender. Moving all 4 extremities. 5 out of 5 director payer strength. Bilateral equal symmetrical radial pulses. Calves are nontender. Normal dorsi plantarflexion. No cords. Back she has reproducible discomfort to the muscles medial to her scapula consistent with likely myofascial strain of her back. Neurologically she is awake and alert. No focal motor deficits. Const Vital Signs: 08/03/24 08:20 08/03/24 08:36 Temperature 97.7 F L Temperature Source Oral Pulse Rate 101 H Respiratory Rate 17 Blood Pressure 155/100 H Blood Pressure Mean 118 Pulse Ox 99 99 Oxygen Delivery Method Room Air Room Air Positive well nourished and well developed; Negative for cachectic, contractures or unkempt General Appearance ED: well developed and NAD; Negative for unkempt, cachectic, contractures or pallor Nutritional Appearance: Negative for cachectic HEENT Reports moist mucous membranes normocephalic and atraumatic; Negative for trauma or tenderness Eyes PERRL and EOMs intact bilaterally General Eye ED: Negative for pale conjunctiva or scleral icterus Neck no lymphadenopathy, supple and no JVD General: Negative for tenderness Chest Wall inspection of chest normal and palpation of chest normal Chest: Negative for tenderness Resp normal respiratory effort and clear to auscultation bilaterally Effort and Inspection: Negative for respiratory distress Auscultation: Negative for rales, rhonchi, wheezes or diminished lung sounds Cardio regular rate, regular rhythm, S1 normal heart sound, S2 normal heart sound and no murmurs Rate: Negative for bradycardia or tachycardic Peripheral Pulses: pulses 2+ throughout GI normal to inspection, nondistended, normoactive bowel sounds, soft to palpation, non-tender, non-distended and no masses Back/Spine no CVA tenderness and no thoracic nor lumbar tenderness General Back: Negative for CVA tenderness Cervical Spine: Negative for cervical spine tenderness Extremity normal to inspection General Extremety ED: Negative for edema, pulses abnormal or tenderness General Extremity: Negative for edema or pulses abnormal Neuro oriented x3, CN's II-XII intact bilaterally and no sensory deficits noted Sensorium / Orientation: awake, alert, oriented to person, oriented to place and oriented to time; Negative for confused or lethargic Motor Exam: strength 5/5 throughout Psych mental status grossly normal Appearance: Negative for unkempt Mood & Affect: Negative for depressed or tearful Skin no rashes or lesions noted and no wounds General Skin Exam: Negative for jaundice or pallor Rashes: No rashes noted Trauma: Negative for abrasion or laceration MDM MDM MDM Narrative Medical decision making narrative: 39-year-old female with palpitations has occasional PVC on the monitor. Otherwise exam benign except for some mild reproducible musculoskeletal back pain on her right upper back between her scapula and spine. I think her risk of cardiac disease is low. She has no radiation factors for DVT or PE she will be put through a cardiac workup. Repeat exam patient is doing well at 10:05 AM. Vital signs are stable. She is having no palpitations currently. Sinus rhythm on the monitor. She and I went over her test which were normal including her EKG, troponin and chest x-ray. She is comfortable being discharged home she has outpatient follow-up scheduled for Wednesday. History & Record Review Discussion w/independent historian: Patient Additional record(s) reviewed:: Prior outpatient record, Prior ED visit and Prior labs Lab Data Attestation: I reviewed the patient's lab results. Lab results narrative: CBC normal. White count of 6. H&H 14/42. Platelets 244. Chest x-ray unremarkable. BMP unremarkable. Troponin less than 6. Labs: Laboratory Results - last 24 hr 08/03/24 08:25 WBC 6.8 RBC 4.33 Hgb 14.3 Hct 42.4 MCV 97.9 MCH 33.0 H MCHC 33.7 RDW Std Deviation 45.2 H RDW Coeff of Michele 12.5 Plt Count 244 MPV 9.7 Immature Gran % (Auto) 0.300 Neut % (Auto) 70.3 H Lymph % (Auto) 22.2 Waldo % (Auto) 5.0 Eos % (Auto) 1.5 Baso % (Auto) 0.7 Absolute Neuts (auto) 4.8 Absolute Lymphs (auto) 1.51 Nucleated RBC % 0 Sodium 141 Potassium 3.8 Chloride 107 Carbon Dioxide 21.7 Anion Gap 13 BUN 9 Creatinine 0.87 Estim Creat Clear Calc 91.69 Est GFR (MDRD) Non-Af 87 BUN/Creatinine Ratio 10.1 Glucose 110 H Calcium 9.1 Troponin T High Sens < 6 Radiography Chest X-Ray - ED: 2 View, Read by ED Physician, Normal, Heart, Lungs, Mediastinum, Bony Structures and No Acute Disease Diagnostic Testing: Clinical Impression(s) from Imaging Studies Chest X-Ray 08/03/24 08:31 IMPRESSION: 1. No visible acute cardiopulmonary findings. 2. Additional description as above. Reading Location: [facility] Chest x-ray, 2 views, AP and lateral, interpreted by myself shows no acute abnormality. Normal cardiac silhouette. Normal lung sherwood. Rhythm Strip Rhythm Strip: Sinus Rhythm Rate: 95 Ectopy: None EKG Initial EKG: Attestation: I personally reviewed and interpreted this EKG as follows: Interpretation: Sinus Rhythm and No Acute Injury Pattern Comments: Normal sinus rhythm rate of 95 no acute signs of [place] or ischemia. No dysrhythmia. Discharge Plan Triage Chief Complaint: Chest Pain ED Provider: Vega Rocha Dx/Rx/DC Orders Clinical Impression: Heart palpitations, History of hypertension Instructions: ED Palpitations Prescriptions: No Action doxepin 25 mg capsule 25 mg PO QHS levothyroxine [Synthroid] 150 mcg Tablet 150 mcg PO DAILY hydroxyzine HCl 25 mg tablet 20 mg PO Q6H PRN (Reason: Pain) Primary Care Provider: Elinor Castellanos NP Referrals: Elinor Castellanos NP, REMOTE ADVISOR-C [Primary Care Provider] - Keep Toby appointment Activity Restrictions/Additional Instructions: People occasionally have premature heartbeats. There is nothing abnormal I can find today either on exam or with the test. Follow-up with your primary care provider. Print Language: Irish Disposition Disposition: Home, Self Care
[2024-08-03 08:50] LABS: Absolute Lymphocyte Count 1.51 X10^3/uL (0.83-4.51); Absolute Neutrophil Count 4.8 X10^3/uL (2.0-7.7); Basophil# 0.05 X10^3/uL; Basophil% 0.7 % (0-1); Eosinophils% 1.5 % (0-5); Hematocrit 42.4 % (37-47); Hemoglobin 14.3 g/dL (12.0-15.0); Lymphocyte # 1.51 X10^3/ul (0.83-4.51); Lymphocyte % 22.2 % (19-41); Mean Corp Hgb Conc 33.7 g/dL (32-36); Mean Corpuscular Volume 97.9 fL (81-99); Mean Platelet Vol. 9.7 fl (6.2-12.0); Monocyte# 0.34 X10^3/uL; NRBC Flagged by Analyzer 0 % (0-5); Neutrophil # 4.77 X10^3/uL (2.7-7.7); Neutrophil % 70.3 % (47-70); Platelet Count 244 K/mm3 (150-450); RBC Distribution Width CV 12.5 % (11.6-14.6); RBC Distribution Width SD 45.2 fl (35.1-43.9); Red Blood Count 4.33 M/mm3 (4.2-5.4); White Blood Count 6.8 K/mm3 (4.4-11.0)
[2024-08-03 09:14] LABS: Anion Gap 13 (5-15); BUN 9 mg/dL (4-19); BUN/Creat Ratio 10.1 RATIO (10-20); Calcium,Total 9.1 mg/dL (7.6-11.0); Carbon Dioxide 21.7 mmol/L (21.0-32.0); Chloride 107 mmol/L (98-108); Creatinine, Serum 0.87 mg/dL (0.70-1.20); EST Glomerular Filtration Rate 87 (>60); Estimated Creatinine Clearance 91.69 ml/min (50-250); Glucose 110 mg/dL (70-99); Potassium 3.8 mmol/L (3.3-5.1); Sodium Level 141 mmol/L (133-145); Troponin T High Sensitivity < 6 ng/L (<=14)
[2024-08-03 10:24] VITALS: BP 120/78; PULSE 85; RESP 17; TEMP 36.6; O2SAT 95
== END 2024-08-03 10:25 | disposition home or self-care (01) ==
PROVIDERS: Emergency Provider Emergency Medicine; PCP Nurse Practitioner Family; Visit Provider Emergency Medicine
DX: R00.2 Palpitations (principal); F31.9 Bipolar disorder, unspecified; M54.9 Dorsalgia, unspecified; I10 Essential (primary) hypertension; I49.3 Ventricular premature depolarization; M25.511 Pain in right shoulder; G89.29 Other chronic pain; F17.210 Nicotine dependence, cigarettes, uncomplicated; F17.290 Nicotine dependence, other tobacco product, uncomplicated; Z79.890 Hormone replacement therapy; Z79.899 Other long term (current) drug therapy
CPT/HCPCS: 71046; 80048; 84484; 85025; 93005; 99285; A4216

== ENCOUNTER 2024-08-03 13:48 | Emergency (ER) | payer OTHER, SELFPAY ==
[2024-08-03 13:49] VITALS: BP 184/105; PULSE 98; RESP 16; TEMP 36.2; O2SAT 99; BMI 35.6
--- NOTE | 2024-08-03 14:18 | ED.VIS.GI ---
HPI HPI - GI History of Present Illness Chief Complaint: Flank Pain Informant: patient Abdominal Pain/Flank Pain Onset: Today and Hours Context: Gradual Onset Timing: Continuous Quality: Sharp Location: Left Flank Current Severity: Moderate Maximum Severity: Moderate Worsened by: Nothing Relieved by: Nothing Nausea/Vomiting/Emesis GI Symptom: Negative for Nausea or Vomiting Diarrhea/Melena/Hematochezia GI Symptom: Negative for Diarrhea Associated Symptoms Associated Symptoms: Positive for Hematuria; Negative for Dysuria or Frequency Narrative Narrative: 39-year-old female seen earlier today in the emergency department for palpitations workup was negative. She does have a history of kidney stones. After she went home about an hour ago she developed sudden onset of left flank pain that has been continuous. Feels like her prior kidney stones. Denies any dysuria but did have cloudy and bloody urine here. Prior similar symptoms: Yes Recent Illness/Hospitalization: No PFSH PFSH Medical History Constipation Chronic back pain Decreased hearing Bipolar disorder GERD (gastroesophageal reflux disease) Early satiety Kidney stones Hypothyroid Manic bipolar I disorder Anxiety Depression Home Medications ?Medication ?Instructions ?Recorded ?Last Taken ?Type hydroxyzine HCl 25 mg tablet 20 mg PO Q6H PRN Pain 08/17/21 Unknown History levothyroxine 150 mcg tablet 150 mcg PO DAILY 08/17/21 Unknown History (Synthroid) doxepin 25 mg capsule 25 mg PO QHS 10/21/22 Unknown History hydrocodone 5 mg-acetaminophen 300 1 tab PO Q4H 3 days #18 tabs 08/03/24 Unknown Rx mg tablet Allergy/AdvReac Type Severity Reaction Status Date / Time moxifloxacin HCl (From Allergy Hives Verified 08/03/24 13:49 Avelox) trazodone Allergy Hives Verified 08/03/24 13:49 Latex, Natural Rubber AdvReac Rash Verified 08/03/24 13:49 nitrofurantoin (From AdvReac Hives Verified 08/03/24 13:49 Macrobid) Penicillins (PCN) AdvReac Nausea/Vom/ Verified 08/03/24 13:49 Diarrhea Family History Mother Hypertension Father Hypertension Surgical History History of 3 sections History of partial hysterectomy History of back surgery Social History housing: house Smoking Status: Current every day smoker tobacco type: cigarettes and e-cigarettes alcohol intake: never ROS ROS ED ROS Narrative Left flank pain. Constitutional Constitutional ED: Denies chills or fever(s) ENT ENT ED: Denies ear pain Cardiovascular Cardiovascular: Denies chest pain Respiratory/Chest Respiratory/Chest: Denies cough or dyspnea Gastrointestinal Gastrointestinal: Denies abdominal pain Genitourinary Genitourinary ED: Reports hematuria; Denies dysuria Musculoskeletal Musculoskeletal: Denies arthralgias Integumentary Denies abscess Neurologic Neurologic: Denies headache(s) Psychiatric Psychiatric: Denies anxiety Endocrine Endocrinology: Denies polydipsia Hematologic/Lymphatic Hematologic/Lymphatic: Denies easy bleeding Allergic/Immunologic Allergic/Immunologic ED: Denies mouth swelling, tongue swelling or urticaria EXAM Physical Exam Narrative Exam Narrative: 39-year-old female walking from the bathroom into her room. Complaint of left flank pain. Vital signs are stable blood pressure is elevated 184/105 secondary to her pain. H EENT exam pupils round react to light. Moist mucous membranes. Neck nontender no lymphadenopathy. Lungs clear to auscultation bilaterally. Heart regular rhythm rate about 95 no murmur. Chest wall ribs nontender. Abdomen soft nontender. Back nontender. No reproducible pain. Moving all 4 extremities. Nontender no edema. 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 Normal dorsi plantarflexion. She is awake and alert. Exam consistent with possibly left-sided kidney stone. Const Vital Signs: 08/03/24 13:49 Temperature 97.2 F L Temperature Source Temporal Pulse Rate 98 Respiratory Rate 16 Blood Pressure 184/105 H Blood Pressure Mean 131 Pulse Ox 99 Oxygen Delivery Method Room Air Positive well nourished and well developed; Negative for cachectic, contractures or unkempt General Appearance ED: well developed and NAD; Negative for unkempt, cachectic, contractures or pallor Nutritional Appearance: Negative for cachectic HEENT Reports moist mucous membranes normocephalic and atraumatic Eyes PERRL and EOMs intact bilaterally General Eye ED: Negative for pale conjunctiva or scleral icterus Neck no lymphadenopathy, supple and no JVD General: Negative for tenderness Carotids: Negative for other Resp normal respiratory effort and clear to auscultation bilaterally Effort and Inspection: Negative for respiratory distress Auscultation: Negative for rales, rhonchi, wheezes or diminished lung sounds Cardio regular rate, regular rhythm, S1 normal heart sound, S2 normal heart sound and no murmurs Rate: Negative for bradycardia or tachycardic Rhythm: Negative for abnormal rhythm GI non-tender, non-distended and no masses Inspection: Negative for abdominal distention Auscultation: normoactive bowel sounds Palpation: soft; Negative for tender, guarding, rigid, hernia, mass, pulsatile mass or rebound tenderness present Back/Spine no CVA tenderness General Back: Negative for CVA tenderness Cervical Spine: Negative for cervical spine tenderness Thoracic Spine / Upper Back: Negative for thoracic spinal tenderness Lumbar Spine / Lower Back: Negative for lumbar spinal tenderness Coccyx: Negative for other Extremity full ROM General Extremety ED: Negative for edema or other findings General Extremity: Negative for edema or other findings Neuro CN's II-XII intact bilaterally and moves all extremities Sensorium / Orientation: alert, oriented to person, oriented to place and oriented to time; Negative for orientation impaired, confused, lethargic or stuporous Motor Exam: strength 5/5 throughout; Negative for general weakness or strength abnormal Psych mental status grossly normal and thought process normal Appearance: Negative for unkempt Attitude: No agitated Mood & Affect: Negative for depressed, anxious or tearful Skin no wounds General Skin Exam: Negative for jaundice or pallor Rashes: no rashes MDM MDM MDM Narrative Medical decision making narrative: 39-year-old female left flank pain concern for kidney stone. Treated with morphine and Toradol for pain. Zofran for nausea. CT flank. She had screening labs done earlier today. Will obtain a UA also. Repeat exam at 4:21 PM Patient doing well. Pain is much improved. We went over her CAT scan and UA results. She is comfortable being discharged home. She has been on Vicodin in the past for her kidney stones. She will be given a second dose of morphine prior to discharge. She tells me she has a ride home. History & Record Review Discussion w/independent historian: Patient Lab Data Attestation: I reviewed the patient's lab results. Lab results narrative: UA shows no infection but greater than 100 red cells and 250 occult blood consistent with a kidney stone. No bacteria. No nitrates. No white cells. CT flank without contrast shows a proximal left ureteral calculi to 3 mm. Labs: Laboratory Results - last 24 hr 08/03/24 14:12 Urine Color SEE COMMENT BELOW Urine Clarity Cloudy Urine pH 7.0 Ur Specific [place] 1.010 Urine Protein 100 H Urine Glucose (UA) Normal Urine Ketones Negative Urine Occult Blood 250 H Urine Nitrite Negative Urine Bilirubin Negative Urine Urobilinogen Normal Ur Leukocyte Esterase 25 H Urine RBC > 100 SEEN Urine WBC 0 SEEN Ur Squamous Epith Cells 25-50 SEEN Amorphous Sediment 1+ PHOS Urine Bacteria 0 SEEN Urine Mucus 0 SEEN Radiography Diagnostic Testing: Clinical Impression(s) from Imaging Studies Abdomen/Pelvis CT 08/03/24 14:42 IMPRESSION: 1. 3 mm proximal left ureteral calculus. Fullness of the left renal pelvis without mile hydronephrosis. Additional nonobstructing intrarenal calculi up to 3 mm. 2. Additional description as above. Reading Location: [facility] Discharge Plan Triage Chief Complaint: Flank Pain ED Provider: Vega Rocha Dx/Rx/DC Orders Clinical Impression: Kidney stone on left side Instructions: ED Kidney Stone with Pain Prescriptions: New hydrocodone-acetaminophen 5-300 mg tablet 1 tab PO Q4H 3 Days Qty: 18 0RF No Action doxepin 25 mg capsule 25 mg PO QHS levothyroxine [Synthroid] 150 mcg Tablet 150 mcg PO DAILY hydroxyzine HCl 25 mg tablet 20 mg PO Q6H PRN (Reason: Pain) Primary Care Provider: Elinor Castellanos NP Referrals: Elinor Castellanos NP, BUSINESS ANALYTICS SPECIALIST-C [Primary Care Provider] - 3-5 Days if not improving Activity Restrictions/Additional Instructions: You have a 3 mm kidney stone on the left. It should pass. Vicodin for pain and alternate with Motrin. Plenty of fluids. Return if fever or intractable pain. Print Language: Swedish Disposition Disposition: Home, Self Care
[2024-08-03] MEDS: Ketorolac 30 MG/ML Syringe IV (14:20)
[2024-08-03] MEDS: morphine 8 MG/ML Syringe IV (14:21)
[2024-08-03] MEDS: Ondansetron 4 MG/2 ML Vial IV (14:21)
[2024-08-03 14:36] LABS: Bacteria 0 SEEN /hpf (None Seen); Mucous, Urine 0 SEEN /hpf (<or=2+); White Blood Cells 0 SEEN /hpf (0-5)
[2024-08-03 14:40] LABS: Glucose, Dipstick Normal (Normal); Ketone-Dipstick Negative (Negative); Leukocyte Esterase-Dipstick 25 /ul (Negative); Nitrite-Dipstick Negative (Negative); Occult Blood-Urine 250 /ul (Negative); Protein-Dipstick 100 mg/dl (Negative); Urine Bilirubin Dipstick Negative (Negative); Urine Clarity Cloudy (Clear); Urine Urobilinogen Normal (Normal)
--- NOTE | 2024-08-03 14:42 | CT_ITS ---
PROCEDURE: ABDOMEN/PELVIS WITHOUT CONT REASON FOR EXAM: Left flank pain. History of kidney stones. TECHNIQUE: CT abdomen and pelvis was performed without IV contrast. Multiplanar reformats were generated. IV CONTRAST: None FINDINGS: Note that evaluation of the abdominopelvic viscera, vasculature, and remaining soft tissues is limited in the absence of IV contrast. Lung bases: Unremarkable. Liver: Unremarkable. Spleen: Unremarkable. Gallbladder: Unremarkable. Pancreas: Unremarkable. Adrenals: Unremarkable. Kidneys: Fullness of the left renal pelvis without mile caliectasis/hydronephrosis. 3 mm calculus in the proximal left ureter. Nonobstructing intrarenal calculi up to 3 mm bilaterally. Grossly similar presumed phleboliths adjacent to the bilateral distal ureter. Bowel: Tiny periampullary duodenal diverticulum. Mild diverticulosis. Normal caliber appendix. Lymph nodes: Unremarkable. Vasculature: Unremarkable. Peritoneum: Unremarkable. Bladder: Decompressed and suboptimally evaluated, grossly unremarkable. Reproductive Organs: Hysterectomy. Body Wall: Unremarkable. Bones: Degenerative disc disease greatest at L5-S1. CT/Abdomen/Pelvis without Cont IMPRESSION: 1. 3 mm proximal left ureteral calculus. Fullness of the left renal pelvis wit hout mile hydronephrosis. Additional nonobstructing intrarenal calculi up to 3 mm. 2. Additional description as above. Reading Location: [id number]
[2024-08-03 14:43] LABS: Color, Urine SEE COMMENT BELOW (Yellow)
[2024-08-03 14:49] LABS: Amorphous Sediment 1+ PHOS; Red Blood Cells-Urine > 100 SEEN /hpf (0-5); Squamous Epithelial Cells - UA 25-50 SEEN /hpf (5-10)
[2024-08-03 15:48] VITALS: BP 139/97
[2024-08-03] MEDS: Morphine 4 MG/ML Syringe IV (16:35)
[2024-08-03 16:38] VITALS: BP 139/97; PULSE 68; RESP 19; TEMP 36.6; O2SAT 99
== END 2024-08-03 16:42 | disposition home or self-care (01) ==
PROVIDERS: Emergency Provider Emergency Medicine; PCP Nurse Practitioner Family; Referring Provider Emergency Medicine; Visit Provider Emergency Medicine
DX: N20.2 Calculus of kidney with calculus of ureter (principal); R31.9 Hematuria, unspecified; E03.9 Hypothyroidism, unspecified; Z79.890 Hormone replacement therapy; Z79.899 Other long term (current) drug therapy; F17.210 Nicotine dependence, cigarettes, uncomplicated; F17.290 Nicotine dependence, other tobacco product, uncomplicated; Z87.442 Personal history of urinary calculi
CPT/HCPCS: 74176; 81001; 96374; 96375; 96376; 99283; A4216; J2405

== ENCOUNTER 2025-04-04 01:57 | Emergency (ER) | payer OTHER, SELFPAY ==
[2025-04-04 01:57] VITALS: BP 140/93; PULSE 132; RESP 18; TEMP 36.8; O2SAT 98; BMI 42.7
[2025-04-04 02:00] VITALS: BP 140/93; PULSE 132; RESP 18; TEMP 36.8; O2SAT 98
[2025-04-04] MEDS: 0.9% Normal Saline (1000mL) 1,000 ML 999 ML IV (02:23)
[2025-04-04 02:32] LABS: Hematocrit 41.2 % (37-47); Hemoglobin 14.2 g/dL (12.0-15.0); Immature Granulocytes Count 0.030 X10^3/uL (0.0-0.0); Mean Corp Hgb Conc 34.5 g/dL (32-36); Mean Corpuscular Volume 94.3 fL (81-99); Mean Platelet Vol. 9.8 fl (6.2-12.0); NRBC Flagged by Analyzer 0 % (0-5); POSITIVE DIFFERENTIAL YES; Platelet Count 148 K/mm3 (150-450); RBC Distribution Width CV 12.7 % (11.6-14.6); RBC Distribution Width SD 43.7 fl (35.1-43.9); Red Blood Count 4.37 M/mm3 (4.2-5.4); White Blood Count 8.4 K/mm3 (4.4-11.0)
[2025-04-04 02:45] LABS: Internal QC Validated? YES +Cl - CLEAR BKGD; Pregnancy, Serum, hCG Quali. NEGATIVE Negative; Record Kit Lot#, Serum Preg. 0000980607
[2025-04-04 02:49] LABS: AST(SGOT) 23 U/L (<=31); Alanine Aminotransfer ALT/SGPT 23 U/L (<=34); Albumin, Serum 4.1 g/dL (3.5-5.0); Alkaline Phosphatase 81 U/L (35-104); Anion Gap 14 (5-15); BUN 14 mg/dL (4-19); BUN/Creat Ratio 18.5 RATIO (10-20); Bilirubin, Direct 0.32 mg/dL (0.00-0.30); Calcium,Total 8.6 mg/dL (7.6-11.0); Carbon Dioxide 17.8 mmol/L (21.0-32.0); Chloride 104 mmol/L (98-108); Estimated Creatinine Clearance 108.05 ml/min (50-250); Globulin 2.5 g/dL (2.2-4.2); Glucose 137 mg/dL (70-99); Lipase 18 U/L (13-75); Magnesium 1.6 mg/dL (1.5-2.2); Potassium 4.0 mmol/L (3.3-5.1)
[2025-04-04 03:17] VITALS: BP 132/94; PULSE 110; RESP 16; O2SAT 97
[2025-04-04 03:18] VITALS: BP 132/94; PULSE 110; RESP 22; TEMP 36.8; O2SAT 98
--- NOTE | 2025-04-04 03:19 | EX.ED.DYSGE1 ---
HPI History of Present Illness Chief Complaint: Abd Pain Informant: patient Narrative Narrative: Patient is a 39-year-old female with past medical history of of anxiety bipolar disorder and GERD. She states that she was recently around her 1-year-old grandchild who was sick with nausea and vomiting. She states that around 5:00 this evening she began with recurrent bouts of vomiting. She denies any blood or discoloration to it. She states that she has not been able to keep any food or fluid down and is continue to vomit throughout the night and secondary to this presents for evaluation [facility] Medical History Constipation Chronic back pain Decreased hearing Bipolar disorder GERD (gastroesophageal reflux disease) Early satiety Kidney stones Hypothyroid Manic bipolar I disorder Anxiety Depression Home Medications ?Medication ?Instructions ?Recorded ?Last Taken ?Type levothyroxine 150 mcg tablet 175 mcg PO DAILY 08/17/21 Unknown History (Synthroid) Saccharomyces boulardii 250 mg 250 mg PO BID 03/27/25 Unknown History capsule (Digest Probiotic (S.boulardii)) amlodipine 5 mg tablet 5 mg PO QDAY 03/27/25 Unknown History doxepin 25 mg capsule 25 mg PO QHS #30 caps 03/27/25 Unknown Rx hydroxyzine HCl 25 mg tablet 25 mg PO Q6H PRN anxiety #120 tabs 03/27/25 Unknown Rx lamotrigine 25 mg tablet 25 mg PO QDAY #46 tabs 03/27/25 Unknown Rx meloxicam 7.5 mg tablet 7.5 mg PO BID PRN pain 03/27/25 Unknown History omeprazole 40 mg capsule,delayed 40 mg PO QDAY PRN reflux 03/27/25 Unknown History release albuterol sulfate 90 mcg/actuation 2 puff inhalation Q4H PRN PRN 04/04/25 Unknown History aerosol inhaler wheezing dicyclomine 20 mg tablet 20 mg PO 4X/DAY PRN Abdominal 04/04/25 Unknown Rx bloating/spasm #28 tabs prochlorperazine maleate 10 mg 10 mg PO TID PRN nausea and 04/04/25 Unknown Rx tablet (Compazine) vomiting #21 tabs Allergy/AdvReac Type Severity Reaction Status Date / Time moxifloxacin HCl (From Allergy Hives Verified 04/04/25 02:00 Avelox) trazodone Allergy Hives Verified 04/04/25 02:00 tramadol AdvReac Intermediate tachycardia Verified 04/04/25 02:00 Latex, Natural Rubber AdvReac Rash Verified 04/04/25 02:00 nitrofurantoin (From AdvReac Hives Verified 04/04/25 02:00 Macrobid) Penicillins (PCN) AdvReac Nausea/Vom/ Verified 04/04/25 02:00 Diarrhea Family History (Updated 03/27/25 @ 10:42 by Evelin Douglas) Mother Hypertension Thyroid disorder Kidney disease Mental health disorder Father Hypertension Surgical History History of 3 sections History of partial hysterectomy History of back surgery Social History (Updated 03/27/25 @ 10:43 by Evelin Douglas) housing: house Smoking Status: Current every day smoker tobacco type: cigarettes and e-cigarettes alcohol intake: current alcohol intake frequency: holidays/special occasions only substance use type: does not use ROS ROS ED Constitutional Constitutional ED: Denies chills or fever(s) Eyes Eyes: Denies change in vision ENT ENT ED: Denies sore throat Cardiovascular Cardiovascular: Denies chest pain Respiratory/Chest Respiratory/Chest: Denies cough or dyspnea Gastrointestinal Gastrointestinal: Reports abdominal pain, nausea and vomiting; Denies diarrhea Genitourinary Genitourinary ED: Denies dysuria Musculoskeletal Musculoskeletal: Reports myalgias Integumentary Denies rash Neurologic Neurologic: Reports headache(s) Psychiatric Psychiatric: Reports anxiety Hematologic/Lymphatic Hematologic/Lymphatic: Denies easy bleeding or easy bruising EXAM Physical Exam Const Vital Signs: 04/04/25 01:57 04/04/25 02:00 04/04/25 03:17 Temperature 98.3 F 98.3 F Temperature Source Oral Oral Pulse Rate 132 H 132 H 110 H Respiratory Rate 18 18 16 Blood Pressure 140/93 H 140/93 H 132/94 H Blood Pressure Mean 108 108 106 Pulse Ox 98 98 97 Oxygen Delivery Method Room Air Room Air Room Air 04/04/25 03:18 Temperature 98.2 F Temperature Source Pulse Rate 110 H Respiratory Rate 22 H Blood Pressure 132/94 H Blood Pressure Mean 106 Pulse Ox 98 Oxygen Delivery Method Positive well nourished, well developed and obese General Appearance ED: well developed; Negative for pallor Nutritional Appearance: obese HEENT Reports dry mucous membranes HEENT Narrative: Normocephalic atraumatic No tongue or lip swelling no oral lesions no airway edema or compromise No secondary findings in the posterior pharynx to suggest infection Mouth ED: Yes dry mucous membranes Mouth: dry mucous membranes Eyes PERRL and EOMs intact bilaterally General Eye ED: Negative for scleral icterus Neck supple Resp normal respiratory effort and clear to auscultation bilaterally Cardio regular rhythm Rate: tachycardic and other Other Details: Tachycardic rate with regular rhythm No murmurs rubs or gallop Radial and carotid pulses are equal and symmetric GI non-distended and no masses GI Narrative: Abdomen is soft and nondistended with hyperactive bowel sounds There is mild diffuse pain with palpation but no voluntary guarding or rigidity No pulsatile mass or fluid wave Auscultation: hyperactive bowel sounds Palpation: soft Back/Spine no CVA tenderness Extremity normal to inspection Neuro oriented x3, CN's II-XII intact bilaterally and no sensory deficits noted Sensorium / Orientation: alert Motor Exam: strength 5/5 throughout Psych mental status grossly normal Skin no rashes or lesions noted and No skin turgor normal Skin Narrative: Skin turgor is increased consistent with dehydration General Skin Exam: Negative for jaundice or pallor MDM MDM MDM Narrative Medical decision making narrative: Patient arrived the ER tachycardic but otherwise with stable vitals. She reported known sick contact with similar symptoms. Her history and exam is most consistent with a viral stomach infection such as rotavirus or norovirus. However in order to assess for potential biliary colic versus acute cholecystitis versus pancreatitis versus severe dehydration leading to acute kidney injury or electrolyte abnormality basic blood work was obtained. As symptoms could be atypical presentation for COVID influenza or RSV a viral swab was ordered as well. Labs revealed no clinically significant findings other than the fact her bicarb is low at 18 which would correlate with dehydration and the fact she has been vomiting. She was given IV hydration and Compazine. Following treatment she had improvement of her heart rate and resolution of symptoms with no further bouts of vomiting in the ER. On reevaluation her abdomen remains soft and nonsurgical. Therefore it is history exam and workup indicate this is most likely viral in nature and she does not have findings of pancreatitis or severe dehydration or RIGO there is no need for further intervention and she is otherwise safe for discharge History & Record Review Discussion w/independent historian: Patient Lab Data Attestation: I reviewed the patient's lab results. Labs: Laboratory Results - last 24 hr 04/04/25 02:22 WBC 8.4 RBC 4.37 Hgb 14.2 Hct 41.2 MCV 94.3 MCH 32.5 H MCHC 34.5 RDW Std Deviation 43.7 RDW Coeff of Michele 12.7 Plt Count 148 L MPV 9.8 Immature Gran % (Auto) 0.400 Neut % (Auto) 92.0 H Lymph % (Auto) 3.0 L Mccone % (Auto) 3.6 Eos % (Auto) 0.8 Baso % (Auto) 0.2 Absolute Neuts (auto) 7.7 Absolute Lymphs (auto) 0.25 L Nucleated RBC % 0 Sodium 135 Potassium 4.0 Chloride 104 Carbon Dioxide 17.8 L Anion Gap 14 BUN 14 Creatinine 0.74 Estim Creat Clear Calc 108.05 Est GFR (MDRD) Non-Af 106 BUN/Creatinine Ratio 18.5 Glucose 137 H Calcium 8.6 Magnesium 1.6 Total Bilirubin 0.75 Direct Bilirubin 0.32 H AST 23 ALT 23 Alkaline Phosphatase 81 Total Protein 6.6 Albumin 4.1 Globulin 2.5 Lipase 18 Serum , Qual NEGATIVE Discharge Plan Triage Chief Complaint: Abd Pain ED Provider: Gopi Vergara Dx/Rx/DC Orders Clinical Impression: Nausea and vomiting, Dehydration, Bipolar 1 disorder, KARAN (generalized anxiety disorder), GERD (gastroesophageal reflux disease) Instructions: ED Dehydration (Adult), ED Gastroenteritis, Viral (Adult) Prescriptions: New dicyclomine 20 mg tablet 20 mg PO 4X/DAY PRN (Reason: Abdominal bloating/spasm) Qty: 28 0RF prochlorperazine maleate [Compazine] 10 mg tablet 10 mg PO TID PRN (Reason: nausea and vomiting) Qty: 21 0RF No Action amlodipine 5 mg tablet 5 mg PO QDAY omeprazole 40 mg capsule,delayed release(DR/EC) 40 mg PO QDAY PRN (Reason: reflux ) meloxicam 7.5 mg tablet 7.5 mg PO BID PRN (Reason: pain) Saccharomyces boulardii [Digest Probiotic (S.boulardii)] 250 mg capsule 250 mg PO BID lamotrigine 25 mg tablet 25 mg PO QDAY Qty: 46 0RF Rx Instructions: take 1 tablet daily for 14 days then take 2 tablets daily thereafter doxepin 25 mg capsule 25 mg PO QHS Qty: 30 1RF hydroxyzine HCl 25 mg tablet 25 mg PO Q6H PRN (Reason: anxiety) Qty: 120 1RF levothyroxine [Synthroid] 150 mcg Tablet 175 mcg PO DAILY albuterol sulfate 90 mcg/actuation HFA aerosol inhaler 2 puff INHALATION Q4H PRN PRN (Reason: wheezing) Stand Alone Forms: ED Work / School Excuse Primary Care Provider: Elinor Castellanos NP Referrals: Elinor Castellanos NP, [facility] [Primary Care Provider, Family Practice] Activity Restrictions/Additional Instructions: Your workup today showed mild dehydration but no other clinically significant findings. Symptoms are most likely related to a viral stomach infection. This will spontaneous resolved and last anywhere from 24 hours to 7 days with the average being 3 days. Take the prescribed medication to help with symptom relief and stay well-hydrated. Return to the ER should you have any further concerns Print Language: Thai Disposition Disposition: Home, Self Care Discharge Date/Time: 04/04/25 04:00
== END 2025-04-04 04:00 | disposition home or self-care (01) ==
PROVIDERS: Emergency Provider Emergency Medicine; PCP Nurse Practitioner Family; Visit Provider Emergency Medicine
DX: R11.2 Nausea with vomiting, unspecified (principal); F31.9 Bipolar disorder, unspecified; F41.1 Generalized anxiety disorder; Z11.52 Encounter for screening for COVID-19; E86.0 Dehydration; R10.9 Unspecified abdominal pain; K21.9 Gastro-esophageal reflux disease without esophagitis; M54.9 Dorsalgia, unspecified; F17.210 Nicotine dependence, cigarettes, uncomplicated; Z79.890 Hormone replacement therapy; Z79.899 Other long term (current) drug therapy
CPT/HCPCS: 80048; 80076; 83690; 83735; 84703; 85025; 87631; 96361; 96374; 99283; A4216